=== PATIENT | female | born 1945 | race Caucasian/White ===

== ENCOUNTER → 2016-12-19 | Outpatient (CLI) | payer MEDICARE ==
--- NOTE | 2016-12-19 20:53 | US ---
EXAMINATION TYPE: US kidneys/renal and bladder DATE OF EXAM: 12/19/2016 4:10 PM COMPARISON: NONE CLINICAL HISTORY: N17.9 Acute Kidney Injury. KHLOE, pt has no other complaints at this time EXAM MEASUREMENTS: Right Kidney: 9.9 x 5.6 x 4.7 cm Left Kidney: 10.6 x 5.4 x 4.5 cm Difficult exam, large pt body habitus There is no evidence for hydronephrosis at this point in time. No nephrolithiasis is seen. No prakash s are identified. The urinary bladder is anechoic. IMPRESSION: 1. No definite acute process.
== END | disposition home or self-care (01) ==
LOC: RADUSWWP 15:49
PROVIDERS: ATTEND Internal Medicine Nephrology
DX: N17.9 Acute kidney failure, unspecified (principal)
CPT/HCPCS: 76770

== ENCOUNTER 2017-07-11 20:12 | Inpatient (IN) | payer MEDICARE ==
[2017-07-11] MEDS ORDERED: IPRATROPIUM-ALBUTEROL 3 ML NEB INHALATION STA (20:44)
[2017-07-11] MEDS ORDERED: methylPREDNISolone SOD SUCCI 125 MG/2 ML VIAL IV STA (20:44)
[2017-07-11] MEDS ORDERED: SODIUM CHLORIDE 0.9% 1,000 ML IV STA (20:44)
--- NOTE | 2017-07-11 21:49 | ED ---
General Adult HPI - General Source: patient Mode of arrival: wheelchair Limitations: no limitations <Deshawn Beach - Last Filed: 07/11/17 21:47> <Tramaine Perez - Last Filed: 07/12/17 01:18> - General Chief complaint: Altered Mental Status Stated complaint: altered mental Time Seen by Provider: 07/11/17 20:41 - History of Present Illness Initial comments: This 71-year-old white female presents with a complaint of some cough, difficulty in breathing, and wheezing. She does have a history of oxygen dependent COPD. She also noted that her memory was worse today and she felt confused at times. She denies any fevers or chills. She denies any chest pain. She is a somewhat poor historian and there is no family currently available. History is somewhat limited. No other identifiable complaints or modifying factors. There is no leg pain or swelling or history of DVT or PE. ( Deshawn Beach) - Related Data Home Medications Medication Instructions Recorded Confirmed Albuterol Nebulized [Ventolin 2.5 mg INHALATION RT-QID PRN 12/12/16 07/11/17 Nebulized] Aspirin [Adult Low Dose Aspirin EC] 81 mg PO DAILY 12/12/16 07/11/17 Atenolol [Tenormin] 100 mg PO HS 12/12/16 07/11/17 Citalopram Hydrobromide [CeleXA] 20 mg PO DAILY 12/12/16 07/11/17 Ergocalciferol (Vitamin D2) 50,000 unit PO Q30D 12/12/16 07/11/17 [Vitamin D2] Glimepiride [Amaryl] 1 mg PO AC-BRKFST 12/12/16 07/11/17 Pravastatin Sodium [Pravachol] 20 mg PO DAILY 12/12/16 07/11/17 Pregabalin [Lyrica] 50 mg PO TID 12/12/16 07/11/17 rOPINIRole HCL [Requip] 1 mg PO BID 12/12/16 07/11/17 Allopurinol [Zyloprim] 100 mg PO DAILY 07/11/17 07/11/17 Calcitriol [Rocaltrol] 0.25 mcg PO WE 07/11/17 07/11/17 Sacubitril/Valsartan [Entresto 24 1 tab PO DAILY 07/11/17 07/11/17 mg-26 mg Tablet] Victoza(Unknown Dose) 1 dose SQ DAILY 07/11/17 07/11/17 Allergies Allergy/AdvReac Type Severity Reaction Status Date / Time morphine Allergy Swelling Verified 07/11/17 21:13 Review of Systems ROS Other: All systems not noted in ROS Statement are negative. <Deshawn Beach - Last Filed: 07/11/17 21:47> ROS Other: All systems not noted in ROS Statement are negative. <Tramaine Perez - Last Filed: 07/12/17 01:18> ROS Statement: Those systems with pertinent positive or pertinent negative responses have been documented in the HPI. Past Medical History Past Medical History: Diabetes Mellitus, Hyperlipidemia, Hypertension Additional Past Medical History / Comment(s): CHF, arthritis, restless leg History of Any Multi-Drug Resistant Organisms: None Reported Past Surgical History: Heart Catheterization, Orthopedic Surgery Additional Past Surgical History / Comment(s): Lap band Past Psychological History: Anxiety, Depression Smoking Status: Former smoker Past Alcohol Use History: None Reported Past Drug Use History: None Reported <Deshawn Beach - Last Filed: 07/11/17 21:47> General Exam Limitations: no limitations <Deshawn Beach - Last Filed: 07/11/17 21:47> <Tramaine Perez - Last Filed: 07/12/17 01:18> - General Exam Comments Initial Comments: GENERAL: The patient is well nourished and well hydrated. VITAL SIGNS: Heart rate, blood pressure, respiratory rate reviewed as recorded in nurse's notes. EYES: Pupils are round and reactive. Extraocular movements are intact. No conjunctival / lid redness or swelling. ENT: No external evidence of injury, swelling, or ecchymosis. Airway is patent. Throat is clear. NECK: Nontender. No swelling or evidence of injury. No subcutaneous emphysema. Trachea is midline. No thyroid mass. HEART: Regular rate and rhythm. Good peripheral pulses. LUNGS/CHEST: Wheezing is noted bilaterally. Patient is tachypneic. No ecchymosis, subcutaneous emphysema, or tenderness. ABDOMEN: Abdomen soft without tenderness. No palpable masses or organomegaly. No peritoneal signs. No abdominal wall swelling or ecchymosis. EXTREMITIES: No extremity tenderness. Normal muscle tone and function. No thoracolumbar tenderness. NEUROLOGIC: Sensation is grossly intact. Cranial nerve exam reveals face is symmetrical, tongue is midline, speech is clear. SKIN: No abrasions or ecchymosis is noted. No induration or masses noted. PSYCHIATRIC: Alert and oriented. Appropriate behavior and judgment. (Deshawn Beach) Medical Decision Making <Deshawn Beach - Last Filed: 07/11/17 21:47> - Lab Data Result diagrams: 07/11/17 21:40 07/11/17 22:30 <Tramaine Perez - Last Filed: 07/12/17 01:18> - Medical Decision Making The patient is seen and examined. All diagnostics were reviewed. The patient had an EKG done which is show normal sinus rhythm at a rate of 65. There is no acute ST-T wave changes noted. The VT intervals 166, QRS duration is 92, and the QTc interval is 411. Further studies are pending and further care will be passed off to oncoming physician. (Deshawn Beach) - Lab Data Lab Results 07/11/17 07/11/17 07/11/17 Range/Units 21:40 21:40 21:40 WBC 11.5 H (3.8-10.6) k/uL RBC 3.20 L (3.80-5.40) m/uL Hgb 9.6 L (11.4-16.0) gm/dL Hct 29.9 L (34.0-46.0) % MCV 93.2 (80.0-100.0) fL MCH 30.1 (25.0-35.0) pg MCHC 32.3 (31.0-37.0) g/dL RDW 13.7 (11.5-15.5) % Plt Count 256 (150-450) k/uL Neutrophils % 87 % Lymphocytes % 7 % Monocytes % 4 % Eosinophils % 1 % Basophils % 0 % Neutrophils # 10.0 H (1.3-7.7) k/uL Lymphocytes # 0.8 L (1.0-4.8) k/uL Monocytes # 0.5 (0-1.0) k/uL Eosinophils # 0.1 (0-0.7) k/uL Basophils # 0.1 (0-0.2) k/uL Hypochromasia Slight PT (9.0-12.0) sec INR (<1.2) APTT (22.0-30.0) sec Sample Site ABG pH (7.35-7.45) ABG pCO2 (35-45) mmHg ABG pO2 (83-108) mmHg ABG HCO3 (21-25) mmol/L ABG Total CO2 (19-24) mmol/L ABG O2 Saturation (94-97) % ABG Base Excess mmol/L FiO2 % Sodium 133 L (137-145) mmol/L Potassium 6.6 H* (3.5-5.1) mmol/L Chloride 99 (98-107) mmol/L Carbon Dioxide 26 (22-30) mmol/L Anion Gap 8 mmol/L BUN 75 H (7-17) mg/dL Creatinine 3.24 H (0.52-1.04) mg/dL Est GFR (MDRD) Af Amer 17 (>60 ml/min/1.73 sqM) Est GFR (MDRD) Non-Af 14 (>60 ml/min/1.73 sqM) Glucose 96 (74-99) mg/dL Calcium 8.5 (8.4-10.2) mg/dL Total Bilirubin 0.3 (0.2-1.3) mg/dL AST 15 (14-36) U/L ALT 19 (9-52) U/L Alkaline Phosphatase 117 (38-126) U/L Ammonia (<30) umol/L Total Creatine Kinase 33 (30-135) U/L CK-MB (CK-2) 1.1 (0.0-2.4) ng/mL CK-MB (CK-2) Rel Index 3.3 Troponin I <0.012 (0.000-0.034) ng/mL NT-Pro-B Natriuret Pep pg/mL Total Protein 7.2 (6.3-8.2) g/dL Albumin 3.4 L (3.5-5.0) g/dL Urine Color Urine Appearance (Clear) Urine pH (5.0-8.0) Ur Specific [place] (1.001-1.035) Urine Protein (Negative) Urine Glucose (UA) (Negative) Urine Ketones (Negative) Urine Blood (Negative) Urine Nitrite (Negative) Urine Bilirubin (Negative) Urine Urobilinogen (<2.0) mg/dL Ur Leukocyte Esterase (Negative) Urine RBC (0-5) /hpf Urine WBC (0-5) /hpf Urine WBC Clumps (None) /hpf Ur Squamous Epith Cells (0-4) /hpf Ur Renal Epithelial Cell (0) /hpf Amorphous Sediment (None) /hpf Urine Bacteria (None) /hpf Hyaline Casts (0-2) /lpf Urine Mucus (None) /hpf 07/11/17 07/11/17 07/11/17 Range/Units 21:40 21:40 21:40 WBC (3.8-10.6) k/uL RBC (3.80-5.40) m/uL Hgb (11.4-16.0) gm/dL Hct (34.0-46.0) % MCV (80.0-100.0) fL MCH (25.0-35.0) pg MCHC (31.0-37.0) g/dL RDW (11.5-15.5) % Plt Count (150-450) k/uL Neutrophils % % Lymphocytes % % Monocytes % % Eosinophils % % Basophils % % Neutrophils # (1.3-7.7) k/uL Lymphocytes # (1.0-4.8) k/uL Monocytes # (0-1.0) k/uL Eosinophils # (0-0.7) k/uL Basophils # (0-0.2) k/uL Hypochromasia PT 10.8 (9.0-12.0) sec INR 1.1 (<1.2) APTT 24.4 (22.0-30.0) sec Sample Site ABG pH (7.35-7.45) ABG pCO2 (35-45) mmHg ABG pO2 (83-108) mmHg ABG HCO3 (21-25) mmol/L ABG Total CO2 (19-24) mmol/L ABG O2 Saturation (94-97) % ABG Base Excess mmol/L FiO2 % Sodium (137-145) mmol/L Potassium (3.5-5.1) mmol/L Chloride (98-107) mmol/L Carbon Dioxide (22-30) mmol/L Anion Gap mmol/L BUN (7-17) mg/dL Creatinine (0.52-1.04) mg/dL Est GFR (MDRD) Af Amer (>60 ml/min/1.73 sqM) Est GFR (MDRD) Non-Af (>60 ml/min/1.73 sqM) Glucose (74-99) mg/dL Calcium (8.4-10.2) mg/dL Total Bilirubin (0.2-1.3) mg/dL AST (14-36) U/L ALT (9-52) U/L Alkaline Phosphatase (38-126) U/L Ammonia 12 (<30) umol/L Total Creatine Kinase (30-135) U/L CK-MB (CK-2) (0.0-2.4) ng/mL CK-MB (CK-2) Rel Index Troponin I (0.000-0.034) ng/mL NT-Pro-B Natriuret Pep 62374 pg/mL Total Protein (6.3-8.2) g/dL Albumin (3.5-5.0) g/dL Urine Color Urine Appearance (Clear) Urine pH (5.0-8.0) Ur Specific [place] (1.001-1.035) Urine Protein (Negative) Urine Glucose (UA) (Negative) Urine Ketones (Negative) Urine Blood (Negative) Urine Nitrite (Negative) Urine Bilirubin (Negative) Urine Urobilinogen (<2.0) mg/dL Ur Leukocyte Esterase (Negative) Urine RBC (0-5) /hpf Urine WBC (0-5) /hpf Urine WBC Clumps (None) /hpf Ur Squamous Epith Cells (0-4) /hpf Ur Renal Epithelial Cell (0) /hpf Amorphous Sediment (None) /hpf Urine Bacteria (None) /hpf Hyaline Casts (0-2) /lpf Urine Mucus (None) /hpf 07/11/17 07/11/17 07/11/17 Range/Units 21:55 22:30 23:11 WBC (3.8-10.6) k/uL RBC (3.80-5.40) m/uL Hgb (11.4-16.0) gm/dL Hct (34.0-46.0) % MCV (80.0-100.0) fL MCH (25.0-35.0) pg MCHC (31.0-37.0) g/dL RDW (11.5-15.5) % Plt Count (150-450) k/uL Neutrophils % % Lymphocytes % % Monocytes % % Eosinophils % % Basophils % % Neutrophils # (1.3-7.7) k/uL Lymphocytes # (1.0-4.8) k/uL Monocytes # (0-1.0) k/uL Eosinophils # (0-0.7) k/uL Basophils # (0-0.2) k/uL Hypochromasia PT (9.0-12.0) sec INR (<1.2) APTT (22.0-30.0) sec Sample Site LRAD ABG pH 7.24 L (7.35-7.45) ABG pCO2 58 H (35-45) mmHg ABG pO2 87 (83-108) mmHg ABG HCO3 24 (21-25) mmol/L ABG Total CO2 26 H (19-24) mmol/L ABG O2 Saturation 95.0 (94-97) % ABG Base Excess -2.1 mmol/L FiO2 32 % Sodium (137-145) mmol/L Potassium 6.1 H (3.5-5.1) mmol/L Chloride (98-107) mmol/L Carbon Dioxide (22-30) mmol/L Anion Gap mmol/L BUN (7-17) mg/dL Creatinine (0.52-1.04) mg/dL Est GFR (MDRD) Af Amer (>60 ml/min/1.73 sqM) Est GFR (MDRD) Non-Af (>60 ml/min/1.73 sqM) Glucose (74-99) mg/dL Calcium (8.4-10.2) mg/dL Total Bilirubin (0.2-1.3) mg/dL AST (14-36) U/L ALT (9-52) U/L Alkaline Phosphatase (38-126) U/L Ammonia (<30) umol/L Total Creatine Kinase (30-135) U/L CK-MB (CK-2) (0.0-2.4) ng/mL CK-MB (CK-2) Rel Index Troponin I (0.000-0.034) ng/mL NT-Pro-B Natriuret Pep pg/mL Total Protein (6.3-8.2) g/dL Albumin (3.5-5.0) g/dL Urine Color Yellow Urine Appearance Cloudy H (Clear) Urine pH 5.5 (5.0-8.0) Ur Specific [place] 1.011 (1.001-1.035) Urine Protein 3+ H (Negative) Urine Glucose (UA) Negative (Negative) Urine Ketones Negative (Negative) Urine Blood Large H (Negative) Urine Nitrite Negative (Negative) Urine Bilirubin Negative (Negative) Urine Urobilinogen <2.0 (<2.0) mg/dL Ur Leukocyte Esterase Trace H (Negative) Urine RBC 126 H (0-5) /hpf Urine WBC 13 H (0-5) /hpf Urine WBC Clumps Rare H (None) /hpf Ur Squamous Epith Cells <1 (0-4) /hpf Ur Renal Epithelial Cell <1 (0) /hpf Amorphous Sediment Rare H (None) /hpf Urine Bacteria Rare H (None) /hpf Hyaline Casts 9 H (0-2) /lpf Urine Mucus Rare H (None) /hpf Critical Care Time <Deshawn Beach - Last Filed: 07/11/17 21:47> Total Critical Care Time: 30 <Tramaine Perez - Last Filed: 07/12/17 01:18> Critical Care Time: She is reassessed at that Time she still confused, reviewed all her labs, creatinine has gone up from 1.2-2.5 CBC is normal INR is normal pH is 7.4 bicarb is 24. No PCO to his heart troponin is unremarkable noticed her potassium is 6.6, it's reputed to 6.1, she was given some Kayexalate, dextrose 50 with insulin and some mom albuterol neb considering she 7. Failure. I considered congestive heart failure and renal failure we'll consult cardiology as well as nephrology and she be admitted to Dr. Manuels service (Tramaine Perez) Disposition <Deshawn Beach - Last Filed: 07/11/17 21:47> <Tramaine Perez - Last Filed: 07/12/17 01:18> Clinical Impression: Congestive heart failure, Altered mental status, UTI (urinary tract infection) , Acute renal failure Disposition: ADMITTED IP TO THIS HOSP Condition: Fair Referrals: Adolfo Pulido DO [Primary Care Provider] - 1-2 days
[2017-07-11 22:00] LABS: Basophils # (A) 0.1 k/uL (0-0.2); Basophils % (A) 0 %; CHCM 32.3; Eosinophils # (A) 0.1 k/uL (0-0.7); Eosinophils % (A) 1 %; HCT 29.9 % (34.0-46.0); HDW 3.26; HGB 9.6 gm/dL (11.4-16.0); Hypochromasia Slight; Luc # (Auto) 0.15; Luc % (Auto) 1; Lymphocytes # (A) 0.8 k/uL (1.0-4.8); Lymphocytes % (A) 7 %; MCH 30.1 pg (25.0-35.0); MCHC 32.3 g/dL (31.0-37.0); MCV 93.2 fL (80.0-100.0); Mean Platelet Volume 7.4; Monocytes # (A) 0.5 k/uL (0-1.0); Monocytes % (A) 4 %; Neutrophils % (A) 87 %; RDW 13.7 % (11.5-15.5); WBC 11.5 k/uL (3.8-10.6); WBC (Perox) 11.27
[2017-07-11 22:08] LABS: INR 1.1 (<1.2); Partial Thromboplastin Time 24.4 sec (22.0-30.0); Prothrombin Time 10.8 sec (9.0-12.0)
[2017-07-11 22:12] LABS: ABG Base Excess -2.1 mmol/L; ABG HCO3 24 mmol/L (21-25); ABG PCO2 58 mmHg (35-45); ABG PH 7.24 (7.35-7.45); ABG PO2 87 mmHg (83-108); ABG TCO2 26 mmol/L (19-24)
[2017-07-11 22:14] LABS: Calcium 8.5 mg/dL (8.4-10.2); Total Bilirubin 0.3 mg/dL (0.2-1.3); Total Protein 7.2 g/dL (6.3-8.2)
[2017-07-11 22:19] LABS: Potassium 6.6 mmol/L (3.5-5.1)
[2017-07-11 22:26] LABS: Creatine Kinase 33 U/L (30-135)
[2017-07-11 22:39] LABS: Creatine Kinase MB 1.1 ng/mL (0.0-2.4); Troponin I <0.012 ng/mL (0.000-0.034)
--- NOTE | 2017-07-11 22:55 | XR ---
EXAMINATION TYPE: XR chest 2V DATE OF EXAM: 07/11/2017 COMPARISON: 10/21/2014 HISTORY: Difficulty breathing TECHNIQUE: Frontal and lateral views of the chest are obtained. FINDINGS: There is blunting of costophrenic angles. There is pulmonary vascular congestion and inter stitial edema. Heart is enlarged. There are chest leads. Bony thorax shows some mild anterior wedging of mid thoracic vertebra. IMPRESSION: Old mild T7 compression fracture. There is new congestive heart failure with pleural eff usions compared to last exam.
[2017-07-11] MEDS ORDERED: FLUCONAZOLE 150 MG TAB PO STA (23:27)
[2017-07-11] MEDS ORDERED: hydrALAZINE HCL 20 MG/ML 1 ML VIAL IVP STA (23:27)
[2017-07-11 23:30] LABS: Amorphous Sediment,Urine Rare /hpf; Appearance,Urine Cloudy (Clear); Bacteria,Urine Rare /hpf; Bilirubin,Urine Negative (Negative); Glucose,Urine (UA) Negative (Negative); Ketones,Urine Negative (Negative); Leukocyte Esterase,Urine Trace (Negative); Mucus,Urine Rare /hpf; Nitrite,Urine Negative (Negative); PH, Urine 5.5 (5.0-8.0); Particle Count 4096; Protein,Urine 3+ (Negative); RBC,Urine 126 /hpf (0-5); Renal Epithelial Cells,Urine <1 /hpf (0); Specific Gravity,Urine 1.011 (1.001-1.035); Squamous Epithelial Cell,Urine <1 /hpf (0-4); UA Billing (MACRO vs. MICRO) MICRO; Urobilinogen,Urine <2.0 mg/dL (<2.0); WBC,Urine 13 /hpf (0-5)
[2017-07-12] MEDS ORDERED: SODIUM POLYSTYRENE SULFONATE 15 GM/60 ML BOTTLE PO STA ×2 (00:58→08:47)
[2017-07-12] MEDS ORDERED: DEXTROSE 50%-WATER 50 ML SYRINGE IVP STA (01:02)
[2017-07-12] MEDS ORDERED: INSULIN REGULAR 100 UNIT/ML VIAL IV ONE (01:03)
[2017-07-12] MEDS ORDERED: ALBUTEROL NEBULIZED 2.5 MG/3 ML INHALATION STA (01:04)
[2017-07-12] MEDS ORDERED: FUROSEMIDE 10 MG/ML 4 ML VIAL IV STA ×2 (01:08→12:58)
[2017-07-12] MEDS ORDERED: ONDANSETRON 4 MG/2 ML VIAL IVP PRN (01:19)
[2017-07-12] MEDS ORDERED: NALOXONE 0.4 MG/ML 1 ML VIAL IV PRN (01:19)
[2017-07-12] MEDS ORDERED: cefTRIAXone 2,000 MG in SODIUM CHLORIDE 0.9% 100 ML IVPB STA (01:26)
[2017-07-12] MEDS ORDERED: ALBUTEROL NEBULIZED 2.5 MG/3 ML INHALATION PRN (01:26)
--- NOTE | 2017-07-12 01:55 | CT ---
EXAMINATION TYPE: CT brain wo con DATE OF EXAM: 07/12/2017 COMPARISON: 02/20/2015 HISTORY: AMS CT DLP: 1098.80 mGycm Automated exposure control for dose reduction was used. FINDINGS: There is patchy hypodensity in the periventricular white matter. There is no mass effect nor midline shift. There is no sign of intracranial hemorrhage. The calvarium is intact. IMPRESSION: ATROPHY AND CHRONIC SMALL VESSEL ISCHEMIA. NO SIGNIFICANT CHANGE COMPARED TO OLD EXAM.
[2017-07-12 02:55] VITALS: BMI 40.1
[2017-07-12 07:06] LABS: Glucose,Whole Blood 286 mg/dL (75-99)
[2017-07-12 07:20] LABS: Basophils % (A) 0 %; CH 30.9; CHCM 32.7; Eosinophils % (A) 0 %; HCT 28.8 % (34.0-46.0); HDW 2.99; HGB 9.4 gm/dL (11.4-16.0); Luc # (Auto) 0.02; Luc % (Auto) 0; Lymphocytes # (A) 0.3 k/uL (1.0-4.8); Lymphocytes % (A) 2 %; MCH 30.9 pg (25.0-35.0); MCHC 32.6 g/dL (31.0-37.0); MCV 94.7 fL (80.0-100.0); Mean Platelet Volume 7.9; Monocytes # (A) 0.2 k/uL (0-1.0); Monocytes % (A) 2 %; Neutrophils # (A) 11.1 k/uL (1.3-7.7); Neutrophils % (A) 96 %; RBC 3.04 m/uL (3.80-5.40); RDW 14.7 % (11.5-15.5); WBC 11.7 k/uL (3.8-10.6); WBC (Perox) 12.38
[2017-07-12 07:28] LABS: Calcium 8.3 mg/dL (8.4-10.2)
[2017-07-12] MEDS ORDERED: GLIMEPIRIDE 1 MG TAB PO SCH (07:30)
[2017-07-12 07:43] LABS: Potassium 6.2 mmol/L (3.5-5.1)
[2017-07-12] MEDS ORDERED: ALBUTEROL NEBULIZED (CONC) 10 MG, SODIUM CHLORIDE 0.9% NEBULIZ 3 ML INHALATION STA ×2 (08:14)
[2017-07-12] MEDS: CITALOPRAM HYDROBROMIDE 20 MG TAB PO SCH (08:48)
[2017-07-12] MEDS: ASPIRIN 81 MG PO SCH (08:48)
[2017-07-12] MEDS: PRAVASTATIN SODIUM 20 MG TAB PO SCH (08:49)
[2017-07-12] MEDS ORDERED: INSULIN GLARGINE 100 UNIT/ML 10 ML VIAL SQ SCH (09:00)
[2017-07-12] MEDS ORDERED: CALCITRIOL 0.25 MCG CAP PO SCH (09:00)
[2017-07-12] MEDS ORDERED: ERGOCALCIFEROL 50,000 UNIT CAP PO SCH (09:00)
[2017-07-12] MEDS ORDERED: PREGABALIN 50 MG CAP PO SCH (09:00)
[2017-07-12 09:14] LABS: VBG PH 7.22 (7.31-7.41)
--- NOTE | 2017-07-12 09:46 | P.NPCON ---
History of Present Illness - Reason for Consult acute renal failure - History of Present Illness Reason for consultation: Acute kidney injury and hyperkalemia History of present illness: Patient is a 71-year-old female seen in renal consultation for acute kidney injury. It appears patient has chronic kidney disease stage III with baseline creatinine near 1.2. Etiology is likely to be nephrosclerosis. Her urinalysis in November 2016 was completely benign. Her renal ultrasound from November 2016 also revealed no evidence of hydronephrosis. Patient presented with dyspnea and cough. She was noted to be more confused according to the family and was brought to the hospital. She does have history of COPD and requires home oxygen. Her creatinine was elevated at 3.24 on admission and is down to 3.03 today. Her potassium is also elevated at 6.2 this morning. Was 6.6 on admission. She did receive Kayexalate along with albuterol and Lasix. She was taking and Trostel at home which is currently on hold. Her chest x-ray was suggestive of vascular congestion and interstitial edema. She has history of diastolic CHF. Denies any vomiting or diarrhea but states appetite has been low the last few days. She was also having difficulty voiding. She now has a Dockery catheter in place. No evidence of hypotension. Her blood pressures have been mostly in the range of systolic 170s to 190s. Denies use of NSAIDs at home. 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 Denies family history of renal disease. Vital signs are stable. General: The patient appeared well nourished and normally developed. HEENT: Head exam is unremarkable. Neck is without jugular venous distension. LUNGS: Lungs are clear to auscultation and percussion. Breath sounds decreased. HEART: Rate and Rhythm are regular. First and second heart sounds normal. No murmurs, rubs or gallops. ABDOMEN: Abdominal exam reveals normal bowel sounds. Non-tender and non- distended. No evidence of peritonitis. EXTREMITITES: No clubbing, cyanosis, or edema. Past Medical History Past Medical History: Diabetes Mellitus, Deep Vein Thrombosis (DVT), Hyperlipidemia, Hypertension Additional Past Medical History / Comment(s): CHF, arthritis, restless leg History of Any Multi-Drug Resistant Organisms: None Reported Past Surgical History: Heart Catheterization, Hysterectomy, Joint Replacement, Orthopedic Surgery Additional Past Surgical History / Comment(s): Lap band, Lt shoulder surgery, total left knee, Past Anesthesia/Blood Transfusion Reactions: No Reported Reaction Past Psychological History: Anxiety, Depression Smoking Status: Former smoker Past Alcohol Use History: None Reported Past Drug Use History: None Reported - Past Family History Father Family Medical History: Diabetes Mellitus Medications and Allergies Home Medications Medication Instructions Recorded Confirmed Type Albuterol Nebulized [Ventolin 2.5 mg INHALATION RT-QID PRN 12/12/16 07/11/17 History Nebulized] Aspirin [Adult Low Dose Aspirin EC] 81 mg PO DAILY 12/12/16 07/11/17 History Atenolol [Tenormin] 100 mg PO HS 12/12/16 07/11/17 History Citalopram Hydrobromide [CeleXA] 20 mg PO DAILY 12/12/16 07/11/17 History Ergocalciferol (Vitamin D2) 50,000 unit PO Q30D 12/12/16 07/11/17 History [Vitamin D2] Glimepiride [Amaryl] 1 mg PO AC-BRKFST 12/12/16 07/11/17 History Pravastatin Sodium [Pravachol] 20 mg PO DAILY 12/12/16 07/11/17 History Pregabalin [Lyrica] 50 mg PO TID 12/12/16 07/11/17 History rOPINIRole HCL [Requip] 1 mg PO BID 12/12/16 07/11/17 History Allopurinol [Zyloprim] 100 mg PO DAILY 07/11/17 07/11/17 History Calcitriol [Rocaltrol] 0.25 mcg PO WE 07/11/17 07/11/17 History Sacubitril/Valsartan [Entresto 24 1 tab PO DAILY 07/11/17 07/11/17 History mg-26 mg Tablet] Victoza(Unknown Dose) 1 dose SQ DAILY 07/11/17 07/11/17 History Allergies Allergy/AdvReac Type Severity Reaction Status Date / Time morphine Allergy Swelling Verified 07/11/17 21:13 Physical Exam Vitals: Vital Signs Temp Pulse Pulse Resp BP BP Pulse Ox 07/12/17 08:51 84 07/12/17 08:30 84 07/12/17 08:15 84 07/12/17 08:05 80 07/12/17 04:00 18 07/12/17 02:11 98.8 F 68 20 179/80 94 L 07/12/17 01:44 98.5 F 74 18 157/67 97 07/12/17 01:21 68 07/12/17 01:15 65 07/12/17 00:25 67 16 182/78 96 07/12/17 00:03 75 19 194/95 96 07/11/17 23:16 97.5 F L 69 20 203/87 95 07/11/17 22:27 66 07/11/17 22:07 67 07/11/17 21:41 67 22 198/81 98 07/11/17 20:19 98.7 F 68 20 196/76 86 L Intake and Output 07/11/17 07/12/17 07/12/17 22:59 06:59 14:59 Intake Total 300 Balance 300 Intake: Intake, IV Titration 300 Amount Sodium Chloride 0.9% 1, 300 000 ml @ 50 mls/hr IV . Q20H STA Rx#:[id number] Other: Voiding Method Indwelling Catheter Weight 95.254 kg 106 kg Results - Lab Results Most recent lab results ABG pH 7.24 (7.35-7.45) L 07/11/17 21:55 ABG pCO2 58 mmHg (35-45) H 07/11/17 21:55 ABG pO2 87 mmHg (83-108) 07/11/17 21:55 ABG HCO3 24 mmol/L (21-25) 07/11/17 21:55 ABG O2 Saturation 95.0 % (94-97) 07/11/17 21:55 Calcium 8.3 mg/dL (8.4-10.2) L 07/12/17 05:35 07/12/17 05:35 07/12/17 05:35 Assessment and Plan Plan: Assessment: #1. Acute kidney injury secondary to ATN secondary to cardiorenal syndrome. Creatinine elevated at 3.2 on admission and is down to 3.03 today. Urinalysis reveals protein and blood but can be nonspecific in the setting of acute kidney injury and she had a Dockery catheter inserted. Her urinalysis from November 2016 was completely benign. #2. Chronic kidney disease stage III secondary to nephrosclerosis with baseline creatinine near 1.2. #3. Hyperkalemia secondary to acute kidney injury and use of entresto. #4. Metabolic acidosis secondary to acute kidney injury. #5. Diabetes mellitus. #6. Anemia. Rule out iron deficiency. #7. Hypertension with chronic kidney disease. Uncontrolled. Plan: I will again medically treat the hyperkalemia with 10 units of IV regular insulin with a half an amp of D50 along with 20 mg of nebulized albuterol and 2 A of sodium bicarbonate IV push. Repeat potassium level at noon today. I will decreased rate of IV fluids to 50 mL an hour. Encouraged oral intake. Lasix 40 mg IV once today. Maintain Dockery catheter. Avoid nephrotoxic agents and hypotensive episodes. Entresto held. Check iron studies. Add hydralazine 25 mg 3 times daily. Will repeat UA once GFR returns to baseline. Follow-up urine culture. Thank you for the consultation. I will continue to follow the patient with you during her hospital stay.
[2017-07-12] MEDS: methylPREDNISolone SOD SUCCI 125 MG/2 ML VIAL IV SCH ×4 (09:47→23:20)
[2017-07-12] MEDS: SODIUM CHLORIDE 0.9% 1,000 ML IV SCH (09:48)
[2017-07-12] MEDS: AZITHROMYCIN 500 MG in SODIUM CHLORIDE 0.9% 250 ML IVPB SCH (09:55)
--- NOTE | 2017-07-12 11:00 | P.CNPUL ---
History of Present Illness Consult date: 07/12/17 Requesting physician: Carissa Manuel Reason for consult: dyspnea Chief complaint: Shortness of breath, cough, congestion History of present illness: This is a pleasant 71-year-old female patient who follows with Dr. Pulido as her primary care physician. She has a history of oxygen dependent chronic obstructive pulmonary disease, diabetes mellitus, hyperlipidemia, hypertension, congestive heart failure, arthritis, anxiety/depression. She is a former smoker. She is somewhat of a poor historian and is confused to place and time. No family members present. She is seen today in consultation on the selective care unit. Her chest x-ray revealed evidence of pulmonary vascular congestion with interstitial edema and cardiomegaly. Arterial blood gases revealed a pO2 of 87, pCO2 58 and a pH of 7.24 on 32% FiO2. An echocardiogram from 2 years ago revealed a preserved left ventricular systolic function with estimated ejection fraction 60-65%. There was global wall thickness of the right ventricle which was moderately enlarged. White count 11.7, hemoglobin 9.4 , sodium 133, potassium 6.2, bicarb 21, BUN 79 with a creatinine of 3.03. Blood glucose 258. Troponins are negative 2. ProBNP 13,200. Urine culture is pending. Ultrasound of the bladder is pending. She is currently afebrile. Hemodynamically stable. Maintaining good O2 saturations in the mid 90s on 3 L/ m per nasal cannula. Review of Systems ROS unobtainable: due to mental status Past Medical History Past Medical History: COPD, Diabetes Mellitus, Deep Vein Thrombosis (DVT), Hyperlipidemia, Hypertension Additional Past Medical History / Comment(s): CHF, arthritis, restless leg History of Any Multi-Drug Resistant Organisms: None Reported Past Surgical History: Heart Catheterization, Hysterectomy, Joint Replacement, Orthopedic Surgery Additional Past Surgical History / Comment(s): Lap band, Lt shoulder surgery, total left knee, Past Anesthesia/Blood Transfusion Reactions: No Reported Reaction Past Psychological History: Anxiety, Depression Smoking Status: Former smoker Past Alcohol Use History: None Reported Past Drug Use History: None Reported - Past Family History Father Family Medical History: Diabetes Mellitus Medications and Allergies Home Medications Medication Instructions Recorded Confirmed Type Albuterol Nebulized [Ventolin 2.5 mg INHALATION RT-QID PRN 12/12/16 07/11/17 History Nebulized] Aspirin [Adult Low Dose Aspirin EC] 81 mg PO DAILY 12/12/16 07/11/17 History Atenolol [Tenormin] 100 mg PO HS 12/12/16 07/11/17 History Citalopram Hydrobromide [CeleXA] 20 mg PO DAILY 12/12/16 07/11/17 History Ergocalciferol (Vitamin D2) 50,000 unit PO Q30D 12/12/16 07/11/17 History [Vitamin D2] Glimepiride [Amaryl] 1 mg PO AC-BRKFST 12/12/16 07/11/17 History Pravastatin Sodium [Pravachol] 20 mg PO DAILY 12/12/16 07/11/17 History Pregabalin [Lyrica] 50 mg PO TID 12/12/16 07/11/17 History rOPINIRole HCL [Requip] 1 mg PO BID 12/12/16 07/11/17 History Allopurinol [Zyloprim] 100 mg PO DAILY 07/11/17 07/11/17 History Calcitriol [Rocaltrol] 0.25 mcg PO WE 07/11/17 07/11/17 History Sacubitril/Valsartan [Entresto 24 1 tab PO DAILY 07/11/17 07/11/17 History mg-26 mg Tablet] Victoza(Unknown Dose) 1 dose SQ DAILY 07/11/17 07/11/17 History Allergies Allergy/AdvReac Type Severity Reaction Status Date / Time morphine Allergy Swelling Verified 07/11/17 21:13 Physical Exam Vitals: Vital Signs Temp Pulse Pulse Resp BP BP Pulse Ox 07/12/17 08:51 84 07/12/17 08:30 84 07/12/17 08:15 84 07/12/17 08:05 80 07/12/17 08:00 97.8 F 77 18 171/64 95 07/12/17 04:00 18 07/12/17 02:11 98.8 F 68 20 179/80 94 L 07/12/17 01:44 98.5 F 74 18 157/67 97 07/12/17 01:21 68 07/12/17 01:15 65 07/12/17 00:25 67 16 182/78 96 07/12/17 00:03 75 19 194/95 96 07/11/17 23:16 97.5 F L 69 20 203/87 95 07/11/17 22:27 66 07/11/17 22:07 67 07/11/17 21:41 67 22 198/81 98 07/11/17 20:19 98.7 F 68 20 196/76 86 L Intake and Output 07/11/17 07/12/17 07/12/17 22:59 06:59 14:59 Intake Total 300 Balance 300 Intake: Intake, IV Titration 300 Amount Sodium Chloride 0.9% 1, 300 000 ml @ 50 mls/hr IV . Q20H STA Rx#:[id number] Other: Voiding Method Indwelling Catheter Indwelling Catheter Weight 95.254 kg 106 kg GENERAL EXAM: Confused. Alert, active, comfortable in no apparent distress. HEAD: Normocephalic. EYES: Normal reaction of pupils, equal size. NOSE: Clear with pink turbinates. THROAT: No erythema or exudates. NECK: No masses, no JVD. CHEST: No chest wall deformity. LUNGS: Equal air entry with crackles in the posterior bases, end expiratory wheeze. Diminished. CVS: S1 and S2 normal with no audible murmur, regular rhythm. ABDOMEN: No hepatosplenomegaly, normal bowel sounds, no guarding or rigidity. SPINE: No scoliosis or deformity SKIN: No rashes CENTRAL NERVOUS SYSTEM: No focal deficits, tone is normal in all 4 extremities. EXTREMITIES: There is no peripheral edema. No clubbing, no cyanosis. Peripheral pulses are intact. Results - Laboratory Findings CBC and BMP: 07/12/17 05:35 07/12/17 05:35 ABG ABG pH 7.24 (7.35-7.45) L 07/11/17 21:55 ABG pCO2 58 mmHg (35-45) H 07/11/17 21:55 ABG pO2 87 mmHg (83-108) 07/11/17 21:55 ABG O2 Saturation 95.0 % (94-97) 07/11/17 21:55 PT/INR, D-dimer PT 10.8 sec (9.0-12.0) 07/11/17 21:40 INR 1.1 (<1.2) 07/11/17 21:40 Abnormal lab findings: Abnormal Labs 07/11/17 07/11/17 07/11/17 21:40 21:40 21:55 WBC 11.5 H RBC 3.20 L Hgb 9.6 L Hct 29.9 L Neutrophils # 10.0 H Lymphocytes # 0.8 L ABG pH 7.24 L ABG pCO2 58 H ABG Total CO2 26 H VBG pH VBG pCO2 VBG HCO3 Sodium 133 L Potassium 6.6 H* Carbon Dioxide BUN 75 H Creatinine 3.24 H Glucose POC Glucose (mg/dL) Calcium Albumin 3.4 L Urine Appearance Urine Protein Urine Blood Ur Leukocyte Esterase Urine RBC Urine WBC Urine WBC Clumps Amorphous Sediment Urine Bacteria Hyaline Casts Urine Mucus 07/11/17 07/11/17 07/12/17 22:30 23:11 05:35 WBC 11.7 H RBC 3.04 L Hgb 9.4 L Hct 28.8 L Neutrophils # 11.1 H Lymphocytes # 0.3 L ABG pH ABG pCO2 ABG Total CO2 VBG pH VBG pCO2 VBG HCO3 Sodium Potassium 6.1 H Carbon Dioxide BUN Creatinine Glucose POC Glucose (mg/dL) Calcium Albumin Urine Appearance Cloudy H Urine Protein 3+ H Urine Blood Large H Ur Leukocyte Esterase Trace H Urine RBC 126 H Urine WBC 13 H Urine WBC Clumps Rare H Amorphous Sediment Rare H Urine Bacteria Rare H Hyaline Casts 9 H Urine Mucus Rare H 07/12/17 07/12/17 07/12/17 05:35 07:04 08:52 WBC RBC Hgb Hct Neutrophils # Lymphocytes # ABG pH ABG pCO2 ABG Total CO2 VBG pH 7.22 L VBG pCO2 59 H VBG HCO3 23 L Sodium 133 L Potassium 6.2 H* Carbon Dioxide 21 L BUN 79 H Creatinine 3.03 H Glucose 258 H POC Glucose (mg/dL) 286 H Calcium 8.3 L Albumin Urine Appearance Urine Protein Urine Blood Ur Leukocyte Esterase Urine RBC Urine WBC Urine WBC Clumps Amorphous Sediment Urine Bacteria Hyaline Casts Urine Mucus - Diagnostic Findings Chest x-ray: image reviewed Assessment and Plan Assessment: Impression: #1 Acute exacerbation of oxygen dependent chronic obstructive pulmonary disease. #2 Acute exacerbation of chronic diastolic congestive heart failure. #3 Acute on chronic hypoxic respiratory failure secondary to above. #4 Acute on chronic hypercapnic respiratory failure secondary to above. #5 Acute renal failure secondary to acute tubular necrosis from suspected cardiorenal syndrome.. #6 Hyperkalemia the secondary to acute renal failure. #7 Anemia of unclear etiology. #8 Diabetes mellitus with steroid-induced hyperglycemia. #9 Urinary tract infection secondary to suspected gram-negative bacilli. Culture pending. #10 Altered mental status, unclear baseline. Suspect metabolic encephalopathy. #11 Hyperlipidemia. #12 Hypertension. Plan: The patient was seen and evaluated by Dr. Wing. Her chest x-ray and labs were reviewed. We will continue her treatment for COPD exacerbation including IV Solu-Medrol, DuoNeb inhalations, Pulmicort inhalations, antibiotics in the form of ceftriaxone and azithromycin. We will increase her activity as tolerated. Nephrology and cardiology are on the case as well. We'll continue to follow. I, the cosigning physician, have performed a history and physical examination on the patient. Lung sounds have bilateral end expiratory wheeze, crackles in the posterior bases. Diminished. Maintaining O2 saturations in the 90s on 3 L/ m per nasal cannula. I have discussed the assessment and plan of care with my nurse practitioner, Beverly Rowell. I attest the above documented note as dictated by her. Time with Patient: Greater than 30
--- NOTE | 2017-07-12 11:08 | US ---
EXAMINATION TYPE: US kidneys/renal and bladder DATE OF EXAM: 07/12/2017 COMPARISON: NONE CLINICAL HISTORY: KHLOE . Difficult/limited exam due to patient body habitus EXAM MEASUREMENTS: Right Kidney: 10.6 x 5.4 x 4.6 cm Left Kidney: 11.4 x 5.6 x 5.7 cm Right Kidney: No hydronephrosis or masses seen Left Kidney: No hydronephrosis or masses seen Bladder: Not distended, patient has mills There is no gross evidence for hydronephrosis at this point in time. No nephrolithiasis is seen. IMPRESSION: Limited exam secondary to patient body habitus with no gross evidence of hydronephrosis or nephrolith iasis.
[2017-07-12] MEDS: IPRATROPIUM-ALBUTEROL 3 ML NEB INHALATION SCH ×3 (11:48→19:32)
--- NOTE | 2017-07-12 11:52 | P.HPIM ---
History of Present Illness H&P Date: 07/12/17 Chief Complaint: Shortness of breath this is a 71-year-old female patient of Dr. Pulido with PMH of HTN, HLD, DM type 2, CKD3, COPD oxygen dependent, diastolic heart disease, arthritis, restless leg syndrome presents with worsening shortness of breath that started 1 week ago. Patient states that her breathing has worsened and is more when she lays flat. Patient feels extremely weak, lethargic and family has noted that patient has been confused for the past day. Patient endorses dysuria, decreased urination, burning micturition for the past few weeks. She has not discussed with this with her primary care physician and was waiting for it to get better. Patient denies any palpitation, chest pain, paroxysmal nocturnal dyspnea, chills or fever. She does endorses cough with sputum production. ED evaluation suggested vascular congestion and interstitial edema on patient's chest x-ray. ProBNP was 1300. Creatinine was elevated to 3.24 which improved to 3.0 3 in the morning. Patient for stat potassium was also elevated to 6.2. I explained along with albuterol, insulin and dextrose was given. Since patient had urinary retention a Dockery catheter was placed. The venous blood gas suggestive of a pH of 7.24 with CO2 58 and a bicarb of 23. Repeat venous blood gas this morning suggestive of. 7.2 with a CO2 59. nephrology and cardiology was was consulted. Patient also received a dose of Lasix for management of cardiorenal syndrome as patient has diastolic heart failure. Patient's condition is guarded and would require inpatient management. Review of Systems Constitutional: Reports lethargy, Reports malaise, Denies chills, Denies fever, Denies night sweats, Denies poor appetite, Denies weight gain, Denies weight loss Eyes: denies blurred vision, denies bulging eye, denies diplopia, denies dry eye , denies pain Ears: deny: decreased hearing Ears, nose, mouth and throat: Denies dysphagia, Denies headache, Denies hoarseness, Denies post-nasal drip, Denies swelling in throat Cardiovascular: Reports dyspnea on exertion, Reports high blood pressure, Reports orthopnea, Reports shortness of breath, Denies chest pain, Denies edema , Denies irregular heart beat, Denies leg edema, Denies palpitations, Denies paroxysmal nocturnal dyspnea, Denies syncope Respiratory: Reports congestion, Reports cough, Reports cough with sputum, Reports dyspnea, Reports home oxygen, Reports sleep apnea, Reports wheezing, Denies hemoptysis Gastrointestinal: Denies abdominal pain, Denies belching, Denies bloating, Denies BRBPR, Denies change in bowel habits, Denies heartburn, Denies hematemesis, Denies hematochezia, Denies nausea, Denies vomiting Musculoskeletal: Reports limitation of motion, Denies arm numbness/tingling, Denies leg numbness/tingling, Denies low back pain, Denies morning stiffness, Denies muscle cramps, Denies muscle weakness Musculoskeletal: absent: elbow pain, hand stiffness, hip swelling, knee swelling Integumentary: Denies lesions, Denies rash, Denies sores Neurological: Reports change in mentation, Reports confusion, Denies aphasia, Denies ataxia, Denies double vision, Denies gait dysfunction, Denies numbness, Denies paralysis, Denies seizures Endocrine: Reports high blood sugars Past Medical History Past Medical History: COPD, Diabetes Mellitus, Deep Vein Thrombosis (DVT), Hyperlipidemia, Hypertension Additional Past Medical History / Comment(s): CHF, arthritis, restless leg History of Any Multi-Drug Resistant Organisms: None Reported Past Surgical History: Heart Catheterization, Hysterectomy, Joint Replacement, Orthopedic Surgery Additional Past Surgical History / Comment(s): Lap band, Lt shoulder surgery, total left knee, Past Anesthesia/Blood Transfusion Reactions: No Reported Reaction Past Psychological History: Anxiety, Depression Smoking Status: Former smoker (patient stopped smoking 9 months ago when she was diagnosed with COPD, smoked 1 pack a day for 40 years) Past Alcohol Use History: None Reported Past Drug Use History: None Reported Additional History: Patient lives with her , has no home care requirement usually uses a cane to walk around - Past Family History Father Family Medical History: Diabetes Mellitus Additional Family Medical History / Comment(s): Mother of old age, patient had 5 siblings, 1 of colon cancer. One brother had lung transplant secondary to COPD. Patient has 3 sisters all living without any medical problems. She has 2 kids with no medical problems Medications and Allergies Home Medications Medication Instructions Recorded Confirmed Type Albuterol Nebulized [Ventolin 2.5 mg INHALATION RT-QID PRN 12/12/16 07/11/17 History Nebulized] Aspirin [Adult Low Dose Aspirin EC] 81 mg PO DAILY 12/12/16 07/11/17 History Atenolol [Tenormin] 100 mg PO HS 12/12/16 07/11/17 History Citalopram Hydrobromide [CeleXA] 20 mg PO DAILY 12/12/16 07/11/17 History Ergocalciferol (Vitamin D2) 50,000 unit PO Q30D 12/12/16 07/11/17 History [Vitamin D2] Glimepiride [Amaryl] 1 mg PO AC-BRKFST 12/12/16 07/11/17 History Pravastatin Sodium [Pravachol] 20 mg PO DAILY 12/12/16 07/11/17 History Pregabalin [Lyrica] 50 mg PO TID 12/12/16 07/11/17 History rOPINIRole HCL [Requip] 1 mg PO BID 12/12/16 07/11/17 History Allopurinol [Zyloprim] 100 mg PO DAILY 07/11/17 07/11/17 History Calcitriol [Rocaltrol] 0.25 mcg PO WE 07/11/17 07/11/17 History Sacubitril/Valsartan [Entresto 24 1 tab PO DAILY 07/11/17 07/11/17 History mg-26 mg Tablet] Victoza(Unknown Dose) 1 dose SQ DAILY 07/11/17 07/11/17 History Allergies Allergy/AdvReac Type Severity Reaction Status Date / Time morphine Allergy Swelling Verified 07/11/17 21:13 Physical Exam Vitals: Vital Signs Temp Pulse Pulse Resp BP BP Pulse Ox 07/12/17 08:51 84 07/12/17 08:30 84 07/12/17 08:15 84 07/12/17 08:05 80 07/12/17 04:00 18 07/12/17 02:11 98.8 F 68 20 179/80 94 L 07/12/17 01:44 98.5 F 74 18 157/67 97 07/12/17 01:21 68 07/12/17 01:15 65 07/12/17 00:25 67 16 182/78 96 07/12/17 00:03 75 19 194/95 96 07/11/17 23:16 97.5 F L 69 20 203/87 95 07/11/17 22:27 66 07/11/17 22:07 67 07/11/17 21:41 67 22 198/81 98 07/11/17 20:19 98.7 F 68 20 196/76 86 L Intake and Output 07/11/17 07/12/17 07/12/17 22:59 06:59 14:59 Intake Total 300 Balance 300 Intake: Intake, IV Titration 300 Amount Sodium Chloride 0.9% 1, 300 000 ml @ 50 mls/hr IV . Q20H STA Rx#:[id number] Other: Voiding Method Indwelling Catheter Weight 95.254 kg 106 kg - Constitutional General appearance: obese, severe distress - EENT Eyes: EOMI, PERRLA, no photophobia Ears: bilateral: normal - Neck Neck: no lymphadenopathy, normal ROM, no rigidity Carotids: bilateral: upstroke normal Thyroid: bilateral: normal size - Respiratory Respiratory: bilateral: diminished, dullness, rales, rhonchi, wheezing, prolonged expiration - Cardiovascular Rhythm: regular Heart sounds: normal: S1, S2 Abnormal Heart Sounds: systolic murmur systolic murmur (1) Type: holo Location: left sternal border Grade: III/ foot Peripheral Edema: absent: None - Gastrointestinal General gastrointestinal: normal bowel sounds, no organomegaly, soft, no tenderness - Neurologic Neurologic: CNII-XII intact - Musculoskeletal Musculoskeletal: generalized weakness, strength equal bilaterally - Psychiatric Psychiatric: A&O x's 3 Results CBC & Chem 7: 07/12/17 05:35 07/12/17 05:35 Labs: Abnormal Lab Results - Last 24 Hours (Table) 07/11/17 07/11/17 07/11/17 Range/Units 21:40 21:40 21:55 WBC 11.5 H (3.8-10.6) k/uL RBC 3.20 L (3.80-5.40) m/uL Hgb 9.6 L (11.4-16.0) gm/dL Hct 29.9 L (34.0-46.0) % Neutrophils # 10.0 H (1.3-7.7) k/uL Lymphocytes # 0.8 L (1.0-4.8) k/uL ABG pH 7.24 L (7.35-7.45) ABG pCO2 58 H (35-45) mmHg ABG Total CO2 26 H (19-24) mmol/L Sodium 133 L (137-145) mmol/L Potassium 6.6 H* (3.5-5.1) mmol/L Carbon Dioxide (22-30) mmol/L BUN 75 H (7-17) mg/dL Creatinine 3.24 H (0.52-1.04) mg/dL Glucose (74-99) mg/dL POC Glucose (mg/dL) (75-99) mg/dL Calcium (8.4-10.2) mg/dL Albumin 3.4 L (3.5-5.0) g/dL Urine Appearance (Clear) Urine Protein (Negative) Urine Blood (Negative) Ur Leukocyte Esterase (Negative) Urine RBC (0-5) /hpf Urine WBC (0-5) /hpf Urine WBC Clumps (None) /hpf Amorphous Sediment (None) /hpf Urine Bacteria (None) /hpf Hyaline Casts (0-2) /lpf Urine Mucus (None) /hpf 07/11/17 07/11/17 07/12/17 Range/Units 22:30 23:11 05:35 WBC 11.7 H (3.8-10.6) k/uL RBC 3.04 L (3.80-5.40) m/uL Hgb 9.4 L (11.4-16.0) gm/dL Hct 28.8 L (34.0-46.0) % Neutrophils # 11.1 H (1.3-7.7) k/uL Lymphocytes # 0.3 L (1.0-4.8) k/uL ABG pH (7.35-7.45) ABG pCO2 (35-45) mmHg ABG Total CO2 (19-24) mmol/L Sodium (137-145) mmol/L Potassium 6.1 H (3.5-5.1) mmol/L Carbon Dioxide (22-30) mmol/L BUN (7-17) mg/dL Creatinine (0.52-1.04) mg/dL Glucose (74-99) mg/dL POC Glucose (mg/dL) (75-99) mg/dL Calcium (8.4-10.2) mg/dL Albumin (3.5-5.0) g/dL Urine Appearance Cloudy H (Clear) Urine Protein 3+ H (Negative) Urine Blood Large H (Negative) Ur Leukocyte Esterase Trace H (Negative) Urine RBC 126 H (0-5) /hpf Urine WBC 13 H (0-5) /hpf Urine WBC Clumps Rare H (None) /hpf Amorphous Sediment Rare H (None) /hpf Urine Bacteria Rare H (None) /hpf Hyaline Casts 9 H (0-2) /lpf Urine Mucus Rare H (None) /hpf 07/12/17 07/12/17 Range/Units 05:35 07:04 WBC (3.8-10.6) k/uL RBC (3.80-5.40) m/uL Hgb (11.4-16.0) gm/dL Hct (34.0-46.0) % Neutrophils # (1.3-7.7) k/uL Lymphocytes # (1.0-4.8) k/uL ABG pH (7.35-7.45) ABG pCO2 (35-45) mmHg ABG Total CO2 (19-24) mmol/L Sodium 133 L (137-145) mmol/L Potassium 6.2 H* (3.5-5.1) mmol/L Carbon Dioxide 21 L (22-30) mmol/L BUN 79 H (7-17) mg/dL Creatinine 3.03 H (0.52-1.04) mg/dL Glucose 258 H (74-99) mg/dL POC Glucose (mg/dL) 286 H (75-99) mg/dL Calcium 8.3 L (8.4-10.2) mg/dL Albumin (3.5-5.0) g/dL Urine Appearance (Clear) Urine Protein (Negative) Urine Blood (Negative) Ur Leukocyte Esterase (Negative) Urine RBC (0-5) /hpf Urine WBC (0-5) /hpf Urine WBC Clumps (None) /hpf Amorphous Sediment (None) /hpf Urine Bacteria (None) /hpf Hyaline Casts (0-2) /lpf Urine Mucus (None) /hpf Thrombosis Risk Factor Assmnt - DVT/VTE Prophylaxis DVT/VTE Prophylaxis: Pharmacologic Prophylaxis ordered, Mechanical Prophylaxis ordered - Choose All That Apply Any of the Below Risk Factors Present?: Yes Each Factor Represents 1 point: Abnormal pulmonary function (COPD), Heart failure (<1month), Obesity (BMI >25) Other Risk Factors: Yes Each Risk Factor Represents 2 Points: Age 61-74 years Each Risk Factor Represents 3 Points: History of DVT/PE Thrombosis Risk Factor Assessment Total Risk Factor Score: 8 Thrombosis Risk Factor Assessment Level: High Risk Assessment and Plan Plan: #1 acute on chronic hypoxic hypercapnic respiratory failure likely secondary to COPD exacerbation and acute bronchitis with pulmonary edema secondary to CHF exacerbation, patient also underlying sleep apnea -Continue IV sediment was 60 every 6 hours, Pulmicort twice daily, duo nebs every 6 hours, incentive spirometry, respiratory cultures - Oxygen as needed - Patient does have a mixed respiratory acidosis and metabolic acidosis, if continues to require increased amount of oxygen patient should be switched back to BiPAP - Continue ceftriaxone and azithromycin #2 metabolic acidosis with respiratory acidosis - Metabolic acidosis likely secondary to renal insufficiency with acute on chronic respiratory acidosis from CO2 retention from COPD and sleep apnea - Status post 2 g of sodium bicarb IV push #3 acute kidney injury on chronic kidney disease click secondary to ATN from cardiorenal syndrome - Creatinine today 3.04, increased from baseline of 1.2 - Retroperitoneal ultrasound negative for any hydronephrosis - Urine analysis suggestive of hyaline cast - Continue fluids at 5 50 mL per hour and monitor input and output - Nephrology consult placed - Discussed post-Lasix 40 mg, continue to watch BMP for creatinine #4 acute on chronic diastolic heart failure - Last echo done in 2014 suggestive of diastolic heart failure with elevation of pressure of the right ventricle - Repeat echo pending - Status post Lasix - Troponin 1 is negative, EKG is negative for any ST or T-wave changes - Cardiology consulted for recommendation of further management as patient has cardiorenal syndrome based on presentation but is intravascularly dry #5 hyperkalemia - Status post insulin 6 units, dextrose, abdomen treatment 2 - Status post kayexalate 2 - Repeat electrolytes at 2 PM - Further treatment based on potassium levels - EKG negative for any peak T waves - Repeat EKG #6 hypertension- discontinued and atenolol, started patient on metoprolol 25 mg daily and hydralazine 25 mg 3 times a day. hold entresto #7 hyperlipidemia continue pravastatin 20 mg by mouth daily #8 diabetes - out of patient on Lantus 10 units daily along with lispro sliding scale, holf victoza and glimipriride -Hemoglobin A1c pending #96 restless leg syndrome continue Requip 1 mg twice daily #10 depression continue citalopram 20 mg by mouth daily #11 DVT prophylaxis continue heparin 5000 every 12 along with IPC #12 GI prophylaxis continue Pepcid 20 mg po twice a day #13 CODE STATUS full code Patient would require 2 nights in the hospital as an inpatient
[2017-07-12 12:14] LABS: Glucose,Whole Blood 425 mg/dL (75-99)
[2017-07-12] MEDS ORDERED: INSULIN LISPRO (humaLOG) 300 UNIT/3 ML VIAL SQ ONE (12:17)
[2017-07-12 12:21] LABS: Hemoglobin A1C 6.3 % (4.2-6.1)
--- NOTE | 2017-07-12 12:23 | ECHOF ---
Referral Reason:new pulmonary edema MEASUREMENTS -------- HEIGHT: 162.6 cm WEIGHT: 105.7 kg BP: 157/67 RVIDd: 3.6 cm (< 3.3) IVSd: 1.4 cm (0.6 - 1.1) LVIDd: 4.4 cm (3.9 - 5.3) LVPWd: 1.2 cm (0.6 - 1.1) IVSs: 1.8 cm LVIDs: 3.5 cm LVPWs: 1.7 cm LA Diam: 3.7 cm (2.7 - 3.8) LAESV Index (A-L): 39.56 ml/m Ao Diam: 3.4 cm (2.0 - 3.7) AV Cusp: 1.6 cm (1.5 - 2.6) MV EXCURSION: 16.312 mm (> 18.000) MV EF SLOPE: 77 mm/s (70 - 150) EPSS: 0.9 cm MV E Andres: 1.36 m/s MV DecT: 144 ms MV A Andres: 1.23 m/s MV E/A Ratio: 1.10 AV maxP.61 mmHg AV meanP.08 mmHg RAP: 5.00 mmHg RVSP: 17.53 mmHg FINDINGS -------- Sinus rhythm. This was a technically adequate study. The left ventricular size is normal. There is moderate concentric left ventricular hypertrophy. Overall left ventricular systolic function is normal with, an EF between 60 - 65 %. The right ventricle is mildly enlarged. The global wall thickness of the right ventricle is mildly enlarged. LA is moderately dilated 34-39 ml/m2 The right atrium is normal in size. There is mild aortic valve sclerosis. Trace amount of aortic regurgitation. There is mild aortic stenosis present. Peak/mean gradient across the Aortic Valve is 27.61mmHg / 12.08mmHg. Mild mitral annular calcification present. There is trace to mild mitral regurgitation. Trace tricuspid regurgitation present. Right ventricular systolic pressure is normal at < 35 mmHg. Trace/mild (physiologic) pulmonic regurgitation. The aortic root size is normal. The inferior vena cava is mildly dilated. There is no pericardial effusion. CONCLUSIONS -------- 1. Sinus rhythm. 2. There is mild aortic valve sclerosis. 3. Trace amount of aortic regurgitation. 4. There is mild aortic stenosis present. 5. Peak/mean gradient across the Aortic Valve is 27.61mmHg / 12.08mmHg. 6. Mild mitral annular calcification present. 7. There is trace to mild mitral regurgitation. 8. Trace tricuspid regurgitation present. 9. Right ventricular systolic pressure is normal at < 35 mmHg. 10. Trace/mild (physiologic) pulmonic regurgitation. 11. The aortic root size is normal. 12. This was a technically adequate study. 13. The inferior vena cava is mildly dilated. 14. There is no pericardial effusion. 15. The left ventricular size is normal. 16. There is moderate concentric left ventricular hypertrophy. 17. Overall left ventricular systolic function is normal with, an EF between 60 - 65 %. 18. The right ventricle is mildly enlarged. 19. The global wall thickness of the right ventricle is mildly enlarged. 20. LA is moderately dilated 34-39 ml/m2 21. The right atrium is normal in size. HEAD CONTROL CLERK: Guillermina Shankar RDCS
[2017-07-12] MEDS ORDERED: INSULIN LISPRO (humaLOG) 300 UNIT/3 ML VIAL SQ SCH (12:30)
[2017-07-12] MEDS: METOPROLOL TARTRATE 25 MG TAB PO SCH ×2 (12:34→21:06)
[2017-07-12] MEDS: FAMOTIDINE 20 MG TAB PO SCH (12:34)
[2017-07-12 12:35] LABS: Calcium 8.2 mg/dL (8.4-10.2); Potassium 5.5 mmol/L (3.5-5.1)
--- NOTE | 2017-07-12 12:48 | P.PN ---
Subjective Progress Note Date: 07/12/17 Principal diagnosis: This is a 71-year-old female who sees Dr. Franklin in the office. She used to be a patient of Dr. Rodrigez. She has a known history of COPD, quit smoking in September of this year, diabetes, hypertension, hyperlipidemia, peripheral vascular disease, she had an echocardiogram with Doppler study performed in the office in September of this year which revealed a normal ejection fraction with moderate to severe pulmonary hypertension and mild to moderate mitral regurgitation. Patient also has history of prior smoking. Patient presents to the hospital with symptoms of progressively worsening shortness of breath. She also states that she had a cough at home which was nonproductive. X-ray on admission revealed new congestive heart failure with pleural effusions. EKG shows normal sinus rhythm with no acute changes. CAT scan of the brain reveals atrophy and chronic small vessel ischemia. A repeat echocardiogram with Doppler study was performed here which revealed an ejection fraction of 60-65%. Blood pressure on arrival here 196/76, heart rate in the 60s, 86% on 3 L of oxygen. At pressure this morning 170/60 with a heart rate in the 70s. White blood cell count 11.7, hemoglobin 9.4, platelet count 223. PH 7.2, pCO2 58, CO2 26. Sodium 133, potassium 6.2, BUN 79 , creatinine 3.03. Blood glucose on arrival 425. Troponins were negative 2, BNP level 13,200. Patient was given a one-time dose of IV Lasix. She was also initiated on IV steroids and IV antibiotics. Objective - Vital Signs Vital signs: Vital Signs Temp 96.8 F L 07/12/17 11:55 Pulse 84 07/12/17 12:05 Resp 18 07/12/17 11:55 BP 156/73 07/12/17 11:55 Pulse Ox 96 07/12/17 11:55 Intake & Output 07/11/17 07/12/17 07/12/17 18:59 06:59 18:59 Intake Total 300 450 Output Total 625 Balance 300 -175 Weight 106 kg Intake: Intake, IV Titration 300 450 Amount Azithromycin 500 mg In 250 Sodium Chloride 0.9% 250 ml @ 125 mls/hr IVPB DAILY DEEJAY Rx#:[id number] Sodium Chloride 0.9% 1, 200 000 ml @ 50 mls/hr IV . Q20H DEEJAY Rx#:[id number] Sodium Chloride 0.9% 1, 300 000 ml @ 75 mls/hr IV . [id number] STA Rx#:[id number] Output: Urine 625 Other: Voiding Method Indwelling Catheter Indwelling Catheter - Labs CBC & Chem 7: 07/12/17 05:35 07/12/17 05:35 Labs: Abnormal Lab Results - Last 24 Hours (Table) 07/11/17 07/11/17 07/11/17 Range/Units 21:40 21:40 21:55 WBC 11.5 H (3.8-10.6) k/uL RBC 3.20 L (3.80-5.40) m/uL Hgb 9.6 L (11.4-16.0) gm/dL Hct 29.9 L (34.0-46.0) % Neutrophils # 10.0 H (1.3-7.7) k/uL Lymphocytes # 0.8 L (1.0-4.8) k/uL ABG pH 7.24 L (7.35-7.45) ABG pCO2 58 H (35-45) mmHg ABG Total CO2 26 H (19-24) mmol/L VBG pH (7.31-7.41) VBG pCO2 (37-51) mmHg VBG HCO3 (24-28) mmol/L Sodium 133 L (137-145) mmol/L Potassium 6.6 H* (3.5-5.1) mmol/L Carbon Dioxide (22-30) mmol/L BUN 75 H (7-17) mg/dL Creatinine 3.24 H (0.52-1.04) mg/dL Glucose (74-99) mg/dL POC Glucose (mg/dL) (75-99) mg/dL Calcium (8.4-10.2) mg/dL Albumin 3.4 L (3.5-5.0) g/dL Urine Appearance (Clear) Urine Protein (Negative) Urine Blood (Negative) Ur Leukocyte Esterase (Negative) Urine RBC (0-5) /hpf Urine WBC (0-5) /hpf Urine WBC Clumps (None) /hpf Amorphous Sediment (None) /hpf Urine Bacteria (None) /hpf Hyaline Casts (0-2) /lpf Urine Mucus (None) /hpf 07/11/17 07/11/1717 Range/Units 22:30 23:11 05:35 WBC 11.7 H (3.8-10.6) k/uL RBC 3.04 L (3.80-5.40) m/uL Hgb 9.4 L (11.4-16.0) gm/dL Hct 28.8 L (34.0-46.0) % Neutrophils # 11.1 H (1.3-7.7) k/uL Lymphocytes # 0.3 L (1.0-4.8) k/uL ABG pH (7.35-7.45) ABG pCO2 (35-45) mmHg ABG Total CO2 (19-24) mmol/L VBG pH (7.31-7.41) VBG pCO2 (37-51) mmHg VBG HCO3 (24-28) mmol/L Sodium (137-145) mmol/L Potassium 6.1 H (3.5-5.1) mmol/L Carbon Dioxide (22-30) mmol/L BUN (7-17) mg/dL Creatinine (0.52-1.04) mg/dL Glucose (74-99) mg/dL POC Glucose (mg/dL) (75-99) mg/dL Calcium (8.4-10.2) mg/dL Albumin (3.5-5.0) g/dL Urine Appearance Cloudy H (Clear) Urine Protein 3+ H (Negative) Urine Blood Large H (Negative) Ur Leukocyte Esterase Trace H (Negative) Urine RBC 126 H (0-5) /hpf Urine WBC 13 H (0-5) /hpf Urine WBC Clumps Rare H (None) /hpf Amorphous Sediment Rare H (None) /hpf Urine Bacteria Rare H (None) /hpf Hyaline Casts 9 H (0-2) /lpf Urine Mucus Rare H (None) /hpf 07/12/17 07/12/17 07/12/17 Range/Units 05:35 07:04 08:52 WBC (3.8-10.6) k/uL RBC (3.80-5.40) m/uL Hgb (11.4-16.0) gm/dL Hct (34.0-46.0) % Neutrophils # (1.3-7.7) k/uL Lymphocytes # (1.0-4.8) k/uL ABG pH (7.35-7.45) ABG pCO2 (35-45) mmHg ABG Total CO2 (19-24) mmol/L VBG pH 7.22 L (7.31-7.41) VBG pCO2 59 H (37-51) mmHg VBG HCO3 23 L (24-28) mmol/L Sodium 133 L (137-145) mmol/L Potassium 6.2 H* (3.5-5.1) mmol/L Carbon Dioxide 21 L (22-30) mmol/L BUN 79 H (7-17) mg/dL Creatinine 3.03 H (0.52-1.04) mg/dL Glucose 258 H (74-99) mg/dL POC Glucose (mg/dL) 286 H (75-99) mg/dL Calcium 8.3 L (8.4-10.2) mg/dL Albumin (3.5-5.0) g/dL Urine Appearance (Clear) Urine Protein (Negative) Urine Blood (Negative) Ur Leukocyte Esterase (Negative) Urine RBC (0-5) /hpf Urine WBC (0-5) /hpf Urine WBC Clumps (None) /hpf Amorphous Sediment (None) /hpf Urine Bacteria (None) /hpf Hyaline Casts (0-2) /lpf Urine Mucus (None) /hpf 07/12/17 Range/Units 11:43 WBC (3.8-10.6) k/uL RBC (3.80-5.40) m/uL Hgb (11.4-16.0) gm/dL Hct (34.0-46.0) % Neutrophils # (1.3-7.7) k/uL Lymphocytes # (1.0-4.8) k/uL ABG pH (7.35-7.45) ABG pCO2 (35-45) mmHg ABG Total CO2 (19-24) mmol/L VBG pH (7.31-7.41) VBG pCO2 (37-51) mmHg VBG HCO3 (24-28) mmol/L Sodium (137-145) mmol/L Potassium (3.5-5.1) mmol/L Carbon Dioxide (22-30) mmol/L BUN (7-17) mg/dL Creatinine (0.52-1.04) mg/dL Glucose (74-99) mg/dL POC Glucose (mg/dL) 425 H (75-99) mg/dL Calcium (8.4-10.2) mg/dL Albumin (3.5-5.0) g/dL Urine Appearance (Clear) Urine Protein (Negative) Urine Blood (Negative) Ur Leukocyte Esterase (Negative) Urine RBC (0-5) /hpf Urine WBC (0-5) /hpf Urine WBC Clumps (None) /hpf Amorphous Sediment (None) /hpf Urine Bacteria (None) /hpf Hyaline Casts (0-2) /lpf Urine Mucus (None) /hpf Microbiology - Last 24 Hours (Table) 07/12/17 06:45 Urine Culture - Preliminary Urine,Catheterized
--- NOTE | 2017-07-12 13:06 | P.CRDCN ---
History of Present Illness Consult date: 07/12/17 Requesting physician: Carissa Manuel Consult reason: congestive heart failure Chief complaint: Shortness of breath History of present illness: This is a 71-year-old female who sees Dr. Franklin in the office. She used to be a patient of Dr. Rodrigez. She has a known history of COPD, quit smoking in September of this year, diabetes, hypertension, hyperlipidemia, peripheral vascular disease, she had an echocardiogram with Doppler study performed in the office in September of this year which revealed a normal ejection fraction with moderate to severe pulmonary hypertension and mild to moderate mitral regurgitation. Patient also has history of prior smoking. Patient presents to the hospital with symptoms of progressively worsening shortness of breath. She also states that she had a cough at home which was nonproductive. X-ray on admission revealed new congestive heart failure with pleural effusions. EKG shows normal sinus rhythm with no acute changes. CAT scan of the brain reveals atrophy and chronic small vessel ischemia. A repeat echocardiogram with Doppler study was performed here which revealed an ejection fraction of 60-65%. Blood pressure on arrival here 196/76, heart rate in the 60s, 86% on 3 L of oxygen. At pressure this morning 170/60 with a heart rate in the 70s. White blood cell count 11.7, hemoglobin 9.4, platelet count 223. PH 7.2, pCO2 58, CO2 26. Sodium 133, potassium 6.2, BUN 79 , creatinine 3.03. Blood glucose on arrival 425. Troponins were negative 2, BNP level 13,200. Patient was given a one-time dose of IV Lasix. She was also initiated on IV steroids and IV antibiotics. Past Medical History Past Medical History: COPD, Diabetes Mellitus, Deep Vein Thrombosis (DVT), Hyperlipidemia, Hypertension Additional Past Medical History / Comment(s): CHF, arthritis, restless leg History of Any Multi-Drug Resistant Organisms: None Reported Past Surgical History: Heart Catheterization, Hysterectomy, Joint Replacement, Orthopedic Surgery Additional Past Surgical History / Comment(s): Lap band, Lt shoulder surgery, total left knee, Past Anesthesia/Blood Transfusion Reactions: No Reported Reaction Past Psychological History: Anxiety, Depression Smoking Status: Former smoker (patient stopped smoking 9 months ago when she was diagnosed with COPD, smoked 1 pack a day for 40 years) Past Alcohol Use History: None Reported Past Drug Use History: None Reported - Past Family History Father Family Medical History: Diabetes Mellitus Additional Family Medical History / Comment(s): Mother of old age, patient had 5 siblings, 1 of colon cancer. One brother had lung transplant secondary to COPD. Patient has 3 sisters all living without any medical problems. She has 2 kids with no medical problems Medications and Allergies Home Medications Medication Instructions Recorded Confirmed Type Albuterol Nebulized [Ventolin 2.5 mg INHALATION RT-QID PRN 12/12/16 07/11/17 History Nebulized] Aspirin [Adult Low Dose Aspirin EC] 81 mg PO DAILY 12/12/16 07/11/17 History Atenolol [Tenormin] 100 mg PO HS 12/12/16 07/11/17 History Citalopram Hydrobromide [CeleXA] 20 mg PO DAILY 12/12/16 07/11/17 History Ergocalciferol (Vitamin D2) 50,000 unit PO Q30D 12/12/16 07/11/17 History [Vitamin D2] Glimepiride [Amaryl] 1 mg PO [id number] 12/12/16 07/11/17 History Pravastatin Sodium [Pravachol] 20 mg PO DAILY 12/12/16 07/11/17 History Pregabalin [Lyrica] 50 mg PO TID 12/12/16 07/11/17 History rOPINIRole HCL [Requip] 1 mg PO BID 12/12/16 07/11/17 History Allopurinol [Zyloprim] 100 mg PO DAILY 07/11/17 07/11/17 History Calcitriol [Rocaltrol] 0.25 mcg PO WE 07/11/17 07/11/17 History Sacubitril/Valsartan [Entresto 24 1 tab PO DAILY 07/11/17 07/11/17 History mg-26 mg Tablet] Liraglutide [Victoza 3-Robert] 0.6 mg SQ DAILY 07/12/17 07/12/17 History Allergies Allergy/AdvReac Type Severity Reaction Status Date / Time morphine Allergy Swelling Verified 07/11/17 21:13 Physical Exam Vitals: Vital Signs Temp Pulse Pulse Resp BP BP Pulse Ox 07/12/17 12:05 84 07/12/17 11:55 96.8 F L 85 18 156/73 96 07/12/17 11:50 84 07/12/17 08:51 84 07/12/17 08:30 84 07/12/17 08:15 84 07/12/17 08:05 80 07/12/17 08:00 97.8 F 77 18 171/64 95 07/12/17 04:00 18 07/12/17 02:11 98.8 F 68 20 179/80 94 L 07/12/17 01:44 98.5 F 74 18 157/67 97 07/12/17 01:21 68 07/12/17 01:15 65 07/12/17 00:25 67 16 182/78 96 07/12/17 00:03 75 19 194/95 96 07/11/17 23:16 97.5 F L 69 20 203/87 95 07/11/17 22:27 66 07/11/17 22:07 67 07/11/17 21:41 67 22 198/81 98 07/11/17 20:19 98.7 F 68 20 196/76 86 L Intake and Output 07/11/17 07/12/17 07/12/17 22:59 06:59 14:59 Intake Total 300 450 Output Total 1225 Balance 300 -775 Intake: Intake, IV Titration 300 450 Amount Azithromycin 500 mg In 250 Sodium Chloride 0.9% 250 ml @ 125 mls/hr IVPB DAILY DEEJAY Rx#:[id number] Sodium Chloride 0.9% 1, 200 000 ml @ 50 mls/hr IV . Q20H DEEJAY Rx#:[id number] Sodium Chloride 0.9% 1, 300 000 ml @ 75 mls/hr IV . [id number] STA Rx#:[id number] Output: Urine 1225 Other: Voiding Method Indwelling Catheter Indwelling Catheter Weight 95.254 kg 106 kg PHYSICAL EXAMINATION: HEENT: Head is atraumatic, normocephalic. Pupils equal, round. Neck is supple. There is elevated jugular venous pressure. HEART EXAMINATION: Heart S1 S2 1 systolic murmur is heard. CHEST EXAMINATION: Lungs reveal rales bilaterally with fine wheezing throughout. ABDOMEN: Soft, nontender. Bowel sounds are heard. No organomegaly noted. EXTREMITIES: 2+ peripheral pulses with trace evidence of peripheral edema and no calf tenderness noted. NEUROLOGIC patient is awake, alert and oriented -3. . Results 07/12/17 05:35 10/18/17 12:11 Cardiac Enzymes 07/11/17 07/11/17 07/12/17 Range/Units 21:40 21:40 05:35 AST 15 (14-36) U/L CK-MB (CK-2) 1.1 (0.0-2.4) ng/mL Troponin I <0.012 <0.012 (0.000-0.034) ng/mL Coagulation 07/11/17 Range/Units 21:40 PT 10.8 (9.0-12.0) sec APTT 24.4 (22.0-30.0) sec CBC 07/11/17 07/12/17 Range/Units 21:40 05:35 WBC 11.5 H 11.7 H (3.8-10.6) k/uL RBC 3.20 L 3.04 L (3.80-5.40) m/uL Hgb 9.6 L 9.4 L (11.4-16.0) gm/dL Hct 29.9 L 28.8 L (34.0-46.0) % Plt Count 256 223 (150-450) k/uL Comprehensive Metabolic Panel 07/11/17 07/11/17 07/12/17 Range/Units 21:40 22:30 05:35 Sodium 133 L 133 L (137-145) mmol/L Potassium 6.6 H* 6.1 H 6.2 H* (3.5-5.1) mmol/L Chloride 99 101 (98-107) mmol/L Carbon Dioxide 26 21 L (22-30) mmol/L BUN 75 H 79 H (7-17) mg/dL Creatinine 3.24 H 3.03 H (0.52-1.04) mg/dL Glucose 96 258 H (74-99) mg/dL Calcium 8.5 8.3 L (8.4-10.2) mg/dL AST 15 (14-36) U/L ALT 19 (9-52) U/L Alkaline Phosphatase 117 (38-126) U/L Total Protein 7.2 (6.3-8.2) g/dL Albumin 3.4 L (3.5-5.0) g/dL 07/12/17 Range/Units 12:11 Sodium 133 L (137-145) mmol/L Potassium 5.5 H (3.5-5.1) mmol/L Chloride 99 (98-107) mmol/L Carbon Dioxide 19 L (22-30) mmol/L BUN 83 H* (7-17) mg/dL Creatinine 3.14 H (0.52-1.04) mg/dL Glucose 477 H* (74-99) mg/dL Calcium 8.2 L (8.4-10.2) mg/dL AST (14-36) U/L ALT (9-52) U/L Alkaline Phosphatase (38-126) U/L Total Protein (6.3-8.2) g/dL Albumin (3.5-5.0) g/dL Current Medications Generic Name Dose Route Start Last Admin Trade Name Freq PRN Reason Stop Dose Admin Acetaminophen 650 mg 07/12/17 01:19 Tylenol Tab PO Q6HR PRN Mild Pain or Fever > 100.5 Albuterol Sulfate 2.5 mg 07/12/17 01:26 07/12/17 08:04 Ventolin Nebulized INHALATION 2.5 mg RT-QID PRN Administration Shortness Of Breath Albuterol/Ipratropium 3 ml 07/12/17 12:00 07/12/17 11:48 Duoneb 0.5 Mg-3 Mg/3 Ml Soln INHALATION 3 ml RT-QID DEEJAY Administration Aspirin 81 mg 07/12/17 09:00 07/12/17 08:48 Aspirin PO 81 mg DAILY DEEJAY Administration Budesonide 1 mg 07/12/17 20:00 Pulmicort INHALATION RT-BID DEEJAY Calcitriol 0.25 mcg 07/12/17 09:00 07/12/17 09:47 Rocaltrol PO 0.25 mcg We@0900 DEJEAY Administration Citalopram Hydrobromide 20 mg 07/12/17 09:00 07/12/17 08:48 Celexa PO 20 mg DAILY DEEJAY Administration Ergocalciferol 50,000 unit 07/12/17 09:00 07/12/17 08:48 Vitamin D2 PO 50,000 unit Q30D DEEJAY Administration Famotidine 20 mg 07/12/17 12:00 07/12/17 12:34 Pepcid PO 20 mg DAILY DEEJAY Administration Heparin Sodium (Porcine) 5,000 unit 07/12/17 21:00 Heparin SQ Q12HR [facility] Hydralazine HCl 25 mg 07/12/17 16:00 Apresoline PO TID [facility] Ceftriaxone Sodium 2,000 mg/ 100 mls @ 100 mls/hr 07/13/17 06:00 Sodium Chloride IVPB Q24H DEEJAY Sodium Chloride 1,000 mls @ 50 mls/hr 07/12/17 08:45 07/12/17 09:48 Saline 0.9% IV 50 mls/hr .Q20H DEEJAY Administration Azithromycin 500 mg/ Sodium 250 mls @ 125 mls/hr 07/12/17 09:00 07/12/17 09: 55 Chloride IVPB 125 mls/hr DAILY DEEJAY Administration Insulin Glargine 10 unit 07/12/17 09:00 07/12/17 09:48 Lantus SQ 10 unit DAILY DEEJAY Administration Insulin Human Lispro 0 unit 07/12/17 12:30 07/12/17 12:16 Humalog SQ Not Given ACHS [facility] Protocol Methylprednisolone Sodium Succinate 60 mg 07/12/17 09:00 07/12/17 12:33 Solu-Medrol IV 60 mg Q6HR DEEJAY Administration Metoprolol Tartrate 25 mg 07/12/17 12:00 07/12/17 12:34 Lopressor PO 25 mg BID DEEJAY Administration Naloxone HCl 0.2 mg 07/12/17 01:19 Narcan IV Q2M PRN Opioid Reversal Ondansetron HCl 4 mg 07/12/17 01:19 Zofran IVP Q8HR PRN Nausea And Vomiting Pravastatin Sodium 20 mg 07/12/17 09:00 07/12/17 08:49 Pravachol PO 20 mg DAILY DEEJAY Administration Ropinirole HCl 1 mg 07/12/17 09:00 07/12/17 08:48 Requip PO 1 mg BID DEEJAY Administration Intake and Output 07/11/17 07/12/17 07/12/17 22:59 06:59 14:59 Intake Total 300 450 Output Total 1225 Balance 300 -775 Intake: Intake, IV Titration 300 450 Amount Azithromycin 500 mg In 250 Sodium Chloride 0.9% 250 ml @ 125 mls/hr IVPB DAILY [facility] Rx#:[id number] Sodium Chloride 0.9% 1, 200 000 ml @ 50 mls/hr IV . Q20H [facility] Rx#:[id number] Sodium Chloride 0.9% 1, 300 000 ml @ 75 mls/hr IV . [id number] STA Rx#:[id number] Output: Urine 1225 Other: Voiding Method Indwelling Catheter Indwelling Catheter Weight 95.254 kg 106 kg 07/12/17 05:35 07/12/17 12:11 EKG Interpretations (text) EKG shows normal sinus rhythm with no acute changes. Assessment and Plan Plan: Assessment and plan #1 diastolic congestive heart failure acute on chronic #2 exacerbation of COPD on home O2. #3 hypertension #4 diabetes #5 hyperlipidemia #6 peripheral vascular disease #7 acute on chronic renal failure #8 accelerated hypertension #9 hyperkalemia likely secondary to renal failure Plan We will recommend to initiate the patient on IV Lasix. Monitor intake and up along with daily weights. Continue hydralazine and nitrates. Hold Entresto. Add Norvasc to her medication regime for more optimal blood pressure control. Further recommendations to follow.. DNP note has been reviewed, I agree with a documented findings and plan of care. Patient was seen and examined.
[2017-07-12] MEDS: amLODIPine 5 MG TAB PO SCH (15:04)
[2017-07-12] MEDS: hydrALAZINE HCL 25 MG TAB PO SCH ×2 (15:04→21:05)
[2017-07-12 16:22] LABS: Iron Saturation 9.45 (12.00-45.00)
[2017-07-12] MEDS: INSULIN REGULAR 100 UNIT in SODIUM CHLORIDE 0.9% 100 ML IV SCH (16:41)
[2017-07-12 16:42] LABS: Glucose,Whole Blood 481 mg/dL (75-99)
[2017-07-12] MEDS: INSULIN LISPRO (humaLOG) 300 UNIT/3 ML VIAL SQ SCH (17:28)
[2017-07-12 17:42] LABS: Glucose,Whole Blood 413 mg/dL (75-99)
[2017-07-12 18:04] LABS: Glucose,Whole Blood 371 mg/dL (75-99)
[2017-07-12 18:26] LABS: Glucose,Whole Blood 286 mg/dL (75-99)
[2017-07-12 18:53] LABS: Glucose,Whole Blood 254 mg/dL (75-99)
[2017-07-12 19:21] LABS: Glucose,Whole Blood 213 mg/dL (75-99)
[2017-07-12] MEDS: BUDESONIDE 1 MG/2 ML NEBU INHALATION SCH (19:32)
[2017-07-12] MEDS ORDERED: BUDESONIDE 0.5 MG/2 ML NEBU INHALATION SCH (20:00)
[2017-07-12 20:04] LABS: Glucose,Whole Blood 154 mg/dL (75-99)
[2017-07-12] MEDS ORDERED: ATENOLOL 50 MG TAB PO SCH (21:00)
[2017-07-12] MEDS: HEPARIN SODIUM,PORCINE 5,000 UNIT/ML 1 ML VIAL SQ SCH (21:05)
[2017-07-12 22:04] LABS: Glucose,Whole Blood 70 mg/dL (75-99)
[2017-07-12 23:09] LABS: Glucose,Whole Blood 59 mg/dL (75-99)
[2017-07-12 23:23] LABS: Glucose,Whole Blood 63 mg/dL (75-99)
[2017-07-12 23:43] LABS: Glucose,Whole Blood 82 mg/dL (75-99)
[2017-07-13 01:40] LABS: Glucose,Whole Blood 144 mg/dL (75-99)
[2017-07-13 03:38] LABS: Glucose,Whole Blood 141 mg/dL (75-99)
[2017-07-13] MEDS: cefTRIAXone 2,000 MG in SODIUM CHLORIDE 0.9% 100 ML IVPB SCH (05:07)
[2017-07-13] MEDS: SODIUM CHLORIDE 0.9% 1,000 ML IV SCH (05:08)
[2017-07-13] MEDS: methylPREDNISolone SOD SUCCI 125 MG/2 ML VIAL IV SCH ×3 (05:08→23:53)
[2017-07-13 06:02] LABS: Glucose,Whole Blood 144 mg/dL (75-99)
[2017-07-13 06:27] LABS: Calcium 8.2 mg/dL (8.4-10.2); Magnesium 2.4 mg/dL (1.6-2.3); Potassium 5.2 mmol/L (3.5-5.1)
[2017-07-13] MEDS: IPRATROPIUM-ALBUTEROL 3 ML NEB INHALATION SCH ×4 (07:25→19:58)
[2017-07-13] MEDS: BUDESONIDE 1 MG/2 ML NEBU INHALATION SCH ×2 (07:25→19:57)
[2017-07-13] MEDS: amLODIPine 5 MG TAB PO SCH (08:17)
[2017-07-13] MEDS: FAMOTIDINE 20 MG TAB PO SCH (08:17)
[2017-07-13] MEDS: PRAVASTATIN SODIUM 20 MG TAB PO SCH (08:17)
[2017-07-13] MEDS: METOPROLOL TARTRATE 25 MG TAB PO SCH ×2 (08:17→21:08)
[2017-07-13] MEDS: hydrALAZINE HCL 25 MG TAB PO SCH ×3 (08:17→21:08)
[2017-07-13] MEDS: CITALOPRAM HYDROBROMIDE 20 MG TAB PO SCH (08:17)
[2017-07-13] MEDS: ASPIRIN 81 MG PO SCH (08:18)
[2017-07-13] MEDS: HEPARIN SODIUM,PORCINE 5,000 UNIT/ML 1 ML VIAL SQ SCH ×2 (08:18→21:08)
[2017-07-13] MEDS: INSULIN LISPRO (humaLOG) 300 UNIT/3 ML VIAL SQ SCH ×4 (08:22→21:10)
[2017-07-13 08:24] LABS: Glucose,Whole Blood 149 mg/dL (75-99)
[2017-07-13] MEDS: AZITHROMYCIN 500 MG in SODIUM CHLORIDE 0.9% 250 ML IVPB SCH (09:09)
[2017-07-13] MEDS ORDERED: DOCUSATE 100 MG CAP PO PRN (09:22)
[2017-07-13] MEDS ORDERED: SENNOSIDES 8.6 MG TAB PO PRN (09:22)
--- NOTE | 2017-07-13 10:02 | P.PN ---
Subjective Patient is seen in follow-up for acute kidney injury on chronic kidney disease. Patient has chronic and he disease stage III with baseline creatinine near 1.2. Etiology is nephrosclerosis. Patient presented with dyspnea and cough. She does a history of COPD as well as diastolic CHF. She was hyperkalemic which improved with medical treatment and discontinuation of entresto. Chest x- ray was suggestive of CHF exacerbation. She did receive IV Lasix yesterday and her urine output was good. However overnight her urine output started tapering off. Oral intake is fair. No vomiting or diarrhea. Denies chest pain or shortness of breath. Vital signs are stable. General: The patient appeared well nourished and normally developed. HEENT: Head exam is unremarkable. Neck is without jugular venous distension. LUNGS: Lungs are clear to auscultation and percussion. Breath sounds decreased. HEART: Rate and Rhythm are regular. First and second heart sounds normal. No murmurs, rubs or gallops. ABDOMEN: Abdominal exam reveals normal bowel sounds. Non-tender and non- distended. No evidence of peritonitis. EXTREMITITES: No clubbing, cyanosis, or edema. Objective - Vital Signs Vital signs: Vital Signs Temp 97.1 F L 07/13/17 04:00 Pulse 75 07/13/17 07:45 Resp 18 07/13/17 04:00 BP 149/65 07/13/17 04:00 Pulse Ox 95 07/13/17 04:00 Intake & Output 07/12/17 07/13/17 07/13/17 18:59 06:59 18:59 Intake Total 505.231 922.756 244.433 Output Total 1425 350 Balance -919.769 572.756 244.433 Weight 106.2 kg Intake: Intake, IV Titration 505.231 922.756 4.433 Amount Azithromycin 500 mg In 250 Sodium Chloride 0.9% 250 ml @ 125 mls/hr IVPB DAILY [facility] Rx#:[id number] Insulin Regular 100 unit 55.231 22.756 4.433 In Sodium Chloride 0.9% 100 ml @ Titrate IV .Q0M [facility] Rx#:[id number] Sodium Chloride 0.9% 1, 200 800 000 ml @ 50 mls/hr IV . Q20H [facility] Rx#:[id number] cefTRIAXone 2,000 mg In 100 Sodium Chloride 0.9% 100 ml @ 100 mls/hr IVPB Q24H [facility] Rx#:[id number] Oral 240 Output: Urine 1425 350 Other: Voiding Method Indwelling Catheter Indwelling Catheter # Voids 1 - Labs CBC & Chem 7: 07/12/17 05:35 07/13/17 05:35 Labs: Abnormal Lab Results - Last 24 Hours (Table) 07/12/17 07/12/17 07/12/17 Range/Units 05:35 08:52 11:43 Sodium (137-145) mmol/L Potassium (3.5-5.1) mmol/L Carbon Dioxide (22-30) mmol/L BUN (7-17) mg/dL Creatinine (0.52-1.04) mg/dL Glucose (74-99) mg/dL POC Glucose (mg/dL) 425 H (75-99) mg/dL Hemoglobin A1c 6.3 H (4.2-6.1) % Calcium (8.4-10.2) mg/dL Magnesium (1.6-2.3) mg/dL Iron 24 L (50-170) ug/dL Iron Saturation 9.45 L (12.00-45.00) Ferritin 305.0 H (10.0-291.0) ng/mL Ur Random Sodium (30-90) mmol/L 07/12/17 07/12/17 07/12/17 Range/Units 12:11 16:21 16:54 Sodium 133 L (137-145) mmol/L Potassium 5.5 H (3.5-5.1) mmol/L Carbon Dioxide 19 L (22-30) mmol/L BUN 83 H* (7-17) mg/dL Creatinine 3.14 H (0.52-1.04) mg/dL Glucose 477 H* (74-99) mg/dL POC Glucose (mg/dL) 481 H (75-99) mg/dL Hemoglobin A1c (4.2-6.1) % Calcium 8.2 L (8.4-10.2) mg/dL Magnesium (1.6-2.3) mg/dL Iron (50-170) ug/dL Iron Saturation (12.00-45.00) Ferritin (10.0-291.0) ng/mL Ur Random Sodium 11 L (30-90) mmol/L 07/12/17 07/12/17 07/12/17 Range/Units 17:24 17:51 18:24 Sodium (137-145) mmol/L Potassium (3.5-5.1) mmol/L Carbon Dioxide (22-30) mmol/L BUN (7-17) mg/dL Creatinine (0.52-1.04) mg/dL Glucose (74-99) mg/dL POC Glucose (mg/dL) 413 H 371 H 286 H (75-99) mg/dL Hemoglobin A1c (4.2-6.1) % Calcium (8.4-10.2) mg/dL Magnesium (1.6-2.3) mg/dL Iron (50-170) ug/dL Iron Saturation (12.00-45.00) Ferritin (10.0-291.0) ng/mL Ur Random Sodium (30-90) mmol/L 07/12/17 07/12/17 07/12/17 Range/Units 18:51 19:19 20:01 Sodium (137-145) mmol/L Potassium (3.5-5.1) mmol/L Carbon Dioxide (22-30) mmol/L BUN (7-17) mg/dL Creatinine (0.52-1.04) mg/dL Glucose (74-99) mg/dL POC Glucose (mg/dL) 254 H 213 H 154 H (75-99) mg/dL Hemoglobin A1c (4.2-6.1) % Calcium (8.4-10.2) mg/dL Magnesium (1.6-2.3) mg/dL Iron (50-170) ug/dL Iron Saturation (12.00-45.00) Ferritin (10.0-291.0) ng/mL Ur Random Sodium (30-90) mmol/L 07/12/17 07/12/17 07/12/17 Range/Units 22:02 23:02 23:20 Sodium (137-145) mmol/L Potassium (3.5-5.1) mmol/L Carbon Dioxide (22-30) mmol/L BUN (7-17) mg/dL Creatinine (0.52-1.04) mg/dL Glucose (74-99) mg/dL POC Glucose (mg/dL) 70 L 59 L 63 L (75-99) mg/dL Hemoglobin A1c (4.2-6.1) % Calcium (8.4-10.2) mg/dL Magnesium (1.6-2.3) mg/dL Iron (50-170) ug/dL Iron Saturation (12.00-45.00) Ferritin (10.0-291.0) ng/mL Ur Random Sodium (30-90) mmol/L 07/13/17 07/13/17 07/13/17 Range/Units 01:37 03:35 05:35 Sodium 134 L (137-145) mmol/L Potassium 5.2 H (3.5-5.1) mmol/L Carbon Dioxide (22-30) mmol/L BUN 96 H* (7-17) mg/dL Creatinine 3.08 H (0.52-1.04) mg/dL Glucose 135 H (74-99) mg/dL POC Glucose (mg/dL) 144 H 141 H (75-99) mg/dL Hemoglobin A1c (4.2-6.1) % Calcium 8.2 L (8.4-10.2) mg/dL Magnesium 2.4 H (1.6-2.3) mg/dL Iron (50-170) ug/dL Iron Saturation (12.00-45.00) Ferritin (10.0-291.0) ng/mL Ur Random Sodium (30-90) mmol/L 07/13/17 07/13/17 Range/Units 06:00 08:13 Sodium (137-145) mmol/L Potassium (3.5-5.1) mmol/L Carbon Dioxide (22-30) mmol/L BUN (7-17) mg/dL Creatinine (0.52-1.04) mg/dL Glucose (74-99) mg/dL POC Glucose (mg/dL) 144 H 149 H (75-99) mg/dL Hemoglobin A1c (4.2-6.1) % Calcium (8.4-10.2) mg/dL Magnesium (1.6-2.3) mg/dL Iron (50-170) ug/dL Iron Saturation (12.00-45.00) Ferritin (10.0-291.0) ng/mL Ur Random Sodium (30-90) mmol/L Microbiology - Last 24 Hours (Table) 07/11/17 21:40 Blood Culture - Preliminary Blood No Growth after 24 hours 07/12/17 06:45 Urine Culture - Preliminary Urine,Catheterized Assessment and Plan Plan: Assessment: #1. Acute kidney injury secondary to ATN secondary to cardiorenal syndrome. Creatinine elevated at 3.2 on admission and stable at 3.08 today. Urinalysis reveals protein and blood but can be nonspecific in the setting of acute kidney injury and she had a Dockery catheter inserted. Her urinalysis from November 2016 was completely benign. No evidence of hydronephrosis on renal ultrasound. BUN is disproportionately elevated which is partially due to high-dose IV steroids. No evidence of GI bleed. #2. Chronic kidney disease stage III secondary to nephrosclerosis with baseline creatinine near 1.2. #3. Hyperkalemia secondary to acute kidney injury and use of entresto. Improved. #4. Metabolic acidosis secondary to acute kidney injury. Improved. #5. Diabetes mellitus. #6. Anemia. Iron deficiency noted. #7. Hypertension with chronic kidney disease. Controlled. #8. Dyspnea which is multifactorial in nature. There is a component of COPD as well as CHF as noted on chest x-ray. Plan: Start Lasix 40 mg IV twice daily. Maintain Dockery catheter. Avoid nephrotoxic agents and hypotensive episodes. Entresto held. Ferrlecit 125 mg IV daily for 3 days. First dose today. Will repeat UA once GFR returns to baseline. Encouraged oral intake. Check chest x-ray today.
[2017-07-13 10:13] LABS: Glucose,Whole Blood 227 mg/dL (75-99)
--- NOTE | 2017-07-13 11:17 | P.PN ---
Subjective Progress Note Date: 07/13/17 Principal diagnosis: Acute exacerbations of both chronic obstructive pulmonary disease and diastolic congestive heart failure. This is a pleasant 71-year-old female patient who follows with Dr. Pulido as her primary care physician. She has a history of oxygen dependent chronic obstructive pulmonary disease, diabetes mellitus, hyperlipidemia, hypertension, congestive heart failure, arthritis, anxiety/depression. She is a former smoker. She is somewhat of a poor historian and is confused to place and time. No family members present. She is seen today in consultation on the selective care unit. Her chest x-ray revealed evidence of pulmonary vascular congestion with interstitial edema and cardiomegaly. Arterial blood gases revealed a pO2 of 87, pCO2 58 and a pH of 7.24 on 32% FiO2. An echocardiogram from 2 years ago revealed a preserved left ventricular systolic function with estimated ejection fraction 60-65%. There was global wall thickness of the right ventricle which was moderately enlarged. White count 11.7, hemoglobin 9.4 , sodium 133, potassium 6.2, bicarb 21, BUN 79 with a creatinine of 3.03. Blood glucose 258. Troponins are negative 2. ProBNP 13,200. Urine culture is pending. Ultrasound of the bladder is pending. She is currently afebrile. Hemodynamically stable. Maintaining good O2 saturations in the mid 90s on 3 L/ m per nasal cannula. The patient is seen again today 07/13/2017 in follow-up on the selective care unit. She is awake and alert in no acute distress. She states her breathing is improved today as compared to yesterday. She is maintaining good O2 saturations in the upper 90s on 3 L/m per nasal cannula. She remains on bronchodilators, IV Solu-Medrol and antibiotics. She's afebrile. She is diuresed with Lasix 40 mg IV every 12 hours currently in a positive balance. Creatinine 3.08. Blood and urine cultures are pending. Objective - Vital Signs Vital signs: Vital Signs Temp 96.8 F L 07/13/17 08:00 Pulse 76 07/13/17 08:00 Resp 18 07/13/17 08:00 BP 154/77 07/13/17 08:00 Pulse Ox 99 07/13/17 08:00 Intake & Output 07/12/17 07/13/17 07/13/17 18:59 06:59 18:59 Intake Total 505.231 922.756 448.333 Output Total 1425 350 150 Balance -919.769 572.756 298.333 Weight 106.2 kg Intake: Intake, IV Titration 505.231 922.756 208.333 Amount Azithromycin 500 mg In 250 Sodium Chloride 0.9% 250 ml @ 125 mls/hr IVPB DAILY [facility] Rx#:[id number] Insulin Regular 100 unit 55.231 22.756 8.333 In Sodium Chloride 0.9% 100 ml @ Titrate IV .Q0M [facility] Rx#:[id number] Sodium Chloride 0.9% 1, 200 800 200 000 ml @ 50 mls/hr IV . Q20H [facility] Rx#:[id number] cefTRIAXone 2,000 mg In 100 Sodium Chloride 0.9% 100 ml @ 100 mls/hr IVPB Q24H [facility] Rx#:[id number] Oral 240 Output: Urine 1425 350 150 Other: Voiding Method Indwelling Catheter Indwelling Catheter Indwelling Catheter # Voids 1 - Exam GENERAL EXAM: Alert, comfortable in no apparent distress. HEAD: Normocephalic. EYES: Normal reaction of pupils, equal size. NOSE: Clear with pink turbinates. THROAT: No erythema or exudates. NECK: No masses, no JVD. CHEST: No chest wall deformity. LUNGS: Equal air entry with crackles in the posterior bases, end expiratory wheeze. Diminished. CVS: S1 and S2 normal with no audible murmur, regular rhythm. ABDOMEN: No hepatosplenomegaly, normal bowel sounds, no guarding or rigidity. SPINE: No scoliosis or deformity SKIN: No rashes CENTRAL NERVOUS SYSTEM: No focal deficits, tone is normal in all 4 extremities. EXTREMITIES: There is no peripheral edema. No clubbing, no cyanosis. Peripheral pulses are intact. - Labs CBC & Chem 7: 07/12/17 05:35 07/13/17 05:35 Labs: Abnormal Lab Results - Last 24 Hours (Table) 07/12/17 07/12/17 07/12/17 Range/Units 05:35 08:52 11:43 Sodium (137-145) mmol/L Potassium (3.5-5.1) mmol/L Carbon Dioxide (22-30) mmol/L BUN (7-17) mg/dL Creatinine (0.52-1.04) mg/dL Glucose (74-99) mg/dL POC Glucose (mg/dL) 425 H (75-99) mg/dL Hemoglobin A1c 6.3 H (4.2-6.1) % Calcium (8.4-10.2) mg/dL Magnesium (1.6-2.3) mg/dL Iron 24 L (50-170) ug/dL Iron Saturation 9.45 L (12.00-45.00) Ferritin 305.0 H (10.0-291.0) ng/mL Ur Random Sodium (30-90) mmol/L 07/12/17 07/12/17 07/12/17 Range/Units 12:11 16:21 16:54 Sodium 133 L (137-145) mmol/L Potassium 5.5 H (3.5-5.1) mmol/L Carbon Dioxide 19 L (22-30) mmol/L BUN 83 H* (7-17) mg/dL Creatinine 3.14 H (0.52-1.04) mg/dL Glucose 477 H* (74-99) mg/dL POC Glucose (mg/dL) 481 H (75-99) mg/dL Hemoglobin A1c (4.2-6.1) % Calcium 8.2 L (8.4-10.2) mg/dL Magnesium (1.6-2.3) mg/dL Iron (50-170) ug/dL Iron Saturation (12.00-45.00) Ferritin (10.0-291.0) ng/mL Ur Random Sodium 11 L (30-90) mmol/L 07/12/17 07/12/17 07/12/17 Range/Units 17:24 17:51 18:24 Sodium (137-145) mmol/L Potassium (3.5-5.1) mmol/L Carbon Dioxide (22-30) mmol/L BUN (7-17) mg/dL Creatinine (0.52-1.04) mg/dL Glucose (74-99) mg/dL POC Glucose (mg/dL) 413 H 371 H 286 H (75-99) mg/dL Hemoglobin A1c (4.2-6.1) % Calcium (8.4-10.2) mg/dL Magnesium (1.6-2.3) mg/dL Iron (50-170) ug/dL Iron Saturation (12.00-45.00) Ferritin (10.0-291.0) ng/mL Ur Random Sodium (30-90) mmol/L 07/12/17 07/12/17 07/12/17 Range/Units 18:51 19:19 20:01 Sodium (137-145) mmol/L Potassium (3.5-5.1) mmol/L Carbon Dioxide (22-30) mmol/L BUN (7-17) mg/dL Creatinine (0.52-1.04) mg/dL Glucose (74-99) mg/dL POC Glucose (mg/dL) 254 H 213 H 154 H (75-99) mg/dL Hemoglobin A1c (4.2-6.1) % Calcium (8.4-10.2) mg/dL Magnesium (1.6-2.3) mg/dL Iron (50-170) ug/dL Iron Saturation (12.00-45.00) Ferritin (10.0-291.0) ng/mL Ur Random Sodium (30-90) mmol/L 07/12/17 07/12/17 07/12/17 Range/Units 22:02 23:02 23:20 Sodium (137-145) mmol/L Potassium (3.5-5.1) mmol/L Carbon Dioxide (22-30) mmol/L BUN (7-17) mg/dL Creatinine (0.52-1.04) mg/dL Glucose (74-99) mg/dL POC Glucose (mg/dL) 70 L 59 L 63 L (75-99) mg/dL Hemoglobin A1c (4.2-6.1) % Calcium (8.4-10.2) mg/dL Magnesium (1.6-2.3) mg/dL Iron (50-170) ug/dL Iron Saturation (12.00-45.00) Ferritin (10.0-291.0) ng/mL Ur Random Sodium (30-90) mmol/L 07/13/17 07/13/17 07/13/17 Range/Units 01:37 03:35 05:35 Sodium 134 L (137-145) mmol/L Potassium 5.2 H (3.5-5.1) mmol/L Carbon Dioxide (22-30) mmol/L BUN 96 H* (7-17) mg/dL Creatinine 3.08 H (0.52-1.04) mg/dL Glucose 135 H (74-99) mg/dL POC Glucose (mg/dL) 144 H 141 H (75-99) mg/dL Hemoglobin A1c (4.2-6.1) % Calcium 8.2 L (8.4-10.2) mg/dL Magnesium 2.4 H (1.6-2.3) mg/dL Iron (50-170) ug/dL Iron Saturation (12.00-45.00) Ferritin (10.0-291.0) ng/mL Ur Random Sodium (30-90) mmol/L 07/13/17 07/13/17 07/13/17 Range/Units 06:00 08:13 10:01 Sodium (137-145) mmol/L Potassium (3.5-5.1) mmol/L Carbon Dioxide (22-30) mmol/L BUN (7-17) mg/dL Creatinine (0.52-1.04) mg/dL Glucose (74-99) mg/dL POC Glucose (mg/dL) 144 H 149 H 227 H (75-99) mg/dL Hemoglobin A1c (4.2-6.1) % Calcium (8.4-10.2) mg/dL Magnesium (1.6-2.3) mg/dL Iron (50-170) ug/dL Iron Saturation (12.00-45.00) Ferritin (10.0-291.0) ng/mL Ur Random Sodium (30-90) mmol/L Microbiology - Last 24 Hours (Table) 07/11/17 21:40 Blood Culture - Preliminary Blood No Growth after 24 hours 07/12/17 06:45 Urine Culture - Preliminary Urine,Catheterized Assessment and Plan Assessment: Impression: #1 Acute exacerbation of oxygen dependent chronic obstructive pulmonary disease. #2 Acute exacerbation of chronic diastolic congestive heart failure. #3 Acute on chronic hypoxic respiratory failure secondary to above. #4 Acute on chronic hypercapnic respiratory failure secondary to above. #5 Acute renal failure secondary to acute tubular necrosis from suspected cardiorenal syndrome.. #6 Hyperkalemia the secondary to acute renal failure. #7 Anemia of unclear etiology. #8 Diabetes mellitus with steroid-induced hyperglycemia. #9 Urinary tract infection secondary to suspected gram-negative bacilli. Culture pending. #10 Altered mental status, unclear baseline. Suspect metabolic encephalopathy. #11 Hyperlipidemia. #12 Hypertension. Plan: The patient was seen and evaluated by Dr. Wing. We will continue her treatment. We will increase her activity as tolerated. We will repeat her chest x-ray in the a.m. Nephrology and cardiology are on the case as well. We' ll continue to follow. I, the cosigning physician, have performed a history and physical examination on the patient. Lung sounds have bilateral end expiratory wheeze, crackles in the posterior bases. Diminished. Maintaining O2 saturations in the 90s on 3 L/ m per nasal cannula. I have discussed the assessment and plan of care with my nurse practitioner, Beverly Rowell. I attest the above documented note as dictated by her.
[2017-07-13] MEDS: FUROSEMIDE 10 MG/ML 4 ML VIAL IV SCH (11:21)
[2017-07-13 12:10] LABS: Glucose,Whole Blood 198 mg/dL (75-99)
[2017-07-13] MEDS: SODIUM FERRIC GLUCONAT-SUCROSE 125 MG in SODIUM CHLORIDE 0.9% 100 ML IVPB SCH (12:24)
[2017-07-13] MEDS: INSULIN REGULAR 100 UNIT in SODIUM CHLORIDE 0.9% 100 ML IV SCH (12:35)
--- NOTE | 2017-07-13 13:48 | P.PN ---
Subjective Progress Note Date: 07/13/17 this is a 71-year-old female patient of Dr. Pulido with PMH of HTN , HLD, DM type 2, CKD3, COPD oxygen dependent, diastolic heart disease, arthritis, restless leg syndrome presents with worsening shortness of breath that started 1 week ago. Patient states that her breathing has worsened and is more when she lays flat. Patient feels extremely weak, lethargic and family has noted that patient has been confused for the past day. Patient endorses dysuria, decreased urination, burning micturition for the past few weeks. She has not discussed with this with her primary care physician and was waiting for it to get better. Patient denies any palpitation, chest pain, paroxysmal nocturnal dyspnea, chills or fever. She does endorses cough with sputum production. Chest Xray suggested vascular congestion and interstitial edema . ProBNP [place] 52256. Creatinine was elevated to 3.24 which improved to 3.0 3 in the morning. Patient for stat potassium was also elevated to 6.2. I explained along with albuterol, insulin and dextrose was given. Since patient had urinary retention a Dockery catheter was placed. The venous blood gas suggestive of a pH of 7.24 with CO2 58 and a bicarb of 23. Repeat venous blood gas this morning suggestive of. 7.2 with a CO2 59. nephrology and cardiology was was consulted. Patient also received a dose of Lasix for management of cardiorenal syndrome as patient has diastolic heart failure. Patient is in acute hypoxic hypercapnic respiratory failure secondary to COPD and CHF exacerbation. Undergoing Lasix 40 mg IV twice a day along with IV steroids, DuoNeb's and antibiotics. Hypokalemia is resolved. Monitor BNP. Diabetes is managed with insulin drip on steroid. 07/13 shortness of breath improved, urine output has decreased overnight. Chest x-ray repeat ordered. Cardiology recommended continuing Lasix at 40 mg IV twice a day for continuous diuresis. Objective - Vital Signs Vital signs: Vital Signs Temp 96.6 F L 07/13/17 12:00 Pulse 73 07/13/17 12:00 Resp 18 07/13/17 12:00 BP 140/71 07/13/17 12:00 Pulse Ox 100 07/13/17 12:00 Intake & Output 07/12/17 07/13/17 07/13/17 18:59 06:59 18:59 Intake Total 505.231 922.756 462.308 Output Total 1425 350 300 Balance -919.769 572.756 162.308 Weight 106.2 kg Intake: Intake, IV Titration 505.231 922.756 222.308 Amount Azithromycin 500 mg In 250 Sodium Chloride 0.9% 250 ml @ 125 mls/hr IVPB DAILY [facility]EE[facility]AY Rx#:[id number] Insulin Regular 100 unit 55.231 22.756 22.308 In Sodium Chloride 0.9% 100 ml @ Titrate IV .Q0M DEE[facility]AY Rx#:[id number] Sodium Chloride 0.9% 1, 200 800 200 000 ml @ 50 mls/hr IV . Q20H [facility]EE[facility]AY Rx#:[id number] cefTRIAXone 2,000 mg In 100 Sodium Chloride 0.9% 100 ml @ 100 mls/hr IVPB Q24H [facility]EE[facility]AY Rx#:[id number] Oral 240 Output: Urine 1425 350 300 Other: Voiding Method Indwelling Catheter Indwelling Catheter Indwelling Catheter # Voids 1 # Bowel Movements 0 - Exam - Constitutional General appearance: obese, severe distress - EENT Eyes: EOMI, PERRLA, no photophobia Ears: bilateral: normal - Neck Neck: no lymphadenopathy, normal ROM, no rigidity Carotids: bilateral: upstroke normal Thyroid: bilateral: normal size - Respiratory Respiratory: bilateral: diminished, dullness, rales, rhonchi, wheezing, prolonged expiration - Cardiovascular Rhythm: regular Heart sounds: normal: S1, S2 Abnormal Heart Sounds: systolic murmur systolic murmur (1) Type: holo Location: left sternal border Grade: III/ foot Peripheral Edema: absent: None - Gastrointestinal General gastrointestinal: normal bowel sounds, no organomegaly, soft, no tenderness - Neurologic Neurologic: CNII-XII intact - Musculoskeletal Musculoskeletal: generalized weakness, strength equal bilaterally - Psychiatric Psychiatric: A&O x's 3 - Labs CBC & Chem 7: 07/12/17 05:35 07/13/17 05:35 Labs: Abnormal Lab Results - Last 24 Hours (Table) 07/12/17 07/12/17 07/12/17 Range/Units 05:35 08:52 16:21 Sodium (137-145) mmol/L Potassium (3.5-5.1) mmol/L BUN (7-17) mg/dL Creatinine (0.52-1.04) mg/dL Glucose (74-99) mg/dL POC Glucose (mg/dL) 481 H (75-99) mg/dL Hemoglobin A1c 6.3 H (4.2-6.1) % Calcium (8.4-10.2) mg/dL Magnesium (1.6-2.3) mg/dL Iron 24 L (50-170) ug/dL Iron Saturation 9.45 L (12.00-45.00) Ferritin 305.0 H (10.0-291.0) ng/mL Ur Random Sodium (30-90) mmol/L 07/12/17 07/12/17 07/12/17 Range/Units 16:54 17:24 17:51 Sodium (137-145) mmol/L Potassium (3.5-5.1) mmol/L BUN (7-17) mg/dL Creatinine (0.52-1.04) mg/dL Glucose (74-99) mg/dL POC Glucose (mg/dL) 413 H 371 H (75-99) mg/dL Hemoglobin A1c (4.2-6.1) % Calcium (8.4-10.2) mg/dL Magnesium (1.6-2.3) mg/dL Iron (50-170) ug/dL Iron Saturation (12.00-45.00) Ferritin (10.0-291.0) ng/mL Ur Random Sodium 11 L (30-90) mmol/L 07/12/17 07/12/17 07/12/17 Range/Units 18:24 18:51 19:19 Sodium (137-145) mmol/L Potassium (3.5-5.1) mmol/L BUN (7-17) mg/dL Creatinine (0.52-1.04) mg/dL Glucose (74-99) mg/dL POC Glucose (mg/dL) 286 H 254 H 213 H (75-99) mg/dL Hemoglobin A1c (4.2-6.1) % Calcium (8.4-10.2) mg/dL Magnesium (1.6-2.3) mg/dL Iron (50-170) ug/dL Iron Saturation (12.00-45.00) Ferritin (10.0-291.0) ng/mL Ur Random Sodium (30-90) mmol/L 07/12/17 07/12/17 07/12/17 Range/Units 20:01 22:02 23:02 Sodium (137-145) mmol/L Potassium (3.5-5.1) mmol/L BUN (7-17) mg/dL Creatinine (0.52-1.04) mg/dL Glucose (74-99) mg/dL POC Glucose (mg/dL) 154 H 70 L 59 L (75-99) mg/dL Hemoglobin A1c (4.2-6.1) % Calcium (8.4-10.2) mg/dL Magnesium (1.6-2.3) mg/dL Iron (50-170) ug/dL Iron Saturation (12.00-45.00) Ferritin (10.0-291.0) ng/mL Ur Random Sodium (30-90) mmol/L 07/12/17 07/13/17 07/13/17 Range/Units 23:20 01:37 03:35 Sodium (137-145) mmol/L Potassium (3.5-5.1) mmol/L BUN (7-17) mg/dL Creatinine (0.52-1.04) mg/dL Glucose (74-99) mg/dL POC Glucose (mg/dL) 63 L 144 H 141 H (75-99) mg/dL Hemoglobin A1c (4.2-6.1) % Calcium (8.4-10.2) mg/dL Magnesium (1.6-2.3) mg/dL Iron (50-170) ug/dL Iron Saturation (12.00-45.00) Ferritin (10.0-291.0) ng/mL Ur Random Sodium (30-90) mmol/L 07/13/17 07/13/17 07/13/17 Range/Units 05:35 06:00 08:13 Sodium 134 L (137-145) mmol/L Potassium 5.2 H (3.5-5.1) mmol/L BUN 96 H* (7-17) mg/dL Creatinine 3.08 H (0.52-1.04) mg/dL Glucose 135 H (74-99) mg/dL POC Glucose (mg/dL) 144 H 149 H (75-99) mg/dL Hemoglobin A1c (4.2-6.1) % Calcium 8.2 L (8.4-10.2) mg/dL Magnesium 2.4 H (1.6-2.3) mg/dL Iron (50-170) ug/dL Iron Saturation (12.00-45.00) Ferritin (10.0-291.0) ng/mL Ur Random Sodium (30-90) mmol/L 07/13/17 07/13/17 Range/Units 10:01 11:58 Sodium (137-145) mmol/L Potassium (3.5-5.1) mmol/L BUN (7-17) mg/dL Creatinine (0.52-1.04) mg/dL Glucose (74-99) mg/dL POC Glucose (mg/dL) 227 H 198 H (75-99) mg/dL Hemoglobin A1c (4.2-6.1) % Calcium (8.4-10.2) mg/dL Magnesium (1.6-2.3) mg/dL Iron (50-170) ug/dL Iron Saturation (12.00-45.00) Ferritin (10.0-291.0) ng/mL Ur Random Sodium (30-90) mmol/L Microbiology - Last 24 Hours (Table) 07/12/17 06:45 Urine Culture - Final Urine,Catheterized 07/11/17 21:40 Blood Culture - Preliminary Blood No Growth after 24 hours Assessment and Plan Plan: #1 acute on chronic hypoxic hypercapnic respiratory failure likely secondary to COPD exacerbation and acute bronchitis with pulmonary edema secondary to CHF exacerbation, patient also underlying sleep apnea -Continue IV Solu-Medrol 60 every 8 hours, Pulmicort twice daily, duo nebs every 6 hours, incentive spirometry, respiratory cultures - Oxygen as needed - Patient does have a mixed respiratory acidosis and metabolic acidosis, if continues to require increased amount of oxygen patient should be switched back to BiPAP - Continue ceftriaxone and azithromycin - Continue diuresis with Lasix 40 mg IV twice a day #2 metabolic acidosis with respiratory acidosis - Metabolic acidosis likely secondary to renal insufficiency with acute on chronic respiratory acidosis from CO2 retention from COPD and sleep apnea - Status post 2 g of sodium bicarb IV push #3 acute kidney injury on chronic kidney disease stage III secondary to ATN from cardiorenal syndrome - Creatinine today 3.08, increased from baseline of 1.2 - Retroperitoneal ultrasound negative for any hydronephrosis - Urine analysis suggestive of hyaline cast - monitor input and output - Nephrology consult placed - Continue Lasix 40 mg IV twice a day #4 acute on chronic diastolic heart failure - Last echo done in 2014 suggestive of diastolic heart failure with elevation of pressure of the right ventricle - Repeat echo pending - Status post Lasix, continue Lasix 40 mg IV twice a day - Troponin 1 is negative, EKG is negative for any ST or T-wave changes - Cardiology consulted for recommendation of further management as patient has cardiorenal syndrome based on presentation but is intravascularly dry #5 hyperkalemia- resolved - Status post insulin 6 units, dextrose, abdomen treatment 2 - Status post kayexalate 2 - Further treatment based on potassium levels - EKG negative for any peak T waves #6 hypertension- discontinued atenolol, started patient on metoprolol 25 mg daily and hydralazine 25 mg 3 times a day. hold entresto #7 hyperlipidemia continue pravastatin 20 mg by mouth daily #8 diabetes - continue insulin drip on steroid, holf victoza and glimipriride -Hemoglobin A1c pending #96 restless leg syndrome continue Requip 1 mg twice daily #10 depression continue citalopram 20 mg by mouth daily #11 DVT prophylaxis continue heparin 5000 every 12 along with IPC #12 GI prophylaxis continue Pepcid 20 mg po twice a day #13 CODE STATUS full code Patient would require 2 nights in the hospital as an inpatient
--- NOTE | 2017-07-13 14:24 | P.PN ---
Subjective Progress Note Date: 07/13/17 Principal diagnosis: Shortness of breath This is a 71-year-old female who sees Dr. Franklin in the office. She used to be a patient of Dr. Rodrigez. She has a known history of COPD, quit smoking in September of this year, diabetes, hypertension, hyperlipidemia, peripheral vascular disease, she had an echocardiogram with Doppler study performed in the office in September of this year which revealed a normal ejection fraction with moderate to severe pulmonary hypertension and mild to moderate mitral regurgitation. Patient also has history of prior smoking. Patient presents to the hospital with symptoms of progressively worsening shortness of breath. She also states that she had a cough at home which was nonproductive. X-ray on admission revealed new congestive heart failure with pleural effusions. EKG shows normal sinus rhythm with no acute changes. CAT scan of the brain reveals atrophy and chronic small vessel ischemia. A repeat echocardiogram with Doppler study was performed here which revealed an ejection fraction of 60-65%. Blood pressure on arrival here 196/76, heart rate in the 60s, 86% on 3 L of oxygen. At pressure this morning 170/60 with a heart rate in the 70s. White blood cell count 11.7, hemoglobin 9.4, platelet count 223. PH 7.2, pCO2 58, CO2 26. Sodium 133, potassium 6.2, BUN 79 , creatinine 3.03. Blood glucose on arrival 425. Troponins were negative 2, BNP level 13,200. Patient was given a one-time dose of IV Lasix. She was also initiated on IV steroids and IV antibiotics. 07/13/2017 Patient seen and examined this morning. She was given a one-time dose of IV Lasix yesterday and diuresed well from that. Continues to be in heart failure. Sodium 134, potassium 5.2, BUN 96, creatinine 3.08. Magnesium level 2.4. Repeat chest x-ray was ordered for today. We would recommend to continue the patient on twice a day dose of IV Lasix. Echocardiogram with Doppler study was performed which revealed an ejection fraction of 60-65%. Objective - Vital Signs Vital signs: Vital Signs Temp 96.6 F L 07/13/17 12:00 Pulse 73 07/13/17 12:00 Resp 18 07/13/17 12:00 BP 140/71 07/13/17 12:00 Pulse Ox 100 07/13/17 12:00 Intake & Output 07/12/17 07/13/17 07/13/17 18:59 06:59 18:59 Intake Total 505.231 922.756 462.308 Output Total 1425 350 300 Balance -919.769 572.756 162.308 Weight 106.2 kg Intake: Intake, IV Titration 505.231 922.756 222.308 Amount Azithromycin 500 mg In 250 Sodium Chloride 0.9% 250 ml @ 125 mls/hr IVPB DAILY [facility] Rx#:[id number] Insulin Regular 100 unit 55.231 22.756 22.308 In Sodium Chloride 0.9% 100 ml @ Titrate IV .Q0M [facility] Rx#:[id number] Sodium Chloride 0.9% 1, 200 800 200 000 ml @ 50 mls/hr IV . Q20H [facility] Rx#:[id number] cefTRIAXone 2,000 mg In 100 Sodium Chloride 0.9% 100 ml @ 100 mls/hr IVPB Q24H [facility] Rx#:[id number] Oral 240 Output: Urine 1425 350 300 Other: Voiding Method Indwelling Catheter Indwelling Catheter Indwelling Catheter # Voids 1 # Bowel Movements 0 - Exam PHYSICAL EXAMINATION: HEENT: Head is atraumatic, normocephalic. Pupils equal, round. Neck is supple. There is elevated jugular venous pressure. HEART EXAMINATION: Heart S1 S2 1 systolic murmur is heard. CHEST EXAMINATION: Lungs reveal rales bilaterally with fine wheezing throughout. ABDOMEN: Soft, nontender. Bowel sounds are heard. No organomegaly noted. EXTREMITIES: 2+ peripheral pulses with trace evidence of peripheral edema and no calf tenderness noted. NEUROLOGIC patient is awake, alert and oriented -3. - Labs CBC & Chem 7: 07/12/17 05:35 07/13/17 05:35 Labs: Abnormal Lab Results - Last 24 Hours (Table) 07/12/17 07/12/17 07/12/17 Range/Units 05:35 08:52 16:21 Sodium (137-145) mmol/L Potassium (3.5-5.1) mmol/L BUN (7-17) mg/dL Creatinine (0.52-1.04) mg/dL Glucose (74-99) mg/dL POC Glucose (mg/dL) 481 H (75-99) mg/dL Hemoglobin A1c 6.3 H (4.2-6.1) % Calcium (8.4-10.2) mg/dL Magnesium (1.6-2.3) mg/dL Iron 24 L (50-170) ug/dL Iron Saturation 9.45 L (12.00-45.00) Ferritin 305.0 H (10.0-291.0) ng/mL Ur Random Sodium (30-90) mmol/L 07/12/17 07/12/17 07/12/17 Range/Units 16:54 17:24 17:51 Sodium (137-145) mmol/L Potassium (3.5-5.1) mmol/L BUN (7-17) mg/dL Creatinine (0.52-1.04) mg/dL Glucose (74-99) mg/dL POC Glucose (mg/dL) 413 H 371 H (75-99) mg/dL Hemoglobin A1c (4.2-6.1) % Calcium (8.4-10.2) mg/dL Magnesium (1.6-2.3) mg/dL Iron (50-170) ug/dL Iron Saturation (12.00-45.00) Ferritin (10.0-291.0) ng/mL Ur Random Sodium 11 L (30-90) mmol/L 07/12/17 07/12/17 07/12/17 Range/Units 18:24 18:51 19:19 Sodium (137-145) mmol/L Potassium (3.5-5.1) mmol/L BUN (7-17) mg/dL Creatinine (0.52-1.04) mg/dL Glucose (74-99) mg/dL POC Glucose (mg/dL) 286 H 254 H 213 H (75-99) mg/dL Hemoglobin A1c (4.2-6.1) % Calcium (8.4-10.2) mg/dL Magnesium (1.6-2.3) mg/dL Iron (50-170) ug/dL Iron Saturation (12.00-45.00) Ferritin (10.0-291.0) ng/mL Ur Random Sodium (30-90) mmol/L 07/12/17 07/12/17 07/12/17 Range/Units 20:01 22:02 23:02 Sodium (137-145) mmol/L Potassium (3.5-5.1) mmol/L BUN (7-17) mg/dL Creatinine (0.52-1.04) mg/dL Glucose (74-99) mg/dL POC Glucose (mg/dL) 154 H 70 L 59 L (75-99) mg/dL Hemoglobin A1c (4.2-6.1) % Calcium (8.4-10.2) mg/dL Magnesium (1.6-2.3) mg/dL Iron (50-170) ug/dL Iron Saturation (12.00-45.00) Ferritin (10.0-291.0) ng/mL Ur Random Sodium (30-90) mmol/L 07/12/17 07/13/17 07/13/17 Range/Units 23:20 01:37 03:35 Sodium (137-145) mmol/L Potassium (3.5-5.1) mmol/L BUN (7-17) mg/dL Creatinine (0.52-1.04) mg/dL Glucose (74-99) mg/dL POC Glucose (mg/dL) 63 L 144 H 141 H (75-99) mg/dL Hemoglobin A1c (4.2-6.1) % Calcium (8.4-10.2) mg/dL Magnesium (1.6-2.3) mg/dL Iron (50-170) ug/dL Iron Saturation (12.00-45.00) Ferritin (10.0-291.0) ng/mL Ur Random Sodium (30-90) mmol/L 07/13/17 07/13/17 07/13/17 Range/Units 05:35 06:00 08:13 Sodium 134 L (137-145) mmol/L Potassium 5.2 H (3.5-5.1) mmol/L BUN 96 H* (7-17) mg/dL Creatinine 3.08 H (0.52-1.04) mg/dL Glucose 135 H (74-99) mg/dL POC Glucose (mg/dL) 144 H 149 H (75-99) mg/dL Hemoglobin A1c (4.2-6.1) % Calcium 8.2 L (8.4-10.2) mg/dL Magnesium 2.4 H (1.6-2.3) mg/dL Iron (50-170) ug/dL Iron Saturation (12.00-45.00) Ferritin (10.0-291.0) ng/mL Ur Random Sodium (30-90) mmol/L 07/13/17 07/13/17 Range/Units 10:01 11:58 Sodium (137-145) mmol/L Potassium (3.5-5.1) mmol/L BUN (7-17) mg/dL Creatinine (0.52-1.04) mg/dL Glucose (74-99) mg/dL POC Glucose (mg/dL) 227 H 198 H (75-99) mg/dL Hemoglobin A1c (4.2-6.1) % Calcium (8.4-10.2) mg/dL Magnesium (1.6-2.3) mg/dL Iron (50-170) ug/dL Iron Saturation (12.00-45.00) Ferritin (10.0-291.0) ng/mL Ur Random Sodium (30-90) mmol/L Microbiology - Last 24 Hours (Table) 07/12/17 06:45 Urine Culture - Final Urine,Catheterized 07/11/17 21:40 Blood Culture - Preliminary Blood No Growth after 24 hours Assessment and Plan Plan: Assessment and plan #1 diastolic congestive heart failure acute on chronic #2 exacerbation of COPD on home O2. #3 hypertension #4 diabetes #5 hyperlipidemia #6 peripheral vascular disease #7 acute on chronic renal failure #8 accelerated hypertension #9 hyperkalemia likely secondary to renal failure Plan We will recommend to initiate the patient on IV Lasix. Monitor intake and up along with daily weights. Continue hydralazine and nitrates. Echocardiogram with Doppler study revealed normal left ventricular systolic function. Repeat chest x-ray. DNP note has been reviewed, I agree with a documented findings and plan of care. Patient was seen and examined.
[2017-07-13 14:29] LABS: Glucose,Whole Blood 120 mg/dL (75-99)
--- NOTE | 2017-07-13 15:21 | XR ---
EXAMINATION TYPE: XR chest 2V DATE OF EXAM: 07/13/2017 COMPARISON: 07/11/2017 INDICATION: CHF TECHNIQUE: Frontal and lateral views of the chest are obtained. FINDINGS: The heart size is enlarged. The pulmonary vasculature is somewhat prominent. Posterior pleural effusions are present. There is s ome hyperinflation which can be related to COPD IMPRESSION: 1. Findings can be compatible with the tip in the proper clinical setting. 2. Correlate for COPD
[2017-07-13 15:38] LABS: Glucose,Whole Blood 95 mg/dL (75-99)
[2017-07-13 16:36] LABS: Glucose,Whole Blood 92 mg/dL (75-99)
[2017-07-13] MEDS ORDERED: FUROSEMIDE 10 MG/ML 10 ML VIAL IV ONE (21:00)
[2017-07-13] MEDS ORDERED: INSULIN GLARGINE 100 UNIT/ML 10 ML VIAL SQ SCH (21:00)
[2017-07-13] MEDS: guaiFENesin 600 MG TABLET.ER PO SCH (21:08)
[2017-07-13 21:11] LABS: Glucose,Whole Blood 216 mg/dL (75-99)
[2017-07-14] MEDS: SODIUM CHLORIDE 0.9% 1,000 ML IV SCH (04:56)
[2017-07-14] MEDS: cefTRIAXone 2,000 MG in SODIUM CHLORIDE 0.9% 100 ML IVPB SCH (05:28)
[2017-07-14 06:05] LABS: Glucose,Whole Blood 257 mg/dL (75-99)
[2017-07-14] MEDS: INSULIN LISPRO (humaLOG) 300 UNIT/3 ML VIAL SQ SCH ×6 (06:21→20:21)
[2017-07-14 06:57] LABS: Calcium 8.2 mg/dL (8.4-10.2); Potassium 4.3 mmol/L (3.5-5.1); Total Bilirubin 0.1 mg/dL (0.2-1.3); Total Protein 5.9 g/dL (6.3-8.2)
[2017-07-14 07:12] LABS: Basophils % (A) 0 %; CH 30.1; CHCM 32.1; Eosinophils % (A) 1 %; HGB 8.2 gm/dL (11.4-16.0); Hypochromasia Slight; Luc # (Auto) 0.01; Luc % (Auto) 0; Lymphocytes # (A) 0.2 k/uL (1.0-4.8); Lymphocytes % (A) 3 %; MCH 29.6 pg (25.0-35.0); MCHC 31.4 g/dL (31.0-37.0); MCV 94.3 fL (80.0-100.0); Mean Platelet Volume 7.5; Monocytes # (A) 0.2 k/uL (0-1.0); Monocytes % (A) 3 %; Neutrophils # (A) 7.1 k/uL (1.3-7.7); Neutrophils % (A) 94 %; RBC 2.76 m/uL (3.80-5.40); WBC 7.5 k/uL (3.8-10.6); WBC (Perox) 7.37
[2017-07-14] MEDS: BUDESONIDE 1 MG/2 ML NEBU INHALATION SCH ×2 (07:29→19:30)
[2017-07-14] MEDS: IPRATROPIUM-ALBUTEROL 3 ML NEB INHALATION SCH ×4 (07:29→19:30)
--- NOTE | 2017-07-14 08:55 | XR ---
EXAMINATION TYPE: XR chest 2V DATE OF EXAM: 07/14/2017 COMPARISON: 07/13/2017 TECHNIQUE: PA and lateral views submitted. HISTORY: Shortness of breath FINDINGS: Diffuse interstitial pattern with bilateral infiltrate and small effusion. Heart is enlarged. Arthrop athy shoulders. Atherosclerotic change aorta. Degenerative change of the spine. IMPRESSION: 1. Bilateral infiltrate and pleural effusion correlate for CHF. Findings stable.
[2017-07-14] MEDS: methylPREDNISolone SOD SUCCI 125 MG/2 ML VIAL IV SCH ×3 (08:57→23:25)
[2017-07-14] MEDS: CITALOPRAM HYDROBROMIDE 20 MG TAB PO SCH (08:58)
[2017-07-14] MEDS: ASPIRIN 81 MG PO SCH (08:58)
[2017-07-14] MEDS: PRAVASTATIN SODIUM 20 MG TAB PO SCH (08:58)
[2017-07-14] MEDS: FUROSEMIDE 10 MG/ML 4 ML VIAL IV SCH (08:58)
[2017-07-14] MEDS: HEPARIN SODIUM,PORCINE 5,000 UNIT/ML 1 ML VIAL SQ SCH ×2 (08:58→20:10)
[2017-07-14] MEDS: METOPROLOL TARTRATE 25 MG TAB PO SCH ×2 (08:58→20:10)
[2017-07-14] MEDS: FAMOTIDINE 20 MG TAB PO SCH (08:58)
[2017-07-14] MEDS: amLODIPine 5 MG TAB PO SCH (08:58)
[2017-07-14] MEDS: guaiFENesin 600 MG TABLET.ER PO SCH ×2 (08:58→20:10)
[2017-07-14] MEDS: hydrALAZINE HCL 25 MG TAB PO SCH ×3 (08:58→22:13)
[2017-07-14] MEDS: AZITHROMYCIN 500 MG TAB PO SCH (08:59)
[2017-07-14 11:47] LABS: Glucose,Whole Blood 356 mg/dL (75-99)
--- NOTE | 2017-07-14 12:10 | P.PN ---
Subjective Progress Note Date: 07/14/17 this is a 71-year-old female patient of Dr. Pulido with PMH of HTN , HLD, DM type 2, CKD3, COPD oxygen dependent, diastolic heart disease, arthritis, restless leg syndrome presents with worsening shortness of breath that started 1 week ago. Patient states that her breathing has worsened and is more when she lays flat. Patient feels extremely weak, lethargic and family has noted that patient has been confused for the past day. Patient endorses dysuria, decreased urination, burning micturition for the past few weeks. She has not discussed with this with her primary care physician and was waiting for it to get better. Patient denies any palpitation, chest pain, paroxysmal nocturnal dyspnea, chills or fever. She does endorses cough with sputum production. Chest Xray suggested vascular congestion and interstitial edema . ProBNP was 16731. Creatinine was elevated to 3.24 which improved to 3.0 3 in the morning. Patient for stat potassium was also elevated to 6.2. I explained along with albuterol, insulin and dextrose was given. Since patient had urinary retention a Dockery catheter was placed. The venous blood gas suggestive of a pH of 7.24 with CO2 58 and a bicarb of 23. Repeat venous blood gas this morning suggestive of. 7.2 with a CO2 59. nephrology and cardiology was was consulted. Patient also received a dose of Lasix for management of cardiorenal syndrome as patient has diastolic heart failure. Patient is in acute hypoxic hypercapnic respiratory failure secondary to COPD and CHF exacerbation. Undergoing Lasix 40 mg IV twice a day along with IV steroids, DuoNeb's and antibiotics. Hypokalemia is resolved. Monitor BNP. Diabetes is managed with insulin drip on steroid. 07/13 shortness of breath improved, urine output has decreased overnight. Chest x-ray repeat ordered. Cardiology recommended continuing Lasix at 40 mg IV twice a day for continuous diuresis. 07/14: Patient's weight has been steady with no change. IV fluids will be discontinued. Lasix 40 mg every 12 hours IV. Fluid restriction of 2000 ML's added. She is currently on Solu-Medrol 60 mg every 8 hours. Her pulse ox is 94 % on 3 L nasal cannula. Patient does states she is breathing better today. She is able to cannulate to the bathroom and back to her bed. BUN has increased in creatinine is improved at 2.7. Her blood glucose has been running high for which Lantus has been increased to 15 units and scheduled Humalog added with meals. Echocardiogram reveals EF of 60-65%, LA moderately dilated at 34-39, mild aortic stenosis, mild mitral regurgitation, trace tricuspid regurgitation. Objective - Vital Signs Vital signs: Vital Signs Temp 96.9 F L 07/14/17 03:37 Pulse 72 07/14/17 07:48 Resp 18 07/14/17 03:37 BP 156/77 07/14/17 03:37 Pulse Ox 94 L 07/14/17 03:37 Intake & Output 07/13/17 07/14/17 07/14/17 18:59 06:59 18:59 Intake Total 1179.702 400 280 Output Total 450 1070 Balance 729.702 -670 280 Weight 106 kg Intake: IV 30 Invasive Line 3 30 Intake, IV Titration 429.702 400 100 Amount Insulin Regular 100 unit 29.702 In Sodium Chloride 0.9% 100 ml @ Titrate IV .Q0M DEEJAY Rx#:[id number] Sodium Chloride 0.9% 1, 400 400 000 ml @ 50 mls/hr IV . Q20H DEEJAY Rx#:[id number] cefTRIAXone 2,000 mg In 100 Sodium Chloride 0.9% 100 ml @ 100 mls/hr IVPB Q24H DEEJAY Rx#:[id number] Oral 720 180 Output: Urine 450 1070 Other: Voiding Method Indwelling Catheter Indwelling Catheter # Bowel Movements 0 - Exam - Constitutional General appearance: obese, severe distress - EENT Eyes: EOMI, PERRLA, no photophobia Ears: bilateral: normal - Neck Neck: no lymphadenopathy, normal ROM, no rigidity Carotids: bilateral: upstroke normal Thyroid: bilateral: normal size - Respiratory Respiratory: bilateral: diminished, dullness, rales, rhonchi, wheezing, prolonged expiration - Cardiovascular Rhythm: regular Heart sounds: normal: S1, S2 Abnormal Heart Sounds: systolic murmur systolic murmur (1) Type: holo Location: left sternal border Grade: III/ foot Peripheral Edema: absent: None - Gastrointestinal General gastrointestinal: normal bowel sounds, no organomegaly, soft, no tenderness - Neurologic Neurologic: CNII-XII intact - Musculoskeletal Musculoskeletal: generalized weakness, strength equal bilaterally - Psychiatric Psychiatric: A&O x's 3 - Labs CBC & Chem 7: 07/14/17 05:59 07/14/17 05:59 Labs: Abnormal Lab Results - Last 24 Hours (Table) 07/12/17 07/13/17 07/13/17 Range/Units 08:52 08:13 10:01 RBC (3.80-5.40) m/uL Hgb (11.4-16.0) gm/dL Hct (34.0-46.0) % Lymphocytes # (1.0-4.8) k/uL Sodium (137-145) mmol/L BUN (7-17) mg/dL Creatinine (0.52-1.04) mg/dL Glucose (74-99) mg/dL POC Glucose (mg/dL) 149 H 227 H (75-99) mg/dL Calcium (8.4-10.2) mg/dL Iron 24 L (50-170) ug/dL Iron Saturation 9.45 L (12.00-45.00) Ferritin 305.0 H (10.0-291.0) ng/mL Total Bilirubin (0.2-1.3) mg/dL AST (14-36) U/L Total Protein (6.3-8.2) g/dL Albumin (3.5-5.0) g/dL 07/13/17 07/13/17 07/13/17 Range/Units 11:58 14:08 21:09 RBC (3.80-5.40) m/uL Hgb (11.4-16.0) gm/dL Hct (34.0-46.0) % Lymphocytes # (1.0-4.8) k/uL Sodium (137-145) mmol/L BUN (7-17) mg/dL Creatinine (0.52-1.04) mg/dL Glucose (74-99) mg/dL POC Glucose (mg/dL) 198 H 120 H 216 H (75-99) mg/dL Calcium (8.4-10.2) mg/dL Iron (50-170) ug/dL Iron Saturation (12.00-45.00) Ferritin (10.0-291.0) ng/mL Total Bilirubin (0.2-1.3) mg/dL AST (14-36) U/L Total Protein (6.3-8.2) g/dL Albumin (3.5-5.0) g/dL 07/14/17 07/14/17 07/14/17 Range/Units 05:59 05:59 06:03 RBC 2.76 L (3.80-5.40) m/uL Hgb 8.2 L (11.4-16.0) gm/dL Hct 26.0 L (34.0-46.0) % Lymphocytes # 0.2 L (1.0-4.8) k/uL Sodium 133 L (137-145) mmol/L BUN 103 H* (7-17) mg/dL Creatinine 2.70 H (0.52-1.04) mg/dL Glucose 257 H (74-99) mg/dL POC Glucose (mg/dL) 257 H (75-99) mg/dL Calcium 8.2 L (8.4-10.2) mg/dL Iron (50-170) ug/dL Iron Saturation (12.00-45.00) Ferritin (10.0-291.0) ng/mL Total Bilirubin 0.1 L (0.2-1.3) mg/dL AST 11 L (14-36) U/L Total Protein 5.9 L (6.3-8.2) g/dL Albumin 2.9 L (3.5-5.0) g/dL Microbiology - Last 24 Hours (Table) 07/11/17 21:40 Blood Culture - Preliminary Blood No Growth after 48 hours 07/12/17 06:45 Urine Culture - Final Urine,Catheterized Assessment and Plan Plan: #1 acute on chronic hypoxic hypercapnic respiratory failure likely secondary to COPD exacerbation and acute bronchitis with pulmonary edema secondary to CHF exacerbation, patient also underlying sleep apnea -Continue IV Solu-Medrol 60 every 8 hours, Pulmicort twice daily, duo nebs every 6 hours, incentive spirometry, respiratory cultures - Oxygen as needed - Patient does have a mixed respiratory acidosis and metabolic acidosis, if continues to require increased amount of oxygen patient should be switched back to BiPAP - Continue ceftriaxone and azithromycin - Continue diuresis with Lasix 40 mg IV twice a day #2 metabolic acidosis with respiratory acidosis - Metabolic acidosis likely secondary to renal insufficiency with acute on chronic respiratory acidosis from CO2 retention from COPD and sleep apnea - Status post 2 g of sodium bicarb IV push #3 acute kidney injury on chronic kidney disease stage III secondary to ATN from cardiorenal syndrome - Creatinine baseline of 1.2 - Retroperitoneal ultrasound negative for any hydronephrosis - Urine analysis suggestive of hyaline cast - monitor input and output - Nephrology consult appreciated - Continue Lasix 40 mg IV twice a day #4 acute on chronic diastolic heart failure - Last echo done in 2014 suggestive of diastolic heart failure with elevation of pressure of the right ventricle - Status post Lasix, continue Lasix 40 mg IV twice a day - Troponin 1 is negative, EKG is negative for any ST or T-wave changes - Cardiology consulted for recommendation of further management as patient has cardiorenal syndrome based on presentation but is intravascularly dry #5 hyperkalemia- resolved - Status post insulin 6 units, dextrose, abdomen treatment 2 - Status post kayexalate 2 - Further treatment based on potassium levels - EKG negative for any peak T waves #6 hypertension- discontinued atenolol, started patient on metoprolol 25 mg daily and hydralazine 25 mg 3 times a day. hold entresto #7 hyperlipidemia continue pravastatin 20 mg by mouth daily #8 diabetes - continue insulin drip on steroid, holf victoza and glimipriride -Hemoglobin A1c pending #9 restless leg syndrome continue Requip 1 mg twice daily #10 depression continue citalopram 20 mg by mouth daily #11 DVT prophylaxis continue heparin 5000 every 12 along with IPC #12 GI prophylaxis continue Pepcid 20 mg po twice a day #13 CODE STATUS full code Discharge plan: Home with [facility] on Monday or Monday Impression and plan of care have been directed as dictated by the signing physician. Martha Herrera nurse practitioner acting as scribe for signing physician.
[2017-07-14] MEDS: SODIUM FERRIC GLUCONAT-SUCROSE 125 MG in SODIUM CHLORIDE 0.9% 100 ML IVPB SCH (12:47)
--- NOTE | 2017-07-14 12:48 | P.PN ---
Subjective Patient is seen in follow-up for acute kidney injury on chronic kidney disease. Patient has chronic and he disease stage III with baseline creatinine near 1.2. Etiology is nephrosclerosis. Patient presented with dyspnea and cough. She does a history of COPD as well as diastolic CHF. She was hyperkalemic which improved with medical treatment and discontinuation of entresto. Chest x- ray was suggestive of CHF exacerbation. Her urine output was low yesterday but after receiving 80 mg of IV Lasix her urine output did improve overnight. She has made about 500 mL of urine this morning so far. Oral intake is fair. No vomiting or diarrhea. Denies chest pain but still has dyspnea. Vital signs are stable. General: The patient appeared well nourished and normally developed. HEENT: Head exam is unremarkable. Neck is without jugular venous distension. LUNGS: Lungs are clear to auscultation and percussion. Breath sounds decreased. HEART: Rate and Rhythm are regular. First and second heart sounds normal. No murmurs, rubs or gallops. ABDOMEN: Abdominal exam reveals normal bowel sounds. Non-tender and non- distended. No evidence of peritonitis. EXTREMITITES: No clubbing, cyanosis, or edema. Objective - Vital Signs Vital signs: Vital Signs Temp 96.8 F L 07/14/17 12:00 Pulse 76 07/14/17 12:00 Resp 18 07/14/17 12:00 BP 153/69 07/14/17 12:00 Pulse Ox 96 07/14/17 12:00 Intake & Output 07/13/17 07/14/17 07/14/17 18:59 06:59 18:59 Intake Total 1179.702 400 480 Output Total 450 1070 375 Balance 729.702 -670 105 Weight 106 kg Intake: IV 30 Invasive Line 3 30 Intake, IV Titration 429.702 400 300 Amount Insulin Regular 100 unit 29.702 In Sodium Chloride 0.9% 100 ml @ Titrate IV .Q0M DEEJAY Rx#:[id number] Sodium Chloride 0.9% 1, 400 400 200 000 ml @ 50 mls/hr IV . Q20H DEEJAY Rx#:[id number] cefTRIAXone 2,000 mg In 100 Sodium Chloride 0.9% 100 ml @ 100 mls/hr IVPB Q24H DEEJAY Rx#:[id number] Oral 720 180 Output: Urine 450 1070 375 Other: Voiding Method Indwelling Catheter Indwelling Catheter Indwelling Catheter # Bowel Movements 0 - Labs CBC & Chem 7: 07/14/17 05:59 07/14/17 05:59 Labs: Abnormal Lab Results - Last 24 Hours (Table) 07/13/17 07/13/17 07/14/17 Range/Units 14:08 21:09 05:59 RBC (3.80-5.40) m/uL Hgb (11.4-16.0) gm/dL Hct (34.0-46.0) % Lymphocytes # (1.0-4.8) k/uL Sodium 133 L (137-145) mmol/L BUN 103 H* (7-17) mg/dL Creatinine 2.70 H (0.52-1.04) mg/dL Glucose 257 H (74-99) mg/dL POC Glucose (mg/dL) 120 H 216 H (75-99) mg/dL Calcium 8.2 L (8.4-10.2) mg/dL Total Bilirubin 0.1 L (0.2-1.3) mg/dL AST 11 L (14-36) U/L Total Protein 5.9 L (6.3-8.2) g/dL Albumin 2.9 L (3.5-5.0) g/dL 07/14/17 07/14/17 07/14/17 Range/Units 05:59 06:03 11:41 RBC 2.76 L (3.80-5.40) m/uL Hgb 8.2 L (11.4-16.0) gm/dL Hct 26.0 L (34.0-46.0) % Lymphocytes # 0.2 L (1.0-4.8) k/uL Sodium (137-145) mmol/L BUN (7-17) mg/dL Creatinine (0.52-1.04) mg/dL Glucose (74-99) mg/dL POC Glucose (mg/dL) 257 H 356 H (75-99) mg/dL Calcium (8.4-10.2) mg/dL Total Bilirubin (0.2-1.3) mg/dL AST (14-36) U/L Total Protein (6.3-8.2) g/dL Albumin (3.5-5.0) g/dL Microbiology - Last 24 Hours (Table) 07/11/17 21:40 Blood Culture - Preliminary Blood No Growth after 48 hours 07/12/17 06:45 Urine Culture - Final Urine,Catheterized Assessment and Plan Plan: Assessment: #1. Acute kidney injury secondary to ATN secondary to cardiorenal syndrome. Creatinine elevated at 3.2 on admission and improved to 2.7 today. Urinalysis reveals protein and blood but can be nonspecific in the setting of acute kidney injury and she had a Dockery catheter inserted. Her urinalysis from November 2016 was completely benign. No evidence of hydronephrosis on renal ultrasound. BUN is disproportionately elevated which is partially due to high-dose IV steroids. No signs of active bleeding. #2. Chronic kidney disease stage III secondary to nephrosclerosis with baseline creatinine near 1.2. #3. Hyperkalemia secondary to acute kidney injury and use of entresto. Improved. #4. Metabolic acidosis secondary to acute kidney injury. Improved. #5. Diabetes mellitus. #6. Anemia. Iron deficiency noted. #7. Hypertension with chronic kidney disease. Controlled. #8. Dyspnea which is multifactorial in nature. There is a component of COPD as well as CHF as noted on chest x-ray. Plan: Increase Lasix to 60 mg IV twice daily. Maintain Dockery catheter. Avoid nephrotoxic agents and hypotensive episodes. Entresto held. Ferrlecit 125 mg IV daily for 3 days. Second dose today. Will repeat UA once GFR returns to baseline. Encouraged oral intake. Check stool for occult blood.
--- NOTE | 2017-07-14 13:05 | PN ---
PROGRESS NOTE This patient is admitted with acute confusion and congestive heart failure and acute renal failure. The patient is feeling better. She still has been having cough and some difficulty in breathing. Chest x-ray shows still persistent changes of heart failure but it is improved. Her urine output remains borderline. Blood pressure is 153/69 mmHg. First and second heart sounds are normal. The lungs reveal bilateral basilar rales. The patient's creatinine has come down to 2.7 and we will recommend to try to increase the Lasix to 80 mg q.12h hourly and see if there is improvement in the patient's chest x-ray. MMODL / IJN: [id number] /
--- NOTE | 2017-07-14 13:43 | P.PN ---
Subjective Progress Note Date: 07/14/17 Principal diagnosis: Shortness of breath secondary to COPD and diastolic congestive heart failure This is a pleasant 71-year-old female patient who follows with Dr. Pulido as her primary care physician. She has a history of oxygen dependent chronic obstructive pulmonary disease, diabetes mellitus, hyperlipidemia, hypertension, congestive heart failure, arthritis, anxiety/depression. She is a former smoker. She is somewhat of a poor historian and is confused to place and time. No family members present. She is seen today in consultation on the selective care unit. Her chest x-ray revealed evidence of pulmonary vascular congestion with interstitial edema and cardiomegaly. Arterial blood gases revealed a pO2 of 87, pCO2 58 and a pH of 7.24 on 32% FiO2. An echocardiogram from 2 years ago revealed a preserved left ventricular systolic function with estimated ejection fraction 60-65%. There was global wall thickness of the right ventricle which was moderately enlarged. White count 11.7, hemoglobin 9.4 , sodium 133, potassium 6.2, bicarb 21, BUN 79 with a creatinine of 3.03. Blood glucose 258. Troponins are negative 2. ProBNP 13,200. Urine culture is pending. Ultrasound of the bladder is pending. She is currently afebrile. Hemodynamically stable. Maintaining good O2 saturations in the mid 90s on 3 L/ m per nasal cannula. The patient is seen again today 07/13/2017 in follow-up on the selective care unit. She is awake and alert in no acute distress. She states her breathing is improved today as compared to yesterday. She is maintaining good O2 saturations in the upper 90s on 3 L/m per nasal cannula. She remains on bronchodilators, IV Solu-Medrol and antibiotics. She's afebrile. She is diuresed with Lasix 40 mg IV every 12 hours currently in a positive balance. Creatinine 3.08. Blood and urine cultures are pending. Reevaluated today on 07/14/2017, patient is doing well, relatively asymptomatic , remains on diuretics, oxygen, bronchodilators, antibiotics, and she seems to be doing great. Her renal function seems to be an issue, and that being addressed by nephrology on the case. Creatinine is improved compared to yesterday,presently 2.70, BUN is 103. Patient is clinically feeling better, breathing a lot easier, chest x-ray continues to show mild effusions consistent with mild CHF. Objective - Vital Signs Vital signs: Vital Signs Temp 96.8 F L 07/14/17 12:00 Pulse 76 07/14/17 12:00 Resp 18 07/14/17 12:00 BP 153/69 07/14/17 12:00 Pulse Ox 96 07/14/17 12:00 Intake & Output 07/13/17 07/14/17 07/14/17 18:59 06:59 18:59 Intake Total 1179.702 400 480 Output Total 450 1070 600 Balance 729.702 -670 -120 Weight 106 kg Intake: IV 30 Invasive Line 3 30 Intake, IV Titration 429.702 400 300 Amount Insulin Regular 100 unit 29.702 In Sodium Chloride 0.9% 100 ml @ Titrate IV .Q0M DEEJAY Rx#:[id number] Sodium Chloride 0.9% 1, 400 400 200 000 ml @ 50 mls/hr IV . Q20H DEEJAY Rx#:[id number] cefTRIAXone 2,000 mg In 100 Sodium Chloride 0.9% 100 ml @ 100 mls/hr IVPB Q24H DEEJAY Rx#:[id number] Oral 720 180 Output: Urine 450 1070 600 Other: Voiding Method Indwelling Catheter Indwelling Catheter Indwelling Catheter # Bowel Movements 0 - Exam GENERAL EXAM: Alert, comfortable in no apparent distress. HEAD: Normocephalic. EYES: Normal reaction of pupils, equal size. NOSE: Clear with pink turbinates. THROAT: No erythema or exudates. NECK: No masses, no JVD. CHEST: No chest wall deformity. LUNGS: Equal air entry with crackles in the posterior bases, end expiratory wheeze. Diminished. CVS: S1 and S2 normal with no audible murmur, regular rhythm. ABDOMEN: No hepatosplenomegaly, normal bowel sounds, no guarding or rigidity. SPINE: No scoliosis or deformity SKIN: No rashes CENTRAL NERVOUS SYSTEM: No focal deficits, tone is normal in all 4 extremities. EXTREMITIES: There is no peripheral edema. No clubbing, no cyanosis. Peripheral pulses are intact. - Labs CBC & Chem 7: 07/14/17 05:59 07/14/17 05:59 Labs: Abnormal Lab Results - Last 24 Hours (Table) 07/13/17 07/13/17 07/14/17 Range/Units 14:08 21:09 05:59 RBC (3.80-5.40) m/uL Hgb (11.4-16.0) gm/dL Hct (34.0-46.0) % Lymphocytes # (1.0-4.8) k/uL Sodium 133 L (137-145) mmol/L BUN 103 H* (7-17) mg/dL Creatinine 2.70 H (0.52-1.04) mg/dL Glucose 257 H (74-99) mg/dL POC Glucose (mg/dL) 120 H 216 H (75-99) mg/dL Calcium 8.2 L (8.4-10.2) mg/dL Total Bilirubin 0.1 L (0.2-1.3) mg/dL AST 11 L (14-36) U/L Total Protein 5.9 L (6.3-8.2) g/dL Albumin 2.9 L (3.5-5.0) g/dL 07/14/17 07/14/17 07/14/17 Range/Units 05:59 06:03 11:41 RBC 2.76 L (3.80-5.40) m/uL Hgb 8.2 L (11.4-16.0) gm/dL Hct 26.0 L (34.0-46.0) % Lymphocytes # 0.2 L (1.0-4.8) k/uL Sodium (137-145) mmol/L BUN (7-17) mg/dL Creatinine (0.52-1.04) mg/dL Glucose (74-99) mg/dL POC Glucose (mg/dL) 257 H 356 H (75-99) mg/dL Calcium (8.4-10.2) mg/dL Total Bilirubin (0.2-1.3) mg/dL AST (14-36) U/L Total Protein (6.3-8.2) g/dL Albumin (3.5-5.0) g/dL Microbiology - Last 24 Hours (Table) 07/11/17 21:40 Blood Culture - Preliminary Blood No Growth after 48 hours 07/12/17 06:45 Urine Culture - Final Urine,Catheterized Assessment and Plan Plan: #1 Acute exacerbation of oxygen dependent chronic obstructive pulmonary disease. #2 Acute exacerbation of chronic diastolic congestive heart failure. #3 Acute on chronic hypoxic respiratory failure secondary to above. #4 Acute on chronic hypercapnic respiratory failure secondary to above. #5 Acute renal failure secondary to acute tubular necrosis from suspected cardiorenal syndrome.. #6 Hyperkalemia the secondary to acute renal failure. #7 Anemia of unclear etiology. #8 Diabetes mellitus with steroid-induced hyperglycemia. #9 Urinary tract infection secondary to suspected gram-negative bacilli. Culture pending. #10 Altered mental status, unclear baseline. Suspect metabolic encephalopathy. #11 Hyperlipidemia. #12 Hypertension. Recommendation: Continue present treatment plan including bronchodilators, diuretics, steroids, consider discharge planning once the patient is cleared by cardiology and nephrology. Patient can be seen by us on outpatient basis post discharge. Time with Patient: Less than 30
[2017-07-14 17:02] LABS: Glucose,Whole Blood 341 mg/dL (75-99)
[2017-07-14] MEDS: FUROSEMIDE 10 MG/ML 10 ML VIAL IV SCH (20:09)
[2017-07-14 20:14] LABS: Glucose,Whole Blood 310 mg/dL (75-99)
[2017-07-14] MEDS: INSULIN GLARGINE 100 UNIT/ML 10 ML VIAL SQ SCH (20:22)
[2017-07-15] MEDS: cefTRIAXone 2,000 MG in SODIUM CHLORIDE 0.9% 100 ML IVPB SCH (05:42)
[2017-07-15 06:35] LABS: Basophils % (A) 0 %; CH 31.1; CHCM 33.6; Eosinophils % (A) 0 %; HCT 27.4 % (34.0-46.0); HDW 3.02; HGB 8.7 gm/dL (11.4-16.0); Luc # (Auto) 0.02; Luc % (Auto) 0; Lymphocytes # (A) 0.2 k/uL (1.0-4.8); Lymphocytes % (A) 4 %; MCH 29.5 pg (25.0-35.0); MCHC 31.8 g/dL (31.0-37.0); MCV 92.9 fL (80.0-100.0); Mean Platelet Volume 7.8; Monocytes # (A) 0.2 k/uL (0-1.0); Monocytes % (A) 3 %; Neutrophils # (A) 4.9 k/uL (1.3-7.7); Neutrophils % (A) 93 %; RBC 2.95 m/uL (3.80-5.40); RDW 14.8 % (11.5-15.5); WBC 5.3 k/uL (3.8-10.6); WBC (Perox) 5.46
[2017-07-15 06:39] LABS: Glucose,Whole Blood 184 mg/dL (75-99)
[2017-07-15 06:45] LABS: ALT 25 U/L (9-52); AST 11 U/L (14-36); Alkaline Phosphatase 83 U/L (38-126); Anion Gap 12 mmol/L; Calcium 8.4 mg/dL (8.4-10.2); Carbon Dioxide 23 mmol/L (22-30); Chloride 100 mmol/L (98-107); Glucose 178 mg/dL (74-99); Non-African American GFR(MDRD) 19 (>60 ml/min/1.73 sqM); Sodium 135 mmol/L (137-145); Total Bilirubin <0.1 mg/dL (0.2-1.3); Total Protein 6.3 g/dL (6.3-8.2)
[2017-07-15] MEDS: INSULIN LISPRO (humaLOG) 300 UNIT/3 ML VIAL SQ SCH ×7 (06:51→21:02)
[2017-07-15 07:00] LABS: Blood Urea Nitrogen 106 mg/dL (7-17)
[2017-07-15] MEDS: BUDESONIDE 1 MG/2 ML NEBU INHALATION SCH ×2 (08:24→19:16)
[2017-07-15] MEDS: IPRATROPIUM-ALBUTEROL 3 ML NEB INHALATION SCH ×4 (08:24→19:16)
[2017-07-15] MEDS: guaiFENesin 600 MG TABLET.ER PO SCH ×2 (08:29→20:29)
[2017-07-15] MEDS: amLODIPine 5 MG TAB PO SCH (08:29)
[2017-07-15] MEDS: FAMOTIDINE 20 MG TAB PO SCH (08:29)
[2017-07-15] MEDS: AZITHROMYCIN 500 MG TAB PO SCH (08:29)
[2017-07-15] MEDS: METOPROLOL TARTRATE 25 MG TAB PO SCH ×2 (08:29→20:29)
[2017-07-15] MEDS: PRAVASTATIN SODIUM 20 MG TAB PO SCH (08:29)
[2017-07-15] MEDS: ASPIRIN 81 MG PO SCH (08:29)
[2017-07-15] MEDS: CITALOPRAM HYDROBROMIDE 20 MG TAB PO SCH (08:29)
[2017-07-15] MEDS: FUROSEMIDE 10 MG/ML 10 ML VIAL IV SCH (08:30)
[2017-07-15] MEDS: methylPREDNISolone SOD SUCCI 125 MG/2 ML VIAL IV SCH ×3 (08:30→23:48)
[2017-07-15] MEDS: HEPARIN SODIUM,PORCINE 5,000 UNIT/ML 1 ML VIAL SQ SCH ×2 (08:30→20:29)
[2017-07-15] MEDS: ACETAMINOPHEN TAB 325 MG TAB PO PRN ×2 (08:33→14:53)
--- NOTE | 2017-07-15 09:37 | P.PN ---
Subjective Progress Note Date: 07/15/17 Principal diagnosis: Patient is seen in follow-up for acute kidney injury secondary to cardiorenal syndrome as well as chronic kidney disease. Patient was admitted with congestive heart failure and cardiorenal syndrome. She has chronic and he disease stage III with baseline creatinine near 1.2. Etiology is nephrosclerosis. Patient presented with dyspnea and cough. She does a history of COPD as well as diastolic CHF. She had quit smoking about 8 months ago. Additionally she had hyperkalemic which improved with medical treatment and discontinuation of entresto. This morning she is feeling better wants to go home. She remains on oxygen via nasal cannula but she has 24 7 oxygen at home. She denies any fever chills. Shortness of breath is better and is at baseline. No dizziness. Appetite is fair no nausea vomiting diarrhea. Objective - Vital Signs Vital signs: Vital Signs Temp 98 F 07/15/17 04:00 Pulse 85 07/15/17 08:39 Resp 20 07/15/17 04:00 BP 144/81 07/15/17 04:00 Pulse Ox 95 07/15/17 08:26 Intake & Output 07/14/17 07/15/17 07/15/17 18:59 06:59 18:59 Intake Total 600 400 200 Output Total 850 1900 Balance -250 -1500 200 Weight 106 kg 107.9 kg Intake: Intake, IV Titration 420 Amount Sodium Chloride 0.9% 1, 220 000 ml @ 50 mls/hr IV . Q20H DEEJAY Rx#:[id number] Sodium Ferric Gluconat- 100 Sucrose 125 mg In Sodium Chloride 0.9% 100 ml @ 100 mls/hr IVPB DAILY@ 1200 DEEJAY Rx#:[id number] cefTRIAXone 2,000 mg In 100 Sodium Chloride 0.9% 100 ml @ 100 mls/hr IVPB Q24H DEEJAY Rx#:[id number] Oral 180 400 200 Output: Urine 850 1900 Other: Voiding Method Indwelling Catheter Indwelling Catheter # Voids 1 # Bowel Movements 0 0 On examination she is on nasal cannula oxygen which she has even at home. A chin exam no JVP noted neck is supple no facial asymmetry pupils are equal Lungs are significant for somewhat diminished breath sounds but no crepitations or wheezing. Heart sounds are unremarkable for any murmur rub gallop Abdomen soft slightly protuberant Extremity exam was trace edema Neurologically awake alert oriented - Labs CBC & Chem 7: 07/15/17 05:27 07/15/17 05:27 Labs: Abnormal Lab Results - Last 24 Hours (Table) 07/14/17 07/14/17 07/14/17 Range/Units 11:41 16:50 20:12 RBC (3.80-5.40) m/uL Hgb (11.4-16.0) gm/dL Hct (34.0-46.0) % Lymphocytes # (1.0-4.8) k/uL Sodium (137-145) mmol/L BUN (7-17) mg/dL Creatinine (0.52-1.04) mg/dL Glucose (74-99) mg/dL POC Glucose (mg/dL) 356 H 341 H 310 H (75-99) mg/dL Total Bilirubin (0.2-1.3) mg/dL AST (14-36) U/L Albumin (3.5-5.0) g/dL 07/15/17 07/15/17 07/15/17 Range/Units 05:27 05:27 06:20 RBC 2.95 L (3.80-5.40) m/uL Hgb 8.7 L (11.4-16.0) gm/dL Hct 27.4 L (34.0-46.0) % Lymphocytes # 0.2 L (1.0-4.8) k/uL Sodium 135 L (137-145) mmol/L BUN 106 H* (7-17) mg/dL Creatinine 2.51 H (0.52-1.04) mg/dL Glucose 178 H (74-99) mg/dL POC Glucose (mg/dL) 184 H (75-99) mg/dL Total Bilirubin <0.1 L (0.2-1.3) mg/dL AST 11 L (14-36) U/L Albumin 3.1 L (3.5-5.0) g/dL Microbiology - Last 24 Hours (Table) 07/11/17 21:40 Blood Culture - Preliminary Blood No Growth after 72 hours Assessment and Plan Plan: 1 acute kidney injury secondary to cardiorenal syndrome. Responding with urine output of 2750 and creatinine improved from 3.24 dated 07/11/2017 to 2.51 as of this morning, currently on Lasix. 2. Chronic kidney disease nephrosclerosis creatinine 1.2 baseline. 3. COPD stable 4. Consult failure resolved. 5. Anemia hemoglobin went down from 9.6-8.2 as of yesterday and is up-to 8.7 this morning. Currently on Ferrlecit 125 daily for 3 doses. Recommendation. 1. Maintain Lasix, is on both by mouth and IV Lasix. I'll stop the IV Lasix and increase the by mouth Lasix from 20 mg a day to 40 twice a day. 2. check orthostatic changes 3. If she responds to by mouth Lasix she can be discharged home but with close follow-up within 24-48 hours
--- NOTE | 2017-07-15 10:17 | P.PN ---
Subjective Progress Note Date: 07/15/17 Principal diagnosis: Shortness of breath secondary to COPD and diastolic congestive heart failure This is a pleasant 71-year-old female patient who follows with Dr. Pulido as her primary care physician. She has a history of oxygen dependent chronic obstructive pulmonary disease, diabetes mellitus, hyperlipidemia, hypertension, congestive heart failure, arthritis, anxiety/depression. She is a former smoker. She is somewhat of a poor historian and is confused to place and time. No family members present. She is seen today in consultation on the selective care unit. Her chest x-ray revealed evidence of pulmonary vascular congestion with interstitial edema and cardiomegaly. Arterial blood gases revealed a pO2 of 87, pCO2 58 and a pH of 7.24 on 32% FiO2. An echocardiogram from 2 years ago revealed a preserved left ventricular systolic function with estimated ejection fraction 60-65%. There was global wall thickness of the right ventricle which was moderately enlarged. White count 11.7, hemoglobin 9.4 , sodium 133, potassium 6.2, bicarb 21, BUN 79 with a creatinine of 3.03. Blood glucose 258. Troponins are negative 2. ProBNP 13,200. Urine culture is pending. Ultrasound of the bladder is pending. She is currently afebrile. Hemodynamically stable. Maintaining good O2 saturations in the mid 90s on 3 L/ m per nasal cannula. The patient is seen again today 07/13/2017 in follow-up on the selective care unit. She is awake and alert in no acute distress. She states her breathing is improved today as compared to yesterday. She is maintaining good O2 saturations in the upper 90s on 3 L/m per nasal cannula. She remains on bronchodilators, IV Solu-Medrol and antibiotics. She's afebrile. She is diuresed with Lasix 40 mg IV every 12 hours currently in a positive balance. Creatinine 3.08. Blood and urine cultures are pending. Reevaluated today on 07/14/2017, patient is doing well, relatively asymptomatic , remains on diuretics, oxygen, bronchodilators, antibiotics, and she seems to be doing great. Her renal function seems to be an issue, and that being addressed by nephrology on the case. Creatinine is improved compared to yesterday,presently 2.70, BUN is 103. Patient is clinically feeling better, breathing a lot easier, chest x-ray continues to show mild effusions consistent with mild CHF. Reevaluated today on 07/15/2017, patient is feeling much better, obviously responding well to oxygen, diuretics, bronchodilators, and antibiotics. Less cough and less shortness of breath. Patient remains on diuretics, and her labs today showed BUN of 106 creatinine 2.51, hemoglobin is 8.7. Creatinine is actually improved compared to what it was on admission at 3.24. Objective - Vital Signs Vital signs: Vital Signs Temp 98 F 07/15/17 04:00 Pulse 85 07/15/17 08:39 Resp 20 07/15/17 04:00 BP 144/81 07/15/17 04:00 Pulse Ox 95 07/15/17 08:26 Intake & Output 07/14/17 07/15/17 07/15/17 18:59 06:59 18:59 Intake Total 600 400 200 Output Total 850 1900 Balance -250 -1500 200 Weight 106 kg 107.9 kg Intake: Intake, IV Titration 420 Amount Sodium Chloride 0.9% 1, 220 000 ml @ 50 mls/hr IV . Q20H DEEJAY Rx#:[id number] Sodium Ferric Gluconat- 100 Sucrose 125 mg In Sodium Chloride 0.9% 100 ml @ 100 mls/hr IVPB DAILY@ 1200 DEEJAY Rx#:[id number] cefTRIAXone 2,000 mg In 100 Sodium Chloride 0.9% 100 ml @ 100 mls/hr IVPB Q24H DEEJAY Rx#:[id number] Oral 180 400 200 Output: Urine 850 1900 Other: Voiding Method Indwelling Catheter Indwelling Catheter # Voids 1 # Bowel Movements 0 0 - Exam GENERAL EXAM: Alert, comfortable in no apparent distress. HEAD: Normocephalic. EYES: Normal reaction of pupils, equal size. NOSE: Clear with pink turbinates. THROAT: No erythema or exudates. NECK: No masses, no JVD. CHEST: No chest wall deformity. LUNGS: Equal air entry with crackles in the posterior bases, end expiratory wheeze. Diminished. CVS: S1 and S2 normal with no audible murmur, regular rhythm. ABDOMEN: No hepatosplenomegaly, normal bowel sounds, no guarding or rigidity. SPINE: No scoliosis or deformity SKIN: No rashes CENTRAL NERVOUS SYSTEM: No focal deficits, tone is normal in all 4 extremities. EXTREMITIES: There is no peripheral edema. No clubbing, no cyanosis. Peripheral pulses are intact. - Labs CBC & Chem 7: 07/15/17 05:27 07/15/17 05:27 Labs: Abnormal Lab Results - Last 24 Hours (Table) 07/14/17 07/14/17 07/14/17 Range/Units 11:41 16:50 20:12 RBC (3.80-5.40) m/uL Hgb (11.4-16.0) gm/dL Hct (34.0-46.0) % Lymphocytes # (1.0-4.8) k/uL Sodium (137-145) mmol/L BUN (7-17) mg/dL Creatinine (0.52-1.04) mg/dL Glucose (74-99) mg/dL POC Glucose (mg/dL) 356 H 341 H 310 H (75-99) mg/dL Total Bilirubin (0.2-1.3) mg/dL AST (14-36) U/L Albumin (3.5-5.0) g/dL 07/15/17 07/15/17 07/15/17 Range/Units 05:27 05:27 06:20 RBC 2.95 L (3.80-5.40) m/uL Hgb 8.7 L (11.4-16.0) gm/dL Hct 27.4 L (34.0-46.0) % Lymphocytes # 0.2 L (1.0-4.8) k/uL Sodium 135 L (137-145) mmol/L BUN 106 H* (7-17) mg/dL Creatinine 2.51 H (0.52-1.04) mg/dL Glucose 178 H (74-99) mg/dL POC Glucose (mg/dL) 184 H (75-99) mg/dL Total Bilirubin <0.1 L (0.2-1.3) mg/dL AST 11 L (14-36) U/L Albumin 3.1 L (3.5-5.0) g/dL Microbiology - Last 24 Hours (Table) 07/11/17 21:40 Blood Culture - Preliminary Blood No Growth after 72 hours Assessment and Plan Plan: #1 Acute exacerbation of oxygen dependent chronic obstructive pulmonary disease. #2 Acute exacerbation of chronic diastolic congestive heart failure. #3 Acute on chronic hypoxic respiratory failure secondary to above. #4 Acute on chronic hypercapnic respiratory failure secondary to above. #5 Acute renal failure secondary to acute tubular necrosis from suspected cardiorenal syndrome.. #6 Hyperkalemia the secondary to acute renal failure. #7 Anemia of unclear etiology. #8 Diabetes mellitus with steroid-induced hyperglycemia. #9 Urinary tract infection secondary to suspected gram-negative bacilli. Culture pending. #10 Altered mental status, unclear baseline. Suspect metabolic encephalopathy. #11 Hyperlipidemia. #12 Hypertension. Recommendation: Continue present treatment plan including bronchodilators, diuretics, steroids, consider discharge planning once the patient is cleared by cardiology and nephrology. Patient can be seen by us on outpatient basis post discharge. Time with Patient: Less than 30
[2017-07-15 11:50] LABS: Glucose,Whole Blood 198 mg/dL (75-99)
[2017-07-15] MEDS: SODIUM FERRIC GLUCONAT-SUCROSE 125 MG in SODIUM CHLORIDE 0.9% 100 ML IVPB SCH (12:18)
[2017-07-15] MEDS: hydrALAZINE HCL 25 MG TAB PO SCH ×3 (12:18→21:45)
--- NOTE | 2017-07-15 14:41 | P.PN ---
Subjective Progress Note Date: 07/15/17 Principal diagnosis: CHF This is a pleasant 71-year-old female who sees Dr. Franklin in the office. Has a history of COPD, quit smoking September of this year, diabetes, hypertension, hyperlipidemia, PVD. Presented the hospital with symptoms of progressively worsening shortness of breath as well as a nonproductive cough. Chest x-ray on admission showed congestive heart failure with pleural effusions. No gram showed normal LV systolic function with an ejection fraction of 60-65%. Blood pressure was elevated on admission at 196/76. Patient has been on Lasix and has been diuresing well. Her BUN and creatinine have improved today. She has had good urine output over the last 24 hours. Upon examination, patient is resting completely embedded. She feels her breathing is better. She denies any orthopnea or PND. Objective - Vital Signs Vital signs: Vital Signs Temp 96.8 F L 07/15/17 08:00 Pulse 78 07/15/17 12:00 Resp 16 07/15/17 12:00 BP 140/73 07/15/17 12:00 Pulse Ox 99 07/15/17 12:00 Intake & Output 07/14/17 07/15/17 07/15/17 18:59 06:59 18:59 Intake Total 600 400 200 Output Total 850 1900 2500 Balance -250 -1500 -2300 Weight 106 kg 107.9 kg Intake: Intake, IV Titration 420 Amount Sodium Chloride 0.9% 1, 220 000 ml @ 50 mls/hr IV . Q20H DEEJAY Rx#:[id number] Sodium Ferric Gluconat- 100 Sucrose 125 mg In Sodium Chloride 0.9% 100 ml @ 100 mls/hr IVPB DAILY@ 1200 DEEJAY Rx#:[id number] cefTRIAXone 2,000 mg In 100 Sodium Chloride 0.9% 100 ml @ 100 mls/hr IVPB Q24H DEEJAY Rx#:[id number] Oral 180 400 200 Output: Urine 850 1900 2500 Other: Voiding Method Indwelling Catheter Indwelling Catheter Indwelling Catheter # Voids 1 1 # Bowel Movements 0 0 0 - Exam PHYSICAL EXAMINATION: HEENT: Head is atraumatic, normocephalic. Pupils equal, round. Neck is supple. There is no elevated jugular venous pressure. HEART EXAMINATION: Heart sounds regular, S1 and S2 with a systolic murmur. CHEST EXAMINATION: Lungs reveal faint extra wheezing throughout. No chest wall tenderness is noted on palpation or with deep breathing. ABDOMEN: Soft, obese, nontender. Bowel sounds are heard. No organomegaly noted. EXTREMITIES: 2+ peripheral pulses with evidence of trace peripheral edema and no calf tenderness noted. NEUROLOGIC patient is awake, alert and oriented x3. . - Labs CBC & Chem 7: 07/15/17 05:27 07/15/17 05:27 Labs: Abnormal Lab Results - Last 24 Hours (Table) 07/14/17 07/14/17 07/15/17 Range/Units 16:50 20:12 05:27 RBC (3.80-5.40) m/uL Hgb (11.4-16.0) gm/dL Hct (34.0-46.0) % Lymphocytes # (1.0-4.8) k/uL Sodium 135 L (137-145) mmol/L BUN 106 H* (7-17) mg/dL Creatinine 2.51 H (0.52-1.04) mg/dL Glucose 178 H (74-99) mg/dL POC Glucose (mg/dL) 341 H 310 H (75-99) mg/dL Total Bilirubin <0.1 L (0.2-1.3) mg/dL AST 11 L (14-36) U/L Albumin 3.1 L (3.5-5.0) g/dL 07/15/17 07/15/17 07/15/17 Range/Units 05:27 06:20 11:42 RBC 2.95 L (3.80-5.40) m/uL Hgb 8.7 L (11.4-16.0) gm/dL Hct 27.4 L (34.0-46.0) % Lymphocytes # 0.2 L (1.0-4.8) k/uL Sodium (137-145) mmol/L BUN (7-17) mg/dL Creatinine (0.52-1.04) mg/dL Glucose (74-99) mg/dL POC Glucose (mg/dL) 184 H 198 H (75-99) mg/dL Total Bilirubin (0.2-1.3) mg/dL AST (14-36) U/L Albumin (3.5-5.0) g/dL Microbiology - Last 24 Hours (Table) 07/11/17 21:40 Blood Culture - Preliminary Blood No Growth after 72 hours Assessment and Plan Assessment: #1 diastolic congestive heart failure, acute on chronic #2 COPD exacerbation #3 hypertension #4 acute on chronic renal failure Plan: From cardiology's perspective, medications were reviewed and will continue the same. We anticipate the patient will be discharged home the next 24-48 hours. [facility] REPAIR note has been reviewed, I agree with a documented findings and plan of care. Patient was seen and examined.
[2017-07-15] MEDS: FUROSEMIDE 40 MG TAB PO SCH (16:40)
[2017-07-15 17:05] LABS: Glucose,Whole Blood 186 mg/dL (75-99)
[2017-07-15 20:44] LABS: Glucose,Whole Blood 280 mg/dL (75-99)
[2017-07-15] MEDS ORDERED: ZOLPIDEM 5 MG TAB PO SCH (21:00)
[2017-07-15] MEDS: INSULIN GLARGINE 100 UNIT/ML 10 ML VIAL SQ SCH (21:02)
--- NOTE | 2017-07-15 21:42 | PN ---
PROGRESS NOTE INTERVAL HISTORY: Patient continued to be hemodynamically stable. No major events reported overnight. Patient currently is denying chest pain, nausea, vomiting or dizziness. PHYSICAL EXAMINATION: VITAL SIGNS: Reviewed and stable. Oxygen saturation is 93% on room air. LUNGS: Diminished bilaterally. NECK: Supple. HEART: Normal S1, S2. ABDOMEN: Soft. No tenderness. Bowel sounds in all 4 quadrants. SKIN: No new rash. IMAGING AND LABS: CBC revealed hemoglobin 8.7, still up from prior reading. Sodium 135, creatinine is 2.51, glucose fluctuating between 186 and 178. Albumin is 3.1. ASSESSMENT AND PLAN: 1. Acute chronic obstructive pulmonary disease exacerbation. The patient continued to improve being off steroids. Will continue aggressive pulmonary hygiene. Will follow up with pulmonary recommendation regarding discharge planning. 2. Acute kidney injury, likely related to cardiorenal syndrome. The patient is responding to current treatment. Creatinine has improved from 3.2 to 2.5. BUN still elevated. The patient is responding to Lasix. Will continue current regimen, monitor kidney function closely and avoid nephrotoxic medication. 3. Anemia, seems to be of chronic disease. Will continue monitoring. 4. 5. Hypertension. Seems to be stable at this point. Will continue monitoring closely. 6. Debility and weakness. We will have Physical Therapy, Occupational Therapy evaluate the patient. 7. 8. Diastolic congestive heart failure, acute on chronic. The patient is responding to Lasix. Management as above. Will continue cardioprotective medication. 9. Anxiety and depression. Will continue with Celexa. 10.Gastroesophageal reflux disease. Will continue famotidine. 11.Diabetes. Will continue insulin sliding scale and continue Lantus 15 units q.h.s. 12.Hyperlipidemia. Will continue statin. 13.Discharge planning based on clinical progress. MMODL / IJN: [id number] /
[2017-07-16] MEDS: cefTRIAXone 2,000 MG in SODIUM CHLORIDE 0.9% 100 ML IVPB SCH (05:21)
[2017-07-16 06:22] LABS: Basophils % (A) 0 %; CH 30.4; CHCM 33.1; Eosinophils # (A) 0.1 k/uL (0-0.7); Eosinophils % (A) 1 %; HCT 26.8 % (34.0-46.0); HDW 3.15; HGB 8.5 gm/dL (11.4-16.0); Luc # (Auto) 0.02; Luc % (Auto) 0; Lymphocytes # (A) 0.2 k/uL (1.0-4.8); Lymphocytes % (A) 5 %; MCH 29.4 pg (25.0-35.0); MCHC 31.9 g/dL (31.0-37.0); MCV 92.1 fL (80.0-100.0); Mean Platelet Volume 7.1; Monocytes # (A) 0.1 k/uL (0-1.0); Monocytes % (A) 3 %; Neutrophils # (A) 3.8 k/uL (1.3-7.7); Neutrophils % (A) 90 %; RBC 2.91 m/uL (3.80-5.40); RDW 14.2 % (11.5-15.5); WBC 4.3 k/uL (3.8-10.6); WBC (Perox) 4.29
[2017-07-16 06:37] LABS: Glucose,Whole Blood 173 mg/dL (75-99)
[2017-07-16 06:49] LABS: Calcium 8.5 mg/dL (8.4-10.2); Total Bilirubin 0.2 mg/dL (0.2-1.3); Total Protein 5.9 g/dL (6.3-8.2)
[2017-07-16] MEDS: INSULIN LISPRO (humaLOG) 300 UNIT/3 ML VIAL SQ SCH ×2 (07:03→07:04)
[2017-07-16] MEDS: BUDESONIDE 1 MG/2 ML NEBU INHALATION SCH (08:02)
[2017-07-16] MEDS: IPRATROPIUM-ALBUTEROL 3 ML NEB INHALATION SCH ×2 (08:02→12:16)
[2017-07-16 09:05] VITALS: BP 150/67; PULSE 85; RESP 16; TEMP 97.3
[2017-07-16] MEDS: HEPARIN SODIUM,PORCINE 5,000 UNIT/ML 1 ML VIAL SQ SCH (09:09)
[2017-07-16] MEDS: CITALOPRAM HYDROBROMIDE 20 MG TAB PO SCH (09:10)
[2017-07-16] MEDS: FUROSEMIDE 40 MG TAB PO SCH (09:10)
[2017-07-16] MEDS: METOPROLOL TARTRATE 25 MG TAB PO SCH (09:10)
[2017-07-16] MEDS: amLODIPine 5 MG TAB PO SCH (09:10)
[2017-07-16] MEDS: FAMOTIDINE 20 MG TAB PO SCH (09:10)
[2017-07-16] MEDS: PRAVASTATIN SODIUM 20 MG TAB PO SCH (09:10)
[2017-07-16] MEDS: methylPREDNISolone SOD SUCCI 125 MG/2 ML VIAL IV SCH (09:10)
[2017-07-16] MEDS: hydrALAZINE HCL 25 MG TAB PO SCH (09:10)
[2017-07-16] MEDS: AZITHROMYCIN 500 MG TAB PO SCH (09:10)
[2017-07-16] MEDS: ACETAMINOPHEN TAB 325 MG TAB PO PRN (09:23)
--- NOTE | 2017-07-16 10:00 | P.DS ---
Providers Date of admission: 07/12/17 01:19 Attending physician: Carissa Manuel MD Consults: 07/12/17 01:19 Consult Physician Stat Consulting Provider: Rocky Shay Consult Reason/Comments: heart failure Do you want consulting provider notified?: Yes Consult Physician Stat Consulting Provider: Sharri Apodaca Consult Reason/Comments: Renal failure Do you want consulting provider notified?: Yes 07/12/17 08:47 Consult Physician Routine Consulting Provider: Ese Wing Consult Reason/Comments: copd Do you want consulting provider notified?: Yes Primary care physician: [place] Hospital Course: This is 71 years old female who presented to the hospital with altered mental status and shortness of breath. The etiology felt to be related to fluid overloaded status related to acute kidney injury and subsequent diastolic heart failure exacerbation. The patient was evaluated by cardiology and nephrology who recommended aggressive dose of diuretics patient responded well kidney function improved and clinical status improved where patient was able to go back to her baseline activity level denied any chest pain, shortness breath, nausea, vomiting or abdominal pain at the time of the discharge. The patient was started on Lasix 40 mg daily at the time of the discharge based on nephrology recommendation and agreement from cardiology service patient was started on steroids and switched to Medrol Dosepak at the time of the discharge due to her COPD patient counseled regarding medication adherence and close follow-up with her primary care physician and to follow up with nephrology within few days from discharge to repeat her blood work and monitor his kidney function and fluid status closely. Patient agreed to the current treatment plan and was discharged to follow-up with her primary care physician between Monday and Monday Patient Condition at Discharge: Fair Plan - Discharge Summary Discharge Rx Participant: Yes New Discharge Prescriptions: No Action rOPINIRole HCL [Requip] 1 mg PO BID Pregabalin [Lyrica] 50 mg PO TID Pravastatin Sodium [Pravachol] 20 mg PO DAILY Glimepiride [Amaryl] 1 mg PO AC-BRKFST Citalopram Hydrobromide [CeleXA] 20 mg PO DAILY Atenolol [Tenormin] 100 mg PO HS Albuterol Nebulized [Ventolin Nebulized] 2.5 mg INHALATION RT-QID PRN PRN Reason: Shortness Of Breath Aspirin [Adult Low Dose Aspirin EC] 81 mg PO DAILY Ergocalciferol (Vitamin D2) [Vitamin D2] 50,000 unit PO Q30D Sacubitril/Valsartan [Entresto 24 mg-26 mg Tablet] 1 tab PO DAILY Calcitriol [Rocaltrol] 0.25 mcg PO WE Allopurinol [Zyloprim] 100 mg PO DAILY Liraglutide [Victoza 3-Robert] 0.6 mg SQ DAILY Discharge Medication List Albuterol Nebulized [Ventolin Nebulized] 2.5 mg INHALATION RT-QID PRN 12/12/16 [ History] Aspirin [Adult Low Dose Aspirin EC] 81 mg PO DAILY 12/12/16 [History] Atenolol [Tenormin] 100 mg PO HS 12/12/16 [History] Citalopram Hydrobromide [CeleXA] 20 mg PO DAILY 12/12/16 [History] Ergocalciferol (Vitamin D2) [Vitamin D2] 50,000 unit PO Q30D 12/12/16 [History] Glimepiride [Amaryl] 1 mg PO AC-BRKFST 12/12/16 [History] Pravastatin Sodium [Pravachol] 20 mg PO DAILY 12/12/16 [History] Pregabalin [Lyrica] 50 mg PO TID 12/12/16 [History] rOPINIRole HCL [Requip] 1 mg PO BID 12/12/16 [History] Allopurinol [Zyloprim] 100 mg PO DAILY 07/11/17 [History] Calcitriol [Rocaltrol] 0.25 mcg PO WE 07/11/17 [History] Sacubitril/Valsartan [Entresto 24 mg-26 mg Tablet] 1 tab PO DAILY 07/11/17 [ History] Liraglutide [Victoza 3-Robert] 0.6 mg SQ DAILY 07/12/17 [History] Follow up Appointment(s)/Referral(s): Adolfo Pulido DO [Primary Care Provider] - 1-2 days [facility] Visiting Nurse, [NON-STAFF] -
[2017-07-16 11:45] LABS: Glucose,Whole Blood 183 mg/dL (75-99)
== END 2017-07-16 12:34 | disposition home health service (06) | DRG 291 ==
LOC: EC 20:12 → 6SEL 07-12 01:19
PROVIDERS: ADMIT Internal Medicine; ATTEND Internal Medicine
DX: I13.0 Hypertensive heart and chronic kidney disease with heart failure and stage 1 through stage 4 chronic kidney disease, or unspecified chronic kidney disease (principal); I50.33 Acute on chronic diastolic (congestive) heart failure; J96.21 Acute and chronic respiratory failure with hypoxia; N17.0 Acute kidney failure with tubular necrosis; J96.22 Acute and chronic respiratory failure with hypercapnia; G93.41 Metabolic encephalopathy; E87.4 Mixed disorder of acid-base balance; J44.1 Chronic obstructive pulmonary disease with (acute) exacerbation; E11.22 Type 2 diabetes mellitus with diabetic chronic kidney disease; E11.51 Type 2 diabetes mellitus with diabetic peripheral angiopathy without gangrene; I27.20 Pulmonary hypertension, unspecified; E87.5 Hyperkalemia; E11.65 Type 2 diabetes mellitus with hyperglycemia; I08.3 Combined rheumatic disorders of mitral, aortic and tricuspid valves; D63.8 Anemia in other chronic diseases classified elsewhere; N18.3 Chronic kidney disease, stage 3 (moderate); R33.9 Retention of urine, unspecified; E78.5 Hyperlipidemia, unspecified; F32.9 Major depressive disorder, single episode, unspecified; F41.9 Anxiety disorder, unspecified; G25.81 Restless legs syndrome; G47.30 Sleep apnea, unspecified; K21.9 Gastro-esophageal reflux disease without esophagitis; T38.0X5A Adverse effect of glucocorticoids and synthetic analogues, initial encounter; M19.90 Unspecified osteoarthritis, unspecified site; Z79.82 Long term (current) use of aspirin; Z79.84 Long term (current) use of oral hypoglycemic drugs; Z79.899 Other long term (current) drug therapy; Z99.81 Dependence on supplemental oxygen; Z87.891 Personal history of nicotine dependence; Z86.718 Personal history of other venous thrombosis and embolism; Z88.5 Allergy status to narcotic agent; Z98.84 Bariatric surgery status
CPT/HCPCS: 36415; 36600; 51701; 70450; 71020; 76770; 80048; 80053; 81001; 82140; 82550; 82553; 82570; 82728; 82803; 82805; 83036; 83540; 83550; 83605; 83735; 83880; 84132; 84300; 84484; 85025; 85610; 85730; 87040; 87086; 93005; 93306; 94640; 94760; 96361; 96365; 96375; 99291

== ENCOUNTER 2018-05-26 12:37 | Emergency (ER) | payer MEDICARE ==
--- NOTE | 2018-05-26 13:00 | ED ---
General Adult HPI - General Chief complaint: Fall Stated complaint: fall Time Seen by Provider: 05/26/18 12:49 Source: patient, RN notes reviewed, old records reviewed Mode of arrival: wheelchair Limitations: no limitations - History of Present Illness Initial comments: 72-year-old female presenting for evaluation of foot pain and wrist pain status post fall. Patient fell yesterday onto outstretched hand on the left side. She states she tripped on uneven concrete. No head neck or back pain. Denies head trauma or loss consciousness. Patient's complaining primarily of left wrist pain. Worse with movement. Patient is not on any anticoagulation. No other injuries. No abdominal pain. No chest pain. - Related Data Home Medications Medication Instructions Recorded Confirmed Albuterol Nebulized [Ventolin 2.5 mg INHALATION RT-QID PRN 12/12/16 04/26/18 Nebulized] Aspirin [Adult Low Dose Aspirin EC] 81 mg PO DAILY 12/12/16 04/26/18 Atenolol [Tenormin] 100 mg PO HS 12/12/16 04/26/18 Citalopram Hydrobromide [CeleXA] 20 mg PO DAILY 12/12/16 04/26/18 Ergocalciferol (Vitamin D2) 50,000 unit PO Q30D 12/12/16 04/26/18 [Vitamin D2] Glimepiride [Amaryl] 1 mg PO AC-BRKFST 12/12/16 04/26/18 Pravastatin Sodium [Pravachol] 20 mg PO DAILY 12/12/16 04/26/18 Pregabalin [Lyrica] 50 mg PO TID 12/12/16 04/26/18 rOPINIRole HCL [Requip] 1 mg PO BID 12/12/16 04/26/18 Allopurinol [Zyloprim] 100 mg PO DAILY 07/11/17 04/26/18 Calcitriol [Rocaltrol] 0.25 mcg PO WE 07/11/17 04/26/18 Sacubitril/Valsartan [Entresto 24 1 tab PO DAILY 07/11/17 04/26/18 mg-26 mg Tablet] Liraglutide [Victoza 3-Robert] 0.6 mg SQ DAILY 07/12/17 04/26/18 Previous Rx's Medication Instructions Recorded Furosemide [Lasix] 40 mg PO BID #60 tablet 07/17/17 Acetaminophen-Codeine 300-30mg 1 tab PO Q6H PRN 3 Days #12 tablet 05/26/18 [Tylenol w/codeine #3] Allergies Allergy/AdvReac Type Severity Reaction Status Date / Time morphine Allergy Swelling Verified 05/26/18 12:46 Review of Systems ROS Statement: Those systems with pertinent positive or pertinent negative responses have been documented in the HPI. ROS Other: All systems not noted in ROS Statement are negative. Past Medical History Past Medical History: COPD, Diabetes Mellitus, Deep Vein Thrombosis (DVT), Hyperlipidemia, Hypertension Additional Past Medical History / Comment(s): CHF, arthritis, restless leg History of Any Multi-Drug Resistant Organisms: None Reported Past Surgical History: Heart Catheterization, Hysterectomy, Joint Replacement, Orthopedic Surgery Additional Past Surgical History / Comment(s): Lap band, Lt shoulder surgery, total left knee, Past Anesthesia/Blood Transfusion Reactions: No Reported Reaction Past Psychological History: Anxiety, Depression Smoking Status: Former smoker Past Alcohol Use History: None Reported Past Drug Use History: None Reported - Past Family History Father Family Medical History: Diabetes Mellitus Additional Family Medical History / Comment(s): Mother of old age, patient had 5 siblings, 1 of colon cancer. One brother had lung transplant secondary to COPD. Patient has 3 sisters all living without any medical problems. She has 2 kids with no medical problems General Exam Limitations: no limitations General appearance: alert, in no apparent distress Head exam: Present: atraumatic, normocephalic Eye exam: Present: normal appearance, PERRL, EOMI Neck exam: Present: normal inspection, full ROM. Absent: tenderness, meningismus Respiratory exam: Present: normal lung sounds bilaterally. Absent: respiratory distress, wheezes Cardiovascular Exam: Present: regular rate, normal rhythm GI/Abdominal exam: Present: soft Extremities exam: Present: other (Left wrist: Deformity and tenderness to palpation over the left wrist. Normal cap refill. Normal sensation. Left foot : Tenderness over the lateral aspect of the fifth and fourth digit distal foot.) Course Vital Signs 05/26/18 05/26/18 12:42 13:04 Temperature 98.2 F Pulse Rate 59 L 53 L Respiratory 22 18 Rate Blood Pressure 123/57 136/63 O2 Sat by Pulse 97 98 Oximetry Procedures - Orthopedic Splinting/Casting Injury #1 Side: left Upper Extremity Injury Location: wrist Upper Extremity Immobilizer: wrist splint Additional Comments: Patient has less than 2 second cap refill, distal pulses intact, she is neurovascularly intact both pre-and post-splinting Medical Decision Making - Medical Decision Making 72-year-old female presents with chief complaint wrist pain and foot pain status post fall yesterday. X-ray obtained of the wrist, nondisplaced distal radius fracture. Patient is placed in a splint. X-ray of the foot was also obtained, negative for any acute bony abnormality. Patient will follow-up with orthopedics. She is prescribed Tylenol 3 for pain. Disposition Clinical Impression: Fall, Distal radius fracture Disposition: HOME SELF-CARE Condition: Fair Instructions: Wrist Fracture in Adults (ED) Prescriptions: Acetaminophen-Codeine 300-30mg [Tylenol w/codeine #3] 1 tab PO Q6H PRN 3 Days # 12 tablet PRN Reason: Pain Is patient prescribed a controlled substance at d/c from ED?: Yes When asked, does pt state using other controlled substances?: No If prescribed controlled substance>3 days was MAPS reviewed?: Prescribed <3 Days If opioid is for acute pain is fill amount 7 days or less?: Yes If Rx opioid, was Start Talking consent form obtained?: Yes Referrals: Adolfo Pulido DO [Primary Care Provider] - 1-2 days Royce Love MD [STAFF PHYSICIAN] - 1-2 days Time of Disposition: 14:12
--- NOTE | 2018-05-26 13:34 | XR ---
EXAMINATION TYPE: XR wrist limited views LT, XR foot complete 3 views LT DATE OF EXAM: 05/26/2018 COMPARISON: NONE HISTORY: 72-year-old female with pain after fall today FINDINGS: Left wrist: There is trace positive ulnar variance. Small cystic change ulnar proximal aspect of the lunate. Circ umferential soft tissue swelling is noted at the wrist. Very subtle intra-articular lucency at the ra diolunate joint only seen on the frontal view. Moderate degenerative change at the first CMC and daniel caphe joints and moderate to severe at the first MCP and first IP joints. No displaced fracture. No s ubluxation or dislocation. Left foot: Osteopenia. [id number] degenerative change of the first MTP joint. Type I accessory navicular. Small plantar calcaneal spur. No acute fracture, subluxation, or dislocation seen. IMPRESSION: 1. Left wrist: Subtle lucency along the articular surface of the distal radius at the radiolunate matthew nt level. Given the degree of soft tissue swelling, findings highly suggestive of a subtle nondisplac ed distal radial epiphyseal fracture. 2. Left wrist: Some bony findings could reflect ulnar impaction syndrome. Moderate osteoarthrosis inv olving the thumb. 3. Left foot: Osteopenia with first MTP joint OA and a plantar calcaneal spur. No acute osseous body seen.
[2018-05-26] MEDS ORDERED: Acetaminophen-Codeine 300-30mg TAB PO STA (14:09)
[2018-05-26 14:23] VITALS: BP 138/70; PULSE 78; RESP 16; TEMP 97.8
== END 2018-05-26 14:22 | disposition home or self-care (01) ==
LOC: EC 12:37
DX: S52.502A Unspecified fracture of the lower end of left radius, initial encounter for closed fracture (principal); M79.672 Pain in left foot; J44.9 Chronic obstructive pulmonary disease, unspecified; E11.9 Type 2 diabetes mellitus without complications; E78.5 Hyperlipidemia, unspecified; I11.0 Hypertensive heart disease with heart failure; I50.9 Heart failure, unspecified; M19.90 Unspecified osteoarthritis, unspecified site; G25.81 Restless legs syndrome; F41.9 Anxiety disorder, unspecified; F32.9 Major depressive disorder, single episode, unspecified; Z86.718 Personal history of other venous thrombosis and embolism; Z95.818 Presence of other cardiac implants and grafts; Z96.652 Presence of left artificial knee joint; Z87.891 Personal history of nicotine dependence; Z79.82 Long term (current) use of aspirin; Z79.84 Long term (current) use of oral hypoglycemic drugs; Z79.899 Other long term (current) drug therapy; Z88.5 Allergy status to narcotic agent; W01.0XXA Fall on same level from slipping, tripping and stumbling without subsequent striking against object, initial encounter; Y92.89 Other specified places as the place of occurrence of the external cause
CPT/HCPCS: 29125; 99284

== ENCOUNTER 2019-06-29 19:06 | Emergency (ER) | payer MEDICARE ==
[2019-06-29 19:10] VITALS: RESP 18; TEMP 98.4
[2019-06-29] MEDS ORDERED: ACET/COD 300 MG/30 MG STARTER PACK 6 TAB BTL PO STA (19:30)
--- NOTE | 2019-06-29 19:34 | ED ---
Lower Extremity Injury HPI - General Source: patient Mode of arrival: wheelchair Limitations: no limitations <Anuradha Swan - Last Filed: 06/29/19 20:25> <Annie Brock - Last Filed: 07/02/19 23:01> - General Chief Complaint: Extremity Injury, Lower Stated Complaint: R foot pain Time Seen by Provider: 06/29/19 19:22 - History of Present Illness Initial Comments: 73-year-old female patient presents to the emergency department today for evaluation of right foot and ankle pain. Patient states yesterday she got up from her chair to answer her 's call when she tripped over something and fell injuring the right foot. Patient states she is feeling soreness of the right upper arm but does have full range of motion does not think anything is broken. She denies hitting her head or losing consciousness with the fall. States that she has increased pain to the right foot and ankle when she attempts to walk. She denies numbness or tingling to the foot. Denies any previous injury. States she has been taking Tylenol without much relief. She takes aspirin daily. Patient denies any headache, neck pain, back pain, chest pain, shortness of breath, dizziness, weakness, abdominal pain, nausea, vomiting, or difficulties with bowel movements or urination. (Anuradha Swan) - Related Data Home Medications Medication Instructions Recorded Confirmed Albuterol Nebulized [Ventolin 2.5 mg INHALATION RT-QID PRN 12/12/16 07/12/18 Nebulized] Aspirin [Adult Low Dose Aspirin EC] 81 mg PO DAILY 12/12/16 07/12/18 Atenolol [Tenormin] 100 mg PO HS 12/12/16 07/12/18 Citalopram Hydrobromide [CeleXA] 20 mg PO DAILY 12/12/16 07/12/18 Ergocalciferol (Vitamin D2) 50,000 unit PO Q30D 12/12/16 07/12/18 [Vitamin D2] Glimepiride [Amaryl] 1 mg PO AC-BRKFST 12/12/16 07/12/18 Pravastatin Sodium [Pravachol] 20 mg PO DAILY 12/12/16 07/12/18 Pregabalin [Lyrica] 50 mg PO TID 12/12/16 07/12/18 rOPINIRole HCL [Requip] 1 mg PO BID 12/12/16 07/12/18 Allopurinol [Zyloprim] 100 mg PO DAILY 07/11/17 07/12/18 Calcitriol [Rocaltrol] 0.25 mcg PO WE 07/11/17 07/12/18 Sacubitril/Valsartan [Entresto 24 1 tab PO DAILY 07/11/17 07/12/18 mg-26 mg Tablet] Liraglutide [Victoza 3-Robert] 0.6 mg SQ DAILY 07/12/17 07/12/18 Previous Rx's Medication Instructions Recorded Furosemide [Lasix] 40 mg PO BID #60 tablet 07/17/17 Acetaminophen-Codeine 300-30mg 1 tab PO Q6H PRN 3 Days #12 tablet 05/26/18 [Tylenol w/codeine #3] Allergies Allergy/AdvReac Type Severity Reaction Status Date / Time morphine Allergy Swelling Verified 06/29/19 19:10 Review of Systems ROS Other: All systems not noted in ROS Statement are negative. <Anuradha Swan - Last Filed: 06/29/19 20:25> ROS Other: All systems not noted in ROS Statement are negative. <Annie Brock - Last Filed: 07/02/19 23:01> ROS Statement: Those systems with pertinent positive or pertinent negative responses have been documented in the HPI. Past Medical History Past Medical History: COPD, Diabetes Mellitus, Deep Vein Thrombosis (DVT), Hyp erlipidemia, Hypertension Additional Past Medical History / Comment(s): CHF, arthritis, restless leg History of Any Multi-Drug Resistant Organisms: None Reported Past Surgical History: Heart Catheterization, Hysterectomy, Joint Replacement, Orthopedic Surgery Additional Past Surgical History / Comment(s): Lap band, Lt shoulder surgery, total left knee, Past Anesthesia/Blood Transfusion Reactions: No Reported Reaction Past Psychological History: Anxiety, Depression Smoking Status: Former smoker Past Alcohol Use History: None Reported Past Drug Use History: None Reported - Past Family History Father Family Medical History: Diabetes Mellitus Additional Family Medical History / Comment(s): Mother of old age, patient had 5 siblings, 1 of colon cancer. One brother had lung transplant secondary to COPD. Patient has 3 sisters all living without any medical problems. She has 2 kids with no medical problems <Anuradha Swan M - Last Filed: 06/29/19 20:25> General Exam Limitations: no limitations General appearance: alert, in no apparent distress, other (This is a well- developed, well-nourished elderly female patient in no acute distress. Vital signs upon presentation are temperature 98.4F, pulse 74, respirations 18, blood pressure 145/75, pulse ox 92% on 2 L.) Eye exam: Present: normal appearance, PERRL, EOMI. Absent: scleral icterus, conjunctival injection, periorbital swelling ENT exam: Present: normal exam, normal oropharynx, mucous membranes moist Neck exam: Present: normal inspection, full ROM, other (Nontender, no step-off, no deformity to firm midline palpation of the posterior cervical spine. Full range of motion without pain or limitation.). Absent: tenderness, meningismus, lymphadenopathy Respiratory exam: Present: normal lung sounds bilaterally. Absent: respiratory distress, wheezes, rales, rhonchi, stridor Cardiovascular Exam: Present: regular rate, normal rhythm, normal heart sounds. Absent: systolic murmur, diastolic murmur, rubs, gallop, clicks GI/Abdominal exam: Present: soft, normal bowel sounds. Absent: distended, tenderness, guarding, rebound, rigid Extremities exam: Present: full ROM, normal capillary refill, other (Mild soft tissue swelling surrounding the right ankle and foot. Tenderness over the anterior ankle and bilateral malleolus. Skin is otherwise pink, warm, and dry. Cap refills less than 3 seconds. Pedal and posttibial pulses 2+ and equal b ilaterally). Absent: normal inspection, tenderness, pedal edema, joint swelling, calf tenderness Back exam: Present: normal inspection, other (Nontender, no step-off, no defo rmity to firm midline palpation of the thoracic and lumbar vertebrae. Full range of motion without pain or limitation.). Absent: vertebral tenderness Neurological exam: Present: alert, oriented X3, CN II-XII intact Psychiatric exam: Present: normal affect, normal mood Skin exam: Present: warm, dry, intact, normal color. Absent: rash <Anuradha Swan M - Last Filed: 06/29/19 20:25> Course Vital Signs 06/29/19 06/29/19 19:08 20:40 Temperature 98.4 F Pulse Rate 74 72 Respiratory 18 18 Rate Blood Pressure 145/75 142/79 O2 Sat by Pulse 92 L 93 L Oximetry Medical Decision Making - Radiology Data Radiology results: report reviewed, image reviewed <Anuradha Swan - Last Filed: 06/29/19 20:25> <nAnie Brock - Last Filed: 07/02/19 23:01> - Medical Decision Making 73-year-old female patient presented to the emergency department today for evaluation of right ankle and foot pain after a trip and fall yesterday. Physical examination did reveal soft tissue swelling surrounding the right ankle. She had good neurovascular status. X-ray of the right ankle, tib-fib, and foot are negative for any acute fractures. Patient symptoms and findings are consistent with ankle sprain. We'll place her in an air splint. She is educated regarding rest, ice, elevation. She is instructed to follow-up with her primary care physician for recheck in 1-2 days. She is instructed to have repeat x-rays performed in 7-10 days if pain symptoms persist. Return parameters are discussed in detail. She verbalizes understanding and agrees with this plan. (Anuradha Swan) I was available for consultation in the emergency department. The history and physical exam were done by the midlevel provider. I was consulted for this patients care. I reviewed the case with the midlevel provider and based on their presentation of the patient, I agree with the assessment, medical decision making and plan of care as documented. Chart was dictated using [employer] dictation software. Attempts were made to correct any dictation errors however some typographical errors may persist. (Annie Brock) - Radiology Data 2 views of the right tib-fib are obtained and shows no fracture. 3 views of the right ankle are obtained. Report reviewed in its entirety. Impression by Dr. Lange shows soft tissue swelling. No fracture seen. Calcaneal spurring. 3 views of the right foot are obtained. Report was reviewed in its entirety. Impression by Dr. Lange shows calcaneal spurring. No fracture. (Anuradha Swan) Disposition Is patient prescribed a controlled substance at d/c from ED?: No Time of Disposition: 20:18 <Anuradha Swan - Last Filed: 06/29/19 20:25> <Annie Brock - Last Filed: 07/02/19 23:01> Clinical Impression: Right ankle sprain Disposition: HOME SELF-CARE Condition: Good Instructions (If sedation given, give patient instructions): Ankle Sprain (ED) Additional Instructions: Rest, ice, elevate the right ankle. Use splint for comfort and support. Use walker or cane for help with ambulation. Take tylenol for pain relief. Follow up with your primary care physician for recheck in 1-2 days. Have repeat x-ray performed in 7-10 days if pain symptoms persist. Return to the emergency department immediately for any new, worsening, or concerning symptoms. Referrals: Adolfo Pulido DO [Primary Care Provider] - 1-2 days
--- NOTE | 2019-06-29 19:57 | XR ---
EXAMINATION TYPE: XR ankle complete RT DATE OF EXAM: 06/29/2019 COMPARISON: NONE HISTORY: Pain TECHNIQUE: 3 views FINDINGS: There are plantar and Achilles calcaneal spurs. There is mild soft tissue swelling around t he ankle joint. I see no fracture nor dislocation. IMPRESSION: Soft tissue swelling. No fracture seen. Calcaneal spurring.
--- NOTE | 2019-06-29 19:57 | XR ---
EXAMINATION TYPE: XR tibia fibula RT DATE OF EXAM: 06/29/2019 COMPARISON: NONE HISTORY: Pain TECHNIQUE: 2 views FINDINGS: Tibia and fibula appear intact. I see no fracture nor dislocation. There is mild subcutaneo us edema. IMPRESSION: No fracture seen.
--- NOTE | 2019-06-29 19:58 | XR ---
EXAMINATION TYPE: XR foot complete RT DATE OF EXAM: 06/29/2019 COMPARISON: NONE HISTORY: Pain TECHNIQUE: 3 views FINDINGS: There are plantar and Achilles calcaneal spurs. Metatarsals are intact. I see no fracture n or dislocation. IMPRESSION: Calcaneal spurring. No fracture.
[2019-06-29 20:41] VITALS: BP 142/79; PULSE 72
== END 2019-06-29 20:41 | disposition home or self-care (01) ==
LOC: EC 19:06
DX: S93.401A Sprain of unspecified ligament of right ankle, initial encounter (principal); J44.9 Chronic obstructive pulmonary disease, unspecified; E11.9 Type 2 diabetes mellitus without complications; E78.5 Hyperlipidemia, unspecified; I11.0 Hypertensive heart disease with heart failure; I50.9 Heart failure, unspecified; F41.9 Anxiety disorder, unspecified; F32.9 Major depressive disorder, single episode, unspecified; G25.81 Restless legs syndrome; M19.90 Unspecified osteoarthritis, unspecified site; Z79.84 Long term (current) use of oral hypoglycemic drugs; Z79.51 Long term (current) use of inhaled steroids; Z79.82 Long term (current) use of aspirin; Z88.5 Allergy status to narcotic agent; Z87.891 Personal history of nicotine dependence; Z86.718 Personal history of other venous thrombosis and embolism; W01.198A Fall on same level from slipping, tripping and stumbling with subsequent striking against other object, initial encounter; Y93.89 Activity, other specified; Y92.009 Unspecified place in unspecified non-institutional (private) residence as the place of occurrence of the external cause
CPT/HCPCS: 99283

== ENCOUNTER → 2019-08-13 | Outpatient (CLI) | payer MEDICARE ==
[2019-08-13 16:03] LABS: African American GFR (CKD) 29.6 (60.0-200.0); Albumin/Globulin Ratio 2.11 (1.60-3.17); Anion Gap 9.4 mmol/L (4.00-12.00); BUN/Creat Ratio 31.05 Ratio (12.00-20.00); Calcium 9.4 mg/dL (8.7-10.3); Carbon Dioxide 38.6 mmol/L (21.6-31.8); Chol/HDL Ratio 3.85; Globulin 1.9 g/dL (1.6-3.3); Potassium 4.8 mmol/L (3.5-5.5); Total Bilirubin 0.5 mg/dL (0.3-1.2); Total Protein 5.9 g/dL (6.2-8.2)
[2019-08-13 17:50] LABS: Hemoglobin A1C 9.6 % (4.0-6.0)
== END | disposition home or self-care (01) ==
LOC: LABWHC1 09:54
PROVIDERS: ATTEND Internal Medicine Endocrinology, Diabetes & Metabolism
DX: E11.65 Type 2 diabetes mellitus with hyperglycemia (principal); J44.9 Chronic obstructive pulmonary disease, unspecified; I11.0 Hypertensive heart disease with heart failure; I50.9 Heart failure, unspecified
CPT/HCPCS: 36415; 80053; 80061; 83036; 83880; 84443

== ENCOUNTER 2019-11-14 13:35 | Observation (INO) | payer MEDICARE ==
[2019-11-14 13:42] LABS: Glucose,Whole Blood 187 mg/dL (75-99)
--- NOTE | 2019-11-14 14:16 | ED ---
General Adult HPI - General Chief complaint: Recheck/Abnormal Lab/Rx Stated complaint: sugar, shakes Time Seen by Provider: 11/14/19 13:56 Source: patient, RN notes reviewed Mode of arrival: ambulatory Limitations: no limitations - History of Present Illness Initial comments: This is a 73-year-old female with no prior history of neurological disorders h eart or lung disease who presents with complaints of one month of intermittent stuttering with speech and generalized tremors to her upper extremities. She states she got worse this morning however. She also states she's been emotional and does cry easily and is been going on longer than is other episode has been. She states this far she knows her life is going really well she's had some occipital headache no fevers chills nausea vomiting sweats cough or phlegm production no recent weight loss or weight gain. She does live at home with her she states she even while playing [employer] last night and won $200. - Related Data Home Medications Medication Instructions Recorded Confirmed Albuterol Nebulized [Ventolin 2.5 mg INHALATION RT-QID PRN 12/12/16 07/12/18 Nebulized] Aspirin [Adult Low Dose Aspirin EC] 81 mg PO DAILY 12/12/16 07/12/18 Atenolol [Tenormin] 100 mg PO HS 12/12/16 07/12/18 Citalopram Hydrobromide [CeleXA] 20 mg PO DAILY 12/12/16 07/12/18 Ergocalciferol (Vitamin D2) 50,000 unit PO Q30D 12/12/16 07/12/18 [Vitamin D2] Glimepiride [Amaryl] 1 mg PO AC-BRKFST 12/12/16 07/12/18 Pravastatin Sodium [Pravachol] 20 mg PO DAILY 12/12/16 07/12/18 Pregabalin [Lyrica] 50 mg PO TID 12/12/16 07/12/18 rOPINIRole HCL [Requip] 1 mg PO BID 12/12/16 07/12/18 Allopurinol [Zyloprim] 100 mg PO DAILY 07/11/17 07/12/18 Calcitriol [Rocaltrol] 0.25 mcg PO WE 07/11/17 07/12/18 Sacubitril/Valsartan [Entresto 24 1 tab PO DAILY 07/11/17 07/12/18 mg-26 mg Tablet] Liraglutide [Victoza 3-Robert] 0.6 mg SQ DAILY 07/12/17 07/12/18 Previous Rx's Medication Instructions Recorded Furosemide [Lasix] 40 mg PO BID #60 tablet 07/17/17 Acetaminophen-Codeine 300-30mg 1 tab PO Q6H PRN 3 Days #12 tablet 05/26/18 [Tylenol w/codeine #3] Allergies Allergy/AdvReac Type Severity Reaction Status Date / Time morphine Allergy Swelling Verified 11/14/19 13:41 Review of Systems ROS Statement: Those systems with pertinent positive or pertinent negative responses have been documented in the HPI. ROS Other: All systems not noted in ROS Statement are negative. Past Medical History Past Medical History: Heart Failure, COPD, Diabetes Mellitus, Deep Vein Thrombosis (DVT), Hyperlipidemia, Hypertension Additional Past Medical History / Comment(s): CHF, arthritis, restless leg History of Any Multi-Drug Resistant Organisms: None Reported Past Surgical History: Heart Catheterization, Hysterectomy, Joint Replacement, Orthopedic Surgery Additional Past Surgical History / Comment(s): Lap band, Lt shoulder surgery, total left knee, Past Anesthesia/Blood Transfusion Reactions: No Reported Reaction Past Psychological History: Anxiety, Depression Smoking Status: Former smoker Past Alcohol Use History: None Reported Past Drug Use History: None Reported - Past Family History Father Family Medical History: Diabetes Mellitus Additional Family Medical History / Comment(s): Mother of old age, patient had 5 siblings, 1 of colon cancer. One brother had lung transplant secondary to COPD. Patient has 3 sisters all living without any medical problems. She has 2 kids with no medical problems General Exam - General Exam Comments Initial Comments: Is a well-developed well-nourished awake alert oriented 3 female she is tearful somewhat Limitations: no limitations General appearance: alert, anxious Head exam: Present: atraumatic, normocephalic, normal inspection Eye exam: Present: normal appearance, PERRL, EOMI. Absent: scleral icterus, conjunctival injection, periorbital swelling ENT exam: Present: mucous membranes dry Neck exam: Present: normal inspection, full ROM, other (No stridor JVD or bruits). Absent: tenderness, meningismus, lymphadenopathy Respiratory exam: Present: normal lung sounds bilaterally. Absent: respiratory distress, wheezes, rales, rhonchi, stridor Cardiovascular Exam: Present: regular rate, normal rhythm, normal heart sounds. Absent: systolic murmur, diastolic murmur, rubs, gallop, clicks GI/Abdominal exam: Present: soft, normal bowel sounds. Absent: distended, tenderness, guarding, rebound, rigid Extremities exam: Present: normal inspection, full ROM, normal capillary refill. 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 Intermittent episodes of fine tremor noted bilaterally.) Psychiatric exam: Present: normal affect, normal mood Skin exam: Present: warm, dry, intact, normal color. Absent: rash Course Vital Signs 11/14/19 13:38 Temperature 97.8 F Pulse Rate 71 Respiratory 18 Rate Blood Pressure 147/69 O2 Sat by Pulse 99 Oximetry EKG Findings - EKG Results: EKG: interpreted by ERMD (Sinus rhythm a 72. Interval 182 QRS duration 90 QT since QTC 44/442 minimal voltage criteria for LVH some artifact noted.) Medical Decision Making - Medical Decision Making I did discuss findings with patient family members were present. Patient still has intermittent stuttering and some fine tremor to both extremities. The exact etiology is unclear at this time. The patient will be admitted with neurological evaluation. I did discuss the case with Dr. Patricia - Lab Data Result diagrams: 11/14/19 14:03 11/14/19 14:03 Lab Results 11/14/19 11/14/19 11/14/19 Range/Units 13:40 14:03 14:03 WBC (3.8-10.6) k/uL RBC (3.80-5.40) m/uL Hgb (11.4-16.0) gm/dL Hct (34.0-46.0) % MCV (80.0-100.0) fL MCH (25.0-35.0) pg MCHC (31.0-37.0) g/dL RDW (11.5-15.5) % Plt Count (150-450) k/uL Neutrophils % % Lymphocytes % % Monocytes % % Eosinophils % % Basophils % % Neutrophils # (1.3-7.7) k/uL Lymphocytes # (1.0-4.8) k/uL Monocytes # (0-1.0) k/uL Eosinophils # (0-0.7) k/uL Basophils # (0-0.2) k/uL Hypochromasia Sodium 138 (137-145) mmol/L Potassium 4.4 (3.5-5.1) mmol/L Chloride 86 L (98-107) mmol/L Carbon Dioxide 44 H* (22-30) mmol/L Anion Gap 8 mmol/L BUN 72 H (7-17) mg/dL Creatinine 2.05 H (0.52-1.04) mg/dL Est GFR (CKD-EPI)AfAm 27 (>60 ml/min/1.73 sqM) Est GFR (CKD-EPI)NonAf 23 (>60 ml/min/1.73 sqM) Glucose 193 H (74-99) mg/dL POC Glucose (mg/dL) 187 H (75-99) mg/dL POC Glu Delicatessen Slicer ID December Calcium 9.5 (8.4-10.2) mg/dL Magnesium 2.4 H (1.6-2.3) mg/dL Total Bilirubin 0.5 (0.2-1.3) mg/dL AST 19 (14-36) U/L ALT 10 (4-34) U/L Alkaline Phosphatase 98 (38-126) U/L Creatine Kinase 32 (30-135) U/L Troponin I <0.012 (0.000-0.034) ng/mL NT-Pro-B Natriuret Pep pg/mL Total Protein 6.4 (6.3-8.2) g/dL Albumin 3.9 (3.5-5.0) g/dL Lipase 78 (23-300) U/L TSH 1.550 (0.465-4.680) mIU/L Urine Color Urine Appearance (Clear) Urine pH (5.0-8.0) Ur Specific [place] (1.001-1.035) Urine Protein (Negative) Urine Glucose (UA) (Negative) Urine Ketones (Negative) Urine Blood (Negative) Urine Nitrite (Negative) Urine Bilirubin (Negative) Ur Bilirubin Confirm (Negative) Urine Urobilinogen (<2.0) mg/dL Ur Leukocyte Esterase (Negative) Urine RBC (0-5) /hpf Urine WBC (0-5) /hpf Ur Squamous Epith Cells (0-4) /hpf Hyaline Casts (0-2) /lpf Urine Mucus (None) /hpf 11/14/19 11/14/19 11/14/19 Range/Units 14:03 14:03 14:42 WBC 6.2 (3.8-10.6) k/uL RBC 3.40 L (3.80-5.40) m/uL Hgb 10.5 L (11.4-16.0) gm/dL Hct 33.1 L (34.0-46.0) % MCV 97.5 (80.0-100.0) fL MCH 30.9 (25.0-35.0) pg MCHC 31.7 (31.0-37.0) g/dL RDW 14.6 (11.5-15.5) % Plt Count 195 (150-450) k/uL Neutrophils % 77 % Lymphocytes % 13 % Monocytes % 5 % Eosinophils % 3 % Basophils % 1 % Neutrophils # 4.8 (1.3-7.7) k/uL Lymphocytes # 0.8 L (1.0-4.8) k/uL Monocytes # 0.3 (0-1.0) k/uL Eosinophils # 0.2 (0-0.7) k/uL Basophils # 0.0 (0-0.2) k/uL Hypochromasia Slight Sodium (137-145) mmol/L Potassium (3.5-5.1) mmol/L Chloride (98-107) mmol/L Carbon Dioxide (22-30) mmol/L Anion Gap mmol/L BUN (7-17) mg/dL Creatinine (0.52-1.04) mg/dL Est GFR (CKD-EPI)AfAm (>60 ml/min/1.73 sqM) Est GFR (CKD-EPI)NonAf (>60 ml/min/1.73 sqM) Glucose (74-99) mg/dL POC Glucose (mg/dL) (75-99) mg/dL POC Glu Delicatessen Slicer ID Calcium (8.4-10.2) mg/dL Magnesium (1.6-2.3) mg/dL Total Bilirubin (0.2-1.3) mg/dL AST (14-36) U/L ALT (4-34) U/L Alkaline Phosphatase (38-126) U/L Creatine Kinase (30-135) U/L Troponin I (0.000-0.034) ng/mL NT-Pro-B Natriuret Pep 514 pg/mL Total Protein (6.3-8.2) g/dL Albumin (3.5-5.0) g/dL Lipase (23-300) U/L TSH (0.465-4.680) mIU/L Urine Color Yellow Urine Appearance Clear (Clear) Urine pH 6.0 (5.0-8.0) Ur Specific [place] 1.020 (1.001-1.035) Urine Protein 1+ H (Negative) Urine Glucose (UA) Negative (Negative) Urine Ketones Negative (Negative) Urine Blood Negative (Negative) Urine Nitrite Negative (Negative) Urine Bilirubin 2+ H (Negative) Ur Bilirubin Confirm (Negative) Urine Urobilinogen 2.0 (<2.0) mg/dL Ur Leukocyte Esterase Small (Negative) Urine RBC 2 (0-5) /hpf Urine WBC 1 (0-5) /hpf Ur Squamous Epith Cells 1 (0-4) /hpf Hyaline Casts 7 H (0-2) /lpf Urine Mucus Rare H (None) /hpf - Radiology Data Radiology results: report reviewed (I did review the imaging and report no acute findings.), image reviewed Disposition Clinical Impression: Acquired stuttering, Acute on chronic kidney failure, Dehydration, Tremor of both hands Disposition: ADMITTED IP TO THIS [facility] Condition: Fair Referrals: Adolfo Pulido DO [Primary Care Provider] - 1-2 days
[2019-11-14 14:23] LABS: Basophils % (A) 1 %; Eosinophils # (A) 0.2 k/uL (0-0.7); Eosinophils % (A) 3 %; HCT 33.1 % (34.0-46.0); HGB 10.5 gm/dL (11.4-16.0); Hypochromasia Slight; Lymphocytes # (A) 0.8 k/uL (1.0-4.8); Lymphocytes % (A) 13 %; MCH 30.9 pg (25.0-35.0); MCHC 31.7 g/dL (31.0-37.0); MCV 97.5 fL (80.0-100.0); Mean Platelet Volume 7.8; Monocytes # (A) 0.3 k/uL (0-1.0); Monocytes % (A) 5 %; Neutrophils # (A) 4.8 k/uL (1.3-7.7); Neutrophils % (A) 77 %; Platelet Count 195 k/uL (150-450); RDW 14.6 % (11.5-15.5); WBC 6.2 k/uL (3.8-10.6)
[2019-11-14 14:31] LABS: Albumin 3.9 g/dL (3.5-5.0); Calcium 9.5 mg/dL (8.4-10.2); Magnesium 2.4 mg/dL (1.6-2.3); Potassium 4.4 mmol/L (3.5-5.1); Total Bilirubin 0.5 mg/dL (0.2-1.3); Total Protein 6.4 g/dL (6.3-8.2)
--- NOTE | 2019-11-14 14:35 | CT ---
EXAMINATION TYPE: CT brain wo con DATE OF EXAM: 11/14/2019 COMPARISON: 07/12/2017 INDICATION: Headache, weakness, dizziness and tremor DLP: 1142.4 mGycm, Automated exposure control for dose reduction was used. CONTRAST: None CT of the brain is performed utilizing 3 mm thick sections through the posterior fossa and 3 mm thick sections through the remaining calvarium. Study is performed within 24 hours of arrival to the hosp ital. No abnormal hyperdensity is present to suggest an acute intracranial hemorrhage. No mass lesion is evident. No acute infarcts are evident. Periventricular white matter hypodensity is present, likely on the bas is of chronic white matter ischemic change. Findings appear stable over the interval. Ventricles and sulci are appropriate for the patient age. Paranasal sinuses and mastoid air cells within the [id number] are clear. IMPRESSIONS: 1. Mild stable periventricular white matter ischemic changes.
--- NOTE | 2019-11-14 14:35 | XR ---
EXAMINATION TYPE: XR chest 2V DATE OF EXAM: 11/14/2019 COMPARISON: 07/14/2017 HISTORY: 73-year-old female shortness of breath and history of tremors, dyspnea. TECHNIQUE: AP and lateral views FINDINGS: Heart borderline enlarged. Diffuse interstitial and vascular prominence. Opacity at the cardiac apex likely epicardial fat pad, unchanged from 10/21/2014. No other consolidation or pleural effusion. IMPRESSION: Borderline cardiomegaly with interstitial changes. Correlate for mild pulmonary vascular congestion.
[2019-11-14 15:13] LABS: Hyaline Casts,Urine 7 /lpf (0-2); Mucus,Urine Rare /hpf; RBC,Urine 2 /hpf (0-5); Squamous Epithelial Cell,Urine 1 /hpf (0-4); WBC,Urine 1 /hpf (0-5)
[2019-11-14 15:34] LABS: Appearance,Urine Clear (Clear); Color,Urine Yellow; Glucose,Urine (UA) Negative (Negative); Ketones,Urine Negative (Negative); Protein,Urine 1+ (Negative)
[2019-11-14 15:35] LABS: Bilirubin,Urine 2+ (Negative); Blood,Urine Negative (Negative); Nitrite,Urine Negative (Negative)
[2019-11-14 15:36] LABS: Leukocyte Esterase,Urine Small (Negative)
[2019-11-14] MEDS ORDERED: NALOXONE 0.4 MG/ML 1 ML VIAL IV PRN (16:12)
[2019-11-14] MEDS ORDERED: Acetaminophen-Codeine 300-30mg TAB PO PRN (16:18)
[2019-11-14] MEDS ORDERED: ALBUTEROL NEBULIZED 2.5 MG/3 ML INHALATION PRN (16:18)
[2019-11-14] MEDS: SODIUM CHLORIDE 0.9% 1,000 ML IV SCH (17:02)
[2019-11-14] MEDS: PREGABALIN 50 MG CAP PO SCH (21:13)
[2019-11-14] MEDS: ATENOLOL 50 MG TAB PO SCH (21:13)
[2019-11-15 07:03] LABS: Glucose,Whole Blood 81 mg/dL (75-99)
[2019-11-15] MEDS: FUROSEMIDE 40 MG TAB PO SCH ×3 (08:21→16:36)
[2019-11-15] MEDS: PREGABALIN 50 MG CAP PO SCH ×3 (08:27→21:12)
[2019-11-15] MEDS: CITALOPRAM HYDROBROMIDE 20 MG TAB PO SCH (08:27)
[2019-11-15] MEDS: ASPIRIN 81 MG PO SCH (08:27)
[2019-11-15] MEDS: ALLOPURINOL 100 MG TAB PO SCH (08:27)
[2019-11-15] MEDS: PRAVASTATIN SODIUM 20 MG TAB PO SCH (08:27)
[2019-11-15] MEDS: SACUBITRIL/VALSARTAN 24 MG-26 MG TABLET PO SCH (08:28)
[2019-11-15] MEDS: GLIMEPIRIDE 1 MG TAB PO SCH (08:28)
[2019-11-15] MEDS ORDERED: LORazepam 2 MG/ML INJ IV STA (10:29)
--- NOTE | 2019-11-15 10:57 | P.CNNES ---
History of Present Illness Consult date: 11/15/19 Requesting physician: Deshawn Mata Reason for Consult: New onset stuttering and tremors History of Present Illness: Patient is a 73-year-old female, who came to the hospital because of stuttering for the last 1 month, progressively getting worse. Yesterday it was really bad. She spoke to her primary care physician, who recommended her to go to ER. Patient also is complaining of tremors, going on for the last 1 month. Patient denies any new medications to the regimen. She does have moderate renal dysfunction, which is chronic. Patient also has history of diabetic neuropathy for the last 1 year, with numbness and tingling in the feet. In the last 1 week she has been feeling as if these bubble underneath her feet while walking. Patient denies any facial droop, slurred speech besides stuttering, focal num bness tingling or weakness. Patient has history of diabetes for 15-20 years, on insulin, hypertension. She smoked 1 pack per day for 30 years, quit 40 years ago. Denies any alcohol use. She does take baby aspirin twice a day. CT head showed mild stable periventricular white matter ischemic changes. EKG showed normal sinus rhythm, chest x-ray showed borderline cardiomegaly with interstitial changes. Correlate for mild pulmonary vascular congestion. Blood tests shows hemoglobin A1c 9.6 on 08/13/2019. Electrolytes are normal, BUN 72, creatinine 2.05. Patient does have chronic renal insufficiency. Liver panel is normal. Patient's total cholesterol is 185, LDL 103, HDL 48 and triglycerides 170 on 08/13/2019. TSH normal. CBC with hemoglobin 10.5 and elevated MCV 97.5. Review of Systems As above in detail. Patient denies any headache, double vision, loss of vision hearing loss versus O2 dysphagia. Denies any focal numbness or tingling does have peripheral neuropathy. Denies chest pain shortness of breath wheezing or cough. Past Medical History Past Medical History: Heart Failure, COPD, Diabetes Mellitus, Deep Vein Thrombosis (DVT), Hyperlipidemia, Hypertension Additional Past Medical History / Comment(s): CHF, arthritis, restless leg History of Any Multi-Drug Resistant Organisms: None Reported Past Surgical History: Heart Catheterization, Hysterectomy, Joint Replacement, Orthopedic Surgery Additional Past Surgical History / Comment(s): Lap band, Lt shoulder surgery, total left knee, Past Anesthesia/Blood Transfusion Reactions: No Reported Reaction Past Psychological History: Anxiety, Depression Smoking Status: Former smoker Past Alcohol Use History: None Reported Past Drug Use History: None Reported - Past Family History Father Family Medical History: Diabetes Mellitus Additional Family Medical History / Comment(s): Mother of old age, patient had 5 siblings, 1 of colon cancer. One brother had lung transplant secondary to COPD. Patient has 3 sisters all living without any medical problems. She has 2 kids with no medical problems Medications and Allergies Home Medications Medication Instructions Recorded Confirmed Type Aspirin [Adult Low Dose Aspirin EC] 81 mg PO DAILY 12/12/16 11/14/19 History Atenolol [Tenormin] 100 mg PO HS 12/12/16 11/14/19 History Ergocalciferol (Vitamin D2) 50,000 unit PO WE 12/12/16 11/14/19 History [Vitamin D2] Glimepiride [Amaryl] 1 mg PO AC-BRKFST 12/12/16 11/14/19 History Pregabalin [Lyrica] 50 mg PO BID 12/12/16 11/14/19 History rOPINIRole HCL [Requip] 1 mg PO BID 12/12/16 11/14/19 History Allopurinol [Zyloprim] 100 mg PO BID 07/11/17 11/14/19 History Calcitriol [Rocaltrol] 0.25 mcg PO DAILY 07/11/17 11/14/19 History Sacubitril/Valsartan [Entresto 24 1 tab PO DAILY 07/11/17 11/14/19 History mg-26 mg Tablet] Furosemide [Lasix] 40 mg PO BID #60 tablet 07/17/17 11/14/19 Rx Dulaglutide [Trulicity] 1.5 mg SQ VASQUEZ 11/14/19 11/14/19 History Ferrous Sulfate [Feosol] 325 mg PO DAILY 11/14/19 11/14/19 History Insulin Aspart [NovoLOG Flexpen] 20 units SQ AC-TID 11/14/19 11/14/19 History Insulin Degludec [Tresiba 16 units SQ DAILY 11/14/19 11/14/19 History Flextouch U-100] Potassium Chloride ER [K-Dur 20] 20 meq PO BID 11/14/19 11/14/19 History Pravastatin Sodium [Pravachol] 40 mg PO DAILY 11/14/19 11/14/19 History Allergies Allergy/AdvReac Type Severity Reaction Status Date / Time morphine Allergy Swelling Verified 11/14/19 18:51 Physical Examination - Vital Signs Vital Signs: Vital Signs Temp Pulse Pulse Pulse Resp BP BP 11/15/19 07:31 97.8 F 60 122/72 11/15/19 04:00 104 H 18 11/15/19 02:50 97.9 F 69 108/64 11/15/19 00:00 104 H 18 11/14/19 21:12 11/14/19 20:00 104 H 18 11/14/19 19:10 97.8 F 104 H 138/82 11/14/19 17:47 97.8 F 71 18 122/52 11/14/19 17:46 97.8 F 104 H 18 138/82 11/14/19 16:39 63 18 133/53 11/14/19 13:38 97.8 F 71 18 147/69 Pulse Ox 11/15/19 07:31 99 11/15/19 04:00 11/15/19 02:50 97 11/15/19 00:00 11/14/19 21:12 98 11/14/19 20:00 11/14/19 19:10 100 11/14/19 17:47 97 11/14/19 17:46 100 11/14/19 16:39 99 11/14/19 13:38 99 Intake and Output 11/14/19 11/15/19 11/15/19 22:59 06:59 14:59 Intake Total 240 Balance 240 Intake: Oral 240 Other: Voiding Method Toilet Toilet # Voids 1 Weight 106.594 kg On examination patient is an elderly female, in no acute distress. Patient is alert awake oriented to time place and person. Patient knows it is October and the year is 2019, and that she is in [facility] in [facility]. Her speech has moderate stuttering. No aphasia. Patient can name and repeat very well. On cranial examination pupils are round and reactive to light, visual jesus are full on confrontation, extraocular muscles intact with no nystagmus. Face is symmetric, tongue protrudes the midline. Palatal elevation and sensation normal. On muscle strength testing there is no pronator drift and the strength is normal in arms and legs distally and proximally. Reflexes are 1+ and plantars are downgoing. Sensory touch is equal. Patient does have a mild and dysmetria for [id number] testing bilaterally. Patient also has mild postural tremors. No myoclonic jerks. Tone and bulk of muscles normal. Gait deferred. There is no obvious bruit S1 and S2 audible. Mild peripheral edema. Results - Laboratory Findings CBC and BMP: 11/14/19 14:03 11/14/19 14:03 Abnormal Lab Findings: Abnormal Labs 11/14/19 11/14/19 11/14/19 13:40 14:03 14:03 RBC 3.40 L Hgb 10.5 L Hct 33.1 L Lymphocytes # 0.8 L Chloride 86 L Carbon Dioxide 44 H* BUN 72 H Creatinine 2.05 H Glucose 193 H POC Glucose (mg/dL) 187 H Magnesium 2.4 H Urine Protein Urine Bilirubin Hyaline Casts Urine Mucus 11/14/19 14:42 RBC Hgb Hct Lymphocytes # Chloride Carbon Dioxide BUN Creatinine Glucose POC Glucose (mg/dL) Magnesium Urine Protein 1+ H Urine Bilirubin 2+ H Hyaline Casts 7 H Urine Mucus Rare H Assessment and Plan Assessment: * 73-year-old female admitted with 1 month history of progressive stuttering, worse since yesterday. Rule out CVA. * Tremors, likely metabolic in nature. * Diabetes, poorly controlled * Chronic renal insufficiency, moderate * Hypertension * Hyperlipidemia * X tobacco user. Plan: * Agree with checking MRI of the brain to evaluate for acute to subacute stroke. * We will check carotid Doppler, 2-D echo to rule out any embolic source. * Recheck hemoglobin A1c, as the last one was poorly controlled. * Fasting a.m. lipid panel. * Patient at present is on aspirin 81 mg twice a day. We may consider switching to Plavix if these signs of significant small vessel disease/lacunar strokes on MRI. * Speech therapy.
--- NOTE | 2019-11-15 11:48 | US ---
EXAMINATION TYPE: US carotid duplex BILAT DATE OF EXAM: 11/15/2019 COMPARISON: US 02/20/15, 12/08/09 CLINICAL HISTORY: TIA vs CVA.. EXAM MEASUREMENTS: RIGHT: Peak Systolic Velocity (PSV) cm/sec ----- Right CCA: 61.2 ----- Right ICA: 213.1 ----- Right ECA: 167.8 ICA/CCA ratio: 3.5 RIGHT: End Diastole cm/sec ----- Right CCA: 18.1 ----- Right ICA: 41.7 ----- Right ECA: 0.0 LEFT: Peak Systolic Velocity (PSV) cm/sec ----- Left CCA: 101.6 ----- Left ICA: 290.2 ----- Left ECA: 145.2 ICA/CCA ratio: 2.9 LEFT: End Diastole cm/sec ----- Left CCA: 27.3 ----- Left ICA: 76.7 ----- Left ECA: 0.0 VERTEBRALS (direction of flow): Right Vertebral: Antegrade Left Vertebral: Antegrade Rhythm: Normal bilateral calcified plaque at bifurcations. Mild atherosclerotic changes mid Left CCA. Increased flow velocities bilaterally. IMPRESSION: 1. Atheromatous plaquing bilateral carotid bifurcations. This appears greater on the left than the r ight. 2. Greater than 70% stenosis left proximal internal carotid artery. 3. Moderate stenosis right internal carotid artery between 50 and 69%. Correlate with the clinical s ymptoms. Criteria for Assigning % of Stenosis / Diameter reduction (Estimation based on the indirect measurements of the internal carotid artery velocities (ICA PSV). 1. Normal (no stenosis)=ICA PSV < 125 cm/s: ratio < 2.0: ICA EDV<40 cm/s. 2. Less than 50% stenosis=ICA PSV < 125 cm/s: ratio < 2.0: ICA EDV<40 cm/s. 3. 50 to 69% stenosis=ICA PSV of 125 to 230 cm/s: ration 2.0 ? 4.0: ICA EDV 40-100 cm/s. 4. Greater than 70% stenosis to near occlusion= ICA PSV > 230 cm/s: ratio > 4.0: ICA EDV > 100 cm/s. 5. Near occlusion= ICA PSV velocities may be low or undetectable: variable ratio and ICA EDV. 6. Total occlusion=unable to detect flow.
[2019-11-15 11:49] LABS: Glucose,Whole Blood 133 mg/dL (75-99)
--- NOTE | 2019-11-15 13:01 | ECHOF ---
Referral Reason:TIA vs CVA. MEASUREMENTS -------- HEIGHT: 160.0 cm WEIGHT: 106.6 kg BP: RVIDd: 3.9 cm (< 3.3) IVSd: 1.5 cm (0.6 - 1.1) LVIDd: 3.7 cm (3.9 - 5.3) LVPWd: 1.6 cm (0.6 - 1.1) IVSs: 1.9 cm LVIDs: 3.5 cm LVPWs: 2.2 cm LA Diam: 4.3 cm (2.7 - 3.8) LAESV Index (A-L): 35.70 ml/m Ao Diam: 3.1 cm (2.0 - 3.7) AV Cusp: 1.1 cm (1.5 - 2.6) MV EXCURSION: 17.354 mm (> 18.000) MV EF SLOPE: 78 mm/s (70 - 150) EPSS: 0.7 cm MV E Andres: 0.89 m/s MV DecT: 218 ms MV A Andres: 0.90 m/s MV E/A Ratio: 0.99 AV maxP.92 mmHg AV maxP.92 mmHg AV meanP.66 mmHg RAP: 5.00 mmHg RVSP: 29.84 mmHg FINDINGS -------- Sinus rhythm. This was a techncally difficult study with suboptimal views, , Lumason utilized for enhancement of im ages. The left ventricular size is normal. There is moderate concentric left ventricular hypertrophy. O verall left ventricular systolic function is normal with, an EF between 55 - 60 %. The diastolic fi lling pattern is normal for the age of the patient 17.31. The right ventricle is normal in size. The left atrium is moderately dilated. LA is moderately dilated 34-39 ml/m2 The right atrial size is normal. 5.0mg OF Lumason UTLIZED: 2 OR MORE WALL SEGMENTS NOT VISUALIZED. The aortic valve was not well visualized. There is mild aortic stenosis present. Peak/mean gradie nt across the Aortic Valve is 26.92mmHg / 12.66mmHg. Mild mitral annular calcification present. Mild mitral regurgitation is present. No regurgitation noted Right ventricular systolic pressure is normal at < 35 mmHg. There is no ev idence of pulmonary hypertension. There is no pulmonic regurgitation present. The aortic root size is normal. There is no pericardial effusion. CONCLUSIONS -------- 1. Sinus rhythm. 2. This was a techncally difficult study with suboptimal views, , Lumason utilized for enhancement of images. 3. The left ventricular size is normal. 4. There is moderate concentric left ventricular hypertrophy. 5. Overall left ventricular systolic function is normal with, an EF between 55 - 60 %. 6. The diastolic filling pattern is normal for the age of the patient 17.31 7. The right ventricle is normal in size. 8. The left atrium is moderately dilated. 9. LA is moderately dilated 34-39 ml/m2 10. The right atrial size is normal. 11. 5.0mg OF Lumason UTLIZED: 2 OR MORE WALL SEGMENTS NOT VISUALIZED. 12. The aortic valve was not well visualized. 13. There is mild aortic stenosis present. 14. Peak/mean gradient across the Aortic Valve is 26.92mmHg / 12.66mmHg. 15. Mild mitral annular calcification present. 16. Mild mitral regurgitation is present. 17. No regurgitation noted 18. Right ventricular systolic pressure is normal at < 35 mmHg. 19. There is no evidence of pulmonary hypertension. 20. There is no pulmonic regurgitation present. 21. The aortic root size is normal. 22. There is no pericardial effusion. TECHNICIAN [employer] MAINTENANCE: Benita Washington RDCS
--- NOTE | 2019-11-15 13:20 | P.HPIM ---
History of Present Illness H&P Date: 11/15/19 This is a 73-year-old female patient of Dr. Pulido and Dr. Franklin with past medical history of COPD, history of smoking quit in 2017, diabetes mellitus type 2, hypertension, hyperlipidemia, peripheral vascular disease, DVT, history of morbid obesity status post lap band, generalized anxiety disorder and recurrent depression. Patient complains of intermittent stuttering for one month and generalized tremors to her upper extremities. Stuttering became significantly worse last couple days. Patient was seen by her PCP was sent in the hospital for further evaluation. Patient has never been diagnosed with any neurological disorders in the past. Patient also states that she has been more emotional and cries easily. No extremity weakness. states her balance is off with walking for years with no change. No recent falls. No fever or chills. No nausea or vomiting. No cough or sputum production. No weight loss. Patient has had some weight gain and has a good appetite. Patient came in the [facility] emergency center for evaluation. She was afebrile, blood pressure 147/69, heart rate 71, pulse ox 99% on room air. EKG sinus rhythm. Hemoglobin 10.5, chloride 86, CO2 44, BUN 72 and creatinine 2.05 which seems to be patient's baseline, blood sugar 193. Troponin negative. TSH 1.550. Liver function tests within normal limits. ProBNP 514. Urinalysis clear and negative for infection. Chest x-ray reveals borderline cardiomegaly with interstitial changes. Correlate for mild pulmonary vascular congestion. CAT scan of the brain showed mild stable periventricular white matter ischemic change. Patient was admitted to the [facility] floor and consult requested with neurology. MRI of the brain ordered. Review of Systems Constitutional: Reports fatigue, Denies anorexia, Denies chills, Denies fever, Denies poor appetite, Denies weakness Eyes: denies blurred vision, denies pain Ears, nose, mouth and throat: Denies dysphagia, Denies nasal congestion, Denies nasal discharge, Denies vertigo Cardiovascular: Denies chest pain, Denies decreased exercise tolerance, Denies dyspnea on exertion, Denies edema, Denies leg edema, Denies lightheadedness, Denies shortness of breath, Denies syncope Respiratory: Denies cough, Denies cough with sputum, Denies dyspnea, Denies excessive sputum, Denies hemoptysis, Denies home oxygen Gastrointestinal: Denies abdominal pain, Denies diarrhea, Denies loss of appetite, Denies nausea, Denies vomiting Genitourinary: Denies dysuria, Denies hematuria, Denies urgency, Denies urinary frequency Musculoskeletal: Denies frequent falls, Denies gait dysfunction, Denies muscle weakness, Denies myalgias Integumentary: Denies pruritus, Denies rash Neurological: Reports tremors, Denies change in mentation, Denies change in speech, Denies confusion, Denies gait dysfunction, Denies numbness, Denies paralysis, Denies seizures, Denies syncope, Denies weakness Psychiatric: Denies anxiety, Denies depression Endocrine: Denies fatigue, Denies weight change Past Medical History Past Medical History: Heart Failure, COPD, Diabetes Mellitus, Deep Vein Thrombosis (DVT), Hyperlipidemia, Hypertension Additional Past Medical History / Comment(s): CHF, arthritis, restless leg History of Any Multi-Drug Resistant Organisms: None Reported Past Surgical History: Heart Catheterization, Hysterectomy, Joint Replacement, Orthopedic Surgery Additional Past Surgical History / Comment(s): Lap band, Lt shoulder surgery, total left knee, Past Anesthesia/Blood Transfusion Reactions: No Reported Reaction Past Psychological History: Anxiety, Depression Smoking Status: Former smoker Past Alcohol Use History: None Reported Past Drug Use History: None Reported - Past Family History Father Family Medical History: Diabetes Mellitus Additional Family Medical History / Comment(s): Mother of old age, patient had 5 siblings, 1 of colon cancer. One brother had lung transplant secondary to COPD. Patient has 3 sisters all living without any medical problems. She has 2 kids with no medical problems Medications and Allergies Home Medications Medication Instructions Recorded Confirmed Type Aspirin [Adult Low Dose Aspirin EC] 81 mg PO DAILY 12/12/16 11/14/19 History Atenolol [Tenormin] 100 mg PO HS 12/12/16 11/14/19 History Ergocalciferol (Vitamin D2) 50,000 unit PO WE 12/12/16 11/14/19 History [Vitamin D2] Glimepiride [Amaryl] 1 mg PO AC-BRKFST 12/12/16 11/14/19 History Pregabalin [Lyrica] 50 mg PO BID 12/12/16 11/14/19 History rOPINIRole HCL [Requip] 1 mg PO BID 12/12/16 11/14/19 History Allopurinol [Zyloprim] 100 mg PO BID 07/11/17 11/14/19 History Calcitriol [Rocaltrol] 0.25 mcg PO DAILY 07/11/17 11/14/19 History Sacubitril/Valsartan [Entresto 24 1 tab PO DAILY 07/11/17 11/14/19 History mg-26 mg Tablet] Furosemide [Lasix] 40 mg PO BID #60 tablet 07/17/17 11/14/19 Rx Dulaglutide [Trulicity] 1.5 mg SQ VASQUEZ 11/14/19 11/14/19 History Ferrous Sulfate [Feosol] 325 mg PO DAILY 11/14/19 11/14/19 History Insulin Aspart [NovoLOG Flexpen] 20 units SQ AC-TID 11/14/19 11/14/19 History Insulin Degludec [Tresiba 16 units SQ DAILY 11/14/19 11/14/19 History Flextouch U-100] Potassium Chloride ER [K-Dur 20] 20 meq PO BID 11/14/19 11/14/19 History Pravastatin Sodium [Pravachol] 40 mg PO DAILY 11/14/19 11/14/19 History Allergies Allergy/AdvReac Type Severity Reaction Status Date / Time morphine Allergy Swelling Verified 11/14/19 18:51 Physical Exam Vitals: Vital Signs Temp Pulse Pulse Pulse Resp BP BP 11/15/19 07:31 97.8 F 60 122/72 11/15/19 04:00 104 H 18 11/15/19 02:50 97.9 F 69 108/64 11/15/19 00:00 104 H 18 11/14/19 21:12 11/14/19 20:00 104 H 18 11/14/19 19:10 97.8 F 104 H 138/82 11/14/19 17:47 97.8 F 71 18 122/52 11/14/19 17:46 97.8 F 104 H 18 138/82 11/14/19 16:39 63 18 133/53 11/14/19 13:38 97.8 F 71 18 147/69 Pulse Ox 11/15/19 07:31 99 11/15/19 04:00 11/15/19 02:50 97 11/15/19 00:00 11/14/19 21:12 98 11/14/19 20:00 11/14/19 19:10 100 11/14/19 17:47 97 11/14/19 17:46 100 11/14/19 16:39 99 11/14/19 13:38 99 Intake and Output 11/14/19 11/15/19 11/15/19 22:59 06:59 14:59 Intake Total 240 Balance 240 Intake: Oral 240 Other: Voiding Method Toilet Toilet # Voids 1 Weight 106.594 kg Gen: This is a 73-year-old female. Patient is resting in bed and appears to be comfortable. HEENT: Head is atraumatic, normocephalic. Pupils equal, round. Sclerae is anicteric. NECK: Supple. No JVD. No lymphadenopathy. No thyromegaly. LUNGS: Clear to auscultation. No wheezes or rhonchi. No intercostal retractions. HEART: Regular rate and rhythm. No murmur. ABDOMEN: Soft. Bowel sounds are present. No masses. No tenderness. EXTREMITIES: No pedal edema. No calf tenderness. NEUROLOGICAL: Patient is awake, alert and oriented x3. Cranial nerves 2 through 12 are grossly intact. Mild tremors, mild stuttering. Results CBC & Chem 7: 11/14/19 14:03 11/14/19 14:03 Labs: Abnormal Lab Results - Last 24 Hours (Table) 11/14/19 11/14/19 11/14/19 Range/Units 13:40 14:03 14:03 RBC 3.40 L (3.80-5.40) m/uL Hgb 10.5 L (11.4-16.0) gm/dL Hct 33.1 L (34.0-46.0) % Lymphocytes # 0.8 L (1.0-4.8) k/uL Chloride 86 L (98-107) mmol/L Carbon Dioxide 44 H* (22-30) mmol/L BUN 72 H (7-17) mg/dL Creatinine 2.05 H (0.52-1.04) mg/dL Glucose 193 H (74-99) mg/dL POC Glucose (mg/dL) 187 H (75-99) mg/dL Magnesium 2.4 H (1.6-2.3) mg/dL Urine Protein (Negative) Urine Bilirubin (Negative) Hyaline Casts (0-2) /lpf Urine Mucus (None) /hpf 11/14/19 Range/Units 14:42 RBC (3.80-5.40) m/uL Hgb (11.4-16.0) gm/dL Hct (34.0-46.0) % Lymphocytes # (1.0-4.8) k/uL Chloride (98-107) mmol/L Carbon Dioxide (22-30) mmol/L BUN (7-17) mg/dL Creatinine (0.52-1.04) mg/dL Glucose (74-99) mg/dL POC Glucose (mg/dL) (75-99) mg/dL Magnesium (1.6-2.3) mg/dL Urine Protein 1+ H (Negative) Urine Bilirubin 2+ H (Negative) Hyaline Casts 7 H (0-2) /lpf Urine Mucus Rare H (None) /hpf Thrombosis Risk Factor Assmnt - DVT/VTE Prophylaxis DVT/VTE Prophylaxis: Pharmacologic Prophylaxis ordered - Choose All That Apply Each Factor Represents 1 point: Obesity (BMI >25) Each Risk Factor Represents 2 Points: Age 61-74 years Thrombosis Risk Factor Assessment Total Risk Factor Score: 3 Thrombosis Risk Factor Assessment Level: Moderate Risk Assessment and Plan Plan: 1. Progressive stuttering, rule out CVA. Neurology consult appreciated. Carotid ultrasound and MRI of the brain, echocardiogram. PT, OT, speech therapy. 2. Tremors new over the past month. 3. COPD not in exacerbation. Continue albuterol 4 times daily as needed. 4. Diabetes mellitus type 2 with peripheral neuropathy. Continue glimepiride 1 mg at breakfast, NovoLog scale before meals and at bedtime. Trulicity and Victoza as outpatient. Continue Lyrica 50 mg 3 times daily Check hemoglobin A1c. 5. Hypertension with chronic kidney disease. Continue atenolol 100 mg at bedtime, Lasix 40 mg twice daily, Entresto. 6. Hyperlipidemia. Continue Pravachol 20 mg daily. 7. History of peripheral vascular disease, DVT. 8. Morbid obesity with previous lap band. 9. Generalized anxiety disorder and recurrent depression. Continue Celexa 20 mg daily. 10. DVT prophylaxis. Heparin subcu. 11. Moderate to severe pulmonary hypertension and mild to moderate mitral regurgitation. 12. Chronic kidney disease stage III secondary to nephrosclerosis. Patient will be admitted to the hospital for a minimum of 2 night stay. Discharge plan: Most likely return home. PT and OT. Impression and plan of care have been directed as dictated by the signing physician. Martha Herrera nurse practitioner acting as scribe for signing physician.
[2019-11-15 17:12] LABS: Glucose,Whole Blood 234 mg/dL (75-99)
[2019-11-15] MEDS: INSULIN ASPART (NovoLOG) 100 UNIT/ML VIAL SQ SCH ×2 (17:17→21:10)
[2019-11-15 18:04] LABS: Hemoglobin A1C 6.9 % (4.0-6.0)
--- NOTE | 2019-11-15 18:37 | MR ---
EXAMINATION TYPE: MR brain wo con DATE OF EXAM: 11/15/2019 COMPARISON: None HISTORY: Headache, weakness, dizziness and tremor Multiplanar multiecho imaging of the brain was performed without contrast. There is diffuse cerebral cortical atrophy. There is no mass effect nor midline shift. There is no sign of intracranial hemorrh age. I see no evidence of acute cortical infarct. There is patchy increased signal in the periventric ular white matter with coalescent areas around the lateral ventricles in the frontal and occipital ho rns. There is slight thinning of the corpus callosum. There are numerous nodular foci of increased si gnal at the diamond-white matter junction of both cerebral hemispheres. Total number is more than 25 and these measure up to 9 mm. The brainstem is intact. Sella turcica appears normal. IMPRESSION: Moderate white matter changes which could relate to both demyelinating disease and chronic small vess el ischemia. No evidence of cortical infarct. Cerebral atrophy.
[2019-11-15] MEDS: SODIUM CHLORIDE 0.9% 1,000 ML IV SCH ×2 (19:09→21:29)
[2019-11-15 20:55] LABS: Glucose,Whole Blood 215 mg/dL (75-99)
[2019-11-15] MEDS: ATENOLOL 50 MG TAB PO SCH (21:11)
[2019-11-16] MEDS: SODIUM CHLORIDE 0.9% 1,000 ML IV SCH (06:18)
[2019-11-16 07:10] LABS: Glucose,Whole Blood 127 mg/dL (75-99)
[2019-11-16] MEDS: INSULIN ASPART (NovoLOG) 100 UNIT/ML VIAL SQ SCH ×2 (07:34→12:40)
[2019-11-16 07:43] VITALS: BP 124/53; PULSE 65; RESP 16; TEMP 98.1
[2019-11-16] MEDS: FUROSEMIDE 40 MG TAB PO SCH (09:03)
[2019-11-16] MEDS: CITALOPRAM HYDROBROMIDE 20 MG TAB PO SCH (09:03)
[2019-11-16] MEDS: ASPIRIN 81 MG PO SCH (09:03)
[2019-11-16] MEDS: GLIMEPIRIDE 1 MG TAB PO SCH (09:03)
[2019-11-16] MEDS: ALLOPURINOL 100 MG TAB PO SCH (09:03)
[2019-11-16] MEDS: PRAVASTATIN SODIUM 20 MG TAB PO SCH (09:07)
[2019-11-16] MEDS: SACUBITRIL/VALSARTAN 24 MG-26 MG TABLET PO SCH (09:07)
[2019-11-16] MEDS: PREGABALIN 50 MG CAP PO SCH (09:07)
[2019-11-16 11:50] LABS: Glucose,Whole Blood 152 mg/dL (75-99)
--- NOTE | 2019-11-16 12:38 | P.DS ---
Providers Date of admission: 11/14/19 16:12 Expected date of discharge: 11/16/19 Attending physician: Bryce Patricia Consults: 11/14/19 16:16 Consult Physician Routine Consulting Provider: Dipti Rossi Consult Reason/Comments: Onset stuttering, new-onset tremors Do you want consulting provider notified?: Yes Primary care physician: Adolfo Pulido [facility] Course: This is a 73-year-old female patient of Dr. Pulido and Dr. Franklin with past medical history of COPD, history of smoking quit in 2017, diabetes mellitus type 2, hypertension, hyperlipidemia, peripheral vascular disease, DVT, history of morbid obesity status post lap band, generalized anxiety disorder and recurrent depression. Patient complains of intermittent stuttering for one month and generalized tremors to her upper extremities. Stuttering became significantly worse last couple days. Patient was seen by her PCP was sent in the hospital for further evaluation. Patient has never been diagnosed with any neurological disorders in the past. Patient also states that she has been more emotional and cries easily. No extremity weakness. states her balance is off with walking for years with no change. No recent falls. No fever or chills. No nausea or vomiting. No cough or sputum production. No weight loss. Patient has had some weight gain and has a good appetite. Patient came in the [facility] emergency center for evaluation. She was afebrile, blood pressure 147/69, heart rate 71, pulse ox 99% on room air. EKG sinus rhythm. Hemoglobin 10.5, chloride 86, CO2 44, BUN 72 and creatinine 2.05 which seems to be patient's baseline, blood sugar 193. Troponin negative. TSH 1.550. Liver function tests within normal limits. ProBNP 514. Urinalysis clear and negative for infection. Chest x-ray reveals borderline cardiomegaly with interstitial changes. Correlate for mild pulmonary vascular congestion. CAT scan of the brain showed mild stable periventricular white matter ischemic change. [facility] and consult requested with neurology. MRI of the brain ordered. 11/16: Echocardiogram reveals EF of 55-60%, mild aortic stenosis, mild mitral regurgitation. Carotid ultrasound reveals greater than 70% stenosis on the left proximal internal carotid artery. Moderate stenosis in the right internal carotid artery between 50 and 69%. MRI of the brain revealed moderate white matter changes could relate to both demyelinating disease and chronic small vessel ischemia. No evidence of cortical infarct. Cerebral atrophy. Results of all testing have been reviewed with the patient. Patient has been advised to continue medical therapy and statin will be changed to Lipitor 80 mg daily and Plavix added. Patient also advised weight loss would be of benefit. Patient states she is drinking okay she did not have her breakfast. She has less stuttering today she states she met with speech therapy and they recommended slowing her speech which helps with the stuttering. There was no sign of dysphagia or aspiration. PT and OT have recommended home with homecare. Patient has declined home care. The patient will be discharged home today with plan for follow-up with neurology as an outpatient. Discharge diagnoses: 1. Progressive stuttering secondary to chronic small vessel ischemia, ruled out CVA. 2. Tremors new over the past month. 3. COPD not in exacerbation. 4. Diabetes mellitus type 2 with peripheral neuropathy. A1c 6.9. 5. Hypertension with chronic kidney disease. 6. Hyperlipidemia. 7. History of peripheral vascular disease, DVT. 8. Morbid obesity with previous lap band. 9. Generalized anxiety disorder and recurrent depression. 10. Moderate to severe pulmonary hypertension and mild to moderate mitral regurgitation. 11. Chronic kidney disease stage III secondary to nephrosclerosis. 12. Chronic hypoxic respiratory failure on home O2 at 2 L Discharge plan: home Impression and plan of care have been directed as dictated by the signing physician. Martha Herrera nurse practitioner acting as scribe for signing physician. Patient Condition at Discharge: Good Plan - Discharge Summary Discharge Rx Participant: Yes New Discharge Prescriptions: New Atorvastatin [Lipitor] 80 mg PO HS #30 tab Liraglutide [Victoza 3-Robert] 0.6 mg SQ DAILY Clopidogrel Bisulfate [Plavix] 75 mg PO DAILY #30 tab Continue rOPINIRole HCL [Requip] 1 mg PO BID Pregabalin [Lyrica] 50 mg PO BID Glimepiride [Amaryl] 1 mg PO AC-BRKFST Atenolol [Tenormin] 100 mg PO HS Ergocalciferol (Vitamin D2) [Vitamin D2] 50,000 unit PO WE Sacubitril/Valsartan [Entresto 24 mg-26 mg Tablet] 1 tab PO DAILY Calcitriol [Rocaltrol] 0.25 mcg PO DAILY Allopurinol [Zyloprim] 100 mg PO BID Furosemide [Lasix] 40 mg PO BID #60 tablet Dulaglutide [Trulicity] 1.5 mg SQ VASQUEZ Potassium Chloride ER [K-Dur 20] 20 meq PO BID Insulin Degludec [Tresiba Flextouch U-100] 16 units SQ DAILY Ferrous Sulfate [Iron (65 MG Elemental)] 325 mg PO DAILY Insulin Aspart [NovoLOG Flexpen] 20 units SQ AC-TID Discontinued Aspirin [Adult Low Dose Aspirin EC] 81 mg PO DAILY Pravastatin Sodium [Pravachol] 40 mg PO DAILY Discharge Medication List Atenolol [Tenormin] 100 mg PO HS 12/12/16 [History] Ergocalciferol (Vitamin D2) [Vitamin D2] 50,000 unit PO WE 12/12/16 [History] Glimepiride [Amaryl] 1 mg PO AC-BRKFST 12/12/16 [History] Pregabalin [Lyrica] 50 mg PO BID 12/12/16 [History] rOPINIRole HCL [Requip] 1 mg PO BID 12/12/16 [History] Allopurinol [Zyloprim] 100 mg PO BID 07/11/17 [History] Calcitriol [Rocaltrol] 0.25 mcg PO DAILY 07/11/17 [History] Sacubitril/Valsartan [Entresto 24 mg-26 mg Tablet] 1 tab PO DAILY 07/11/17 [History] Furosemide [Lasix] 40 mg PO BID #60 tablet 07/17/17 [Rx] Dulaglutide [Trulicity] 1.5 mg SQ VASQUEZ 11/14/19 [History] Ferrous Sulfate [Iron (65 MG Elemental)] 325 mg PO DAILY 11/14/19 [History] Insulin Aspart [NovoLOG Flexpen] 20 units SQ AC-TID 11/14/19 [History] Insulin Degludec [Tresiba Flextouch U-100] 16 units SQ DAILY 11/14/19 [History] Potassium Chloride ER [K-Dur 20] 20 meq PO BID 11/14/19 [History] Atorvastatin [Lipitor] 80 mg PO HS #30 tab 11/16/19 [Rx] Clopidogrel Bisulfate [Plavix] 75 mg PO DAILY #30 tab 11/16/19 [Rx] Liraglutide [Victoza 3-Robert] 0.6 mg SQ DAILY 11/16/19 [Rx] Follow up Appointment(s)/Referral(s): Adolfo Pulido DO [Primary Care Provider] - 1 Week (Patient to make apt) Dima Johns DO [STAFF PHYSICIAN] - 2 Weeks (pt to make apt) Patient Instructions/Handouts: Chronic Kidney Disease (DC), Tremors (DC) Discharge Disposition: HOME SELF-CARE
[2019-11-20] MEDS ORDERED: CALCITRIOL 0.25 MCG CAP PO SCH (09:00)
[2019-11-24] MEDS ORDERED: ERGOCALCIFEROL 50,000 UNIT CAP PO SCH (09:00)
== END 2019-11-16 13:47 | disposition home or self-care (01) ==
LOC: EC 13:35 → 4SSUR 16:12
PROVIDERS: ADMIT Internal Medicine; ATTEND Internal Medicine
DX: F98.5 Adult onset fluency disorder (principal); R25.1 Tremor, unspecified; J44.9 Chronic obstructive pulmonary disease, unspecified; I50.9 Heart failure, unspecified; I13.0 Hypertensive heart and chronic kidney disease with heart failure and stage 1 through stage 4 chronic kidney disease, or unspecified chronic kidney disease; N18.3 Chronic kidney disease, stage 3 (moderate); E11.42 Type 2 diabetes mellitus with diabetic polyneuropathy; E11.22 Type 2 diabetes mellitus with diabetic chronic kidney disease; E11.51 Type 2 diabetes mellitus with diabetic peripheral angiopathy without gangrene; Z98.84 Bariatric surgery status; E66.01 Morbid (severe) obesity due to excess calories; F41.1 Generalized anxiety disorder; F33.9 Major depressive disorder, recurrent, unspecified; Z99.81 Dependence on supplemental oxygen; J96.11 Chronic respiratory failure with hypoxia; Z87.891 Personal history of nicotine dependence; G25.81 Restless legs syndrome; M19.90 Unspecified osteoarthritis, unspecified site; Z79.82 Long term (current) use of aspirin; Z79.4 Long term (current) use of insulin; Z79.899 Other long term (current) drug therapy; Z88.5 Allergy status to narcotic agent; E11.65 Type 2 diabetes mellitus with hyperglycemia; Z83.3 Family history of diabetes mellitus; Z80.0 Family history of malignant neoplasm of digestive organs
CPT/HCPCS: 96374; 96361; 99285; 36415; 94760; 93005; 97161; 92523; 83880; 80061; 80053; 84443; 82607; 82550; 82746; 83690; 83735; 84484; 85025; 81001; 83090; 83036; 71046; 93880; 70450; 70551; G0378 ×3; C8929; J2060; Q9950; 93306

== ENCOUNTER 2019-12-23 11:20 | Inpatient (IN) | payer MEDICARE ==
[2019-12-23] MEDS ORDERED: SODIUM CHLORIDE 0.9% 1,000 ML IV STA ×2 (11:38)
[2019-12-23] MEDS ORDERED: HYDROmorphone 1 MG/ML 1 ML SYRINGE IVP STA (11:40)
--- NOTE | 2019-12-23 11:41 | ED ---
Lower Extremity Injury HPI - General Source: patient, RN notes reviewed, old records reviewed Mode of arrival: EMS Limitations: no limitations <Bridgette Chan - Last Filed: 12/23/19 14:06> <Annie Brock - Last Filed: 12/29/19 15:31> - General Chief Complaint: Extremity Injury, Lower Stated Complaint: Fall, Ankle Injury Time Seen by Provider: 12/23/19 11:24 - History of Present Illness Initial Comments: This patient's a 74-year-old female with multiple comorbidities. She presents today for evaluation for concern for right ankle and right knee pain. Patient reports that yesterday around 4 PM she was trying to get out of her lift chair. Patient reportedly rolled her ankle and fell on her knee. She was on the ground for 3 hours until her son was able to pick her up. They put her back into the lift chair and patient's called EMS this morning. Patient states daughter saw that her ankles very swollen and somewhat deformed today and insisted that she come to the hospital. Patient's daughter reports that there has been history of frequent falls. They are having a difficult time managing her falls and unable to lift her at home as her is not able to completely care for her. Patient has a history of CHF, COPD, and renal failure and diabetes. Patient is not currently on dialysis. (Bridgette Chan) - Related Data Home Medications Medication Instructions Recorded Confirmed Atenolol [Tenormin] 100 mg PO HS 12/12/16 12/29/19 Ergocalciferol (Vitamin D2) 50,000 unit PO WE 12/12/16 12/29/19 [Vitamin D2] Glimepiride [Amaryl] 1 mg PO AC-[id number] 12/12/16 12/29/19 Pregabalin [Lyrica] 50 mg PO BID 12/12/16 12/29/19 rOPINIRole HCL [Requip] 1 mg PO BID 12/12/16 12/29/19 Allopurinol [Zyloprim] 100 mg PO BID 07/11/17 12/29/19 Calcitriol [Rocaltrol] 0.25 mcg PO DAILY 07/11/17 12/29/19 Dulaglutide [Trulicity] 1.5 mg SQ VASQUEZ 02/20/20 04/05/20 Ferrous Sulfate [Iron (65 MG 325 mg PO DAILY 11/14/19 12/29/19 Elemental)] Insulin Aspart [NovoLOG Flexpen] 20 units SQ AC-TID 11/14/19 12/29/19 Insulin Degludec [Tresiba 16 units SQ DAILY 11/14/19 12/29/19 Flextouch U-100] Potassium Chloride ER [K-Dur 20] 20 meq PO BID 11/14/19 12/29/19 Previous Rx's Medication Instructions Recorded Furosemide [Lasix] 40 mg PO BID #60 tablet 07/17/17 Atorvastatin [Lipitor] 80 mg PO HS #30 tab 11/16/19 Clopidogrel Bisulfate [Plavix] 75 mg PO DAILY #30 tab 11/16/19 Liraglutide [Victoza 3-Robert] 0.6 mg SQ DAILY 11/16/19 Allergies Allergy/AdvReac Type Severity Reaction Status Date / Time morphine Allergy Swelling Verified 12/23/19 12:01 Review of Systems ROS Other: All systems not noted in ROS Statement are negative. <Bridgette Chan - Last Filed: 12/23/19 14:06> ROS Other: All systems not noted in ROS Statement are negative. <Annie Brock - Last Filed: 12/29/19 15:31> ROS Statement: Those systems with pertinent positive or pertinent negative responses have been documented in the HPI. Past Medical History Past Medical History: Heart Failure, COPD, Diabetes Mellitus, Deep Vein Thrombosis (DVT), Hyperlipidemia, Hypertension Additional Past Medical History / Comment(s): CHF, arthritis, restless leg History of Any Multi-Drug Resistant Organisms: None Reported Past Surgical History: Heart Catheterization, Hysterectomy, Joint Replacement, Orthopedic Surgery Additional Past Surgical History / Comment(s): Lap band, Lt shoulder surgery, total left knee, Past Anesthesia/Blood Transfusion Reactions: No Reported Reaction Past Psychological History: Anxiety, Depression Smoking Status: Former smoker Past Alcohol Use History: None Reported Past Drug Use History: None Reported - Past Family History Father Family Medical History: Diabetes Mellitus Additional Family Medical History / Comment(s): Mother of old age, patient had 5 siblings, 1 of colon cancer. One brother had lung transplant secondary to COPD. Patient has 3 sisters all living without any medical problems. She has 2 kids with no medical problems <Bridgette Chan - Last Filed: 12/23/19 14:06> General Exam Limitations: no limitations General appearance: alert, in no apparent distress Head exam: Present: atraumatic, normocephalic, normal inspection Eye exam: Present: normal appearance, PERRL, EOMI. Absent: scleral icterus, conjunctival injection, periorbital swelling ENT exam: Present: normal exam, mucous membranes moist Neck exam: Present: normal inspection. Absent: tenderness, meningismus, lymphadenopathy Respiratory exam: Present: decreased breath sounds. Absent: normal lung sounds bilaterally Cardiovascular Exam: Present: regular rate, normal rhythm, normal heart sounds. Absent: systolic murmur, diastolic murmur, rubs, gallop, clicks GI/Abdominal exam: Present: soft, normal bowel sounds. Absent: distended, tenderness, guarding, rebound, rigid Extremities exam: Present: normal inspection, full ROM, normal capillary refill. Absent: tenderness, pedal edema, joint swelling, calf tenderness Right Knee exam: Present: tenderness, swelling. Absent: normal inspection, full ROM Lower Leg exam: Present: full ROM, swelling, ecchymosis. Absent: normal inspection Ankle exam: Present: tenderness, swelling, ecchymosis. Absent: normal inspection, full ROM Foot/Toe exam: Present: tenderness, swelling. Absent: normal inspection, full ROM Neurovascular tendon exam: Present: no vascular compromise (Dorsalis pedis pulses 2+.) Gait: not tested/not observed Back exam: Present: normal inspection Neurological exam: Present: alert Psychiatric exam: Present: normal affect, normal mood <Bridgette Chan - Last Filed: 12/23/19 14:06> - General Exam Comments Initial Comments: Generally weak 74-year-old female. Patient appears in moderate discomfort. Complaining of right ankle pain. (Bridgette Chan) Course Vital Signs 12/23/19 12/23/19 12/23/19 11:23 11:30 11:31 Temperature 98 F Pulse Rate 72 Respiratory 18 Rate Blood Pressure 124/47 124/47 O2 Sat by Pulse 93 L 93 L 94 L Oximetry 12/23/19 12/23/19 12/23/19 12:00 12:30 13:00 Temperature Pulse Rate Respiratory Rate Blood Pressure 120/54 107/54 106/58 O2 Sat by Pulse 91 L 92 L 89 L Oximetry 12/23/19 12/23/19 12/23/19 13:30 14:00 14:30 Temperature Pulse Rate Respiratory 54 H Rate Blood Pressure 99/44 98/46 100/58 O2 Sat by Pulse 92 L 95 94 L Oximetry Procedures - Orthopedic Splinting/Casting Injury #1 Side: right Lower Extremity Injury Location: ankle Lower Extremity Immobilizer: posterior splint, stirrup splint, Sean wrap, synthetic pre-padded splint <Cheryl Chanily - Last Filed: 12/23/19 14:06> Medical Decision Making - Lab Data Result diagrams: 12/23/19 11:55 12/23/19 11:55 - Radiology Data Radiology results: report reviewed <Bridgette Chan - Last Filed: 12/23/19 14:06> - Lab Data Result diagrams: 12/26/19 06:00 12/29/19 05:52 <Annie Brock - Last Filed: 12/29/19 15:31> - Medical Decision Making This Patient is a 74-year-old female who presents the emergency department today for evaluation for concern for fall from her lift chair. She reports she lifted too far forward and twisted her right ankle and fell on her right knee. She was on the ground for a few hours before her son was able to pick her up. She does have a history of CHF, renal failure COPD and diabetes. Patient was given IV fluids, and IV pain medication of Dilaudid due to significant right ankle pain. X-rays were completed and do show evidence of a trimalleolar fracture. Patient's dorsalis pedis pulses palpable. She does have some ecchymosis noted to the ankle and lower leg. Right knee x-ray shows evidence of joint effusion. After pain medication she is resting comfortably in bed. Patient had a splint placed. Discussed with Dr. Brock, whom discussed Dr. John will accept the admission but requests consult to medicine. Patient was evaluated by Dr. Sullivan in ED. (Bridgette Chan) I was available for consultation in the emergency department. The history and physical exam were done by the midlevel provider. I was consulted for this patients care. I reviewed the case with the midlevel provider and based on their presentation of the patient, I agree with the assessment, medical decision making and plan of care as documented. I discussed the case with Dr. John who accepted admission, requested CT of the ankle and medicine consult. I discussed the case with Dr. Sullivan whoo evaluated the patient in the ED. Chart was dictated using [employer] dictation software. Attempts were made to correct any dictation errors however some typographical errors may persist. Patient was seen during the Covid-19 pandemic. (Annie Brock) - Lab Data Lab Results 12/23/19 12/23/19 12/23/19 Range/Units 04:00 11:55 11:55 WBC 7.7 (3.8-10.6) k/uL RBC 2.57 L (3.80-5.40) m/uL Hgb 8.0 L D (11.4-16.0) gm/dL Hct 25.6 L (34.0-46.0) % MCV 99.7 (80.0-100.0) fL MCH 31.0 (25.0-35.0) pg MCHC 31.1 (31.0-37.0) g/dL RDW 14.8 (11.5-15.5) % Plt Count 156 (150-450) k/uL Neutrophils % 86 % Lymphocytes % 7 % Monocytes % 4 % Eosinophils % 2 % Basophils % 0 % Neutrophils # 6.6 (1.3-7.7) k/uL Lymphocytes # 0.6 L (1.0-4.8) k/uL Monocytes # 0.3 (0-1.0) k/uL Eosinophils # 0.1 (0-0.7) k/uL Basophils # 0.0 (0-0.2) k/uL Hypochromasia Moderate Poikilocytosis Slight Macrocytosis Slight PT (9.0-12.0) sec INR (<1.2) APTT (22.0-30.0) sec Sodium 138 (137-145) mmol/L Potassium 5.2 H (3.5-5.1) mmol/L Chloride 87 L (98-107) mmol/L Carbon Dioxide 45 H* (22-30) mmol/L Anion Gap 6 mmol/L BUN 72 H (7-17) mg/dL Creatinine 1.94 H (0.52-1.04) mg/dL Est GFR (CKD-EPI)AfAm 29 (>60 ml/min/1.73 sqM) Est GFR (CKD-EPI)NonAf 25 (>60 ml/min/1.73 sqM) Glucose 260 H (74-99) mg/dL POC Glucose (mg/dL) (75-99) mg/dL POC Glu Timekeeper Supervisor ID Calcium 8.9 (8.4-10.2) mg/dL Total Bilirubin 0.7 (0.2-1.3) mg/dL AST 16 (14-36) U/L ALT 10 (4-34) U/L Alkaline Phosphatase 94 (38-126) U/L NT-Pro-B Natriuret Pep pg/mL Total Protein 5.5 L (6.3-8.2) g/dL Albumin 3.1 L (3.5-5.0) g/dL Urine Color Yellow Urine Appearance Cloudy H (Clear) Urine pH 5.0 (5.0-8.0) Ur Specific Dana 1.014 (1.001-1.035) Urine Protein Negative (Negative) Urine Glucose (UA) Negative (Negative) Urine Ketones Negative (Negative) Urine Blood Negative (Negative) Urine Nitrite Negative (Negative) Urine Bilirubin Negative (Negative) Urine Urobilinogen <2.0 (<2.0) mg/dL Ur Leukocyte Esterase Negative (Negative) Urine RBC <1 (0-5) /hpf Urine WBC 2 (0-5) /hpf Ur Squamous Epith Cells 3 (0-4) /hpf Urine Bacteria Occasional H (None) /hpf Hyaline Casts 4 H (0-2) /lpf Urine Mucus Rare H (None) /hpf Stool Occult Blood (Negative) 12/23/19 12/23/19 12/23/19 Range/Units 11:55 11:55 15:05 WBC (3.8-10.6) k/uL RBC (3.80-5.40) m/uL Hgb (11.4-16.0) gm/dL Hct (34.0-46.0) % MCV (80.0-100.0) fL MCH (25.0-35.0) pg MCHC (31.0-37.0) g/dL RDW (11.5-15.5) % Plt Count (150-450) k/uL Neutrophils % % Lymphocytes % % Monocytes % % Eosinophils % % Basophils % % Neutrophils # (1.3-7.7) k/uL Lymphocytes # (1.0-4.8) k/uL Monocytes # (0-1.0) k/uL Eosinophils # (0-0.7) k/uL Basophils # (0-0.2) k/uL Hypochromasia Poikilocytosis Macrocytosis PT 10.7 (9.0-12.0) sec INR 1.0 (<1.2) APTT 23.7 (22.0-30.0) sec Sodium (137-145) mmol/L Potassium (3.5-5.1) mmol/L Chloride (98-107) mmol/L Carbon Dioxide (22-30) mmol/L Anion Gap mmol/L BUN (7-17) mg/dL Creatinine (0.52-1.04) mg/dL Est GFR (CKD-EPI)AfAm (>60 ml/min/1.73 sqM) Est GFR (CKD-EPI)NonAf (>60 ml/min/1.73 sqM) Glucose (74-99) mg/dL POC Glucose (mg/dL) (75-99) mg/dL POC Glu Timekeeper Supervisor ID Calcium (8.4-10.2) mg/dL Total Bilirubin (0.2-1.3) mg/dL AST (14-36) U/L ALT (4-34) U/L Alkaline Phosphatase (38-126) U/L NT-Pro-B Natriuret Pep 1330 pg/mL Total Protein (6.3-8.2) g/dL Albumin (3.5-5.0) g/dL Urine Color Urine Appearance (Clear) Urine pH (5.0-8.0) Ur Specific Dana (1.001-1.035) Urine Protein (Negative) Urine Glucose (UA) (Negative) Urine Ketones (Negative) Urine Blood (Negative) Urine Nitrite (Negative) Urine Bilirubin (Negative) Urine Urobilinogen (<2.0) mg/dL Ur Leukocyte Esterase (Negative) Urine RBC (0-5) /hpf Urine WBC (0-5) /hpf Ur Squamous Epith Cells (0-4) /hpf Urine Bacteria (None) /hpf Hyaline Casts (0-2) /lpf Urine Mucus (None) /hpf Stool Occult Blood Negative (Negative) 12/23/19 12/23/19 12/23/19 Range/Units 16:47 20:15 23:17 WBC (3.8-10.6) k/uL RBC (3.80-5.40) m/uL Hgb (11.4-16.0) gm/dL Hct (34.0-46.0) % MCV (80.0-100.0) fL MCH (25.0-35.0) pg MCHC (31.0-37.0) g/dL RDW (11.5-15.5) % Plt Count (150-450) k/uL Neutrophils % % Lymphocytes % % Monocytes % % Eosinophils % % Basophils % % Neutrophils # (1.3-7.7) k/uL Lymphocytes # (1.0-4.8) k/uL Monocytes # (0-1.0) k/uL Eosinophils # (0-0.7) k/uL Basophils # (0-0.2) k/uL Hypochromasia Poikilocytosis Macrocytosis PT (9.0-12.0) sec INR (<1.2) APTT (22.0-30.0) sec Sodium (137-145) mmol/L Potassium (3.5-5.1) mmol/L Chloride (98-107) mmol/L Carbon Dioxide (22-30) mmol/L Anion Gap mmol/L BUN (7-17) mg/dL Creatinine (0.52-1.04) mg/dL Est GFR (CKD-EPI)AfAm (>60 ml/min/1.73 sqM) Est GFR (CKD-EPI)NonAf (>60 ml/min/1.73 sqM) Glucose (74-99) mg/dL POC Glucose (mg/dL) 201 H 194 H 148 H (75-99) mg/dL POC Glu Timekeeper Supervisor ID Adair, Tamiko Fuentes, Sherrell Fuentes, Sherrell Calcium (8.4-10.2) mg/dL Total Bilirubin (0.2-1.3) mg/dL AST (14-36) U/L ALT (4-34) U/L Alkaline Phosphatase (38-126) U/L NT-Pro-B Natriuret Pep pg/mL Total Protein (6.3-8.2) g/dL Albumin (3.5-5.0) g/dL Urine Color Urine Appearance (Clear) Urine pH (5.0-8.0) Ur Specific Dana (1.001-1.035) Urine Protein (Negative) Urine Glucose (UA) (Negative) Urine Ketones (Negative) Urine Blood (Negative) Urine Nitrite (Negative) Urine Bilirubin (Negative) Urine Urobilinogen (<2.0) mg/dL Ur Leukocyte Esterase (Negative) Urine RBC (0-5) /hpf Urine WBC (0-5) /hpf Ur Squamous Epith Cells (0-4) /hpf Urine Bacteria (None) /hpf Hyaline Casts (0-2) /lpf Urine Mucus (None) /hpf Stool Occult Blood (Negative) 12/24/19 12/24/19 12/24/19 Range/Units 05:23 05:23 06:51 WBC 6.8 (3.8-10.6) k/uL RBC 2.50 L (3.80-5.40) m/uL Hgb 7.6 L (11.4-16.0) gm/dL Hct 25.2 L (34.0-46.0) % MCV 100.8 H (80.0-100.0) fL MCH 30.5 (25.0-35.0) pg MCHC 30.3 L (31.0-37.0) g/dL RDW 14.9 (11.5-15.5) % Plt Count 161 (150-450) k/uL Neutrophils % 80 % Lymphocytes % 11 % Monocytes % 5 % Eosinophils % 2 % Basophils % 0 % Neutrophils # 5.4 (1.3-7.7) k/uL Lymphocytes # 0.7 L (1.0-4.8) k/uL Monocytes # 0.4 (0-1.0) k/uL Eosinophils # 0.1 (0-0.7) k/uL Basophils # 0.0 (0-0.2) k/uL Hypochromasia Marked Poikilocytosis Macrocytosis Slight PT (9.0-12.0) sec INR (<1.2) APTT (22.0-30.0) sec Sodium 138 (137-145) mmol/L Potassium 5.0 (3.5-5.1) mmol/L Chloride 88 L (98-107) mmol/L Carbon Dioxide 47 H* (22-30) mmol/L Anion Gap 3 mmol/L BUN 74 H (7-17) mg/dL Creatinine 1.83 H (0.52-1.04) mg/dL Est GFR (CKD-EPI)AfAm 31 (>60 ml/min/1.73 sqM) Est GFR (CKD-EPI)NonAf 27 (>60 ml/min/1.73 sqM) Glucose 80 (74-99) mg/dL POC Glucose (mg/dL) 75 (75-99) mg/dL POC Glu Timekeeper Supervisor ID Jennifer Lazo Calcium 8.7 (8.4-10.2) mg/dL Total Bilirubin 0.6 (0.2-1.3) mg/dL AST 15 (14-36) U/L ALT 10 (4-34) U/L Alkaline Phosphatase 78 (38-126) U/L NT-Pro-B Natriuret Pep pg/mL Total Protein 5.5 L (6.3-8.2) g/dL Albumin 3.1 L (3.5-5.0) g/dL Urine Color Urine Appearance (Clear) Urine pH (5.0-8.0) Ur Specific Dana (1.001-1.035) Urine Protein (Negative) Urine Glucose (UA) (Negative) Urine Ketones (Negative) Urine Blood (Negative) Urine Nitrite (Negative) Urine Bilirubin (Negative) Urine Urobilinogen (<2.0) mg/dL Ur Leukocyte Esterase (Negative) Urine RBC (0-5) /hpf Urine WBC (0-5) /hpf Ur Squamous Epith Cells (0-4) /hpf Urine Bacteria (None) /hpf Hyaline Casts (0-2) /lpf Urine Mucus (None) /hpf Stool Occult Blood (Negative) 12/24/19 12/24/19 12/24/19 Range/Units 11:27 17:03 20:13 WBC (3.8-10.6) k/uL RBC (3.80-5.40) m/uL Hgb (11.4-16.0) gm/dL Hct (34.0-46.0) % MCV (80.0-100.0) fL MCH (25.0-35.0) pg MCHC (31.0-37.0) g/dL RDW (11.5-15.5) % Plt Count (150-450) k/uL Neutrophils % % Lymphocytes % % Monocytes % % Eosinophils % % Basophils % % Neutrophils # (1.3-7.7) k/uL Lymphocytes # (1.0-4.8) k/uL Monocytes # (0-1.0) k/uL Eosinophils # (0-0.7) k/uL Basophils # (0-0.2) k/uL Hypochromasia Poikilocytosis Macrocytosis PT (9.0-12.0) sec INR (<1.2) APTT (22.0-30.0) sec Sodium (137-145) mmol/L Potassium (3.5-5.1) mmol/L Chloride (98-107) mmol/L Carbon Dioxide (22-30) mmol/L Anion Gap mmol/L BUN (7-17) mg/dL Creatinine (0.52-1.04) mg/dL Est GFR (CKD-EPI)AfAm (>60 ml/min/1.73 sqM) Est GFR (CKD-EPI)NonAf (>60 ml/min/1.73 sqM) Glucose (74-99) mg/dL POC Glucose (mg/dL) 149 H 140 H 178 H (75-99) mg/dL POC Glu Timekeeper Supervisor ELLIOT Lazo, Jennifer Lazo, Jennifer Guillaume, Mariza Calcium (8.4-10.2) mg/dL Total Bilirubin (0.2-1.3) mg/dL AST (14-36) U/L ALT (4-34) U/L Alkaline Phosphatase (38-126) U/L NT-Pro-B Natriuret Pep pg/mL Total Protein (6.3-8.2) g/dL Albumin (3.5-5.0) g/dL Urine Color Urine Appearance (Clear) Urine pH (5.0-8.0) Ur Specific Dana (1.001-1.035) Urine Protein (Negative) Urine Glucose (UA) (Negative) Urine Ketones (Negative) Urine Blood (Negative) Urine Nitrite (Negative) Urine Bilirubin (Negative) Urine Urobilinogen (<2.0) mg/dL Ur Leukocyte Esterase (Negative) Urine RBC (0-5) /hpf Urine WBC (0-5) /hpf Ur Squamous Epith Cells (0-4) /hpf Urine Bacteria (None) /hpf Hyaline Casts (0-2) /lpf Urine Mucus (None) /hpf Stool Occult Blood (Negative) 12/25/19 12/25/19 12/25/19 Range/Units 02:06 05:16 06:44 WBC (3.8-10.6) k/uL RBC (3.80-5.40) m/uL Hgb (11.4-16.0) gm/dL Hct (34.0-46.0) % MCV (80.0-100.0) fL MCH (25.0-35.0) pg MCHC (31.0-37.0) g/dL RDW (11.5-15.5) % Plt Count (150-450) k/uL Neutrophils % % Lymphocytes % % Monocytes % % Eosinophils % % Basophils % % Neutrophils # (1.3-7.7) k/uL Lymphocytes # (1.0-4.8) k/uL Monocytes # (0-1.0) k/uL Eosinophils # (0-0.7) k/uL Basophils # (0-0.2) k/uL Hypochromasia Poikilocytosis Macrocytosis PT (9.0-12.0) sec INR (<1.2) APTT (22.0-30.0) sec Sodium (137-145) mmol/L Potassium (3.5-5.1) mmol/L Chloride (98-107) mmol/L Carbon Dioxide (22-30) mmol/L Anion Gap mmol/L BUN (7-17) mg/dL Creatinine (0.52-1.04) mg/dL Est GFR (CKD-EPI)AfAm (>60 ml/min/1.73 sqM) Est GFR (CKD-EPI)NonAf (>60 ml/min/1.73 sqM) Glucose (74-99) mg/dL POC Glucose (mg/dL) 83 108 H 81 (75-99) mg/dL POC Glu Timekeeper Supervisor ID Myra Montgomery [place], Ingrid [facility], Sarthak Calcium (8.4-10.2) mg/dL Total Bilirubin (0.2-1.3) mg/dL AST (14-36) U/L ALT (4-34) U/L Alkaline Phosphatase (38-126) U/L NT-Pro-B Natriuret Pep pg/mL Total Protein (6.3-8.2) g/dL Albumin (3.5-5.0) g/dL Urine Color Urine Appearance (Clear) Urine pH (5.0-8.0) Ur Specific Dana (1.001-1.035) Urine Protein (Negative) Urine Glucose (UA) (Negative) Urine Ketones (Negative) Urine Blood (Negative) Urine Nitrite (Negative) Urine Bilirubin (Negative) Urine Urobilinogen (<2.0) mg/dL Ur Leukocyte Esterase (Negative) Urine RBC (0-5) /hpf Urine WBC (0-5) /hpf Ur Squamous Epith Cells (0-4) /hpf Urine Bacteria (None) /hpf Hyaline Casts (0-2) /lpf Urine Mucus (None) /hpf Stool Occult Blood (Negative) 12/25/19 12/25/19 Range/Units 08:49 08:49 WBC 8.4 (3.8-10.6) k/uL RBC 2.43 L (3.80-5.40) m/uL Hgb 7.4 L (11.4-16.0) gm/dL Hct 24.5 L (34.0-46.0) % MCV 100.7 H (80.0-100.0) fL MCH 30.3 (25.0-35.0) pg MCHC 30.0 L (31.0-37.0) g/dL RDW 15.0 (11.5-15.5) % Plt Count 146 L (150-450) k/uL Neutrophils % % Lymphocytes % % Monocytes % % Eosinophils % % Basophils % % Neutrophils # (1.3-7.7) k/uL Lymphocytes # (1.0-4.8) k/uL Monocytes # (0-1.0) k/uL Eosinophils # (0-0.7) k/uL Basophils # (0-0.2) k/uL Hypochromasia Moderate Poikilocytosis Macrocytosis Slight PT (9.0-12.0) sec INR (<1.2) APTT (22.0-30.0) sec Sodium 137 (137-145) mmol/L Potassium 5.7 H (3.5-5.1) mmol/L Chloride 90 L (98-107) mmol/L Carbon Dioxide 42 H* (22-30) mmol/L Anion Gap 5 mmol/L BUN 79 H (7-17) mg/dL Creatinine 1.89 H (0.52-1.04) mg/dL Est GFR (CKD-EPI)AfAm 29 (>60 ml/min/1.73 sqM) Est GFR (CKD-EPI)NonAf 26 (>60 ml/min/1.73 sqM) Glucose 194 H (74-99) mg/dL POC Glucose (mg/dL) (75-99) mg/dL POC Glu Timekeeper Supervisor ID Calcium 9.1 (8.4-10.2) mg/dL Total Bilirubin 1.0 (0.2-1.3) mg/dL AST 18 (14-36) U/L ALT 10 (4-34) U/L Alkaline Phosphatase 72 (38-126) U/L NT-Pro-B Natriuret Pep pg/mL Total Protein 5.5 L (6.3-8.2) g/dL Albumin 3.1 L (3.5-5.0) g/dL Urine Color Urine Appearance (Clear) Urine pH (5.0-8.0) Ur Specific Dana (1.001-1.035) Urine Protein (Negative) Urine Glucose (UA) (Negative) Urine Ketones (Negative) Urine Blood (Negative) Urine Nitrite (Negative) Urine Bilirubin (Negative) Urine Urobilinogen (<2.0) mg/dL Ur Leukocyte Esterase (Negative) Urine RBC (0-5) /hpf Urine WBC (0-5) /hpf Ur Squamous Epith Cells (0-4) /hpf Urine Bacteria (None) /hpf Hyaline Casts (0-2) /lpf Urine Mucus (None) /hpf Stool Occult Blood (Negative) 12/23/19 12:08 EKG performed at 1154 shows normal sinus rhythm remaining kidney. Ventricular rate of 69 bpm. Intervals 152 ms. QRS duration is 90 ms. QT QTc is 390/426 ms. (Bridgette Chan) - Radiology Data Knee:Mild tricompartmental osteoarthritis. Trace knee effusion is nonspecific likely reactive. No acute osseous abnormality seen. Right ankle shows trimalleolar equivalent fractures with deltoid ligament tear. Circumferential soft tissue swelling. Right foot shows soft tissue swelling and marked osteopenia. No displaced fracture seen. Chest x-ray shows moderate cardiomegaly with interstitial opacity. Correlating for CHF with vascular congestion. No obvious consolidation. (Bridgette Chan) Disposition Is patient prescribed a controlled substance at d/c from ED?: No Time of Disposition: 14:11 <Bridgette Chan - Last Filed: 12/23/19 14:06> <Annie Brock - Last Filed: 12/29/19 15:31> Clinical Impression: Acute on chronic kidney failure, Fall, Effusion, right knee, Trimalleolar fracture of right ankle, Congestive heart failure Disposition: ADMITTED IP TO THIS HOSP Condition: Good
[2019-12-23 12:20] LABS: Albumin 3.1 g/dL (3.5-5.0); Calcium 8.9 mg/dL (8.4-10.2); Potassium 5.2 mmol/L (3.5-5.1); Total Bilirubin 0.7 mg/dL (0.2-1.3); Total Protein 5.5 g/dL (6.3-8.2)
[2019-12-23 12:38] LABS: Basophils % (A) 0 %; Eosinophils # (A) 0.1 k/uL (0-0.7); Eosinophils % (A) 2 %; HCT 25.6 % (34.0-46.0); Hypochromasia Moderate; Lymphocytes # (A) 0.6 k/uL (1.0-4.8); Lymphocytes % (A) 7 %; MCHC 31.1 g/dL (31.0-37.0); MCV 99.7 fL (80.0-100.0); Macrocytosis Slight; Mean Platelet Volume 8.1; Monocytes # (A) 0.3 k/uL (0-1.0); Monocytes % (A) 4 %; Neutrophils # (A) 6.6 k/uL (1.3-7.7); Neutrophils % (A) 86 %; Platelet Count 156 k/uL (150-450); Poikilocytosis Slight; RBC 2.57 m/uL (3.80-5.40); RDW 14.8 % (11.5-15.5); WBC 7.7 k/uL (3.8-10.6)
--- NOTE | 2019-12-23 13:04 | XR ---
EXAMINATION TYPE: XR chest 1V portable DATE OF EXAM: 12/23/2019 Comparison: 11/14/2019 Clinical History: 74-year-old female with fall, tremors, reported dyspnea Findings: Heart is moderately enlarged. Diffuse interstitial and vascular density. Retrocardiac region and left base underpenetrated due to large patient body habitus. The costophrenic angles remain visualized. Impression: Moderate cardiomegaly with interstitial opacity. Correlate for CHF with pulmonary vascular congestion . No obvious thien consolidation.
--- NOTE | 2019-12-23 13:08 | XR ---
EXAMINATION TYPE: XR knee complete 3 views RT, XR ankle limited 2 views RT, XR foot limited 2 views R T DATE OF EXAM: 12/23/2019 COMPARISON: NONE HISTORY: 74-year-old female with fall and leg pain FINDINGS: Right knee: Generalized soft tissue swelling. These mild medial and lateral compartment narrowing of joint space. Trace knee joint effusion is nonspecific. Extensor mechanism appears intact. No acute fracture, subl uxation, or dislocation seen. Right ankle: There is an oblique fracture of the distal fibula with 3 mm of posterior displacement. Nondisplaced f racture of the posterior malleolus and widening of the medial clear space to 6 mm. Circumferential so ft tissue swelling at the ankle. Right foot: Mild degenerative change first MTP joint. Small plantar calcaneal spur. Subtalar joint appears aligne d. Dorsal soft tissue swelling. Marked osteopenia. No displaced fracture seen. IMPRESSION: 1. Right knee: At least mild bicompartmental osteoarthrosis. A trace knee joint effusion is nonspecif ic, possibly reactive. No acute osseous anomaly seen. 2. Right ankle: Trimalleolar equivalent ankle fractures with deltoid ligament tear. Circumferential s oft tissue swelling. 3. Right foot: Soft tissue swelling and marked osteopenia. No displaced fracture seen.
[2019-12-23 13:42] LABS: Partial Thromboplastin Time 23.7 sec (22.0-30.0); Prothrombin Time 10.7 sec (9.0-12.0)
[2019-12-23] MEDS ORDERED: IBUPROFEN 400 MG TAB PO PRN (14:12)
[2019-12-23] MEDS ORDERED: ACETAMINOPHEN TAB 325 MG TAB PO PRN (14:12)
[2019-12-23] MEDS ORDERED: NALOXONE 0.4 MG/ML 1 ML VIAL IV PRN (14:12)
[2019-12-23] MEDS ORDERED: HYDROmorphone 1 MG/ML 1 ML SYRINGE IVP PRN (14:12)
[2019-12-23] MEDS ORDERED: HYDROmorphone 0.5 MG/0.5 ML SYRINGE IVP PRN (14:48)
--- NOTE | 2019-12-23 14:59 | P.CONS ---
History of Present Illness - Reason for Consult Consult date: 12/23/19 Medical management. - Chief Complaint Right ankle bimalleolar fracture - History of Present Illness This is a 74-year-old female patient of Dr. Pulido and Dr. Franklin with past medical history of COPD, history of smoking quit in 2017, diabetes mellitus type 2, hypertension, hyperlipidemia, peripheral vascular disease, DVT, history of morbid obesity status post lap band, generalized anxiety disorder and recurrent depression, chronic kidney disease stage III, patient presented to the emergency department at [facility] after she had fallen yesterday trying to get out of her left chair at around 4:00 in the afternoon and she rolled her ankle and landed on her knees she became quite tender and she stayed on the floor for about 3-4 hours and her son was able to get her back into the lift chair, in the morning patient was complaining of increased swelling in the right ankle with some deformity her daughter insisted on bringing the patient to the emergency department by calling EMS patient has been having frequent falls at home and they have been having trouble managing her at home with her elder as well, patient was seen in the ER and she had an x-ray of the right ankle that showed trimalleolar fracture, she was admitted under orthopedic surgery were asked to see the patient for evaluation and preoperative medical clearance. Review of Systems Constitutional: Reports fatigue, Reports weakness Eyes: denies blurred vision, denies bulging eye, denies decreased vision Ears: deny: decreased hearing Ears, nose, mouth and throat: Denies dysphagia, Denies neck lump, Denies sore throat Cardiovascular: Reports decreased exercise tolerance, Reports dyspnea on exertion, Reports shortness of breath, Denies chest pain, Denies rapid heart beat, Denies syncope Respiratory: Reports sleep apnea, Reports snoring, Denies congestion, Denies cough with sputum, Denies home oxygen, Denies wheezing Gastrointestinal: Reports melena (Her daughter reported black stool over the l ast few days.), Denies abdominal pain, Denies bloating, Denies BRBPR, Denies heartburn, Denies nausea, Denies vomiting Genitourinary: Reports nocturia, Denies dysuria Menstruation: Reports postmenopausal Musculoskeletal: Reports fractures, Reports frequent falls, Reports gait dysfunction, Reports muscle weakness Musculoskeletal: right: ankle pain, ankle stiffness, ankle swelling, as per HPI, foot pain, foot stiffness, foot swelling, knee pain, knee stiffness, knee swelling, absent: elbow pain, elbow stiffness, elbow swelling, hand pain, hand stiffness, hand swelling, hip pain, hip stiffness, hip swelling, shoulder pain, shoulder stiffness, shoulder swelling, wrist pain, wrist stiffness, wrist swelling Integumentary: Denies pruritus, Denies rash Neurological: Reports gait dysfunction, Denies numbness, Denies weakness Psychiatric: Reports anxiety, Reports depression, Denies sadness/tearfulness, Denies sleep disturbances, Denies suicidal ideation Endocrine: Denies fatigue, Denies weight change Past Medical History Past Medical History: Heart Failure, COPD, Diabetes Mellitus, Deep Vein Thrombosis (DVT), Hyperlipidemia, Hypertension, Osteoarthritis (OA), Renal Disease Additional Past Medical History / Comment(s): CHF, arthritis, restless leg History of Any Multi-Drug Resistant Organisms: None Reported Past Surgical History: Heart Catheterization, Hysterectomy, Joint Replacement, Orthopedic Surgery Additional Past Surgical History / Comment(s): Lap band, Lt shoulder surgery, total left knee, Past Anesthesia/Blood Transfusion Reactions: No Reported Reaction Past Psychological History: Anxiety, Depression Smoking Status: Former smoker Past Alcohol Use History: None Reported Past Drug Use History: None Reported - Past Family History Father Family Medical History: Diabetes Mellitus Additional Family Medical History / Comment(s): Mother of old age 94 , Father at the age of 56 from diabetes complications, patient had 5 sib lings, 1 of colon cancer. One brother had lung transplant secondary to Pulmonary fibrosis. Patient has 3 sisters all living without any medical problems. She has one son with diabetes and Hyperlipidemia and one daughter with hypertenion. Medications and Allergies Home Medications Medication Instructions Recorded Confirmed Type Atenolol [Tenormin] 100 mg PO HS 12/12/16 12/23/19 History Ergocalciferol (Vitamin D2) 50,000 unit PO WE 12/12/16 12/23/19 History [Vitamin D2] Glimepiride [Amaryl] 1 mg PO AC-BRKFST 12/12/16 12/23/19 History Pregabalin [Lyrica] 50 mg PO BID 12/12/16 12/23/19 History rOPINIRole HCL [Requip] 1 mg PO BID 12/12/16 12/23/19 History Allopurinol [Zyloprim] 100 mg PO BID 07/11/17 12/23/19 History Calcitriol [Rocaltrol] 0.25 mcg PO DAILY 07/11/17 12/23/19 History Sacubitril/Valsartan [Entresto 24 1 tab PO DAILY 07/11/17 12/23/19 History mg-26 mg Tablet] Furosemide [Lasix] 40 mg PO BID #60 tablet 07/17/17 12/23/19 Rx Dulaglutide [Trulicity] 1.5 mg SQ VASQUEZ 11/14/19 12/23/19 History Ferrous Sulfate [Iron (65 MG 325 mg PO DAILY 11/14/19 12/23/19 History Elemental)] Insulin Aspart [NovoLOG Flexpen] 20 units SQ AC-TID 11/14/19 12/23/19 History Insulin Degludec [Tresiba 16 units SQ DAILY 11/14/19 12/23/19 History Flextouch U-100] Potassium Chloride ER [K-Dur 20] 20 meq PO BID 11/14/19 12/23/19 History Atorvastatin [Lipitor] 80 mg PO HS #30 tab 11/16/19 12/23/19 Rx Clopidogrel Bisulfate [Plavix] 75 mg PO DAILY #30 tab 11/16/19 12/23/19 Rx Liraglutide [Victoza 3-Robert] 0.6 mg SQ DAILY 11/16/19 12/23/19 Rx Allergies Allergy/AdvReac Type Severity Reaction Status Date / Time morphine Allergy Swelling Verified 12/23/19 12:01 Physical Exam Vitals: Vital Signs Temp Pulse Resp BP Pulse Ox 12/23/19 11:31 98 F 72 18 124/47 94 L Intake and Output 12/22/19 12/23/19 12/23/19 22:59 06:59 14:59 Other: Weight 108.862 kg HEENT: Head is atraumatic, normocephalic, pupils were equal round reactive to light and accommodation, extraocular muscle movement were intact. Neck: Supple, no JVP. Chest: Decreased breath sounds at the bases, with few rhonchi no expiratory wheezes no chest wall tenderness no intercostal retractions. Heart: First heart sound is depressed, second heart sounds normal, there is systolic ejection murmur 2/6 located in the left sternal border. Abdomen: Soft obese nontender nondistended positive bowel sounds, there is a lap band port in place. Extremities: Right lower extremity is in a splint, left lower extremity with trace edema no calf tenderness dorsalis pedis is +1 in the left side. Neurologic examination: Patient is drowsy she did receive a dose of Dilaudid opens her eyes in response to verbal stimuli, moves all her extremities, cranial nerves III through XII appear grossly intact. Results CBC & Chem 7: 12/23/19 11:55 12/23/19 11:55 Labs: Abnormal Lab Results - Last 24 Hours (Table) 12/23/19 12/23/19 Range/Units 11:55 11:55 RBC 2.57 L (3.80-5.40) m/uL Hgb 8.0 L D (11.4-16.0) gm/dL Hct 25.6 L (34.0-46.0) % Lymphocytes # 0.6 L (1.0-4.8) k/uL Potassium 5.2 H (3.5-5.1) mmol/L Chloride 87 L (98-107) mmol/L Carbon Dioxide 45 H* (22-30) mmol/L BUN 72 H (7-17) mg/dL Creatinine 1.94 H (0.52-1.04) mg/dL Glucose 260 H (74-99) mg/dL Total Protein 5.5 L (6.3-8.2) g/dL Albumin 3.1 L (3.5-5.0) g/dL Assessment and Plan Assessment: Assessment and plan: 1. Status post fall with right ankle trimalleolar fracture. Patient is currently in a splint, continue with current pain management, continue to monitor the patient very closely keep her leg elevated and apply ice packs, orthopedic surgery for surgical intervention when her swelling is down, consult cardiology for preoperative clearance. 2. Chronic diastolic heart failure. Patient did have an echocardiogram about a month ago and that showed ejection fraction 55-60% with the moderate concentric left ventricular hypertrophy with dilated left atrium mild aortic stenosis and mild mitral regurgitation without evidence of any wall motion abnormalities, we will continue the patient on atenolol 100 mg orally once every day, continue Ent esther 24/26 mg orally once every day, Lasix 40 mg orally twice every day. 3. Hypertension and hypertensive cardiovascular disease. Continue atenolol 100 mg orally once every day 4. Hyperlipidemia. Continue Lipitor 80 mg orally once every day. 5. Carotid artery disease with moderate stenosis with greater than 70% of the left internal carotid artery and 60% right internal carotid artery. We will hold the patient Plavix and continue Lipitor 80 mg orally once every day for now in preparation for surgery. 6. Diabetes mellitus type 2. Currently on glimeperide 1 mg orally once every day along with Tresiba 16 units at bedtime along with the Humalog per scale, hold off GLP1-RA. 7. Chronic kidney disease stage III. Monitor the patient CMP. Continue calcitriol 0.25 g orally once every day. 8. Mild hyperkalemia due to chronic kidney disease. Monitor the patient CMP the next 24 hours. 9. Obesity with sleep apnea. The patient need to be in CPAP. 10. Gout. Continue allopurinol 100 mg orally twice every day. 11. Restless leg syndrome. Continue patient on Requip 1 mg orally twice every day. 12. Vitamin D deficiency. Continue vitamin D substance. 13. Diabetic polyneuropathy. Continue Lyrica 100 mg orally twice every day. 14. DVT prophylaxis. Heparin 5000 units subcutaneously every 8 hours. 15. GI prophylaxis. Pepcid 20 mg orally once every day. 16. Thank you for the consult we will follow with you.
--- NOTE | 2019-12-23 16:22 | CT ---
EXAMINATION TYPE: CT ankle RT wo con DATE OF EXAM: 12/23/2019 COMPARISON: Radiograph same day HISTORY: 74-year-old female Right ankle pain. TECHNIQUE: Contiguous axial scanning of the right ankle without IV contrast. Coronal and sagittal rec onstructions performed. 3-D reconstructions generated on a dedicated independent workstation. CT DLP: 334.4 mGycm Automated exposure control for dose reduction was used. FINDINGS: Nondisplaced fracture of the posterior malleolus measuring 1.7 cm craniocaudal by 1.3 cm AP by 1.6 cm wide. There is irregularity of the involved posterior tibial articular surface secondary to mild com minution with up to 1.5 mm articular surface step-off. Flecks of bone measuring up to 4 mm are present below the medial malleolus. We note medial clear spac e widening on the radiograph performed today suggesting deltoid ligament tear/disruption. Oblique fracture distal fibula with 5 mm of lateral displacement and 2 mm of posterior displacement. Additional flecks of bone in the region of the anterior tibiofibular ligament compatible with avulsio n fractures. Marked generalized soft tissue swelling. Subtalar joint is aligned. Smooth delineation to the Achilles tendon. IMPRESSION: 1. TRIMALLEOLAR EQUIVALENT DESCRIBED ABOVE. ADDITIONAL SMALL AVULSION FRACTURE FRAGMENTS IN THE RE GION OF THE AITFL. 2. MARKED SOFT TISSUE SWELLING.
--- NOTE | 2019-12-23 16:47 | P.HPOR ---
History of Present Illness H&P Date: 12/23/19 This patient is a 74-year-old female with a past medical history of COPD, diabetes, hypertension, hyperlipidemia, DVT, morbid obesity status post lap band, chronic kidney disease stage III that presented to [facility] emergency department today with complaints of right ankle pain. X-rays in the emergency department revealed a right trimalleolar equivalent ankle fracture. The patient's family had concerns about taking the patient home and being able to care for her due to her ankle fracture. Therefore she was admitted under the care of Dr. John with a consult placed to internal medicine for medical management. She will most likely need transfer to rehab at discharge due to her non-weight bearing status. At the time of exam, the patient is lethargic due to recent administration of 1 mg of Dilaudid in the emergency department. She is able to be aroused and able to answer questions appropriately when asked. She states she is currently experiencing no pain. She has no additional complaints. Vital signs stable. Past Medical History Past Medical History: Heart Failure, COPD, Diabetes Mellitus, Deep Vein Thrombosis (DVT), Hyperlipidemia, Hypertension, Osteoarthritis (OA), Renal Disease Additional Past Medical History / Comment(s): CHF, arthritis, restless leg History of Any Multi-Drug Resistant Organisms: None Reported Past Surgical History: Heart Catheterization, Hysterectomy, Joint Replacement, Orthopedic Surgery Additional Past Surgical History / Comment(s): Lap band, Lt shoulder surgery, total left knee, Past Anesthesia/Blood Transfusion Reactions: No Reported Reaction Past Psychological History: Anxiety, Depression Smoking Status: Former smoker Past Alcohol Use History: None Reported Past Drug Use History: None Reported - Past Family History Father Family Medical History: Diabetes Mellitus Additional Family Medical History / Comment(s): Mother of old age 94 , Father at the age of 56 from diabetes complications, patient had 5 siblings, 1 of colon cancer. One brother had lung transplant secondary to Pulmonary fibrosis. Patient has 3 sisters all living without any medical problems. She has one son with diabetes and Hyperlipidemia and one daughter with hypertenion. Mother Family Medical History: No Reported History Additional Family Medical History / Comment(s): Mother at the age of 92 yrs from "old age" Medications and Allergies Home Medications Medication Instructions Recorded Confirmed Type Atenolol [Tenormin] 100 mg PO HS 12/12/16 12/23/19 History Ergocalciferol (Vitamin D2) 50,000 unit PO WE 12/12/16 12/23/19 History [Vitamin D2] Glimepiride [Amaryl] 1 mg PO AC-BRKFST 12/12/16 12/23/19 History Pregabalin [Lyrica] 50 mg PO BID 12/12/16 12/23/19 History rOPINIRole HCL [Requip] 1 mg PO BID 12/12/16 12/23/19 History Allopurinol [Zyloprim] 100 mg PO BID 07/11/17 12/23/19 History Calcitriol [Rocaltrol] 0.25 mcg PO DAILY 07/11/17 12/23/19 History Sacubitril/Valsartan [Entresto 24 1 tab PO DAILY 07/11/17 12/23/19 History mg-26 mg Tablet] Furosemide [Lasix] 40 mg PO BID #60 tablet 07/17/17 12/23/19 Rx Dulaglutide [Trulicity] 1.5 mg SQ VASQUEZ 11/14/19 12/23/19 History Ferrous Sulfate [Iron (65 MG 325 mg PO DAILY 11/14/19 12/23/19 History Elemental)] Insulin Aspart [NovoLOG Flexpen] 20 units SQ AC-TID 11/14/19 12/23/19 History Insulin Degludec [Tresiba 16 units SQ DAILY 11/14/19 12/23/19 History Flextouch U-100] Potassium Chloride ER [K-Dur 20] 20 meq PO BID 11/14/19 12/23/19 History Atorvastatin [Lipitor] 80 mg PO HS #30 tab 11/16/19 12/23/19 Rx Clopidogrel Bisulfate [Plavix] 75 mg PO DAILY #30 tab 11/16/19 12/23/19 Rx Liraglutide [Victoza 3-Robert] 0.6 mg SQ DAILY 11/16/19 12/23/19 Rx Allergies Allergy/AdvReac Type Severity Reaction Status Date / Time morphine Allergy Swelling Verified 12/23/19 12:01 Physical Examination On examination, the patient is lying in bed in no apparent distress. She is alert and oriented 3. She is lethargic falling asleep on exam, although she is able to be aroused and able to answer questions appropriately when asked. Nasal cannula in place. Her head appears normocephalic and atraumatic. Her breathing appears nonlabored. On inspection of the bilateral upper extremities, there are no obvious deformities or signs of trauma. On inspection of the left lower extremity, there are no obvious deformities or signs of trauma. On inspection of the right lower extremity, there is a short-leg splint in place of the right ankle. palpation of the hip or knee. The visible portion of the toes are warm and well-perfused with brisk capillary refill. Patient is able to move toes without issue or pain. No pain with passive range of motion of the toes. Motor and sensory function are intact of the right lower extremity. Results Right ankle x-ray 12/23/2019: Right trimalleolar equivalent ankle fracture Right knee x-ray 12/23/2019: No acute fractures or dislocations Right foot x-ray 12/23/19: No acute fractures - Labs Labs: Abnormal Lab Results - Last 24 Hours (Table) 12/23/19 12/23/19 Range/Units 11:55 11:55 RBC 2.57 L (3.80-5.40) m/uL Hgb 8.0 L D (11.4-16.0) gm/dL Hct 25.6 L (34.0-46.0) % Lymphocytes # 0.6 L (1.0-4.8) k/uL Potassium 5.2 H (3.5-5.1) mmol/L Chloride 87 L (98-107) mmol/L Carbon Dioxide 45 H* (22-30) mmol/L BUN 72 H (7-17) mg/dL Creatinine 1.94 H (0.52-1.04) mg/dL Glucose 260 H (74-99) mg/dL Total Protein 5.5 L (6.3-8.2) g/dL Albumin 3.1 L (3.5-5.0) g/dL H & H 12/23/19 Range/Units 11:55 Hgb 8.0 L D (11.4-16.0) gm/dL Hct 25.6 L (34.0-46.0) % Coagulation 12/23/19 Range/Units 11:55 INR 1.0 (<1.2) Result Diagrams: 12/23/19 11:55 12/23/19 11:55 Assessment and Plan Assessment: Right trimalleolar equivalent ankle fracture Plan: - The clinical and imaging findings were discussed with the patient. We are not planning on operative fixation of her ankle fracture during this hospital stay. - The patient may transition from her splint into a tall CAM boot. She is to remain strictly non-weight bearing on her right leg. She is to use crutches, a walker, or a knee scooter for ambulation. - Physical therapy for gait and balance training. - Pain management as needed. - Internal medicine for medical management. DVT prophylaxis per internal medicine. - Anticipate discharge to rehab facility. Social work consulted for discharge aakash yusuf. - Patient will follow-up in the office in 1 week for repeat x-rays of the right ankle. Patient discussed with Dr. John.
[2019-12-23 16:49] LABS: Glucose,Whole Blood 201 mg/dL (75-99)
[2019-12-23] MEDS: HEPARIN SODIUM,PORCINE 5,000 UNIT/ML 1 ML VIAL SQ SCH (16:51)
[2019-12-23] MEDS: SODIUM CHLORIDE 0.9% 1,000 ML IV SCH (16:53)
[2019-12-23] MEDS ORDERED: INSULIN ASPART (NovoLOG) 100 UNIT/ML VIAL SQ SCH (17:30)
[2019-12-23 20:16] LABS: Glucose,Whole Blood 194 mg/dL (75-99)
[2019-12-23] MEDS: ATENOLOL 50 MG TAB PO SCH (20:41)
[2019-12-23] MEDS: FUROSEMIDE 40 MG TAB PO SCH (20:41)
[2019-12-23] MEDS: ALLOPURINOL 100 MG TAB PO SCH (20:42)
[2019-12-23] MEDS: ATORVASTATIN 80 MG TAB PO SCH (20:42)
[2019-12-23] MEDS: POTASSIUM CHLORIDE ER 20 MEQ TAB.ER PO SCH (20:43)
[2019-12-23] MEDS: PREGABALIN 50 MG CAP PO SCH (20:43)
[2019-12-23] MEDS ORDERED: SODIUM CHLORIDE 0.9% 250 ML IV SCH (20:45)
[2019-12-23] MEDS: INSULIN ASPART (NovoLOG) 100 UNIT/ML VIAL SQ SCH (20:46)
[2019-12-23 23:19] LABS: Glucose,Whole Blood 148 mg/dL (75-99)
--- NOTE | 2019-12-24 00:15 | CT ---
EXAMINATION TYPE: CT brain cspine wo con DATE OF EXAM: 12/24/2019 COMPARISON: CT brain 11/14/2019 HISTORY: AMS, Fall, earlier today CT DLP: 1701.6 mGycm Automated exposure control for dose reduction was used. There is some cerebral cortical atrophy. There is no mass effect normal Shift. There is no sign of intracranial hemorrhage. There is mild hypodensity in the periventricular white matter. The calvarium is intact. Skull base is intact. Cervical vertebra have normal alignment. Exam is limited by patient's size. There is no evidence of c ervical spine fracture. Posterior elements are intact. There are mild hypertrophic degenerative disc changes in the lower cervical spine. IMPRESSION: Mild atrophy. No acute intracranial abnormality. No change. Mild degenerative changes in the lower cervical spine. No fracture.
[2019-12-24] MEDS: HEPARIN SODIUM,PORCINE 5,000 UNIT/ML 1 ML VIAL SQ SCH ×4 (00:32→23:53)
[2019-12-24 04:31] LABS: Appearance,Urine Cloudy (Clear); Bacteria,Urine Occasional /hpf; Bilirubin,Urine Negative (Negative); Blood,Urine Negative (Negative); Color,Urine Yellow; Glucose,Urine (UA) Negative (Negative); Hyaline Casts,Urine 4 /lpf (0-2); Ketones,Urine Negative (Negative); Leukocyte Esterase,Urine Negative (Negative); Mucus,Urine Rare /hpf; Nitrite,Urine Negative (Negative); Protein,Urine Negative (Negative); RBC,Urine <1 /hpf (0-5); Specific Gravity,Urine 1.014 (1.001-1.035); Squamous Epithelial Cell,Urine 3 /hpf (0-4); Urobilinogen,Urine <2.0 mg/dL (<2.0); WBC,Urine 2 /hpf (0-5)
[2019-12-24] MEDS: traMADol 50 MG TAB PO PRN ×2 (05:33→18:08)
[2019-12-24 06:04] LABS: Basophils % (A) 0 %; Eosinophils # (A) 0.1 k/uL (0-0.7); Eosinophils % (A) 2 %; HCT 25.2 % (34.0-46.0); HGB 7.6 gm/dL (11.4-16.0); Hypochromasia Marked; Lymphocytes # (A) 0.7 k/uL (1.0-4.8); Lymphocytes % (A) 11 %; MCH 30.5 pg (25.0-35.0); MCHC 30.3 g/dL (31.0-37.0); MCV 100.8 fL (80.0-100.0); Macrocytosis Slight; Mean Platelet Volume 7.7; Monocytes # (A) 0.4 k/uL (0-1.0); Monocytes % (A) 5 %; Neutrophils # (A) 5.4 k/uL (1.3-7.7); Neutrophils % (A) 80 %; Platelet Count 161 k/uL (150-450); RDW 14.9 % (11.5-15.5); WBC 6.8 k/uL (3.8-10.6)
[2019-12-24 06:16] LABS: Albumin 3.1 g/dL (3.5-5.0); Calcium 8.7 mg/dL (8.4-10.2); Total Bilirubin 0.6 mg/dL (0.2-1.3); Total Protein 5.5 g/dL (6.3-8.2)
[2019-12-24 06:52] LABS: Glucose,Whole Blood 75 mg/dL (75-99)
[2019-12-24] MEDS: INSULIN ASPART (NovoLOG) 100 UNIT/ML VIAL SQ SCH ×4 (07:24→20:52)
[2019-12-24] MEDS ORDERED: SACUBITRIL/VALSARTAN 24 MG-26 MG TABLET PO SCH (09:00)
[2019-12-24] MEDS: FUROSEMIDE 40 MG TAB PO SCH ×2 (09:07→18:08)
[2019-12-24] MEDS: INSULIN DETEMIR (LEVEMIR) 100 UNIT/ML SYR SQ SCH (09:08)
[2019-12-24] MEDS: PREGABALIN 50 MG CAP PO SCH ×2 (09:08→20:52)
[2019-12-24] MEDS: ALLOPURINOL 100 MG TAB PO SCH ×2 (09:08→20:52)
[2019-12-24] MEDS: PANTOPRAZOLE 40 MG/10 ML VIAL IV SCH (09:08)
[2019-12-24] MEDS: POTASSIUM CHLORIDE ER 20 MEQ TAB.ER PO SCH ×2 (09:08→20:52)
[2019-12-24] MEDS: CALCITRIOL 0.25 MCG CAP PO SCH (09:10)
[2019-12-24] MEDS: GLIMEPIRIDE 1 MG TAB PO SCH (09:11)
[2019-12-24] MEDS: FERROUS SULFATE 325 MG TAB PO SCH (09:14)
[2019-12-24] MEDS: LIRAGLUTIDE 0.6 MG SQ SCH (09:21)
--- NOTE | 2019-12-24 09:36 | P.CRDCN ---
History of Present Illness History of present illness: HISTORY OF PRESENTING ILLNESS This is a pleasant 74-year-old female past medical history significant for diabetes mellitus, hypertension, dyslipidemia, peripheral vascular disease with evidence of bilateral carotid artery disease, obstructive sleep apnea and valvular heart disease. She follows in the office with Dr. Franklin. We have been asked to see in consultation for pre-op evaluation. She fell out of her lift chair at home when attempting to let out her dog. Due to pain in the right leg and foot she came to the hospital for evaluation. Diagnostic imaging suggests she suffered a right trimalleolar ankle fracture. She has been seen in evaluation by orthopedics and they have applied a splint and boot. No plans for surgery at this time. She is to remain no weight bearing with physical therapy. Follow up in their office for 1-week. She is seen and examined sitting up in bed in no acute distress. She seems to be confused about the details surrounding this hospitalization, she states she had surgery last night however this did not happen. She denies chest pain, dizziness, palpitations or shortness of breath. She denies syncope or loss of consciousness surrounding this fall. DIAGNOSTICS EKG reveals sinus mechanism with early repolarization noted. Chest xray moderate cardiomegaly with interstitial opacity, possible pulmonary vascular congestion. Laboratory reviewed, and WBC 6.8, hemoglobin 7.6, platelets 161, sodium 138, potassium 5.0, CO2 47, creatinine 1.83, NT proBNP 1330. Current cardiac medications include atorvastatin 80 mg daily, Plavix 75 mg daily, Lasix 40 mg twice a day, atenolol 100 mg at bedtime and entresto 24/26 mg daily. Most recent echocardiogram obtained in 10/2019 reveals preserved LV systolic function with ejection fraction 55%, mildly daily left atrium, mild to moderate aortic stenosis with a valve area of 1.44 and a mean gradient of 12 mmHg. REVIEW OF SYSTEMS At the time of my exam: CONSTITUTIONAL: Denies fever or chills. CARDIOVASCULAR: Denies chest pain, shortness of breath, orthopnea, PND or palpitations. RESPIRATORY: Denies cough. GASTROINTESTINAL: Denies abdominal pain, diarrhea, constipation, nausea or vomiting. MUSCULOSKELETAL: Denies myalgias. NEUROLOGIC: Denies numbness, tingling or weakness. ENDOCRINE: Denies fatigue, weight change, polydipsia or polyurina. GENITOURINARY: Denies burning, hematuria or urgency with micturation. HEMATOLOGIC: Denies history of anemia or bleeding. PHYSICAL EXAMINATION Blood pressure 152/66 heart rate 76 afebrile and maintaining oxygen saturation on nasal cannula. CONSTITUTIONAL: No apparent distress. Morbidly obese. HEENT: Head is normocephalic. Pupils are equal, round. Sclerae anicteric. Mucous membranes of the mouth are moist. No JVD. No carotid bruit. CHEST EXAMINATION: Lungs are clear to auscultation. No chest wall tenderness is noted on palpation or with deep breathing. Diminished. HEART EXAMINATION: Regular rate and rhythm. S1, S2 heard. Systolic ejection mur mur at the base, no gallops or rub. Distant heart sounds. ABDOMEN: Soft, nontender. Positive bowel sounds. EXTREMITIES: Right lower extremity with boot and zoe wrap in place, left lower extremity with trace 1+ pitting edema. NEUROLOGIC EXAMINATION: Patient is awake, alert and oriented x3. ASSESSMENT Fall causing right ankle fracture Anemia Hyperkalemia, resolved. Chronic kidney disease Hypertension Dyslipidemia Diabetes mellitus Peripheral vascular disease with evidence of bilateral carotid artery disease PLAN Entresto is prescribed per her PCP, however given her renal function and normal LV function we will recommend discontinuation at this time. Initiate small dose of norvasc for blood pressure control. Clinically stable from a cardiac perspective. Follow in the office with Dr. Franklin upon discharge. Thank you kindly for this consultation. Nurse Practitioner note has been reviewed, I agree with a documented findings and plan of care. Patient was seen and examined. Past Medical History Past Medical History: Heart Failure, COPD, Diabetes Mellitus, Deep Vein Thrombosis (DVT), Hyperlipidemia, Hypertension, Osteoarthritis (OA), Renal D isease Additional Past Medical History / Comment(s): CHF, arthritis, restless leg History of Any Multi-Drug Resistant Organisms: None Reported Past Surgical History: Heart Catheterization, Hysterectomy, Joint Replacement, Orthopedic Surgery Additional Past Surgical History / Comment(s): Lap band, Lt shoulder surgery, total left knee, Past Anesthesia/Blood Transfusion Reactions: No Reported Reaction Past Psychological History: Anxiety, Depression Smoking Status: Former smoker Past Alcohol Use History: None Reported Past Drug Use History: None Reported - Past Family History Father Family Medical History: Diabetes Mellitus Additional Family Medical History / Comment(s): Mother of old age 94 , Father at the age of 56 from diabetes complications, patient had 5 siblings, 1 of colon cancer. One brother had lung transplant secondary to Pulmonary fibrosis. Patient has 3 sisters all living without any medical problems. She has one son with diabetes and Hyperlipidemia and one daughter with hypertenion. Mother Family Medical History: No Reported History Additional Family Medical History / Comment(s): Mother at the age of 92 yrs from "old age" Medications and Allergies Home Medications Medication Instructions Recorded Confirmed Type Atenolol [Tenormin] 100 mg PO HS 12/12/16 12/23/19 History Ergocalciferol (Vitamin D2) 50,000 unit PO WE 12/12/16 12/23/19 History [Vitamin D2] Glimepiride [Amaryl] 1 mg PO AC-BRKFST 12/12/16 12/23/19 History Pregabalin [Lyrica] 50 mg PO BID 12/12/16 12/23/19 History rOPINIRole HCL [Requip] 1 mg PO BID 12/12/16 12/23/19 History Allopurinol [Zyloprim] 100 mg PO BID 07/11/17 12/23/19 History Calcitriol [Rocaltrol] 0.25 mcg PO DAILY 07/11/17 12/23/19 History Sacubitril/Valsartan [Entresto 24 1 tab PO DAILY 07/11/17 12/23/19 History mg-26 mg Tablet] Furosemide [Lasix] 40 mg PO BID #60 tablet 07/17/17 12/23/19 Rx Dulaglutide [Trulicity] 1.5 mg SQ VASQUEZ 11/14/19 12/23/19 History Ferrous Sulfate [Iron (65 MG 325 mg PO DAILY 11/14/19 12/23/19 History Elemental)] Insulin Aspart [NovoLOG Flexpen] 20 units SQ AC-TID 11/14/19 12/23/19 History Insulin Degludec [Tresiba 16 units SQ DAILY 11/14/19 12/23/19 History Flextouch U-100] Potassium Chloride ER [K-Dur 20] 20 meq PO BID 11/14/19 12/23/19 History Atorvastatin [Lipitor] 80 mg PO HS #30 tab 11/16/19 12/23/19 Rx Clopidogrel Bisulfate [Plavix] 75 mg PO DAILY #30 tab 11/16/19 12/23/19 Rx Liraglutide [Victoza 3-Robert] 0.6 mg SQ DAILY 11/16/19 12/23/19 Rx Allergies Allergy/AdvReac Type Severity Reaction Status Date / Time morphine Allergy Swelling Verified 12/23/19 12:01 Physical Exam Vitals: Vital Signs Temp Pulse Pulse Resp BP BP Pulse Ox 12/24/19 04:36 97.6 F 76 19 152/66 92 L 12/24/19 04:30 19 98 12/23/19 23:53 65 95 12/23/19 23:10 99 12/23/19 23:05 80 L 12/23/19 23:01 147/67 85 L 12/23/19 22:59 67 135/63 95 12/23/19 21:59 54 L 131/58 97 12/23/19 20:16 97.4 F L 67 16 88/58 94 L 12/23/19 15:27 96.9 F L 51 L 17 114/57 95 12/23/19 14:30 54 H 100/58 94 L 12/23/19 14:00 98/46 95 12/23/19 13:30 99/44 92 L 12/23/19 13:00 106/58 89 L 12/23/19 12:30 107/54 92 L 12/23/19 12:00 120/54 91 L 12/23/19 11:31 98 F 72 18 124/47 94 L 12/23/19 11:30 124/47 93 L 12/23/19 11:23 93 L Intake and Output 12/23/19 12/24/19 12/24/19 22:59 06:59 14:59 Intake Total 330 760 Balance 330 760 Intake: Intake, IV Titration 330 160 Amount Sodium Chloride 0.9% 1, 80 160 000 ml @ 20 mls/hr IV . Q24H [facility] Rx#:[id number] Sodium Chloride 0.9% 250 250 ml @ 999 mls/hr IV .Q16M [facility] Rx#:[id number] Oral 600 Other: Voiding Method Incontinent # Voids 1 2 Weight 108.862 kg Results 12/24/19 05:23 12/24/19 05:23 Cardiac Enzymes 12/23/19 12/24/19 Range/Units 11:55 05:23 AST 16 15 (14-36) U/L Coagulation 12/23/19 Range/Units 11:55 PT 10.7 (9.0-12.0) sec APTT 23.7 (22.0-30.0) sec CBC 12/23/19 12/24/19 Range/Units 11:55 05:23 WBC 7.7 6.8 (3.8-10.6) k/uL RBC 2.57 L 2.50 L (3.80-5.40) m/uL Hgb 8.0 L D 7.6 L (11.4-16.0) gm/dL Hct 25.6 L 25.2 L (34.0-46.0) % Plt Count 156 161 (150-450) k/uL Comprehensive Metabolic Panel 12/23/19 12/24/19 Range/Units 11:55 05:23 Sodium 138 138 (137-145) mmol/L Potassium 5.2 H 5.0 (3.5-5.1) mmol/L Chloride 87 L 88 L (98-107) mmol/L Carbon Dioxide 45 H* 47 H* (22-30) mmol/L BUN 72 H 74 H (7-17) mg/dL Creatinine 1.94 H 1.83 H (0.52-1.04) mg/dL Glucose 260 H 80 (74-99) mg/dL Calcium 8.9 8.7 (8.4-10.2) mg/dL AST 16 15 (14-36) U/L ALT 10 10 (4-34) U/L Alkaline Phosphatase 94 78 (38-126) U/L Total Protein 5.5 L 5.5 L (6.3-8.2) g/dL Albumin 3.1 L 3.1 L (3.5-5.0) g/dL Current Medications Generic Name Dose Route Start Last Admin Trade Name Freq PRN Reason Stop Dose Admin Acetaminophen 650 mg 12/23/19 14:12 Tylenol Tab PO Q6HR PRN Mild Pain or Fever > 100.5 Allopurinol 100 mg 12/23/19 21:00 12/23/19 20:42 Zyloprim PO Not Given BID [facility] Atenolol 100 mg 12/23/19 21:00 12/23/19 20:41 Tenormin PO Not Given HS [facility] Atorvastatin Calcium 80 mg 12/23/19 21:00 12/23/19 20:42 Lipitor PO Not Given HS [facility] Calcitriol 0.25 mcg 12/24/19 09:00 Rocaltrol PO DAILY [facility] Ergocalciferol 50,000 unit 12/25/19 09:00 Vitamin D2 PO We@0900 [facility] Ferrous Sulfate 325 mg 12/24/19 09:00 Feosol PO DAILY [facility] Furosemide 40 mg 12/23/19 17:30 12/23/19 20:41 Lasix PO Not Given BID-W/MEALS [facility] Glimepiride 1 mg 12/24/19 07:30 Amaryl PO AC-BRKFST [facility] Heparin Sodium (Porcine) 5,000 unit 12/23/19 16:00 12/24/19 00:32 Heparin SQ 5,000 unit Q8HR [facility] Administration Hydromorphone HCl 0.5 mg 12/23/19 14:48 Dilaudid IVP Q3HR PRN Severe Pain Sodium Chloride 1,000 mls @ 20 mls/hr 12/23/19 14:15 12/23/19 16:53 Saline 0.9% IV 20 mls/hr .Q24H [facility] Administration Insulin Aspart 0 unit 12/23/19 21:00 12/24/19 07:24 Novolog SQ Not Given ACHS [facility] Protocol Insulin Detemir 16 unit 12/24/19 09:00 Levemir SQ DAILY [facility] Naloxone HCl 0.2 mg 12/23/19 14:12 Narcan IV Q2M PRN Opioid Reversal Non-Formulary Medication 1.5 mg 12/29/19 14:48 Dulaglutide [Trulicity] SQ VASQUEZ [facility] Non-Formulary Medication 0.6 mg 12/24/19 09:00 Liraglutide [Victoza 3-Robert] SQ DAILY [facility] Ondansetron HCl 4 mg 12/23/19 14:12 Zofran IVP Q8HR PRN Nausea And Vomiting Pantoprazole Sodium 40 mg 12/24/19 09:00 Protonix IV DAILY [facility] Potassium Chloride 20 meq 12/23/19 21:00 12/23/19 20:43 K-Dur 20 PO Not Given BID [facility] Pregabalin 50 mg 12/23/19 21:00 12/23/19 20:43 Lyrica PO Not Given BID [facility] Ropinirole HCl 1 mg 12/23/19 21:00 12/23/19 20:42 Requip PO Not Given BID [facility] Sacubitril/Valsartan 1 each 12/24/19 09:00 Entresto 24 Mg-26 Mg Tablet PO DAILY [facility] Tramadol HCl 50 mg 12/23/19 14:12 12/24/19 05:33 Ultram PO 50 mg Q6H PRN Administration Moderate Pain Intake and Output 12/23/19 12/24/19 12/24/19 22:59 06:59 14:59 Intake Total 330 760 Balance 330 760 Intake: Intake, IV Titration 330 160 Amount Sodium Chloride 0.9% 1, 80 160 000 ml @ 20 mls/hr IV . Q24H [facility] Rx#:[id number] Sodium Chloride 0.9% 250 250 ml @ 999 mls/hr IV .Q16M [facility] Rx#:[id number] Oral 600 Other: Voiding Method Incontinent # Voids 1 2 Weight 108.862 kg 12/24/19 05:23 12/24/19 05:23
--- NOTE | 2019-12-24 10:07 | P.PN ---
Subjective Progress Note Date: 12/24/19 Principal diagnosis: Right Ankle fracture Patient is a 74-year-old female seen at bedside this morning who we are following for a right trimalleolar ankle fracture. She has pain at the right ankle as expected but denies any new complaints. She denies numbness, tingling, calf pain, fever, chills, chest pain or new shortness of breath. Objective - Vital Signs Vital signs: Vital Signs Temp 97.6 F 12/24/19 04:36 Pulse 76 12/24/19 04:36 Resp 19 12/24/19 04:36 BP 152/66 12/24/19 04:36 Pulse Ox 92 L 12/24/19 04:36 Intake & Output 12/23/19 12/24/19 12/24/19 18:59 06:59 18:59 Intake Total 1090 Balance 1090 Weight 108.862 kg Intake: Intake, IV Titration 490 Amount Sodium Chloride 0.9% 1, 240 000 ml @ 20 mls/hr IV . Q24H [facility] Rx#:[id number] Sodium Chloride 0.9% 250 250 ml @ 999 mls/hr IV .Q16M [facility] Rx#:[id number] Oral 600 Other: Voiding Method Incontinent # Voids 2 - Exam Inspection of right lower extremity shows splint in place. She has free angel nless passive range of motion of the right knee. There is no erythema or effusion at the right knee. Distally she is able to wiggle all toes. She has less than 2 second capillary refill. Her calf is soft and nontender. - Constitutional General appearance: Present: no acute distress - Labs CBC & Chem 7: 12/24/19 05:23 12/24/19 05:23 Labs: Abnormal Lab Results - Last 24 Hours (Table) 12/23/19 12/23/19 12/23/19 Range/Units 04:00 11:55 11:55 RBC 2.57 L (3.80-5.40) m/uL Hgb 8.0 L D (11.4-16.0) gm/dL Hct 25.6 L (34.0-46.0) % MCV (80.0-100.0) fL MCHC (31.0-37.0) g/dL Lymphocytes # 0.6 L (1.0-4.8) k/uL Potassium 5.2 H (3.5-5.1) mmol/L Chloride 87 L (98-107) mmol/L Carbon Dioxide 45 H* (22-30) mmol/L BUN 72 H (7-17) mg/dL Creatinine 1.94 H (0.52-1.04) mg/dL Glucose 260 H (74-99) mg/dL POC Glucose (mg/dL) (75-99) mg/dL Total Protein 5.5 L (6.3-8.2) g/dL Albumin 3.1 L (3.5-5.0) g/dL Urine Appearance Cloudy H (Clear) Urine Bacteria Occasional H (None) /hpf Hyaline Casts 4 H (0-2) /lpf Urine Mucus Rare H (None) /hpf 12/23/19 12/23/19 12/23/19 Range/Units 16:47 20:15 23:17 RBC (3.80-5.40) m/uL Hgb (11.4-16.0) gm/dL Hct (34.0-46.0) % MCV (80.0-100.0) fL MCHC (31.0-37.0) g/dL Lymphocytes # (1.0-4.8) k/uL Potassium (3.5-5.1) mmol/L Chloride (98-107) mmol/L Carbon Dioxide (22-30) mmol/L BUN (7-17) mg/dL Creatinine (0.52-1.04) mg/dL Glucose (74-99) mg/dL POC Glucose (mg/dL) 201 H 194 H 148 H (75-99) mg/dL Total Protein (6.3-8.2) g/dL Albumin (3.5-5.0) g/dL Urine Appearance (Clear) Urine Bacteria (None) /hpf Hyaline Casts (0-2) /lpf Urine Mucus (None) /hpf 12/24/19 12/24/19 Range/Units 05:23 05:23 RBC 2.50 L (3.80-5.40) m/uL Hgb 7.6 L (11.4-16.0) gm/dL Hct 25.2 L (34.0-46.0) % MCV 100.8 H (80.0-100.0) fL MCHC 30.3 L (31.0-37.0) g/dL Lymphocytes # 0.7 L (1.0-4.8) k/uL Potassium (3.5-5.1) mmol/L Chloride 88 L (98-107) mmol/L Carbon Dioxide 47 H* (22-30) mmol/L BUN 74 H (7-17) mg/dL Creatinine 1.83 H (0.52-1.04) mg/dL Glucose (74-99) mg/dL POC Glucose (mg/dL) (75-99) mg/dL Total Protein 5.5 L (6.3-8.2) g/dL Albumin 3.1 L (3.5-5.0) g/dL Urine Appearance (Clear) Urine Bacteria (None) /hpf Hyaline Casts (0-2) /lpf Urine Mucus (None) /hpf Assessment and Plan (1) Trimalleolar fracture of right ankle Narrative/Plan: She'll continue with routine orthopedic protocol including pain management, physical therapy, DVT prophylaxis and medical management. A walking boot has been ordered which she may utilize rather than a splint. She is awaiting rehab placement. Expect that she will transfer in the next 1-2 days. She may follow up in office with Dr. John in 1 week. Current Visit: Yes Status: Acute Code(s): S82.851A - DISPLACED TRIMALLEOLAR FRACTURE OF RIGHT LOWER LEG, INIT SNOMED Code(s): 965163001 Time with Patient: Less than 30
[2019-12-24] MEDS ORDERED: IPRATROPIUM-ALBUTEROL 3 ML NEB INHALATION PRN (11:09)
[2019-12-24] MEDS: IPRATROPIUM-ALBUTEROL 3 ML NEB INHALATION SCH ×2 (11:25→19:56)
[2019-12-24 11:41] LABS: Glucose,Whole Blood 149 mg/dL (75-99)
[2019-12-24 13:50] VITALS: BMI 41.1
--- NOTE | 2019-12-24 14:17 | P.CNPUL ---
History of Present Illness Consult date: 12/24/19 Requesting physician: Nikita Sullivan Reason for consult: dyspnea Chief complaint: Right ankle and knee pain History of present illness: This is a pleasant 74-year-old female patient who follows with Dr. Pulido as her primary care physician. She has a history of oxygen dependent chronic obstructive pulmonary disease, morbid obesity, obstructive sleep apnea on CPAP at home, diabetes mellitus, hyperlipidemia, hypertension, congestive heart failure, arthritis, anxiety/depression. She is a former smoker. She is somewhat of a poor historian. She presented to the hospital yesterday after zarina taining a fall from her chair lift rolling her ankle and injuring her right knee. X-ray reveals right knee revealed mild tricompartmental osteoarthrosis. Trace knee joint effusion. No acute osseous anomaly seen. Right ankle revealed tri-malleoli are equal and ankle fracture with deltoid ligament tear. Soft tissue swelling. CT of the brain and spine revealed no acute abnormalities. Chest x-ray revealed moderate cardiomegaly with interstitial opacity. Mild pulmonary vascular congestion. No thien consolidation. She is seen today in consultation on the regular medical floor. She is currently awake and alert. Somewhat of a poor historian. She is maintaining O2 saturations in the low 90s on 5 L/m per nasal cannula. Afebrile. Hemodynamically stable. White count 6.8. Hemoglobin 7.6. Sodium 138. Potassium 5.0. Bicarb 47. Creatinine 1.83. Review of Systems ROS unobtainable: due to mental status Past Medical History Past Medical History: Heart Failure, COPD, Diabetes Mellitus, Deep Vein Thrombo sis (DVT), Hyperlipidemia, Hypertension, Osteoarthritis (OA), Renal Disease Additional Past Medical History / Comment(s): CHF, arthritis, restless leg History of Any Multi-Drug Resistant Organisms: None Reported Past Surgical History: Heart Catheterization, Hysterectomy, Joint Replacement, Orthopedic Surgery Additional Past Surgical History / Comment(s): Lap band, Lt shoulder surgery, total left knee, Past Anesthesia/Blood Transfusion Reactions: No Reported Reaction Past Psychological History: Anxiety, Depression Smoking Status: Former smoker Past Alcohol Use History: None Reported Past Drug Use History: None Reported - Past Family History Father Family Medical History: Diabetes Mellitus Additional Family Medical History / Comment(s): Mother of old age 94 , Father at the age of 56 from diabetes complications, patient had 5 siblings, 1 of colon cancer. One brother had lung transplant secondary to Pulmonary fibrosis. Patient has 3 sisters all living without any medical problems. She has one son with diabetes and Hyperlipidemia and one daughter with hypertenion. Mother Family Medical History: No Reported History Additional Family Medical History / Comment(s): Mother at the age of 92 yrs from "old age" Medications and Allergies Home Medications Medication Instructions Recorded Confirmed Type Atenolol [Tenormin] 100 mg PO HS 12/12/16 12/23/19 History Ergocalciferol (Vitamin D2) 50,000 unit PO WE 12/12/16 12/23/19 History [Vitamin D2] Glimepiride [Amaryl] 1 mg PO AC-BRKFST 12/12/16 12/23/19 History Pregabalin [Lyrica] 50 mg PO BID 12/12/16 12/23/19 History rOPINIRole HCL [Requip] 1 mg PO BID 12/12/16 12/23/19 History Allopurinol [Zyloprim] 100 mg PO BID 07/11/17 12/23/19 History Calcitriol [Rocaltrol] 0.25 mcg PO DAILY 07/11/17 12/23/19 History Furosemide [Lasix] 40 mg PO BID #60 tablet 07/17/17 12/23/19 Rx Dulaglutide [Trulicity] 1.5 mg SQ VASQUEZ 11/14/19 12/23/19 History Ferrous Sulfate [Iron (65 MG 325 mg PO DAILY 11/14/19 12/23/19 History Elemental)] Insulin Aspart [NovoLOG Flexpen] 20 units SQ AC-TID 11/14/19 12/23/19 History Insulin Degludec [Tresiba 16 units SQ DAILY 11/14/19 12/23/19 History Flextouch U-100] Potassium Chloride ER [K-Dur 20] 20 meq PO BID 11/14/19 12/23/19 History Atorvastatin [Lipitor] 80 mg PO HS #30 tab 11/16/19 12/23/19 Rx Clopidogrel Bisulfate [Plavix] 75 mg PO DAILY #30 tab 11/16/19 12/23/19 Rx Liraglutide [Victoza 3-Robert] 0.6 mg SQ DAILY 11/16/19 12/23/19 Rx Allergies Allergy/AdvReac Type Severity Reaction Status Date / Time morphine Allergy Swelling Verified 12/23/19 12:01 Physical Exam Vitals: Vital Signs Temp Pulse Pulse Resp BP BP Pulse Ox 12/24/19 11:39 78 12/24/19 11:29 75 12/24/19 11:23 98.1 F 73 19 131/58 91 L 12/24/19 04:36 97.6 F 76 19 152/66 92 L 12/24/19 04:30 19 98 12/23/19 23:53 65 95 12/23/19 23:10 99 12/23/19 23:05 80 L 12/23/19 23:01 147/67 85 L 12/23/19 22:59 67 135/63 95 12/23/19 21:59 54 L 131/58 97 12/23/19 20:16 97.4 F L 67 16 88/58 94 L 12/23/19 15:27 96.9 F L 51 L 17 114/57 95 12/23/19 14:30 54 H 100/58 94 L Intake and Output 12/23/19 12/24/19 12/24/19 22:59 06:59 14:59 Intake Total 330 760 Balance 330 760 Intake: Intake, IV Titration 330 160 Amount Sodium Chloride 0.9% 1, 80 160 000 ml @ 20 mls/hr IV . Q24H [facility] Rx#:[id number] Sodium Chloride 0.9% 250 250 ml @ 999 mls/hr IV .Q16M [facility] Rx#:[id number] Oral 600 Other: Voiding Method Incontinent # Voids 1 2 3 Weight 108.862 kg 108.862 kg GENERAL EXAM: Confused. Alert, pleasant 74-year-old female patient, on 5 L nasal cannula comfortable in no apparent distress. HEAD: Normocephalic. EYES: Normal reaction of pupils, equal size. NOSE: Clear with pink turbinates. THROAT: No erythema or exudates. NECK: No masses, no JVD. CHEST: No chest wall deformity. LUNGS: Equal air entry with crackles in the posterior bases, end expiratory wheeze. Diminished. CVS: S1 and S2 normal with no audible murmur, regular rhythm. ABDOMEN: No hepatosplenomegaly, normal bowel sounds, no guarding or rigidity. SPINE: No scoliosis or deformity SKIN: No rashes CENTRAL NERVOUS SYSTEM: No focal deficits, tone is normal in all 4 extremities. EXTREMITIES: There is a boot to the right ankle. There is no peripheral edema. No clubbing, no cyanosis. Peripheral pulses are intact. Results - Laboratory Findings CBC and BMP: 12/24/19 05:23 12/24/19 05:23 PT/INR, D-dimer PT 10.7 sec (9.0-12.0) 12/23/19 11:55 INR 1.0 (<1.2) 12/23/19 11:55 Abnormal lab findings: Abnormal Labs 12/23/19 12/23/19 12/23/19 04:00 11:55 11:55 RBC 2.57 L Hgb 8.0 L D Hct 25.6 L MCV MCHC Lymphocytes # 0.6 L Potassium 5.2 H Chloride 87 L Carbon Dioxide 45 H* BUN 72 H Creatinine 1.94 H Glucose 260 H POC Glucose (mg/dL) Total Protein 5.5 L Albumin 3.1 L Urine Appearance Cloudy H Urine Bacteria Occasional H Hyaline Casts 4 H Urine Mucus Rare H 12/23/19 12/23/19 12/23/19 16:47 20:15 23:17 RBC Hgb Hct MCV MCHC Lymphocytes # Potassium Chloride Carbon Dioxide BUN Creatinine Glucose POC Glucose (mg/dL) 201 H 194 H 148 H Total Protein Albumin Urine Appearance Urine Bacteria Hyaline Casts Urine Mucus 12/24/19 12/24/19 12/24/19 05:23 05:23 11:27 RBC 2.50 L Hgb 7.6 L Hct 25.2 L MCV 100.8 H MCHC 30.3 L Lymphocytes # 0.7 L Potassium Chloride 88 L Carbon Dioxide 47 H* BUN 74 H Creatinine 1.83 H Glucose POC Glucose (mg/dL) 149 H Total Protein 5.5 L Albumin 3.1 L Urine Appearance Urine Bacteria Hyaline Casts Urine Mucus - Diagnostic Findings Chest x-ray: image reviewed Assessment and Plan Assessment: 1 Trauma secondary to fall with right knee and ankle injury with tri-malleoli or equivalent and small avulsion fracture 2 Acute on chronic hypercapnic/hypoxemic respiratory failure secondary to an acute exacerbation of diastolic congestive heart failure, COPD exacerbation, obesity/hypoventilation syndrome 3 Obstructive sleep apnea maintained on CPAP in the outpatient setting 4 Morbid obesity with previous lap band surgery 5 Diabetes mellitus 6 History of DVT 7 Hyperlipidemia 8 Hypertension 9 Previous smoking 10 Osteoarthritis 11 Poor overall functional performance based on the above-mentioned multiple c omorbidities Plan: The patient was seen and evaluated by Dr. Eyal gonzales Continue with BiPAP, obtain patient's home CPAP of possible Continue bronchodilators We'll continue to follow I, the cosigning physician, performed a history & physical examination of the patient. Lungs sounds with few crackles in the posterior bases, diminished. Maintaining good O2 saturations in the 90s on 5 L/m per nasal cannula. I discussed the assessment and plan of care with my nurse practitioner, Beverly Rowell. I attest to the above note as dictated by her. Time with Patient: Greater than 30
--- NOTE | 2019-12-24 14:24 | P.PN ---
Subjective Progress Note Date: 12/24/19 This is a 74-year-old female patient of Dr. Pulido and Dr. Franklin with past medical history of COPD, history of smoking quit in 2017, diabetes mellitus type 2, hypertension, hyperlipidemia, peripheral vascular disease, DVT, history of morbid obesity status post lap band, generalized anxiety disorder and recurrent depression, chronic kidney disease stage III, patient presented to the emergency department at [facility] after she had fallen yesterday trying to get out of her left chair at around 4:00 in the afternoon and she rolled her ankle and landed on her knees she became quite tender and she stayed on the floor for about 3-4 hours and her son was able to get her back into the lift chair, in the morning patient was complaining of increased swelling in the right ankle with some deformity her daughter insisted on bringing the patient to the emergency department by calling EMS patient has been having frequent falls at home and they have been having trouble managing her at home with her elder as well, patient was seen in the ER and she had an x-ray of the right ankle that showed trimalleolar fracture, she was admitted under orthopedic surgery were asked to see the patient for evaluation and preoperative medical clearance. 12/23: CAT scan of the right ankle revealed trimalleolar equivalent. Additional small avulsion fracture fragments in the region of the AIT FL. Marked soft tissue swelling. CAT scan of the brain and cervical spine revealed mild atroph y. No acute intracranial abnormality. No change. Mild degenerative changes in the lower cervical spine. No fracture. Orthopedics has evaluated and they are not planning on operative fixation of her ankle during the stay. Jaramillo has been ordered in case management is obtaining. Patient is to remain strictly nonweightbearing on her right leg plan for follow-up in 1 week with repeat x- rays of the ankle. Patient is afebrile, heart rate 76, blood pressure 152/66, pulse ox 92-98% on 5 L nasal cannula. Repeat blood work reveals WBC 6.8, hemoglobin 7.6. Sodium 138, potassium 5.0, chloride 88, CO2 47, BUN 74 and creatinine 1.3. Blood sugars running between 75 and 148. Stool for occult b lood was negative. Patient is 75% of her breakfast. shingle carrier is in a sinus rhythm. Patient was obtunded during the night and placed on BiPAP. Consult will be added for Dr. Birch, DuoNeb treatment started and Levaquin added as well. Discharge plan will be to [facility] in the next 24-48 hours. PT and OT have been added. Cardiology has evaluated the patient and discontinued Entresto and plan to follow up with Dr. Franklin in the office. Objective - Vital Signs Vital signs: Vital Signs Temp 97.6 F 12/24/19 04:36 Pulse 76 12/24/19 04:36 Resp 19 12/24/19 04:36 BP 152/66 12/24/19 04:36 Pulse Ox 92 L 12/24/19 04:36 Intake & Output 12/23/19 12/24/19 12/24/19 18:59 06:59 18:59 Intake Total 1090 Balance 1090 Weight 108.862 kg Intake: Intake, IV Titration 490 Amount Sodium Chloride 0.9% 1, 240 000 ml @ 20 mls/hr IV . Q24H [facility] Rx#:[id number] Sodium Chloride 0.9% 250 250 ml @ 999 mls/hr IV .Q16M [facility] Rx#:[id number] Oral 600 Other: Voiding Method Incontinent # Voids 2 - Exam Review of Systems Constitutional: Reports fatigue, Reports weakness Eyes: denies blurred vision, denies bulging eye, denies decreased vision Ears: deny: decreased hearing Ears, nose, mouth and throat: Denies dysphagia, Denies neck lump, Denies sore throat Cardiovascular: Reports decreased exercise tolerance, Reports dyspnea on exertion, Reports shortness of breath, Denies chest pain, Denies rapid heart beat, Denies syncope Respiratory: Reports sleep apnea, Reports snoring, Denies congestion, Denies cough with sputum, Denies home oxygen, Denies wheezing Gastrointestinal: Reports melena (Her daughter reported black stool over the last few days.), Denies abdominal pain, Denies bloating, Denies BRBPR, Denies heartburn, Denies nausea, Denies vomiting Genitourinary: Reports nocturia, Denies dysuria Menstruation: Reports postmenopausal Musculoskeletal: Reports fractures, Reports frequent falls, Reports gait dysfunction, Reports muscle weakness Musculoskeletal: right: ankle pain, ankle stiffness, ankle swelling, as per HPI, foot pain, foot stiffness, foot swelling, knee pain, knee stiffness, knee swelling, absent: elbow pain, elbow stiffness, elbow swelling, hand pain, hand stiffness, hand swelling, hip pain, hip stiffness, hip swelling, shoulder pain, shoulder stiffness, shoulder swelling, wrist pain, wrist stiffness, wrist swelling Integumentary: Denies pruritus, Denies rash Neurological: Reports gait dysfunction, Denies numbness, Denies weakness Psychiatric: Reports anxiety, Reports depression, Denies sadness/tearfulness, Denies sleep disturbances, Denies suicidal ideation. Endocrine: Denies fatigue, Denies weight change Physical examination This is a morbidly obese 74-year-old . She is resting in bed and patient appears to be in no acute distress. Patient is awake, alert and oriented today. HEENT: Head is atraumatic, normocephalic, pupils were equal round reactive to light and accommodation, extraocular muscle movement were intact. Neck: Supple, no JVP. Chest: Decreased breath sounds at the bases, with few rhonchi no expiratory wheezes no chest wall tenderness no intercostal retractions. Heart: First heart sound is depressed, second heart sounds normal, there is systolic ejection murmur 2/6 located in the left sternal border. Abdomen: Soft obese nontender nondistended positive bowel sounds, there is a lap band port in place. Extremities: Right lower extremity is in a splint, left lower extremity with trace edema no calf tenderness dorsalis pedis is +1 in the left side. Neurologic examination: Patient is awake alert and oriented 3, cranial nerves III through XII appear grossly intact. - Labs CBC & Chem 7: 12/24/19 05:23 12/24/19 05:23 Labs: Abnormal Lab Results - Last 24 Hours (Table) 12/23/19 12/23/19 12/23/19 Range/Units 04:00 11:55 11:55 RBC 2.57 L (3.80-5.40) m/uL Hgb 8.0 L D (11.4-16.0) gm/dL Hct 25.6 L (34.0-46.0) % MCV (80.0-100.0) fL MCHC (31.0-37.0) g/dL Lymphocytes # 0.6 L (1.0-4.8) k/uL Potassium 5.2 H (3.5-5.1) mmol/L Chloride 87 L (98-107) mmol/L Carbon Dioxide 45 H* (22-30) mmol/L BUN 72 H (7-17) mg/dL Creatinine 1.94 H (0.52-1.04) mg/dL Glucose 260 H (74-99) mg/dL POC Glucose (mg/dL) (75-99) mg/dL Total Protein 5.5 L (6.3-8.2) g/dL Albumin 3.1 L (3.5-5.0) g/dL Urine Appearance Cloudy H (Clear) Urine Bacteria Occasional H (None) /hpf Hyaline Casts 4 H (0-2) /lpf Urine Mucus Rare H (None) /hpf 12/23/19 12/23/19 12/23/19 Range/Units 16:47 20:15 23:17 RBC (3.80-5.40) m/uL Hgb (11.4-16.0) gm/dL Hct (34.0-46.0) % MCV (80.0-100.0) fL MCHC (31.0-37.0) g/dL Lymphocytes # (1.0-4.8) k/uL Potassium (3.5-5.1) mmol/L Chloride (98-107) mmol/L Carbon Dioxide (22-30) mmol/L BUN (7-17) mg/dL Creatinine (0.52-1.04) mg/dL Glucose (74-99) mg/dL POC Glucose (mg/dL) 201 H 194 H 148 H (75-99) mg/dL Total Protein (6.3-8.2) g/dL Albumin (3.5-5.0) g/dL Urine Appearance (Clear) Urine Bacteria (None) /hpf Hyaline Casts (0-2) /lpf Urine Mucus (None) /hpf 12/24/19 12/24/19 Range/Units 05:23 05:23 RBC 2.50 L (3.80-5.40) m/uL Hgb 7.6 L (11.4-16.0) gm/dL Hct 25.2 L (34.0-46.0) % MCV 100.8 H (80.0-100.0) fL MCHC 30.3 L (31.0-37.0) g/dL Lymphocytes # 0.7 L (1.0-4.8) k/uL Potassium (3.5-5.1) mmol/L Chloride 88 L (98-107) mmol/L Carbon Dioxide 47 H* (22-30) mmol/L BUN 74 H (7-17) mg/dL Creatinine 1.83 H (0.52-1.04) mg/dL Glucose (74-99) mg/dL POC Glucose (mg/dL) (75-99) mg/dL Total Protein 5.5 L (6.3-8.2) g/dL Albumin 3.1 L (3.5-5.0) g/dL Urine Appearance (Clear) Urine Bacteria (None) /hpf Hyaline Casts (0-2) /lpf Urine Mucus (None) /hpf Assessment and Plan Plan: 1. Status post fall with right ankle trimalleolar fracture. Patient is currently in a splint, continue with current pain management, continue to monitor the patient very closely keep her leg elevated and apply ice packs, orthopedic surgery with plan for conservative management, Cam boot ordered. Cardiology consult appreciated. 2. Metabolic encephalopathy most likely secondary to obstructive sleep apnea and hypercapnia. Consult with Dr. Birch. Patient started on Levaquin 500 mg oral daily, DuoNeb treatments scheduled and as needed. 3. Chronic diastolic heart failure. Patient did have an echocardiogram about a month ago and that showed ejection fraction 55-60% with the moderate concentric left ventricular hypertrophy with dilated left atrium mild aortic stenosis and mild mitral regurgitation without evidence of any wall motion abnormalities, we will continue the patient on atenolol 100 mg orally once every day, Lasix 40 mg oral twice daily. Intestinal has been discontinued by cardiology. 4. Hypertension and hypertensive cardiovascular disease. Continue atenolol 100 mg orally once every day 5. Hyperlipidemia. Continue Lipitor 80 mg orally once every day. 6. Carotid artery disease with moderate stenosis with greater than 70% of the left internal carotid artery and 60% right internal carotid artery. We will hold the patient Plavix and continue Lipitor 80 mg orally once every day for now in preparation for surgery. 7. Diabetes mellitus type 2. Currently on glimeperide 1 mg orally once every day along with Tresiba 16 units at bedtime along with the Humalog per scale, hold off GLP1-RA. 8. Chronic kidney disease stage III. Monitor the patient CMP. Continue calcitriol 0.25 g orally once every day. 9. Mild hyperkalemia due to chronic kidney disease. Monitor the patient CMP the next 24 hours. 10. Obesity with sleep apnea. The patient need to be in CPAP. 11. Gout, chronic. Continue allopurinol 100 mg orally twice every day. 12. Restless leg syndrome. Continue patient on Requip 1 mg orally twice every day. 13. Vitamin D deficiency. Continue vitamin D substance. 14. Diabetic polyneuropathy. Continue Lyrica 100 mg orally twice every day. 15. DVT prophylaxis. Heparin 5000 units subcutaneously every 8 hours. 16. GI prophylaxis. Pepcid 20 mg orally once every day. 17. Thank you for the consult we will follow with you. Discharge plan: [facility] or [facility] for subacute rehab in the next 24-48 hours. Impression and plan of care have been directed as dictated by the signing physician. Martha Herrera nurse practitioner acting as scribe for signing physician.
[2019-12-24] MEDS: amLODIPine 5 MG TAB PO SCH (14:37)
[2019-12-24] MEDS: LEVOFLOXACIN 500 MG TAB PO SCH (14:37)
[2019-12-24] MEDS: SODIUM CHLORIDE 0.9% 1,000 ML IV SCH (14:38)
[2019-12-24 17:09] LABS: Glucose,Whole Blood 140 mg/dL (75-99)
[2019-12-24] MEDS: ONDANSETRON 4 MG/2 ML VIAL IVP PRN (18:05)
[2019-12-24 20:15] LABS: Glucose,Whole Blood 178 mg/dL (75-99)
[2019-12-24] MEDS: ATENOLOL 50 MG TAB PO SCH (20:52)
[2019-12-24] MEDS: ATORVASTATIN 80 MG TAB PO SCH (20:52)
[2019-12-25 02:08] LABS: Glucose,Whole Blood 83 mg/dL (75-99)
[2019-12-25 05:18] LABS: Glucose,Whole Blood 108 mg/dL (75-99)
[2019-12-25 06:49] LABS: Glucose,Whole Blood 81 mg/dL (75-99)
[2019-12-25] MEDS: INSULIN ASPART (NovoLOG) 100 UNIT/ML VIAL SQ SCH ×4 (07:59→21:31)
[2019-12-25] MEDS: IPRATROPIUM-ALBUTEROL 3 ML NEB INHALATION SCH ×3 (08:01→19:22)
[2019-12-25] MEDS: ALLOPURINOL 100 MG TAB PO SCH ×2 (08:32→21:31)
[2019-12-25] MEDS: FUROSEMIDE 40 MG TAB PO SCH (08:32)
[2019-12-25] MEDS: HEPARIN SODIUM,PORCINE 5,000 UNIT/ML 1 ML VIAL SQ SCH ×2 (08:32→17:18)
[2019-12-25] MEDS: POTASSIUM CHLORIDE ER 20 MEQ TAB.ER PO SCH (08:32)
[2019-12-25] MEDS: CALCITRIOL 0.25 MCG CAP PO SCH (08:32)
[2019-12-25] MEDS: amLODIPine 5 MG TAB PO SCH (08:32)
[2019-12-25] MEDS: PANTOPRAZOLE 40 MG/10 ML VIAL IV SCH (08:32)
[2019-12-25] MEDS: GLIMEPIRIDE 1 MG TAB PO SCH (08:32)
[2019-12-25] MEDS: FERROUS SULFATE 325 MG TAB PO SCH (08:32)
[2019-12-25] MEDS: LEVOFLOXACIN 500 MG TAB PO SCH (08:32)
[2019-12-25] MEDS: LIRAGLUTIDE 0.6 MG SQ SCH (08:37)
[2019-12-25] MEDS: PREGABALIN 50 MG CAP PO SCH ×2 (08:38→21:30)
[2019-12-25] MEDS: INSULIN DETEMIR (LEVEMIR) 100 UNIT/ML SYR SQ SCH (08:48)
[2019-12-25] MEDS ORDERED: ERGOCALCIFEROL 50,000 UNIT CAP PO SCH (09:00)
[2019-12-25 09:02] LABS: HCT 24.5 % (34.0-46.0); HGB 7.4 gm/dL (11.4-16.0); Hypochromasia Moderate; MCH 30.3 pg (25.0-35.0); MCV 100.7 fL (80.0-100.0); Macrocytosis Slight; Mean Platelet Volume 9.3; Platelet Count 146 k/uL (150-450); RBC 2.43 m/uL (3.80-5.40); WBC 8.4 k/uL (3.8-10.6)
[2019-12-25 09:41] LABS: Albumin 3.1 g/dL (3.5-5.0); Calcium 9.1 mg/dL (8.4-10.2); Potassium 5.7 mmol/L (3.5-5.1); Total Protein 5.5 g/dL (6.3-8.2)
--- NOTE | 2019-12-25 11:50 | P.PN ---
Subjective HISTORY OF PRESENTING ILLNESS This is a pleasant 74-year-old female past medical history significant for diabetes mellitus, hypertension, dyslipidemia, peripheral vascular disease with evidence of bilateral carotid artery disease, obstructive sleep apnea and valvular heart disease. She follows in the office with Dr. Franklin. Pt is seen a nd examined sitting up in bed in no acute distress. She denies chest pain, shortness of breath, dizziness or palpitations. Currently maintained on amlodipine 5 mg daily, atenolol 100 mg daily, atorvastatin 80 mg daily and Lasix 40 mg twice a day by mouth. PHYSICAL EXAMINATION CONSTITUTIONAL: No apparent distress. Morbidly obese. HEENT: Head is normocephalic. Pupils are equal, round. Sclerae anicteric. Mucous membranes of the mouth are moist. No JVD. No carotid bruit. CHEST EXAMINATION: Lungs are clear to auscultation. No chest wall tenderness is noted on palpation or with deep breathing. Diminished. HEART EXAMINATION: Regular rate and rhythm. S1, S2 heard. Systolic ejection murmur at the base, no gallops or rub. Distant heart sounds. EXTREMITIES: Right lower extremity with boot and zoe wrap in place, left lower extremity with trace 1+ pitting edema. ASSESSMENT Fall causing right ankle fracture Anemia Hyperkalemia, resolved. Chronic kidney disease Hypertension Dyslipidemia Diabetes mellitus Peripheral vascular disease with evidence of bilateral carotid artery disease PLAN Stable from a cardiac perspective on current medical regimen. Nurse Practitioner note has been reviewed, I agree with a documented findings and plan of care. Patient was seen and examined. Objective - Vital Signs Vital signs: Vital Signs Temp 97.4 F L 12/25/19 04:12 Pulse 68 12/25/19 08:13 Resp 24 12/25/19 08:00 BP 122/59 12/25/19 04:12 Pulse Ox 94 L 12/25/19 04:12 Intake & Output 12/24/19 12/25/19 12/25/19 18:59 06:59 18:59 Intake Total 460 300 Balance 460 300 Weight 108.862 kg Intake: Intake, IV Titration 160 Amount Sodium Chloride 0.9% 1, 160 000 ml @ 20 mls/hr IV . Q24H [facility] Rx#:[id number] Oral 300 300 Other: Voiding Method Incontinent Bedpan Bedpan Incontinent Incontinent # Voids 1 2 - Labs CBC & Chem 7: 12/25/19 08:49 12/25/19 08:49 Labs: Abnormal Lab Results - Last 24 Hours (Table) 12/24/19 12/24/19 12/24/19 Range/Units 11:27 17:03 20:13 RBC (3.80-5.40) m/uL Hgb (11.4-16.0) gm/dL Hct (34.0-46.0) % MCV (80.0-100.0) fL MCHC (31.0-37.0) g/dL Plt Count (150-450) k/uL Potassium (3.5-5.1) mmol/L Chloride (98-107) mmol/L Carbon Dioxide (22-30) mmol/L BUN (7-17) mg/dL Creatinine (0.52-1.04) mg/dL Glucose (74-99) mg/dL POC Glucose (mg/dL) 149 H 140 H 178 H (75-99) mg/dL Total Protein (6.3-8.2) g/dL Albumin (3.5-5.0) g/dL 12/25/19 12/25/19 12/25/19 Range/Units 05:16 08:49 08:49 RBC 2.43 L (3.80-5.40) m/uL Hgb 7.4 L (11.4-16.0) gm/dL Hct 24.5 L (34.0-46.0) % MCV 100.7 H (80.0-100.0) fL MCHC 30.0 L (31.0-37.0) g/dL Plt Count 146 L (150-450) k/uL Potassium 5.7 H (3.5-5.1) mmol/L Chloride 90 L (98-107) mmol/L Carbon Dioxide 42 H* (22-30) mmol/L BUN 79 H (7-17) mg/dL Creatinine 1.89 H (0.52-1.04) mg/dL Glucose 194 H (74-99) mg/dL POC Glucose (mg/dL) 108 H (75-99) mg/dL Total Protein 5.5 L (6.3-8.2) g/dL Albumin 3.1 L (3.5-5.0) g/dL
[2019-12-25 11:59] LABS: Glucose,Whole Blood 281 mg/dL (75-99)
--- NOTE | 2019-12-25 13:47 | P.PN ---
Subjective Progress Note Date: 12/25/19 This is a 74-year-old female patient of Dr. Pulido and Dr. Franklin with past medical history of COPD, history of smoking quit in 2017, diabetes mellitus type 2, hypertension, hyperlipidemia, peripheral vascular disease, DVT, history of morbid obesity status post lap band, generalized anxiety disorder and recurrent depression, chronic kidney disease stage III, patient presented to the emergency department at [facility] after she had fallen yesterday trying to get out of her left chair at around 4:00 in the afternoon and she rolled her ankle and landed on her knees she became quite tender and she stayed on the floor for about 3-4 hours and her son was able to get her back into the lift chair, in the morning patient was complaining of increased swelling in the right ankle with some deformity her daughter insisted on bringing the patient to the emergency department by calling EMS patient has been having frequent falls at home and they have been having trouble managing her at home with her elder as well, patient was seen in the ER and she had an x-ray of the right ankle that showed trimalleolar fracture, she was admitted under orthopedic surgery were asked to see the patient for evaluation and preoperative medical clearance. 12/23: CAT scan of the right ankle revealed trimalleolar equivalent. Additional small avulsion fracture fragments in the region of the AIT FL. Marked soft tissue swelling. CAT scan of the brain and cervical spine revealed mild atroph y. No acute intracranial abnormality. No change. Mild degenerative changes in the lower cervical spine. No fracture. Orthopedics has evaluated and they are not planning on operative fixation of her ankle during the stay. Jaramillo has been ordered in case management is obtaining. Patient is to remain strictly nonweightbearing on her right leg plan for follow-up in 1 week with repeat x- rays of the ankle. Patient is afebrile, heart rate 76, blood pressure 152/66, pulse ox 92-98% on 5 L nasal cannula. Repeat blood work reveals WBC 6.8, hemoglobin 7.6. Sodium 138, potassium 5.0, chloride 88, CO2 47, BUN 74 and creatinine 1.3. Blood sugars running between 75 and 148. Stool for occult b lood was negative. Patient is 75% of her breakfast. monitor technician is in a sinus rhythm. Patient was obtunded during the night and placed on BiPAP. Consult will be added for Dr. Birch, DuoNeb treatment started and Levaquin added as well. Discharge plan will be to [facility] anticipated in the next 24-48 hours. PT and OT have been added. Cardiology has evaluated the patient and discontinued Entresto and plan to follow up with Dr. Franklin in the office. 12/24: Patient has been afebrile, heart rate 62, blood pressure 122/59, patient was on BiPAP during the night. Patient's mental status was much improved overnight. monitor technician has been a sinus rhythm. Patient has home O2 at 2 and half to 3 L nasal cannula. She is currently on 5 L and pulse ox was checked at initially 8889 and improves to approximate 92 with deep breathing. Patient was found this morning without her oxygen and had significant mental status changes secondary to this. Repeat lab work revealed WBC 8.4, hemoglobin 7.4, platelet count 146. Sodium 137, potassium 5.7, chloride 90, CO2 42, BUN 79, creatinine 1.89. Blood sugars running between 81 and 281. The patient has been cleared by cardiology. Pulmonary medicine continues to follow the patient. We are planning to continue current medications and plan for possible discharge to [facility] tomorrow. Objective - Vital Signs Vital signs: Vital Signs Temp 97.4 F L 12/25/19 04:12 Pulse 68 12/25/19 08:13 Resp 24 12/25/19 04:12 BP 122/59 12/25/19 04:12 Pulse Ox 94 L 12/25/19 04:12 Intake & Output 12/24/19 12/25/19 12/25/19 18:59 06:59 18:59 Intake Total 460 Balance 460 Weight 108.862 kg Intake: Intake, IV Titration 160 Amount Sodium Chloride 0.9% 1, 160 000 ml @ 20 mls/hr IV . Q24H [facility] Rx#:[id number] Oral 300 Other: Voiding Method Incontinent Bedpan Incontinent # Voids 1 2 - Exam Review of Systems Constitutional: Reports fatigue, Reports weakness Eyes: denies blurred vision, denies bulging eye, denies decreased vision Ears: deny: decreased hearing Ears, nose, mouth and throat: Denies dysphagia, Denies neck lump, Denies sore throat Cardiovascular: Reports decreased exercise tolerance, Reports dyspnea on exertion, Reports shortness of breath, Denies chest pain, Denies rapid heart beat, Denies syncope Respiratory: Reports sleep apnea, Reports snoring, Denies congestion, Denies cough with sputum, Denies home oxygen, Denies wheezing Gastrointestinal: Denies abdominal pain, Denies bloating, Denies BRBPR, Denies heartburn, Denies nausea, Denies vomiting Genitourinary: Reports nocturia, Denies dysuria Menstruation: Reports postmenopausal Musculoskeletal: Reports fractures, Reports frequent falls, Reports gait dysfunction, Reports muscle weakness Musculoskeletal: right: ankle pain, ankle stiffness, ankle swelling, as per HPI, foot pain, foot stiffness, foot swelling, knee pain, knee stiffness, knee swelling, absent: elbow pain, elbow stiffness, elbow swelling, hand pain, hand stiffness, hand swelling, hip pain, hip stiffness, hip swelling, shoulder pain, shoulder stiffness, shoulder swelling, wrist pain, wrist stiffness, wrist swelli ng Integumentary: Denies pruritus, Denies rash Neurological: Reports gait dysfunction, Denies numbness, Denies weakness Psychiatric: Reports anxiety, Reports depression, Denies sadness/tearfulness, Denies sleep disturbances, Denies suicidal ideation. Endocrine: Denies fatigue, Denies weight change Physical examination This is a morbidly obese 74-year-old . She is resting in recliner and patient appears to be in no acute distress. Patient is awake, alert and oriented today. HEENT: Head is atraumatic, normocephalic, pupils were equal round reactive to li ght and accommodation, extraocular muscle movement were intact. Neck: Supple, no JVP. Chest: Decreased breath sounds at the bases, with few rhonchi no expiratory wheezes no chest wall tenderness no intercostal retractions. Heart: First heart sound is depressed, second heart sounds normal, there is systolic ejection murmur 2/6 located in the left sternal border. Abdomen: Soft obese nontender nondistended positive bowel sounds, there is a lap band port in place. Extremities: Right lower extremity is in a splint, left lower extremity with trace edema no calf tenderness dorsalis pedis is +1 in the left side. Neurologic examination: Patient is awake alert and oriented 3, cranial nerves III through XII appear grossly intact. - Labs CBC & Chem 7: 12/25/19 08:49 12/25/19 08:49 Labs: Abnormal Lab Results - Last 24 Hours (Table) 12/24/19 12/24/19 12/24/19 Range/Units 11:27 17:03 20:13 POC Glucose (mg/dL) 149 H 140 H 178 H (75-99) mg/dL 12/25/19 Range/Units 05:16 POC Glucose (mg/dL) 108 H (75-99) mg/dL Assessment and Plan Plan: 1. Status post fall with right ankle trimalleolar fracture. Patient is currently in a splint, continue with current pain management, continue to monitor the patient very closely keep her leg elevated and apply ice packs, orthopedic surgery with plan for conservative management, Cam boot ordered. Cardiology consult appreciated. 2. Metabolic encephalopathy most likely secondary to obstructive sleep apnea and hypercapnia. Consult with Dr. Birch. Patient started on Levaquin 500 mg oral daily, DuoNeb treatments scheduled and as needed. 3. Chronic diastolic heart failure. Patient did have an echocardiogram about a month ago and that showed ejection fraction 55-60% with the moderate concentric left ventricular hypertrophy with dilated left atrium mild aortic stenosis and mild mitral regurgitation without evidence of any wall motion abnormalities, we will continue the patient on atenolol 100 mg orally once every day, Lasix 40 mg oral daily. Intestinal has been discontinued by cardiology. 4. Hypertension and hypertensive cardiovascular disease. Continue atenolol 100 mg orally once every day 5. Hyperlipidemia. Continue Lipitor 80 mg orally once every day. 6. Carotid artery disease with moderate stenosis with greater than 70% of the left internal carotid artery and 60% right internal carotid artery. We will hold the patient Plavix and continue Lipitor 80 mg orally once every day for now in preparation for surgery. 7. Diabetes mellitus type 2. Currently on glimeperide 1 mg orally once every day along with Tresiba 16 units at bedtime along with the Humalog per scale, hold off GLP1-RA. 8. Chronic kidney disease stage III. Monitor the patient CMP. Continue calcitriol 0.25 g orally once every day. 9. Mild hyperkalemia due to chronic kidney disease. 10. Obesity with sleep apnea. The patient need to be in CPAP. 11. Gout, chronic. Continue allopurinol 100 mg orally twice every day. 12. Restless leg syndrome. Continue patient on Requip 1 mg orally twice every day. 13. Vitamin D deficiency. Continue vitamin D substance. 14. Diabetic polyneuropathy. Continue Lyrica 100 mg orally twice every day. 15. DVT prophylaxis. Heparin 5000 units subcutaneously every 8 hours. 16. GI prophylaxis. Pepcid 20 mg orally once every day. 17. Thank you for the consult we will follow with you. Discharge plan: [facility] or [facility] for subacute rehab in the next 24 hours. Impression and plan of care have been directed as dictated by the signing physician. Martha Herrera nurse practitioner acting as scribe for signing physician.
--- NOTE | 2019-12-25 13:58 | P.PN ---
Subjective Progress Note Date: 12/25/19 This patient is a 74-year-old female with a past medical history of COPD, diabetes, hypertension, hyperlipidemia, DVT, morbid obesity status post lap band, chronic kidney disease stage III that is being followed for a right trimalleolar equivalent ankle fracture. She is currently immobilized in a tall CAM boot. She states she is experiencing moderate pain in the right ankle. She denies pain in her right knee. She is complaining of groin pain today. She has no additional complaints today. She is stable from an orthopedic stand point. Objective - Vital Signs Vital signs: Vital Signs Temp 97.4 F L 12/25/19 04:12 Pulse 68 12/25/19 13:32 Resp 24 12/25/19 08:00 BP 122/59 12/25/19 04:12 Pulse Ox 94 L 12/25/19 04:12 Intake & Output 12/24/19 12/25/19 12/25/19 18:59 06:59 18:59 Intake Total 460 300 Balance 460 300 Weight 108.862 kg Intake: Intake, IV Titration 160 Amount Sodium Chloride 0.9% 1, 160 000 ml @ 20 mls/hr IV . Q24H [facility] Rx#:[id number] Oral 300 300 Other: Voiding Method Incontinent Bedpan Bedpan Incontinent Incontinent # Voids 1 2 - Exam On examination, the patient is sitting up in bed in no apparent distress. She is alert and oriented 3. On inspection of the right lower extremity, there is a tall CAM boot in place. Tall CAM boot is opened and reveals moderate swelling of the ankle. There is ecchymosis of the lateral ankle. No open wounds or lacerations. There is diffuse, moderate pain on palpation of the ankle. Patient is able to move toes without issue or pain. Mild pain with passive range of motion of the toes. Motor and sensory function appear to be intact of the right lower extremity. Right lower extremity is warm and well perfused with brisk capillary refill distally. There is mild pain with passive range of motion of the hip. No pain with logrolling of the hip. - Labs CBC & Chem 7: 12/25/19 08:49 12/25/19 08:49 Labs: Abnormal Lab Results - Last 24 Hours (Table) 12/24/19 12/24/19 12/25/19 Range/Units 17:03 20:13 05:16 RBC (3.80-5.40) m/uL Hgb (11.4-16.0) gm/dL Hct (34.0-46.0) % MCV (80.0-100.0) fL MCHC (31.0-37.0) g/dL Plt Count (150-450) k/uL Potassium (3.5-5.1) mmol/L Chloride (98-107) mmol/L Carbon Dioxide (22-30) mmol/L BUN (7-17) mg/dL Creatinine (0.52-1.04) mg/dL Glucose (74-99) mg/dL POC Glucose (mg/dL) 140 H 178 H 108 H (75-99) mg/dL Total Protein (6.3-8.2) g/dL Albumin (3.5-5.0) g/dL 12/25/19 12/25/19 12/25/19 Range/Units 08:49 08:49 11:58 RBC 2.43 L (3.80-5.40) m/uL Hgb 7.4 L (11.4-16.0) gm/dL Hct 24.5 L (34.0-46.0) % MCV 100.7 H (80.0-100.0) fL MCHC 30.0 L (31.0-37.0) g/dL Plt Count 146 L (150-450) k/uL Potassium 5.7 H (3.5-5.1) mmol/L Chloride 90 L (98-107) mmol/L Carbon Dioxide 42 H* (22-30) mmol/L BUN 79 H (7-17) mg/dL Creatinine 1.89 H (0.52-1.04) mg/dL Glucose 194 H (74-99) mg/dL POC Glucose (mg/dL) 281 H (75-99) mg/dL Total Protein 5.5 L (6.3-8.2) g/dL Albumin 3.1 L (3.5-5.0) g/dL Assessment and Plan Assessment: Right trimalleolar equivalent ankle fracture Plan: - Continue immobilization of the right ankle in tall CAM boot. She is to remain strictly non-weight bearing on her right leg. She is to use crutches, a walker, or a knee scooter for ambulation. - We will obtain a hip x-ray due to complaints of groin pain today to rule-out fracture. - Physical therapy for gait and balance training. - Pain management as needed. - Ice and elevation of right ankle to decrease pain and swelling. - DVT prophylaxis, medical management per primary team. - Patient will follow-up in the office in 1 week for repeat x-rays of the right ankle. We will sign off patient for now. Please contact with any questions.
--- NOTE | 2019-12-25 14:07 | P.PN ---
Subjective Progress Note Date: 12/25/19 Principal diagnosis: Right ankle and knee pain status post fall This is a pleasant 74-year-old female patient who follows with Dr. Pulido as her primary care physician. She has a history of oxygen dependent chronic obstructive pulmonary disease, morbid obesity, obstructive sleep apnea on CPAP at home, diabetes mellitus, hyperlipidemia, hypertension, congestive heart failu re, arthritis, anxiety/depression. She is a former smoker. She is somewhat of a poor historian. She presented to the hospital yesterday after sustaining a fall from her chair lift rolling her ankle and injuring her right knee. X-ray reveals right knee revealed mild tricompartmental osteoarthrosis. Trace knee joint effusion. No acute osseous anomaly seen. Right ankle revealed tri- malleoli are equal and ankle fracture with deltoid ligament tear. Soft tissue swelling. CT of the brain and spine revealed no acute abnormalities. Chest x- ray revealed moderate cardiomegaly with interstitial opacity. Mild pulmonary vascular congestion. No thien consolidation. She is seen today in consultation on the regular medical floor. She is currently awake and alert. Somewhat of a poor historian. She is maintaining O2 saturations in the low 90s on 5 L/m per nasal cannula. Afebrile. Hemodynamically stable. White count 6.8. Hemoglobin 7.6. Sodium 138. Potassium 5.0. Bicarb 47. Creatinine 1.83. Patient is seen today 12/25/2019 in follow-up on the regular medical floor. She is awake and alert in no acute distress. She is sitting up in a chair at the bedside. Denies any worsening shortness of breath, cough or congestion. Maintaining O2 saturations in the 90s on 5 L/m per nasal cannula. Her home CPAP was brought in for her to wear in the evenings. Set at 10 cm of water. White count 8.4. Hemoglobin 7.4. Platelet count 146. Sodium 137. Potassium 5.7. Bicarb 42. Creatinine 1.89. She is continued on bronchodilators. Blood cultures reveal no growth. She remains in a tall CAM boot for her right ankle fracture Objective - Vital Signs Vital signs: Vital Signs Temp 97.4 F L 12/25/19 04:12 Pulse 68 12/25/19 13:32 Resp 24 12/25/19 08:00 BP 122/59 12/25/19 04:12 Pulse Ox 94 L 12/25/19 04:12 Intake & Output 12/24/19 12/25/19 12/25/19 18:59 06:59 18:59 Intake Total 460 300 Balance 460 300 Weight 108.862 kg Intake: Intake, IV Titration 160 Amount Sodium Chloride 0.9% 1, 160 000 ml @ 20 mls/hr IV . Q24H [facility] Rx#:[id number] Oral 300 300 Other: Voiding Method Incontinent Bedpan Bedpan Incontinent Incontinent # Voids 1 2 - Exam GENERAL EXAM: Alert, pleasant obese 74-year-old female patient, up in a chair at the bedside, on 5 L nasal cannula comfortable in no apparent distress. HEAD: Normocephalic. EYES: Normal reaction of pupils, equal size. NOSE: Clear with pink turbinates. THROAT: Crowding the posterior pharynx No erythema or exudates. NECK: No masses, no JVD. CHEST: No chest wall deformity. LUNGS: Equal air entry with crackles in the posterior bases. Diminished. CVS: S1 and S2 normal with no audible murmur, regular rhythm. ABDOMEN: No hepatosplenomegaly, normal bowel sounds, no guarding or rigidity. SPINE: No scoliosis or deformity SKIN: No rashes CENTRAL NERVOUS SYSTEM: No focal deficits, tone is normal in all 4 extremities. EXTREMITIES: There is a tall CAM boot to the right ankle. There is no peripheral edema. No clubbing, no cyanosis. Peripheral pulses are intact. - Labs CBC & Chem 7: 12/25/19 08:49 12/25/19 08:49 Labs: Abnormal Lab Results - Last 24 Hours (Table) 12/24/19 12/24/19 12/25/19 Range/Units 17:03 20:13 05:16 RBC (3.80-5.40) m/uL Hgb (11.4-16.0) gm/dL Hct (34.0-46.0) % MCV (80.0-100.0) fL MCHC (31.0-37.0) g/dL Plt Count (150-450) k/uL Potassium (3.5-5.1) mmol/L Chloride (98-107) mmol/L Carbon Dioxide (22-30) mmol/L BUN (7-17) mg/dL Creatinine (0.52-1.04) mg/dL Glucose (74-99) mg/dL POC Glucose (mg/dL) 140 H 178 H 108 H (75-99) mg/dL Total Protein (6.3-8.2) g/dL Albumin (3.5-5.0) g/dL 12/25/19 12/25/19 12/25/19 Range/Units 08:49 08:49 11:58 RBC 2.43 L (3.80-5.40) m/uL Hgb 7.4 L (11.4-16.0) gm/dL Hct 24.5 L (34.0-46.0) % MCV 100.7 H (80.0-100.0) fL MCHC 30.0 L (31.0-37.0) g/dL Plt Count 146 L (150-450) k/uL Potassium 5.7 H (3.5-5.1) mmol/L Chloride 90 L (98-107) mmol/L Carbon Dioxide 42 H* (22-30) mmol/L BUN 79 H (7-17) mg/dL Creatinine 1.89 H (0.52-1.04) mg/dL Glucose 194 H (74-99) mg/dL POC Glucose (mg/dL) 281 H (75-99) mg/dL Total Protein 5.5 L (6.3-8.2) g/dL Albumin 3.1 L (3.5-5.0) g/dL Assessment and Plan Assessment: 1 Trauma secondary to fall with right knee and ankle injury with trimalleolar equivalent nondisplaced fracture and small avulsion fracture. Currently in a tall CAM boot 2 Acute on chronic hypercapnic/hypoxemic respiratory failure secondary to an acute exacerbation of diastolic congestive heart failure, COPD exacerbation, obesity/hypoventilation syndrome 3 Obstructive sleep apnea maintained on CPAP in the outpatient setting set at 10 cm of water 4 Morbid obesity with previous lap band surgery 5 Diabetes mellitus 6 History of DVT 7 Hyperlipidemia 8 Hypertension 9 Previous smoking 10 Osteoarthritis 11 Poor overall functional performance based on the above-mentioned multiple comorbidities Plan: The patient was seen and evaluated by Dr. Birch Reviewed patient's home CPAP, currently at 10 cm of water No pulmonary issues currently Continue bronchodilators We'll continue to follow I, the cosigning physician, performed a history & physical examination of the patient. Lungs sounds with few crackles in the posterior bases, diminished. Maintaining good O2 saturations in the 90s on 5 L/m per nasal cannula. I discussed the assessment and plan of care with my nurse practitioner, Beverly Rowell. I attest to the above note as dictated by her.
--- NOTE | 2019-12-25 14:22 | XR ---
EXAMINATION TYPE: XR Hip Limited RT DATE OF EXAM: 12/25/2019 CLINICAL HISTORY: Right hip pain TECHNIQUE: Single frontal view of the right hip are obtained. COMPARISON: None. FINDINGS: There is no gross acute fracture/dislocation evident in the right hip on this single view. Copious soft tissues partially obscure the right hip. The joint space in the right hip appears mildl y narrowed compatible with mild arthropathy. The overlying soft tissue appears unremarkable. IMPRESSION: There is no gross acute fracture or dislocation in the right hip.
[2019-12-25 16:55] LABS: Glucose,Whole Blood 187 mg/dL (75-99)
[2019-12-25] MEDS: SODIUM CHLORIDE 0.9% 1,000 ML IV SCH (17:10)
[2019-12-25 20:16] LABS: Glucose,Whole Blood 251 mg/dL (75-99)
[2019-12-25] MEDS: ATENOLOL 50 MG TAB PO SCH (21:30)
[2019-12-25] MEDS: ATORVASTATIN 80 MG TAB PO SCH (21:30)
[2019-12-26] MEDS: HEPARIN SODIUM,PORCINE 5,000 UNIT/ML 1 ML VIAL SQ SCH ×4 (00:14→23:11)
[2019-12-26 02:00] LABS: Glucose,Whole Blood 94 mg/dL (75-99)
[2019-12-26 06:24] LABS: Basophils % (A) 0 %; Eosinophils # (A) 0.2 k/uL (0-0.7); Eosinophils % (A) 3 %; HCT 23.3 % (34.0-46.0); HGB 7.2 gm/dL (11.4-16.0); Hypochromasia Slight; Lymphocytes # (A) 0.6 k/uL (1.0-4.8); Lymphocytes % (A) 10 %; MCH 30.7 pg (25.0-35.0); MCHC 30.7 g/dL (31.0-37.0); MCV 99.9 fL (80.0-100.0); Macrocytosis Slight; Monocytes # (A) 0.4 k/uL (0-1.0); Monocytes % (A) 6 %; Neutrophils # (A) 5.2 k/uL (1.3-7.7); Neutrophils % (A) 79 %; Platelet Count 171 k/uL (150-450); RBC 2.33 m/uL (3.80-5.40); RDW 15.1 % (11.5-15.5); WBC 6.6 k/uL (3.8-10.6)
[2019-12-26 06:49] LABS: Albumin 3.1 g/dL (3.5-5.0); Potassium 5.3 mmol/L (3.5-5.1); Total Bilirubin 0.8 mg/dL (0.2-1.3); Total Protein 5.6 g/dL (6.3-8.2)
[2019-12-26 07:06] LABS: Glucose,Whole Blood 59 mg/dL (75-99)
[2019-12-26] MEDS: IPRATROPIUM-ALBUTEROL 3 ML NEB INHALATION SCH ×3 (07:16→19:40)
[2019-12-26 07:40] LABS: Glucose,Whole Blood 85 mg/dL (75-99)
[2019-12-26] MEDS: CALCITRIOL 0.25 MCG CAP PO SCH (08:00)
[2019-12-26] MEDS: LEVOFLOXACIN 250 MG TAB PO SCH (08:01)
[2019-12-26] MEDS: PANTOPRAZOLE 40 MG TABLET PO SCH (08:01)
[2019-12-26] MEDS: ALLOPURINOL 100 MG TAB PO SCH ×2 (08:01→21:10)
[2019-12-26] MEDS: PREGABALIN 50 MG CAP PO SCH ×2 (08:02→21:10)
[2019-12-26] MEDS: FERROUS SULFATE 325 MG TAB PO SCH (08:02)
[2019-12-26] MEDS ORDERED: FUROSEMIDE 40 MG TAB PO SCH (09:00)
[2019-12-26] MEDS: INSULIN ASPART (NovoLOG) 100 UNIT/ML VIAL SQ SCH ×4 (09:24→21:10)
[2019-12-26 09:26] LABS: Glucose,Whole Blood 167 mg/dL (75-99)
[2019-12-26 10:34] LABS: Reticulocyte % 5.66 % (0.10-1.80)
--- NOTE | 2019-12-26 10:42 | P.NPCON ---
History of Present Illness - Reason for Consult acute renal failure, chronic renal failure - History of Present Illness Reason for consultation: Acute kidney injury on chronic any disease History of present illness: Patient is a 74-year-old female seen in renal consultation for acute kidney injury on chronic kidney disease. Patient has chronic kidney disease stage IV with baseline creatinine near 2. Etiology is nephrosclerosis and cardiorenal syndrome. Patient presented to the hospital on December 22 with right ankle and right knee pain. Patient states she was trying to get out of her lift chair wh ich revealed over and she subsequently fell. Imaging revealed nondisplaced right ankle fracture. Orthopedic surgeries following. Patient has history of chronic diastolic CHF. She also has history of COPD and is maintained on home oxygen. She admits to good urine output. No hematuria or dysuria. Patient's creatinine was stable in the range of 1.8 1.9 this admission but today was up to 2.32. Her Lasix has been decreased from 40 twice a day to once a day. No edema in her left lower extremity. No vomiting or diarrhea. No abdominal pain. Hemodynamically stable. She is also been alkalotic. Bicarb level was 45 on admission and peaked at 47. It is down to 41 today. Vital signs are stable. General: The patient appeared well nourished and normally developed. HEENT: Head exam is unremarkable. Neck is without jugular venous distension. LUNGS: Lungs are clear to auscultation and percussion. Breath sounds decreased. HEART: Rate and Rhythm are regular. First and second heart sounds normal. No murmurs, rubs or gallops. ABDOMEN: Nontender. EXTREMITITES: Right lower extremity wrapped. 1+ edema. No edema in the left lower extremity. Past Medical History Past Medical History: Heart Failure, COPD, Diabetes Mellitus, Deep Vein Thrombosis (DVT), Hyperlipidemia, Hypertension, Osteoarthritis (OA), Renal Disease Additional Past Medical History / Comment(s): CHF, arthritis, restless leg History of Any Multi-Drug Resistant Organisms: None Reported Past Surgical History: Heart Catheterization, Hysterectomy, Joint Replacement, Orthopedic Surgery Additional Past Surgical History / Comment(s): Lap band, Lt shoulder surgery, total left knee, Past Anesthesia/Blood Transfusion Reactions: No Reported Reaction Past Psychological History: Anxiety, Depression Smoking Status: Former smoker Past Alcohol Use History: None Reported Past Drug Use History: None Reported - Past Family History Father Family Medical History: Diabetes Mellitus Additional Family Medical History / Comment(s): Mother of old age 94 , Father at the age of 56 from diabetes complications, patient had 5 siblings, 1 of colon cancer. One brother had lung transplant secondary to Pulmonary fibrosis. Patient has 3 sisters all living without any medical pro blems. She has one son with diabetes and Hyperlipidemia and one daughter with hypertenion. Mother Family Medical History: No Reported History Additional Family Medical History / Comment(s): Mother at the age of 92 yrs from "old age" Medications and Allergies Home Medications Medication Instructions Recorded Confirmed Type Atenolol [Tenormin] 100 mg PO HS 12/12/16 12/23/19 History Ergocalciferol (Vitamin D2) 50,000 unit PO WE 12/12/16 12/23/19 History [Vitamin D2] Glimepiride [Amaryl] 1 mg PO [id number] 12/12/16 12/23/19 History Pregabalin [Lyrica] 50 mg PO BID 12/12/16 12/23/19 History rOPINIRole HCL [Requip] 1 mg PO BID 12/12/16 12/23/19 History Allopurinol [Zyloprim] 100 mg PO BID 07/11/17 12/23/19 History Calcitriol [Rocaltrol] 0.25 mcg PO DAILY 07/11/17 12/23/19 History Furosemide [Lasix] 40 mg PO BID #60 tablet 07/17/17 12/23/19 Rx Dulaglutide [Trulicity] 1.5 mg SQ VASQUEZ 11/14/19 12/23/19 History Ferrous Sulfate [Iron (65 MG 325 mg PO DAILY 11/14/19 12/23/19 History Elemental)] Insulin Aspart [NovoLOG Flexpen] 20 units SQ AC-TID 11/14/19 12/23/19 History Insulin Degludec [Tresiba 16 units SQ DAILY 11/14/19 12/23/19 History Flextouch U-100] Potassium Chloride ER [K-Dur 20] 20 meq PO BID 11/14/19 12/23/19 History Atorvastatin [Lipitor] 80 mg PO HS #30 tab 11/16/19 12/23/19 Rx Clopidogrel Bisulfate [Plavix] 75 mg PO DAILY #30 tab 11/16/19 12/23/19 Rx Liraglutide [Victoza 3-Robert] 0.6 mg SQ DAILY 11/16/19 12/23/19 Rx Allergies Allergy/AdvReac Type Severity Reaction Status Date / Time morphine Allergy Swelling Verified 12/23/19 12:01 Physical Exam Vitals: Vital Signs Temp Pulse Pulse Pulse Resp BP Pulse Ox 12/26/19 09:15 97.9 F 60 60 24 119/56 92 L 12/26/19 07:27 68 12/26/19 07:16 62 12/26/19 04:56 97.9 F 58 L 18 95/53 92 L 12/25/19 20:34 98.8 F 72 24 128/58 95 12/25/19 19:35 68 12/25/19 19:24 64 12/25/19 16:00 60 66 20 12/25/19 13:32 68 12/25/19 13:17 66 12/25/19 13:00 98 F 66 20 112/57 92 L Intake and Output 12/25/19 12/26/19 12/26/19 22:59 06:59 14:59 Intake Total 480 Balance 480 Intake: Oral 480 Other: Voiding Method Bedpan Bedpan Incontinent Incontinent # Voids 2 4 Results - Lab Results Most recent lab results Calcium 9.0 mg/dL (8.4-10.2) 12/26/19 06:00 12/26/19 06:00 12/26/19 06:00 Assessment and Plan Plan: Assessment: 1. Acute kidney injury mostly prerenal secondary to diuresis. Creatinine 2.32 today. No proteinuria on UA. 2. Chronic kidney disease stage IV secondary to cardiorenal syndrome and nephrosclerosis with baseline creatinine near 2. 3. Right ankle fracture. Orthopedic surgery following. 4. Metabolic alkalosis secondary to diuresis. Also component of metabolic compensation for underlying chronic respiratory acidosis. 5. History of COPD. 6. Chronic diastolic CHF. Currently compensated. 7. Anemia of chronic kidney disease. Rule out iron deficiency. Plan: Maintain Lasix 40 mg orally once daily. Check arterial blood gas. Check iron studies. Add Aranesp. Repeat electrolytes in the morning. Thank you for the consultation. I will continue to follow the patient during her hospital stay.
[2019-12-26 10:50] LABS: Glucose,Whole Blood 175 mg/dL (75-99)
[2019-12-26] MEDS ORDERED: DARBEPOETIN ALFA 40 MCG/0.4 ML SYRINGE SQ SCH (11:00)
[2019-12-26] MEDS: traMADol 50 MG TAB PO PRN ×2 (11:22→23:10)
[2019-12-26] MEDS: SENNOSIDES-DOCUSATE SODIUM 1 EACH TAB PO SCH (11:23)
[2019-12-26] MEDS: amLODIPine 5 MG TAB PO SCH (12:23)
[2019-12-26] MEDS: GLIMEPIRIDE 1 MG TAB PO SCH (12:42)
[2019-12-26] MEDS: INSULIN DETEMIR (LEVEMIR) 100 UNIT/ML SYR SQ SCH ×2 (12:43→21:09)
--- NOTE | 2019-12-26 13:07 | P.PN ---
Subjective Progress Note Date: 12/26/19 This is a 74-year-old female patient of Dr. Pulido and Dr. Franklin with past medical history of COPD, history of smoking quit in 2017, diabetes mellitus type 2, hypertension, hyperlipidemia, peripheral vascular disease, DVT, history of morbid obesity status post lap band, generalized anxiety disorder and recurrent depression, chronic kidney disease stage III, patient presented to the emergency department at [facility] after she had fallen yesterday trying to get out of her left chair at around 4:00 in the afternoon and she rolled her ankle and landed on her knees she became quite tender and she stayed on the floor for about 3-4 hours and her son was able to get her back into the lift chair, in the morning patient was complaining of increased swelling in the right ankle with some deformity her daughter insisted on bringing the patient to the emergency department by calling EMS patient has been having frequent falls at home and they have been having trouble managing her at home with her elder as well, patient was seen in the ER and she had an x-ray of the right ankle that showed trimalleolar fracture, she was admitted under orthopedic surgery were asked to see the patient for evaluation and preoperative medical clearance. 12/23: CAT scan of the right ankle revealed trimalleolar equivalent. Additional small avulsion fracture fragments in the region of the AIT FL. Marked soft tissue swelling. CAT scan of the brain and cervical spine revealed mild atroph y. No acute intracranial abnormality. No change. Mild degenerative changes in the lower cervical spine. No fracture. Orthopedics has evaluated and they are not planning on operative fixation of her ankle during the stay. Jaramillo has been ordered in case management is obtaining. Patient is to remain strictly nonweightbearing on her right leg plan for follow-up in 1 week with repeat x- rays of the ankle. Patient is afebrile, heart rate 76, blood pressure 152/66, pulse ox 92-98% on 5 L nasal cannula. Repeat blood work reveals WBC 6.8, hemoglobin 7.6. Sodium 138, potassium 5.0, chloride 88, CO2 47, BUN 74 and creatinine 1.3. Blood sugars running between 75 and 148. Stool for occult b lood was negative. Patient is 75% of her breakfast. bus driver/monitor is in a sinus rhythm. Patient was obtunded during the night and placed on BiPAP. Consult will be added for Dr. Birch, DuoNeb treatment started and Levaquin added as well. Discharge plan will be to [facility] anticipated in the next 24-48 hours. PT and OT have been added. Cardiology has evaluated the patient and discontinued Entresto and plan to follow up with Dr. Franklin in the office. 12/24: Patient has been afebrile, heart rate 62, blood pressure 122/59, patient was on BiPAP during the night. Patient's mental status was much improved overnight. bus driver/monitor has been a sinus rhythm. Patient has home O2 at 2 and half to 3 L nasal cannula. She is currently on 5 L and pulse ox was checked at initially 8889 and improves to approximate 92 with deep breathing. Patient was found this morning without her oxygen and had significant mental status changes secondary to this. Repeat lab work revealed WBC 8.4, hemoglobin 7.4, platelet count 146. Sodium 137, potassium 5.7, chloride 90, CO2 42, BUN 79, creatinine 1.89. Blood sugars running between 81 and 281. The patient has been cleared by cardiology. Pulmonary medicine continues to follow the patient. We are planning to continue current medications and plan for possible discharge to [facility] tomorrow. 12/25: Patient has been afebrile, heart rate 58, blood pressure 95/53, pulse ox 92% on 5 L. Patient is stating that her breathing is about the same from . She is complaining of green yellow sputum production. Sputum culture ordered. She states she did not eat breakfast today and also complaining of not having a bowel movement for the past 5 days. Senokot added. Repeat blood work reveals WBC 6.6, hemoglobin 7.2, platelet count 171. Weight 137, potassium 5.3, chloride 89, CO2 41, BUN 82 and creatinine 2.3 to, blood sugar this morning was 43 with repeat 59 and currently 85. Levemir decreased to 14 units daily and switched to nighttime, glimepiride discontinued. Liver function tests are all normal. Hip x-ray ordered yesterday by orthopedics reveals no gross acute fracture or dislocation. Patient was cleared by orthopedics for discharge with plan for follow-up in one week. Lasix has been switched to oral once daily and parameters placed on atenolol and Norvasc. Iron studies ordered. Objective - Vital Signs Vital signs: Vital Signs Temp 97.9 F 12/26/19 09:15 Pulse 60 12/26/19 09:15 Resp 24 12/26/19 09:15 BP 119/56 12/26/19 09:15 Pulse Ox 92 L 12/26/19 09:15 Intake & Output 12/25/19 12/26/19 12/26/19 18:59 06:59 18:59 Intake Total 1780 Balance 1780 Intake: Intake, IV Titration 160 Amount Sodium Chloride 0.9% 1, 160 000 ml @ 20 mls/hr IV . Q24H [facility] Rx#:[id number] Oral 1620 Other: Voiding Method Bedpan Bedpan Incontinent Incontinent # Voids 3 4 - Exam Review of Systems Constitutional: Reports fatigue, Reports weakness Eyes: denies blurred vision, denies bulging eye, denies decreased vision Ears: deny: decreased hearing Ears, nose, mouth and throat: Denies dysphagia, Denies neck lump, Denies sore throat Cardiovascular: Reports decreased exercise tolerance, Reports dyspnea on exertion, Reports shortness of breath, Denies chest pain, Denies rapid heart beat, Denies syncope Respiratory: Reports sleep apnea, Reports snoring, Denies congestion, Denies cough with sputum, Denies home oxygen, Denies wheezing Gastrointestinal: Denies abdominal pain, Denies bloating, Denies BRBPR, Denies heartburn, Denies nausea, Denies vomiting Genitourinary: Reports nocturia, Denies dysuria Menstruation: Reports postmenopausal Musculoskeletal: Reports fractures, Reports frequent falls, Reports gait dysfunction, Reports muscle weakness Musculoskeletal: right: ankle pain, ankle stiffness, ankle swelling, as per HPI, foot pain, foot stiffness, foot swelling, knee pain, knee stiffness, knee swelling, absent: elbow pain, elbow stiffness, elbow swelling, hand pain, hand stiffness, hand swelling, hip pain, hip stiffness, hip swelling, shoulder pain, shoulder stiffness, shoulder swelling, wrist pain, wrist stiffness, wrist swelling Integumentary: Denies pruritus, Denies rash Neurological: Reports gait dysfunction, Denies numbness, Denies weakness Psychiatric: Reports anxiety, Reports depression, Denies sadness, Denies sleep disturbances, Denies suicidal ideation. Endocrine: Denies fatigue, Denies weight change Physical examination This is a morbidly obese 74-year-old . She is resting in recliner and patient appears to be in no acute distress. Patient is awake, alert and oriented today. HEENT: Head is atraumatic, normocephalic, pupils were equal round reactive to light and accommodation, extraocular muscle movement were intact. Neck: Supple, no JVP. Chest: Decreased breath sounds at the bases, with few rhonchi no expiratory wheezes no chest wall tenderness no intercostal retractions. Heart: First heart sound is depressed, second heart sounds normal, there is systolic ejection murmur 2/6 located in the left sternal border. Abdomen: Soft obese nontender nondistended positive bowel sounds, there is a lap band port in place. Extremities: Right lower extremity is in a splint, left lower extremity with trace edema no calf tenderness dorsalis pedis is +1 in the left side. Neurologic examination: Patient is awake alert and oriented 3, cranial nerves III through XII appear grossly intact. - Labs CBC & Chem 7: 12/26/19 06:00 12/26/19 06:00 Labs: Abnormal Lab Results - Last 24 Hours (Table) 12/25/19 12/25/19 12/25/19 Range/Units 08:49 11:58 16:54 RBC (3.80-5.40) m/uL Hgb (11.4-16.0) gm/dL Hct (34.0-46.0) % MCHC (31.0-37.0) g/dL Lymphocytes # (1.0-4.8) k/uL Potassium 5.7 H (3.5-5.1) mmol/L Chloride 90 L (98-107) mmol/L Carbon Dioxide 42 H* (22-30) mmol/L BUN 79 H (7-17) mg/dL Creatinine 1.89 H (0.52-1.04) mg/dL Glucose 194 H (74-99) mg/dL POC Glucose (mg/dL) 281 H 187 H (75-99) mg/dL Total Protein 5.5 L (6.3-8.2) g/dL Albumin 3.1 L (3.5-5.0) g/dL 12/25/19 12/26/19 12/26/19 Range/Units 20:14 06:00 06:00 RBC 2.33 L (3.80-5.40) m/uL Hgb 7.2 L (11.4-16.0) gm/dL Hct 23.3 L (34.0-46.0) % MCHC 30.7 L (31.0-37.0) g/dL Lymphocytes # 0.6 L (1.0-4.8) k/uL Potassium 5.3 H (3.5-5.1) mmol/L Chloride 89 L (98-107) mmol/L Carbon Dioxide 41 H* (22-30) mmol/L BUN 82 H (7-17) mg/dL Creatinine 2.32 H (0.52-1.04) mg/dL Glucose 43 L* (74-99) mg/dL POC Glucose (mg/dL) 251 H (75-99) mg/dL Total Protein 5.6 L (6.3-8.2) g/dL Albumin 3.1 L (3.5-5.0) g/dL 12/26/19 12/26/19 Range/Units 07:00 09:23 RBC (3.80-5.40) m/uL Hgb (11.4-16.0) gm/dL Hct (34.0-46.0) % MCHC (31.0-37.0) g/dL Lymphocytes # (1.0-4.8) k/uL Potassium (3.5-5.1) mmol/L Chloride (98-107) mmol/L Carbon Dioxide (22-30) mmol/L BUN (7-17) mg/dL Creatinine (0.52-1.04) mg/dL Glucose (74-99) mg/dL POC Glucose (mg/dL) 59 L 167 H (75-99) mg/dL Total Protein (6.3-8.2) g/dL Albumin (3.5-5.0) g/dL Assessment and Plan Plan: 1. Status post fall with right ankle trimalleolar fracture. Patient is currently in a splint, continue with current pain management, continue to monitor the patient very closely keep her leg elevated and apply ice packs, orthopedic surgery with plan for conservative management, Cam boot ordered. Cardiology consult appreciated. 2. Metabolic encephalopathy most likely secondary to obstructive sleep apnea and hypercapnia. Consult with Dr. Birch. Patient started on Levaquin 500 mg oral daily, DuoNeb treatments scheduled and as needed. 3. Chronic diastolic heart failure. Patient did have an echocardiogram about a month ago and that showed ejection fraction 55-60% with the moderate concentric left ventricular hypertrophy with dilated left atrium mild aortic stenosis and mild mitral regurgitation without evidence of any wall motion abnormalities, we will continue the patient on atenolol 100 mg orally once every day, Lasix 40 mg oral daily. Intestinal has been discontinued by cardiology. 4. Hypertension and hypertensive cardiovascular disease. Continue atenolol 100 mg orally once every day 5. Hyperlipidemia. Continue Lipitor 80 mg orally once every day. 6. Carotid artery disease with moderate stenosis with greater than 70% of the left internal carotid artery and 60% right internal carotid artery. We will hold the patient Plavix and continue Lipitor 80 mg orally once every day for now in preparation for surgery. 7. Diabetes mellitus type 2 uncontrolled with hypoglycemia. Discontinue glimeperide, decrease Levemir to 14 units at bedtime, Trilisate is scheduled for Monday. Continue Humalog per scale. 8. Chronic kidney disease stage III. Monitor the patient CMP. Continue calcitriol 0.25 g orally once every day. 9. Mild hyperkalemia due to chronic kidney disease. 10. Obesity with sleep apnea. The patient need to be in CPAP. 11. Gout, chronic. Continue allopurinol 100 mg orally twice every day. 12. Restless leg syndrome. Continue patient on Requip 1 mg orally twice every day. 13. Vitamin D deficiency. Continue vitamin D substance. 14. Diabetic polyneuropathy. Continue Lyrica 100 mg orally twice every day. 15. DVT prophylaxis. Heparin 5000 units subcutaneously every 8 hours. 16. GI prophylaxis. Pepcid 20 mg orally once every day. 17. Anemia of chronic disease. Iron studies ordered. Discharge plan: [facility] in the next 24-48 hours. Impression and plan of care have been directed as dictated by the signing physician. Martha Herrera nurse practitioner acting as scribe for signing ph ysician.
[2019-12-26 14:05] LABS: ABG Base Excess 20.2 mmol/L; ABG PH 7.32 (7.35-7.45); ABG TCO2 49 mmol/L (19-24); Allen Test Performed? Yes
[2019-12-26 14:12] LABS: ABG HCO3 46 mmol/L (21-25); ABG PCO2 91 mmHg (35-45); ABG PO2 55 mmHg (83-108)
--- NOTE | 2019-12-26 15:01 | P.PN ---
Subjective Progress Note Date: 12/26/19 This is a pleasant 74-year-old female patient who follows with Dr. Pulido as her primary care physician. She has a history of oxygen dependent chronic obstructive pulmonary disease, morbid obesity, obstructive sleep apnea on CPAP at home, diabetes mellitus, hyperlipidemia, hypertension, congestive heart failure, arthritis, anxiety/depression. She is a former smoker. She is somewhat of a poor historian. She presented to the hospital yesterday after sustaining a fall from her chair lift rolling her ankle and injuring her right knee. X-ray reveals right knee revealed mild tricompartmental osteoarthrosis. Trace knee joint effusion. No acute osseous anomaly seen. Right ankle revealed tri-malleoli are equal and ankle fracture with deltoid ligament tear. Soft tissue swelling. CT of the brain and spine revealed no acute abnormalities. Chest x-ray revealed moderate cardiomegaly with interstitial opacity. Mild pulmonary vascular congestion. No thien consolidation. She is seen today in consultation on the regular medical floor. She is currently awake and alert. Somewhat of a poor historian. She is maintaining O2 saturations in the low 90s on 5 L/m per nasal cannula. Afebrile. Hemodynamically stable. White count 6.8. Hemoglobin 7.6. Sodium 138. Potassium 5.0. Bicarb 47. Creatinine 1.83. Patient is seen today 12/25/2019 in follow-up on the regular medical floor. She is awake and alert in no acute distress. She is sitting up in a chair at the bedside. Denies any worsening shortness of breath, cough or congestion. Maintaining O2 saturations in the 90s on 5 L/m per nasal cannula. Her home CPAP was brought in for her to wear in the evenings. Set at 10 cm of water. White count 8.4. Hemoglobin 7.4. Platelet count 146. Sodium 137. Potassium 5.7. Bicarb 42. Creatinine 1.89. She is continued on bronchodilators. Blood cultures reveal no growth. She remains in a tall CAM boot for her right ankle fracture On 12/26/2019 patient seen in follow-up on medical surgical floor, she is resting comfortably in bed, and reportedly she's been having intermittent periods of confusion, but she is awake, she is responding to verbal stimuli, and she is answering simple questions. Patient did wear BiPAP support last night, she is currently on 6 L of oxygen and her pulse ox is around 90-92%, hemodynamically stable, she is afebrile, lung sounds are negative for any major rhonchi or wheezing. Blood gas was obtained showing pO2 55, pCO2 of 91, and pH of 7.32, consistent with acute on chronic hypercapnic and hypoxemic respiratory failure, and patient was placed back on BiPAP support, pearly patient is receiving pain medications for pain in her right ankle, may be affecting her mentation and CO2 retention. He is arousable right now Objective - Vital Signs Vital signs: Vital Signs Temp 97.7 F 12/26/19 11:25 Pulse 74 12/26/19 11:25 Resp 22 12/26/19 11:25 BP 102/53 12/26/19 11:25 Pulse Ox 90 L 12/26/19 11:25 Intake & Output 12/25/19 12/26/19 12/26/19 18:59 06:59 18:59 Intake Total 1780 Balance 1780 Intake: Intake, IV Titration 160 Amount Sodium Chloride 0.9% 1, 160 000 ml @ 20 mls/hr IV . Q24H [facility] Rx#:[id number] Oral 1620 Other: Voiding Method Bedpan Bedpan Incontinent Incontinent # Voids 3 4 - Exam GENERAL EXAM: Alert, , 74-year-old obese white female, on 6 L of oxygen, with a pulse ox of 90%,comfortable in no apparent distress. HEAD: Normocephalic/atraumatic. EYES: Normal reaction of pupils, equal size. Conjunctiva pink, sclera white. NOSE: Clear with pink turbinates. THROAT: No erythema or exudates. NECK: No masses, no JVD, no thyroid enlargement, no adenopathy. CHEST: No chest wall deformity. Symmetrical expansion. LUNGS: Equal air entry with no crackles, wheeze, rhonchi or dullness. CVS: Regular rate and rhythm, normal S1 and S2, no gallops, no murmurs, no rubs ABDOMEN: Soft, nontender. No hepatosplenomegaly, normal bowel sounds, no guarding or rigidity. EXTREMITIES: No clubbing, no edema, no cyanosis, 2+ pulses and upper and lower extremities. MUSCULOSKELETAL: Muscle strength and tone normal. SPINE: No scoliosis or deformity SKIN: No rashes CENTRAL NERVOUS SYSTEM: Alert and oriented -3. No focal deficits, tone is normal in all 4 extremities. PSYCHIATRIC: Alert and oriented -3. Appropriate affect. Intact judgment and insight. - Labs CBC & Chem 7: 12/26/19 06:00 12/26/19 06:00 Labs: Abnormal Lab Results - Last 24 Hours (Table) 12/25/19 12/25/19 12/26/19 Range/Units 16:54 20:14 06:00 RBC 2.33 L (3.80-5.40) m/uL Hgb 7.2 L (11.4-16.0) gm/dL Hct 23.3 L (34.0-46.0) % MCHC 30.7 L (31.0-37.0) g/dL Lymphocytes # 0.6 L (1.0-4.8) k/uL Retic Count (0.10-1.80) % ABG pH (7.35-7.45) ABG pCO2 (35-45) mmHg ABG pO2 (83-108) mmHg ABG HCO3 (21-25) mmol/L ABG Total CO2 (19-24) mmol/L ABG O2 Saturation (94-97) % Potassium (3.5-5.1) mmol/L Chloride (98-107) mmol/L Carbon Dioxide (22-30) mmol/L BUN (7-17) mg/dL Creatinine (0.52-1.04) mg/dL Glucose (74-99) mg/dL POC Glucose (mg/dL) 187 H 251 H (75-99) mg/dL Total Protein (6.3-8.2) g/dL Albumin (3.5-5.0) g/dL 12/26/19 12/26/19 12/26/19 Range/Units 06:00 06:00 07:00 RBC (3.80-5.40) m/uL Hgb (11.4-16.0) gm/dL Hct (34.0-46.0) % MCHC (31.0-37.0) g/dL Lymphocytes # (1.0-4.8) k/uL Retic Count 5.66 H (0.10-1.80) % ABG pH (7.35-7.45) ABG pCO2 (35-45) mmHg ABG pO2 (83-108) mmHg ABG HCO3 (21-25) mmol/L ABG Total CO2 (19-24) mmol/L ABG O2 Saturation (94-97) % Potassium 5.3 H (3.5-5.1) mmol/L Chloride 89 L (98-107) mmol/L Carbon Dioxide 41 H* (22-30) mmol/L BUN 82 H (7-17) mg/dL Creatinine 2.32 H (0.52-1.04) mg/dL Glucose 43 L* (74-99) mg/dL POC Glucose (mg/dL) 59 L (75-99) mg/dL Total Protein 5.6 L (6.3-8.2) g/dL Albumin 3.1 L (3.5-5.0) g/dL 12/26/19 12/26/19 12/26/19 Range/Units 09:23 10:49 13:57 RBC (3.80-5.40) m/uL Hgb (11.4-16.0) gm/dL Hct (34.0-46.0) % MCHC (31.0-37.0) g/dL Lymphocytes # (1.0-4.8) k/uL Retic Count (0.10-1.80) % ABG pH 7.32 L (7.35-7.45) ABG pCO2 91 H* (35-45) mmHg ABG pO2 55 L* (83-108) mmHg ABG HCO3 46 H* (21-25) mmol/L ABG Total CO2 49 H (19-24) mmol/L ABG O2 Saturation 88.0 L (94-97) % Potassium (3.5-5.1) mmol/L Chloride (98-107) mmol/L Carbon Dioxide (22-30) mmol/L BUN (7-17) mg/dL Creatinine (0.52-1.04) mg/dL Glucose (74-99) mg/dL POC Glucose (mg/dL) 167 H 175 H (75-99) mg/dL Total Protein (6.3-8.2) g/dL Albumin (3.5-5.0) g/dL Assessment and Plan Plan: assessment: 1 Trauma secondary to fall with right knee and ankle injury with trimalleolar equivalent nondisplaced fracture and small avulsion fracture. Currently in a tall CAM boot 2 Acute on chronic hypercapnic/hypoxemic respiratory failure secondary to an acute exacerbation of diastolic congestive heart failure, COPD exacerbation, obesity/hypoventilation syndrome 3 Obstructive sleep apnea maintained on CPAP in the outpatient setting set at 10 cm of water 4 Morbid obesity with previous lap band surgery 5 Diabetes mellitus 6 History of DVT 7 Hyperlipidemia 8 Hypertension 9 Previous smoking 10 Osteoarthritis 11 Poor overall functional performance based on the above-mentioned multiple comorbidities plan: Blood gases have been noted, patient has been placed back on BiPAP, utilize BiPAP. As needed and at bedtime, patient will need judicious use of sedatives and narcotics. Vital signs are stable. Advised to increase activity as tolerated with recommendations for weightbearing on the right lower extremity. Patient needs to sit up in the chair, consult physical therapy. Will continue to follow I performed a history & physical examination of the patient and discussed their management with my nurse practitioner, Betty Kenny. I reviewed the nurse practitioner's note and agree with the documented findings and plan of care. Lung sounds are positive for diminished breath sounds.. The findings and the impression was discussed with the patient. I attest to the documentation by the nurse practitioner. Time with Patient: Less than 30
[2019-12-26] MEDS: SODIUM CHLORIDE 0.9% 1,000 ML IV SCH (15:17)
[2019-12-26 16:54] LABS: Glucose,Whole Blood 209 mg/dL (75-99)
[2019-12-26 17:24] LABS: % Iron Saturation 11.67 (12.00-45.00)
[2019-12-26 20:02] LABS: Glucose,Whole Blood 170 mg/dL (75-99)
[2019-12-26 20:33] LABS: Ferritin 822.6 ng/mL (10.0-291.0); Folate, Serum 10.6 ng/mL
[2019-12-26] MEDS: ATORVASTATIN 80 MG TAB PO SCH (21:10)
[2019-12-26] MEDS: ATENOLOL 50 MG TAB PO SCH (21:10)
[2019-12-27] MEDS: traMADol 50 MG TAB PO PRN ×2 (04:17→15:10)
[2019-12-27 06:44] LABS: Calcium 8.9 mg/dL (8.4-10.2); Magnesium 2.4 mg/dL (1.6-2.3); Potassium 5.1 mmol/L (3.5-5.1)
[2019-12-27 07:13] LABS: Glucose,Whole Blood 76 mg/dL (75-99)
[2019-12-27] MEDS: IPRATROPIUM-ALBUTEROL 3 ML NEB INHALATION SCH ×3 (07:16→19:26)
--- NOTE | 2019-12-27 08:05 | P.PN ---
Subjective Patient is seen in follow-up for acute kidney injury and chronic kidney disease. Renal function is a little worse today. Creatinine 2.54. Denies chest pain. She has been voiding. No edema. Vital signs are stable. General: The patient appeared well nourished and normally developed. HEENT: Head exam is unremarkable. Neck is without jugular venous distension. LUNGS: Breath sounds decreased. Mild wheezing. HEART: Rate and Rhythm are regular. ABDOMEN: Nontender. EXTREMITITES: No edema. Objective - Vital Signs Vital signs: Vital Signs Temp 97.7 F 12/27/19 05:00 Pulse 74 12/27/19 07:28 Resp 22 12/27/19 05:00 BP 115/54 12/27/19 05:00 Pulse Ox 92 L 12/27/19 05:00 Intake & Output 12/26/19 12/27/19 12/27/19 18:59 06:59 18:59 Intake Total 720 1200 Balance 720 1200 Intake: Oral 720 1200 Other: Voiding Method Bedpan Bedpan Incontinent # Voids 3 2 - Labs CBC & Chem 7: 12/26/19 06:00 12/27/19 05:45 Labs: Abnormal Lab Results - Last 24 Hours (Table) 12/26/19 12/26/19 12/26/19 Range/Units 06:00 06:00 09:23 Retic Count 5.66 H (0.10-1.80) % ABG pH (7.35-7.45) ABG pCO2 (35-45) mmHg ABG pO2 (83-108) mmHg ABG HCO3 (21-25) mmol/L ABG Total CO2 (19-24) mmol/L ABG O2 Saturation (94-97) % Sodium (137-145) mmol/L Potassium 5.3 H (3.5-5.1) mmol/L Chloride 89 L (98-107) mmol/L Carbon Dioxide 41 H* (22-30) mmol/L BUN 82 H (7-17) mg/dL Creatinine 2.32 H (0.52-1.04) mg/dL Glucose 43 L* (74-99) mg/dL POC Glucose (mg/dL) 167 H (75-99) mg/dL Magnesium (1.6-2.3) mg/dL Iron 28 L (50-170) ug/dL % Saturation 11.67 L (12.00-45.00) Ferritin 822.6 H (10.0-291.0) ng/mL Total Protein 5.6 L (6.3-8.2) g/dL Albumin 3.1 L (3.5-5.0) g/dL 12/26/19 12/26/19 12/26/19 Range/Units 10:49 13:57 16:52 Retic Count (0.10-1.80) % ABG pH 7.32 L (7.35-7.45) ABG pCO2 91 H* (35-45) mmHg ABG pO2 55 L* (83-108) mmHg ABG HCO3 46 H* (21-25) mmol/L ABG Total CO2 49 H (19-24) mmol/L ABG O2 Saturation 88.0 L (94-97) % Sodium (137-145) mmol/L Potassium (3.5-5.1) mmol/L Chloride (98-107) mmol/L Carbon Dioxide (22-30) mmol/L BUN (7-17) mg/dL Creatinine (0.52-1.04) mg/dL Glucose (74-99) mg/dL POC Glucose (mg/dL) 175 H 209 H (75-99) mg/dL Magnesium (1.6-2.3) mg/dL Iron (50-170) ug/dL % Saturation (12.00-45.00) Ferritin (10.0-291.0) ng/mL Total Protein (6.3-8.2) g/dL Albumin (3.5-5.0) g/dL 12/26/19 12/27/19 Range/Units 20:01 05:45 Retic Count (0.10-1.80) % ABG pH (7.35-7.45) ABG pCO2 (35-45) mmHg ABG pO2 (83-108) mmHg ABG HCO3 (21-25) mmol/L ABG Total CO2 (19-24) mmol/L ABG O2 Saturation (94-97) % Sodium 135 L (137-145) mmol/L Potassium (3.5-5.1) mmol/L Chloride 87 L (98-107) mmol/L Carbon Dioxide 43 H* (22-30) mmol/L BUN 89 H (7-17) mg/dL Creatinine 2.54 H (0.52-1.04) mg/dL Glucose 62 L (74-99) mg/dL POC Glucose (mg/dL) 170 H (75-99) mg/dL Magnesium 2.4 H (1.6-2.3) mg/dL Iron (50-170) ug/dL % Saturation (12.00-45.00) Ferritin (10.0-291.0) ng/mL Total Protein (6.3-8.2) g/dL Albumin (3.5-5.0) g/dL Assessment and Plan Plan: Assessment: 1. Acute kidney injury mostly prerenal secondary to diuresis. Creatinine 2.54 today. No proteinuria on UA. 2. Chronic kidney disease stage IV secondary to cardiorenal syndrome and nephrosclerosis with baseline creatinine near 2. 3. Right ankle fracture. Orthopedic surgery following. 4. Metabolic alkalosis secondary to diuresis. However it is mostly due to metabolic compensation for underlying chronic respiratory acidosis. 5. History of COPD. 6. Chronic diastolic CHF. Currently compensated. 7. Anemia of chronic kidney disease. Iron deficiency noted. Maintained on Aranesp. Plan: Hold Lasix today. IV iron today. This will be her first dose. Repeat electrolytes in the morning.
[2019-12-27] MEDS ORDERED: MAGNESIUM HYDROXIDE 2,400 MG/10 ML CUP PO PRN (09:45)
--- NOTE | 2019-12-27 11:03 | P.PN ---
Subjective Progress Note Date: 12/27/19 This is a 74-year-old female patient of Dr. Pulido and Dr. Franklin with past medical history of COPD, history of smoking quit in 2017, diabetes mellitus type 2, hypertension, hyperlipidemia, peripheral vascular disease, DVT, history of morbid obesity status post lap band, generalized anxiety disorder and recurrent depression, chronic kidney disease stage III, patient presented to the emergency department at [facility] after she had fallen yesterday trying to get out of her left chair at around 4:00 in the afternoon and she rolled her ankle and landed on her knees she became quite tender and she stayed on the floor for about 3-4 hours and her son was able to get her back into the lift chair, in the morning patient was complaining of increased swelling in the right ankle with some deformity her daughter insisted on bringing the patient to the emergency department by calling EMS patient has been having frequent falls at home and they have been having trouble managing her at home with her elder as well, patient was seen in the ER and she had an x-ray of the right ankle that showed trimalleolar fracture, she was admitted under orthopedic surgery were asked to see the patient for evaluation and preoperative medical clearance. 12/23: CAT scan of the right ankle revealed trimalleolar equivalent. Additional small avulsion fracture fragments in the region of the AIT FL. Marked soft tissue swelling. CAT scan of the brain and cervical spine revealed mild atroph y. No acute intracranial abnormality. No change. Mild degenerative changes in the lower cervical spine. No fracture. Orthopedics has evaluated and they are not planning on operative fixation of her ankle during the stay. Jaramillo has been ordered in case management is obtaining. Patient is to remain strictly nonweightbearing on her right leg plan for follow-up in 1 week with repeat x- rays of the ankle. Patient is afebrile, heart rate 76, blood pressure 152/66, pulse ox 92-98% on 5 L nasal cannula. Repeat blood work reveals WBC 6.8, hemoglobin 7.6. Sodium 138, potassium 5.0, chloride 88, CO2 47, BUN 74 and creatinine 1.3. Blood sugars running between 75 and 148. Stool for occult b lood was negative. Patient is 75% of her breakfast. cloth tester quality is in a sinus rhythm. Patient was obtunded during the night and placed on BiPAP. Consult will be added for Dr. Birch, DuoNeb treatment started and Levaquin added as well. Discharge plan will be to [facility] anticipated in the next 24-48 hours. PT and OT have been added. Cardiology has evaluated the patient and discontinued Entresto and plan to follow up with Dr. Franklin in the office. 12/24: Patient has been afebrile, heart rate 62, blood pressure 122/59, patient was on BiPAP during the night. Patient's mental status was much improved overnight. cloth tester quality has been a sinus rhythm. Patient has home O2 at 2 and half to 3 L nasal cannula. She is currently on 5 L and pulse ox was checked at initially [id number] and improves to approximate 92 with deep breathing. Patient was found this morning without her oxygen and had significant mental status changes secondary to this. Repeat lab work revealed WBC 8.4, hemoglobin 7.4, platelet count 146. Sodium 137, potassium 5.7, chloride 90, CO2 42, BUN 79, creatinine 1.89. Blood sugars running between 81 and 281. The patient has been cleared by cardiology. Pulmonary medicine continues to follow the patient. We are planning to continue current medications and plan for possible discharge to [facility] tomorrow. 12/25: Patient has been afebrile, heart rate 58, blood pressure 95/53, pulse ox 92% on 5 L. Patient is stating that her breathing is about the same from . She is complaining of green yellow sputum production. Sputum culture ordered. She states she did not eat breakfast today and also complaining of not having a bowel movement for the past 5 days. Senokot added. Repeat blood work reveals WBC 6.6, hemoglobin 7.2, platelet count 171. Weight 137, potassium 5.3, chloride 89, CO2 41, BUN 82 and creatinine 2.3 to, blood sugar this morning was 43 with repeat 59 and currently 85. Levemir decreased to 14 units daily and switched to nighttime, glimepiride discontinued. Liver function tests are all normal. Hip x-ray ordered yesterday by orthopedics reveals no gross acute fracture or dislocation. Patient was cleared by orthopedics for discharge with plan for follow-up in one week. Lasix has been switched to oral once daily and parameters placed on atenolol and Norvasc. Iron studies ordered. 12/26: The patient was seen by nephrology with recommendations to continue Lasix 40 mg oral daily, check ABGs which were called to Dr. Birch, iron studies, add Aranesp and recheck labs in the morning. Patient was placed back on BiPAP yesterday to be used as needed and at bedtime. Patient is on tramadol 50 mg receiving twice daily as needed. Patient has received 1 dose of Dilaudid on December 22. Patient is afebrile, heart rate 78, blood pressure 115/54, pulse ox 92% on 5 L nasal cannula. Sodium 135, potassium 5.1, chloride 87, CO2 43, BUN 89 and creatinine 2.54. Blood sugars running between 70. Patient had suicidal ideation yesterday afternoon and consult was added for psychiatry. Patient apparently states that she wanted to . Patient is not eating and does not have much appetite. Staff state patient is eating 25-30% of her meals only. She continues to complain of constipation and has not had a bowel movement. Milk of magnesia with parent juice as well as lactulose added. Patient may require Dulcolax suppository if no results. Objective - Vital Signs Vital signs: Vital Signs Temp 97.7 F 12/27/19 05:00 Pulse 74 12/27/19 07:28 Resp 22 12/27/19 05:00 BP 115/54 12/27/19 05:00 Pulse Ox 92 L 12/27/19 05:00 Intake & Output 12/26/19 12/27/19 12/27/19 18:59 06:59 18:59 Intake Total 720 1200 Balance 720 1200 Intake: Oral 720 1200 Other: Voiding Method Bedpan Bedpan Incontinent # Voids 3 2 - Exam Review of Systems Constitutional: Reports fatigue, Reports weakness, reports loss of appetite Eyes: denies blurred vision, denies bulging eye, denies decreased vision Ears: deny: decreased hearing Ears, nose, mouth and throat: Denies dysphagia, Denies neck lump, Denies sore throat Cardiovascular: Reports decreased exercise tolerance, Reports dyspnea on exertion, Reports shortness of breath, Denies chest pain, Denies rapid heart beat, Denies syncope Respiratory: Reports sleep apnea, Reports snoring, Denies congestion, Denies cough with sputum, Denies home oxygen, Denies wheezing Gastrointestinal: Denies abdominal pain, Denies bloating, Denies BRBPR, Denies heartburn, Denies nausea, Denies vomiting Genitourinary: Reports nocturia, Denies dysuria Menstruation: Reports postmenopausal Musculoskeletal: Reports fractures, Reports frequent falls, Reports gait dysfunction, Reports muscle weakness Musculoskeletal: right: ankle pain, ankle stiffness, ankle swelling, as per HPI, foot pain, foot stiffness, foot swelling, knee pain, knee stiffness, knee swel ling, absent: elbow pain, elbow stiffness, elbow swelling, hand pain, hand stiffness, hand swelling, hip pain, hip stiffness, hip swelling, shoulder pain, shoulder stiffness, shoulder swelling, wrist pain, wrist stiffness, wrist swelling Integumentary: Denies pruritus, Denies rash Neurological: Reports gait dysfunction, Denies numbness, Denies weakness Psychiatric: Reports anxiety, Reports depression, Denies sadness, Denies sleep disturbances, Denies suicidal ideation. Endocrine: Denies fatigue, Denies weight change, reports anorexia Physical examination This is a morbidly obese 74-year-old . She is resting in recliner and patient appears to be in no acute distress. Patient is awake, alert and oriented today. She has just moved into a chair by PT and OT from [facility]. HEENT: Head is atraumatic, normocephalic, pupils were equal round reactive to light and accommodation, extraocular muscle movement were intact. Neck: Supple, no JVP. Chest: Decreased breath sounds at the bases, with few rhonchi no expiratory wheezes no chest wall tenderness no intercostal retractions. Heart: First heart sound is depressed, second heart sounds normal, there is systolic ejection murmur 2/6 located in the left sternal border. Abdomen: Soft obese nontender nondistended positive bowel sounds, there is a lap band port in place. Extremities: Right lower extremity is in a splint, left lower extremity with trace edema no calf tenderness dorsalis pedis is +1 in the left side. Neurologic examination: Patient is awake alert and oriented 3, cranial nerves III through XII appear grossly intact. - Labs CBC & Chem 7: 12/26/19 06:00 12/27/19 05:45 Labs: Abnormal Lab Results - Last 24 Hours (Table) 12/26/19 12/26/19 12/26/19 Range/Units 06:00 06:00 09:23 Retic Count 5.66 H (0.10-1.80) % ABG pH (7.35-7.45) ABG pCO2 (35-45) mmHg ABG pO2 (83-108) mmHg ABG HCO3 (21-25) mmol/L ABG Total CO2 (19-24) mmol/L ABG O2 Saturation (94-97) % Sodium (137-145) mmol/L Potassium 5.3 H (3.5-5.1) mmol/L Chloride 89 L (98-107) mmol/L Carbon Dioxide 41 H* (22-30) mmol/L BUN 82 H (7-17) mg/dL Creatinine 2.32 H (0.52-1.04) mg/dL Glucose 43 L* (74-99) mg/dL POC Glucose (mg/dL) 167 H (75-99) mg/dL Magnesium (1.6-2.3) mg/dL Iron 28 L (50-170) ug/dL % Saturation 11.67 L (12.00-45.00) Ferritin 822.6 H (10.0-291.0) ng/mL Total Protein 5.6 L (6.3-8.2) g/dL Albumin 3.1 L (3.5-5.0) g/dL 12/26/19 12/26/19 12/26/19 Range/Units 10:49 13:57 16:52 Retic Count (0.10-1.80) % ABG pH 7.32 L (7.35-7.45) ABG pCO2 91 H* (35-45) mmHg ABG pO2 55 L* (83-108) mmHg ABG HCO3 46 H* (21-25) mmol/L ABG Total CO2 49 H (19-24) mmol/L ABG O2 Saturation 88.0 L (94-97) % Sodium (137-145) mmol/L Potassium (3.5-5.1) mmol/L Chloride (98-107) mmol/L Carbon Dioxide (22-30) mmol/L BUN (7-17) mg/dL Creatinine (0.52-1.04) mg/dL Glucose (74-99) mg/dL POC Glucose (mg/dL) 175 H 209 H (75-99) mg/dL Magnesium (1.6-2.3) mg/dL Iron (50-170) ug/dL % Saturation (12.00-45.00) Ferritin (10.0-291.0) ng/mL Total Protein (6.3-8.2) g/dL Albumin (3.5-5.0) g/dL 12/26/19 12/27/19 Range/Units 20:01 05:45 Retic Count (0.10-1.80) % ABG pH (7.35-7.45) ABG pCO2 (35-45) mmHg ABG pO2 (83-108) mmHg ABG HCO3 (21-25) mmol/L ABG Total CO2 (19-24) mmol/L ABG O2 Saturation (94-97) % Sodium 135 L (137-145) mmol/L Potassium (3.5-5.1) mmol/L Chloride 87 L (98-107) mmol/L Carbon Dioxide 43 H* (22-30) mmol/L BUN 89 H (7-17) mg/dL Creatinine 2.54 H (0.52-1.04) mg/dL Glucose 62 L (74-99) mg/dL POC Glucose (mg/dL) 170 H (75-99) mg/dL Magnesium 2.4 H (1.6-2.3) mg/dL Iron (50-170) ug/dL % Saturation (12.00-45.00) Ferritin (10.0-291.0) ng/mL Total Protein (6.3-8.2) g/dL Albumin (3.5-5.0) g/dL Assessment and Plan Plan: 1. Status post fall with right ankle trimalleolar fracture. Patient is currently in a splint, continue with current pain management, continue to monitor the patient very closely keep her leg elevated and apply ice packs, orthopedic surgery with plan for conservative management, Cam boot ordered. Cardiology consult appreciated. 2. Metabolic encephalopathy most likely secondary to obstructive sleep apnea and hypercapnia. Consult with Dr. Birch. Patient started on Levaquin 500 mg oral daily, DuoNeb treatments scheduled and as needed. 3. Chronic diastolic heart failure. Patient did have an echocardiogram about a month ago and that showed ejection fraction 55-60% with the moderate concentric left ventricular hypertrophy with dilated left atrium mild aortic stenosis and mild mitral regurgitation without evidence of any wall motion abnormalities, we will continue the patient on atenolol 100 mg orally once every day, Lasix 40 mg oral daily. Intestinal has been discontinued by cardiology. 4. Hypertension and hypertensive cardiovascular disease. Continue atenolol 100 mg orally once every day 5. Hyperlipidemia. Continue Lipitor 80 mg orally once every day. 6. Carotid artery disease with moderate stenosis with greater than 70% of the left internal carotid artery and 60% right internal carotid artery. We will hold the patient Plavix and continue Lipitor 80 mg orally once every day for now in preparation for surgery. 7. Diabetes mellitus type 2 uncontrolled with hypoglycemia. Discontinue glim eperide, decrease Levemir to 14 units at bedtime, Trilisate is scheduled for Monday. Continue Humalog per scale. 8. Chronic kidney disease stage III. Monitor the patient CMP. Continue calcitriol 0.25 g orally once every day. 9. Mild hyperkalemia due to chronic kidney disease. 10. Obesity with sleep apnea. The patient need to be in CPAP. 11. Gout, chronic. Continue allopurinol 100 mg orally twice every day. 12. Restless leg syndrome. Continue patient on Requip 1 mg orally twice every day. 13. Vitamin D deficiency. Continue vitamin D substance. 14. Diabetic polyneuropathy. Continue Lyrica 100 mg orally twice every day. 15. DVT prophylaxis. Heparin 5000 units subcutaneously every 8 hours. 16. GI prophylaxis. Pepcid 20 mg orally once every day. 17. Anemia of chronic disease. Iron studies ordered. 18. Suicidal ideation. Consult with psychiatry. Discharge plan: Monday Impression and plan of care have been directed as dictated by the signing ph ysician. Martha Herrera nurse practitioner acting as scribe for signing physician.
[2019-12-27 11:05] LABS: Glucose,Whole Blood 123 mg/dL (75-99)
[2019-12-27] MEDS: SODIUM FERRIC GLUCONAT-SUCROSE 125 MG in SODIUM CHLORIDE 0.9% 100 ML IVPB SCH (11:11)
[2019-12-27] MEDS: INSULIN ASPART (NovoLOG) 100 UNIT/ML VIAL SQ SCH ×4 (11:12→20:15)
[2019-12-27] MEDS: PREGABALIN 50 MG CAP PO SCH ×2 (11:13→20:34)
[2019-12-27] MEDS: PANTOPRAZOLE 40 MG TABLET PO SCH (11:13)
[2019-12-27] MEDS: FERROUS SULFATE 325 MG TAB PO SCH (11:13)
[2019-12-27] MEDS: amLODIPine 5 MG TAB PO SCH (11:13)
[2019-12-27] MEDS: SENNOSIDES-DOCUSATE SODIUM 1 EACH TAB PO SCH (11:13)
[2019-12-27] MEDS: HEPARIN SODIUM,PORCINE 5,000 UNIT/ML 1 ML VIAL SQ SCH ×3 (11:14→23:10)
[2019-12-27] MEDS: CALCITRIOL 0.25 MCG CAP PO SCH (11:14)
[2019-12-27] MEDS: LEVOFLOXACIN 250 MG TAB PO SCH (11:14)
[2019-12-27] MEDS: ALLOPURINOL 100 MG TAB PO SCH ×2 (11:14→20:14)
[2019-12-27] MEDS: LACTULOSE 20 GM/30 ML CUP PO SCH (11:29)
--- NOTE | 2019-12-27 12:43 | P.PN ---
Subjective Progress Note Date: 12/27/19 Principal diagnosis: Right ankle and knee pain status post fall This is a pleasant 74-year-old female patient who follows with Dr. Pulido as her primary care physician. She has a history of oxygen dependent chronic obstructive pulmonary disease, morbid obesity, obstructive sleep apnea on CPAP at home, diabetes mellitus, hyperlipidemia, hypertension, congestive heart failu re, arthritis, anxiety/depression. She is a former smoker. She is somewhat of a poor historian. She presented to the hospital yesterday after sustaining a fall from her chair lift rolling her ankle and injuring her right knee. X-ray reveals right knee revealed mild tricompartmental osteoarthrosis. Trace knee joint effusion. No acute osseous anomaly seen. Right ankle revealed tri- malleoli are equal and ankle fracture with deltoid ligament tear. Soft tissue swelling. CT of the brain and spine revealed no acute abnormalities. Chest x- ray revealed moderate cardiomegaly with interstitial opacity. Mild pulmonary vascular congestion. No thien consolidation. She is seen today in consultation on the regular medical floor. She is currently awake and alert. Somewhat of a poor historian. She is maintaining O2 saturations in the low 90s on 5 L/m per nasal cannula. Afebrile. Hemodynamically stable. White count 6.8. Hemoglobin 7.6. Sodium 138. Potassium 5.0. Bicarb 47. Creatinine 1.83. Patient is seen today 12/25/2019 in follow-up on the regular medical floor. She is awake and alert in no acute distress. She is sitting up in a chair at the bedside. Denies any worsening shortness of breath, cough or congestion. Maintaining O2 saturations in the 90s on 5 L/m per nasal cannula. Her home CPAP was brought in for her to wear in the evenings. Set at 10 cm of water. White count 8.4. Hemoglobin 7.4. Platelet count 146. Sodium 137. Potassium 5.7. Bicarb 42. Creatinine 1.89. She is continued on bronchodilators. Blood cultures reveal no growth. She remains in a tall CAM boot for her right ankle fracture. The patient is seen today 12/27/2019 in follow-up on the regular medical floor. She is currently sitting up in a chair at the bedside. Awake and alert in no acute distress. She denies any worsening shortness of breath, cough or congestion. She is maintaining O2 saturations in the 90s on 3 L/m per nasal cannula alternating with BiPAP at 40% FiO2. Sodium 135. Potassium 5.1. Bicarb 43. Creatinine 2.54. She is having some continued right lower extremity pain due to the fall and fracture. Tall CAM boot remains in place. Objective - Vital Signs Vital signs: Vital Signs Temp 97.8 F 12/27/19 11:25 Pulse 78 12/27/19 11:46 Resp 20 12/27/19 11:25 BP 104/56 12/27/19 11:25 Pulse Ox 92 L 12/27/19 11:30 Intake & Output 12/26/19 12/27/19 12/27/19 18:59 06:59 18:59 Intake Total 720 1200 Balance 720 1200 Intake: Oral 720 1200 Other: Voiding Method Bedpan Bedpan Incontinent # Voids 3 2 - Exam GENERAL EXAM: Alert, pleasant obese 74-year-old female patient, up in a chair at the bedside, on 3 L nasal cannula alternating with BiPAP at 40% comfortable in no apparent distress. HEAD: Normocephalic. EYES: Normal reaction of pupils, equal size. NOSE: Clear with pink turbinates. THROAT: Crowding the posterior pharynx. No erythema or exudates. NECK: No masses, no JVD. CHEST: No chest wall deformity. LUNGS: Equal air entry with crackles in the posterior bases. Diminished. CVS: S1 and S2 normal with no audible murmur, regular rhythm. ABDOMEN: No hepatosplenomegaly, normal bowel sounds, no guarding or rigidity. SPINE: No scoliosis or deformity SKIN: No rashes CENTRAL NERVOUS SYSTEM: No focal deficits, tone is normal in all 4 extremities. EXTREMITIES: There is a tall CAM boot to the right ankle. There is no peripheral edema. No clubbing, no cyanosis. Peripheral pulses are intact. - Labs CBC & Chem 7: 12/26/19 06:00 12/27/19 05:45 Labs: Abnormal Lab Results - Last 24 Hours (Table) 12/26/19 12/26/19 12/26/19 Range/Units 06:00 13:57 16:52 ABG pH 7.32 L (7.35-7.45) ABG pCO2 91 H* (35-45) mmHg ABG pO2 55 L* (83-108) mmHg ABG HCO3 46 H* (21-25) mmol/L ABG Total CO2 49 H (19-24) mmol/L ABG O2 Saturation 88.0 L (94-97) % Sodium (137-145) mmol/L Chloride (98-107) mmol/L Carbon Dioxide (22-30) mmol/L BUN (7-17) mg/dL Creatinine (0.52-1.04) mg/dL Glucose (74-99) mg/dL POC Glucose (mg/dL) 209 H (75-99) mg/dL Magnesium (1.6-2.3) mg/dL Iron 28 L (50-170) ug/dL % Saturation 11.67 L (12.00-45.00) Ferritin 822.6 H (10.0-291.0) ng/mL 12/26/19 12/27/19 12/27/19 Range/Units 20:01 05:45 11:02 ABG pH (7.35-7.45) ABG pCO2 (35-45) mmHg ABG pO2 (83-108) mmHg ABG HCO3 (21-25) mmol/L ABG Total CO2 (19-24) mmol/L ABG O2 Saturation (94-97) % Sodium 135 L (137-145) mmol/L Chloride 87 L (98-107) mmol/L Carbon Dioxide 43 H* (22-30) mmol/L BUN 89 H (7-17) mg/dL Creatinine 2.54 H (0.52-1.04) mg/dL Glucose 62 L (74-99) mg/dL POC Glucose (mg/dL) 170 H 123 H (75-99) mg/dL Magnesium 2.4 H (1.6-2.3) mg/dL Iron (50-170) ug/dL % Saturation (12.00-45.00) Ferritin (10.0-291.0) ng/mL Assessment and Plan Assessment: 1 Trauma secondary to fall with right knee and ankle injury with trimalleolar equivalent nondisplaced fracture and small avulsion fracture. Currently in a tall CAM boot 2 Acute on chronic hypercapnic/hypoxemic respiratory failure secondary to an acute exacerbation of diastolic congestive heart failure, COPD exacerbation, obesity/hypoventilation syndrome 3 Obstructive sleep apnea maintained on CPAP in the outpatient setting set at 10 cm of water 4 Morbid obesity with previous lap band surgery 5 Diabetes mellitus 6 History of DVT 7 Hyperlipidemia 8 Hypertension 9 Previous smoking 10 Osteoarthritis 11 Poor overall functional performance based on the above-mentioned multiple comorbidities Plan: The patient was seen and evaluated by Dr. Wing Remains stable from the pulmonary standpoint. Down to 3 L/m per nasal cannula alternating with BiPAP at 40% FiO2 No pulmonary issues currently Continue bronchodilators We'll continue to follow I, the cosigning physician, performed a history & physical examination of the patient. Lungs sounds with few crackles in the posterior bases, diminished. Maintaining good O2 saturations in the 90s on 3 L/m per nasal cannula alte rnating with BiPAP at 40% FiO2. I discussed the assessment and plan of care with my nurse practitioner, Beverly Rowell. I attest to the above note as dictated by her.
[2019-12-27] MEDS ORDERED: MELATONIN 3 MG TABLET PO PRN (14:59)
--- NOTE | 2019-12-27 14:59 | P.CN ---
Psychiatric Consult - . Consult date: 12/27/19 Consult:: 12/27/19 14:34 IDENTIFYING DATA: This patient is a 74-year-old female who currently lives with her in a house has 2 kids and currently collects Social Security. HISTORY OF PRESENT ILLNESS: The patient presented to the hospital initially with a right ankle and knee pain after patient allegedly rolled her ankle/foot at home getting out of her lift chair. Patient has a history of frequent falls at home and according to ER report, is not able to care for her at home. Head CT showed mild atrophy and mild degenerative changes in the lower C-spine. Psychiatry is consulted for suicidal ideations. Patient was allegedly endorsing suicidal ideations 2 days ago. Patient was seen at bedside and appeared to be in mild distress secondary to pain. She claims that she is a poor appetite eating approximately 30% of her meals and complained of feeling "scared" being in the hospital and states that she misses being at home with her family. Patient spoke about her pain and also feeling cold and confused. She claims that 2 days ago she was feeling very "depressed" and states that she was having thoughts of suicide however this has now resolved and patient states that she feels better. She denies any suicidal ideations at this time and was future oriented about getting at the hospital visiting her family. She also stated that she felt suicidal because she "didn't think anybody was listening to me". She claims to have a "fair mood" and claims have poor sleep and poor appetite. At this time patient denies any suicidal or homical ideations, intent or plan. Patient denies any auditory, visual hallucinations and denies any paranoia or delusions. Patients denies using any cigarettes alcohol or marijuana or any other recreational drugs at this time. Patient admits to anxiety at this time. PAST PSYCHIATRIC HISTORY: Patient admits to having a history of anxiety and depression denies any psychotropic meds in the past and denies any psychiatric hospitalizations. She denies any psychiatric outpatient follow-up. She denies any suicidal attempts in the past.. PAST MEDICAL HISTORY: COPD, CHF, renal failure, diabetes mellitus, hypertension, hyperlipidemia, obstructive sleep apnea. ALLERGIES: as per EMR. CHEMICAL DEPENDENCY HISTORY: as per HPI. FAMILY PSYCHIATRIC/SUBSTANCE USE HISTORY: denies SOCIAL HISTORY:. She states that she was born and raised in [place] and completed up to the 12th grade in school. She states that she worked at the [employer] working in the [employer] for 25 years. She currently lives with her in the house has 2 kids. She currently collects Social Security. MENTAL STATUS EXAM: General Appearance: Patient appears to be obese, stated age is alert, attempts to cooperate and appears to be in mild distress secondary to pain. Patient a ppears to have fair hygiene and grooming wearing hospital gown with poor eye contact. Behavior: Patient is lying in bed in mild distress secondary to pain. Times a cooperate. Speech: Patient's speech is fluent and nonpressured. Mood/Affect: Patient reports their mood is "better now", affect is congruent Suicidality/Homicidality: Patient denies having any suicidal or homicidal ideation intent or plan. Perceptions: Patient denies any visual hallucinations and denies any auditory hallucinations Though content/process: There is no evidence of any delusional thought content and thought process is linear and goal-directed. Patient is more future oriented. Memory and concentration: AOX3, grossly intact for the purposes of this session. Can spell "WORLD" backwards Judgment and insight: Limited. IMPRESSIONS: Depressive disorder unspecified, rule out adjustment disorder with depressed mood Anxiety disorder unspecified PLAN: -At this time patient DOES NOT meet criteria for inpatient psychiatric admission. -Delirium precautions recommended with patient including - avoiding use of narcotics and INTERNAL AUDIT SENIOR MANAGER sedatives, limit anticholinergic medications when possible, frequent re-orientation, minimize use of restraints, open window shades during the day and close them at night -Would recommend the following medication changes/additions: Started patient on Remeron 15 mg daily at bedtime for mood/insomnia/appetite. Melatonin 3 mg daily at bedtime when necessary for sleep. BuSpar 7.5 mg twice a day for anxiety. -Will continue to follow along as needed -textile pin worker/case management to work on disposition as patient cannot care for herself and unlikely receiving adequate care at home. Patient will likely need rehab. -Please contact with any questions. 12/27/19 14:50
[2019-12-27 17:16] LABS: Glucose,Whole Blood 209 mg/dL (75-99)
[2019-12-27] MEDS: SODIUM CHLORIDE 0.9% 1,000 ML IV SCH (19:14)
[2019-12-27 20:05] LABS: Glucose,Whole Blood 244 mg/dL (75-99)
[2019-12-27] MEDS: ATENOLOL 50 MG TAB PO SCH (20:14)
[2019-12-27] MEDS: ATORVASTATIN 80 MG TAB PO SCH (20:14)
[2019-12-27] MEDS: MIRTAZAPINE 15 MG TAB PO SCH (20:14)
[2019-12-27] MEDS ORDERED: FUROSEMIDE 10 MG/ML 4 ML VIAL IV STA (20:32)
[2019-12-27] MEDS: busPIRone HCl 5 MG TAB PO SCH (20:34)
[2019-12-27] MEDS: INSULIN DETEMIR (LEVEMIR) 100 UNIT/ML SYR SQ SCH (20:45)
[2019-12-28 02:17] LABS: Glucose,Whole Blood 141 mg/dL (75-99)
[2019-12-28 06:53] LABS: Glucose,Whole Blood 67 mg/dL (75-99)
[2019-12-28 07:20] LABS: Potassium 5.7 mmol/L (3.5-5.1)
[2019-12-28 07:34] LABS: Glucose,Whole Blood 102 mg/dL (75-99)
[2019-12-28] MEDS ORDERED: DEXTROSE 50% SYRINGE 50 ML IVP STA (07:58)
--- NOTE | 2019-12-28 07:59 | P.PN ---
Subjective Patient is seen in follow-up for acute kidney injury and chronic kidney disease. Renal function is worsening which is due to diuresis. Creatinine 2.73 today. She received a dose of Lasix 40 mg IV last night. Denies chest pain. She has been voiding. Vital signs are stable. General: The patient appeared well nourished and normally developed. HEENT: Head exam is unremarkable. Neck is without jugular venous distension. LUNGS: Breath sounds decreased. Mild wheezing. HEART: Rate and Rhythm are regular. ABDOMEN: Nontender. EXTREMITITES: No edema. Objective - Vital Signs Vital signs: Vital Signs Temp 97.9 F 12/28/19 05:00 Pulse 60 12/28/19 05:00 Resp 22 12/28/19 05:00 BP 114/56 12/28/19 05:00 Pulse Ox 91 L 12/28/19 05:25 Intake & Output 12/27/19 12/28/19 12/28/19 18:59 06:59 18:59 Intake Total 500 600 Balance 500 600 Intake: Intake, IV Titration 100 Amount Sodium Ferric Gluconat- 100 Sucrose 125 mg In Sodium Chloride 0.9% 100 ml @ 100 mls/hr IVPB DAILY [facility] Rx#:[id number] Oral 400 600 Other: Voiding Method Bedpan Incontinent # Voids 3 3 # Bowel Movements 1 2 - Labs CBC & Chem 7: 12/26/19 06:00 12/28/19 06:42 Labs: Abnormal Lab Results - Last 24 Hours (Table) 12/27/19 12/27/19 12/27/19 Range/Units 11:02 17:14 20:04 Sodium (137-145) mmol/L Potassium (3.5-5.1) mmol/L Chloride (98-107) mmol/L Carbon Dioxide (22-30) mmol/L BUN (7-17) mg/dL Creatinine (0.52-1.04) mg/dL Glucose (74-99) mg/dL POC Glucose (mg/dL) 123 H 209 H 244 H (75-99) mg/dL 12/28/19 12/28/19 12/28/19 Range/Units 02:16 06:42 06:48 Sodium 134 L (137-145) mmol/L Potassium 5.7 H (3.5-5.1) mmol/L Chloride 86 L (98-107) mmol/L Carbon Dioxide 39 H (22-30) mmol/L BUN 105 H* (7-17) mg/dL Creatinine 2.73 H (0.52-1.04) mg/dL Glucose 67 L (74-99) mg/dL POC Glucose (mg/dL) 141 H 67 L (75-99) mg/dL 12/28/19 Range/Units 07:17 Sodium (137-145) mmol/L Potassium (3.5-5.1) mmol/L Chloride (98-107) mmol/L Carbon Dioxide (22-30) mmol/L BUN (7-17) mg/dL Creatinine (0.52-1.04) mg/dL Glucose (74-99) mg/dL POC Glucose (mg/dL) 102 H (75-99) mg/dL Assessment and Plan Plan: Assessment: 1. Acute kidney injury mostly prerenal secondary to diuresis. Creatinine 2.73 today. No proteinuria on UA. 2. Chronic kidney disease stage IV secondary to cardiorenal syndrome and nephrosclerosis with baseline creatinine near 2. 3. Right ankle fracture. Orthopedic surgery following. 4. Metabolic alkalosis secondary to diuresis. However it is mostly due to metabolic compensation for underlying chronic respiratory acidosis. Better. 5. History of COPD. 6. Chronic diastolic CHF. Currently compensated. 7. Anemia of chronic kidney disease. Iron deficiency noted. Maintained on Aranesp. 8. Hyperkalemia secondary to chronic kidney disease. Plan: Hold Lasix today. IV iron today. This will be her second dose. Repeat electrolytes in the morning. Low potassium diet. 10 units of IV regular insulin with an amp of D50 now. Check bladder scan to rule out urinary retention.
[2019-12-28] MEDS ORDERED: INSULIN REGULAR 100 UNIT/ML VIAL IV ONE (08:00)
[2019-12-28] MEDS: IPRATROPIUM-ALBUTEROL 3 ML NEB INHALATION SCH ×3 (08:12→20:15)
[2019-12-28] MEDS: SODIUM FERRIC GLUCONAT-SUCROSE 125 MG in SODIUM CHLORIDE 0.9% 100 ML IVPB SCH (09:34)
[2019-12-28] MEDS: INSULIN ASPART (NovoLOG) 100 UNIT/ML VIAL SQ SCH ×4 (09:36→20:26)
--- NOTE | 2019-12-28 10:04 | US ---
EXAMINATION TYPE: US kidneys/renal and bladder DATE OF EXAM: 12/28/2019 COMPARISON: Previous study dated 07/12/2017 CLINICAL HISTORY: KHLOE. abn labs EXAM MEASUREMENTS: Right Kidney: 9.4 x 5.0 cm Left Kidney: 8.5 x 4.5 x 4.0 cm Exam performed portable, unable to turn lights off creating suboptimal imaging Limited exam due to patient body habitus Right Kidney: No hydronephrosis or masses seen. Limited visualization. Cortical thinning. Left Kidney: No hydronephrosis or masses seen. Limited visualization. Cortical thinning. Appears s mall in size Bladder: distended, anechoic Bilateral Jets not seen Compared to the previous examination the left kidney is decreased in size from 11.4 x 5.6 x 5.7 cm to 8.5 x 4.5 x 4 cm. This is likely on the basis of atrophy. The right kidney is also decreased in size from 10.6 x 5.4 x 4.6 cm to 9.4 x 5 cm. Visualization of b oth kidneys is limited by body habitus. There is no evidence of hydronephrosis. IMPRESSION: INCREASING ATROPHY OF BOTH KIDNEYS COMPARED TO THE PREVIOUS STUDY.
[2019-12-28] MEDS: PANTOPRAZOLE 40 MG TABLET PO SCH (10:11)
[2019-12-28] MEDS: amLODIPine 5 MG TAB PO SCH (10:11)
[2019-12-28] MEDS: ALLOPURINOL 100 MG TAB PO SCH ×2 (10:11→20:25)
[2019-12-28] MEDS: HEPARIN SODIUM,PORCINE 5,000 UNIT/ML 1 ML VIAL SQ SCH ×3 (10:11→23:30)
[2019-12-28] MEDS: FERROUS SULFATE 325 MG TAB PO SCH (10:12)
[2019-12-28] MEDS: LACTULOSE 20 GM/30 ML CUP PO SCH (10:12)
[2019-12-28] MEDS: busPIRone HCl 5 MG TAB PO SCH ×2 (10:12→20:26)
[2019-12-28] MEDS: LEVOFLOXACIN 250 MG TAB PO SCH (10:13)
[2019-12-28] MEDS: SENNOSIDES-DOCUSATE SODIUM 1 EACH TAB PO SCH (10:13)
[2019-12-28] MEDS: CALCITRIOL 0.25 MCG CAP PO SCH (10:13)
[2019-12-28] MEDS: PREGABALIN 50 MG CAP PO SCH ×2 (10:13→20:27)
--- NOTE | 2019-12-28 10:44 | P.PN ---
Subjective Progress Note Date: 12/28/19 This is a 74-year-old female patient of Dr. Pulido and Dr. Franklin with past medical history of COPD, history of smoking quit in 2017, diabetes mellitus type 2, hypertension, hyperlipidemia, peripheral vascular disease, DVT, history of morbid obesity status post lap band, generalized anxiety disorder and recurrent depression, chronic kidney disease stage III, patient presented to the emergency department at [facility] after she had fallen yesterday trying to get out of her left chair at around 4:00 in the afternoon and she rolled her ankle and landed on her knees she became quite tender and she stayed on the floor for about 3-4 hours and her son was able to get her back into the lift chair, in the morning patient was complaining of increased swelling in the right ankle with some deformity her daughter insisted on bringing the patient to the emergency department by calling EMS patient has been having frequent falls at home and they have been having trouble managing her at home with her elder as well, patient was seen in the ER and she had an x-ray of the right ankle that showed trimalleolar fracture, she was admitted under orthopedic surgery were asked to see the patient for evaluation and preoperative medical clearance. 12/23: CAT scan of the right ankle revealed trimalleolar equivalent. Additional small avulsion fracture fragments in the region of the AIT FL. Marked soft tissue swelling. CAT scan of the brain and cervical spine revealed mild atroph y. No acute intracranial abnormality. No change. Mild degenerative changes in the lower cervical spine. No fracture. Orthopedics has evaluated and they are not planning on operative fixation of her ankle during the stay. Jaramillo has been ordered in case management is obtaining. Patient is to remain strictly nonweightbearing on her right leg plan for follow-up in 1 week with repeat x- rays of the ankle. Patient is afebrile, heart rate 76, blood pressure 152/66, pulse ox 92-98% on 5 L nasal cannula. Repeat blood work reveals WBC 6.8, hemoglobin 7.6. Sodium 138, potassium 5.0, chloride 88, CO2 47, BUN 74 and creatinine 1.3. Blood sugars running between 75 and 148. Stool for occult b lood was negative. Patient is 75% of her breakfast. radiation monitor is in a sinus rhythm. Patient was obtunded during the night and placed on BiPAP. Consult will be added for Dr. Birch, DuoNeb treatment started and Levaquin added as well. Discharge plan will be to [facility] anticipated in the next 24-48 hours. PT and OT have been added. Cardiology has evaluated the patient and discontinued Entresto and plan to follow up with Dr. Franklin in the office. 12/24: Patient has been afebrile, heart rate 62, blood pressure 122/59, patient was on BiPAP during the night. Patient's mental status was much improved overnight. radiation monitor has been a sinus rhythm. Patient has home O2 at 2 and half to 3 L nasal cannula. She is currently on 5 L and pulse ox was checked at initially 8889 and improves to approximate 92 with deep breathing. Patient was found this morning without her oxygen and had significant mental status changes secondary to this. Repeat lab work revealed WBC 8.4, hemoglobin 7.4, platelet count 146. Sodium 137, potassium 5.7, chloride 90, CO2 42, BUN 79, creatinine 1.89. Blood sugars running between 81 and 281. The patient has been cleared by cardiology. Pulmonary medicine continues to follow the patient. We are planning to continue current medications and plan for possible discharge to [facility] tomorrow. 12/25: Patient has been afebrile, heart rate 58, blood pressure 95/53, pulse ox 92% on 5 L. Patient is stating that her breathing is about the same from . She is complaining of green yellow sputum production. Sputum culture ordered. She states she did not eat breakfast today and also complaining of not having a bowel movement for the past 5 days. Senokot added. Repeat blood work reveals WBC 6.6, hemoglobin 7.2, platelet count 171. Weight 137, potassium 5.3, chloride 89, CO2 41, BUN 82 and creatinine 2.3 to, blood sugar this morning was 43 with repeat 59 and currently 85. Levemir decreased to 14 units daily and switched to nighttime, glimepiride discontinued. Liver function tests are all normal. Hip x-ray ordered yesterday by orthopedics reveals no gross acute fracture or dislocation. Patient was cleared by orthopedics for discharge with plan for follow-up in one week. Lasix has been switched to oral once daily and parameters placed on atenolol and Norvasc. Iron studies ordered. 12/26: The patient was seen by nephrology with recommendations to continue Lasix 40 mg oral daily, check ABGs which were called to Dr. Birch, iron studies, add Aranesp and recheck labs in the morning. Patient was placed back on BiPAP yesterday to be used as needed and at bedtime. Patient is on tramadol 50 mg receiving twice daily as needed. Patient has received 1 dose of Dilaudid on December 22. Patient is afebrile, heart rate 78, blood pressure 115/54, pulse ox 92% on 5 L nasal cannula. Sodium 135, potassium 5.1, chloride 87, CO2 43, BUN 89 and creatinine 2.54. Blood sugars running between 70. Patient had suicidal ideation yesterday afternoon and consult was added for psychiatry. Patient apparently states that she wanted to . Patient is not eating and does not have much appetite. Staff state patient is eating 25-30% of her meals only. She continues to complain of constipation and has not had a bowel movement. Milk of magnesia with parent juice as well as lactulose added. Patient may require Dulcolax suppository if no results. 12/27: Patient has been seen by Dr. Castrejon from psychiatry with recommendations to start Remeron 15 mg at bedtime along with melatonin 3 mg at bedtime and start BuSpar 7.5 g twice daily. Patient has been afebrile, heart rate 60, blood pressure 114/56 and pulse ox 91% on 3 L nasal cannula. Repeat blood work reveals sodium 134, potassium 5.7, chloride 86, CO2 39, BUN 105, creatinine 2 .73, blood sugar 67. Patient did receive 1 dose of IV Lasix yesterday evening. Dr. Hunter was recommended to hold Lasix. He has ordered IV Ferrlecit and patient will receive her second dose today. She was complaining of feeling hoarse. She denies any abdominal pain. She did have 3 bowel movements last evening. We will order renal ultrasound. Patient was also ordered for insulin and D50. Objective - Vital Signs Vital signs: Vital Signs Temp 97.9 F 12/28/19 05:00 Pulse 60 12/28/19 08:23 Resp 22 12/28/19 05:00 BP 114/56 12/28/19 05:00 Pulse Ox 91 L 12/28/19 05:25 Intake & Output 04/0312/28/19 12/28/19 18:59 06:59 18:59 Intake Total 500 600 Balance 500 600 Intake: Intake, IV Titration 100 Amount Sodium Ferric Gluconat- 100 Sucrose 125 mg In Sodium Chloride 0.9% 100 ml @ 100 mls/hr IVPB DAILY [facility] Rx#:[id number] Oral 400 600 Other: Voiding Method Bedpan Incontinent # Voids 3 3 # Bowel Movements 1 2 - Exam Review of Systems Constitutional: Reports fatigue, Reports weakness, reports loss of appetite Eyes: denies blurred vision, denies bulging eye, denies decreased vision Ears: deny: decreased hearing Ears, nose, mouth and throat: Denies dysphagia, Denies neck lump, Denies sore throat, reports hoarseness Cardiovascular: Reports decreased exercise tolerance, Reports dyspnea on exertion, Reports shortness of breath, Denies chest pain, Denies rapid heart beat, Denies syncope Respiratory: Reports sleep apnea, Reports snoring, Denies congestion, Denies cough with sputum, Denies home oxygen, Denies wheezing Gastrointestinal: Denies abdominal pain, Denies bloating, Denies BRBPR, Denies heartburn, Denies nausea, Denies vomiting Genitourinary: Reports nocturia, Denies dysuria Menstruation: Reports postmenopausal Musculoskeletal: Reports fractures, Reports frequent falls, Reports gait dys function, Reports muscle weakness Musculoskeletal: right: ankle pain, ankle stiffness, ankle swelling, as per HPI, foot pain, foot stiffness, foot swelling, knee pain, knee stiffness, knee swelling, absent: elbow pain, elbow stiffness, elbow swelling, hand pain, hand stiffness, hand swelling, hip pain, hip stiffness, hip swelling, shoulder pain, shoulder stiffness, shoulder swelling, wrist pain, wrist stiffness, wrist swelling Integumentary: Denies pruritus, Denies rash Neurological: Reports gait dysfunction, Denies numbness, Denies weakness Psychiatric: Reports anxiety, Reports depression, Denies sadness, Denies sleep disturbances, Denies suicidal ideation. Endocrine: Denies fatigue, Denies weight change, reports anorexia Physical examination This is a morbidly obese 74-year-old . She is resting in bed and patient appears to be in no acute distress. HEENT: Head is atraumatic, normocephalic, pupils were equal round reactive to light and accommodation, extraocular muscle movement were intact. Neck: Supple, no JVP. Chest: Decreased breath sounds at the bases, with few rhonchi no expiratory wheezes no chest wall tenderness no intercostal retractions. Heart: First heart sound is depressed, second heart sounds normal, there is systolic ejection murmur 2/6 located in the left sternal border. Abdomen: Soft obese nontender nondistended positive bowel sounds, there is a lap band port in place. Extremities: Right lower extremity is in a splint, left lower extremity with trace edema no calf tenderness dorsalis pedis is +1 in the left side. Neurologic examination: Patient is awake alert and oriented 3, cranial nerves III through XII appear grossly intact. - Labs CBC & Chem 7: 12/26/19 06:00 12/28/19 06:42 Labs: Abnormal Lab Results - Last 24 Hours (Table) 12/27/19 12/27/19 12/27/19 Range/Units 11:02 17:14 20:04 Sodium (137-145) mmol/L Potassium (3.5-5.1) mmol/L Chloride (98-107) mmol/L Carbon Dioxide (22-30) mmol/L BUN (7-17) mg/dL Creatinine (0.52-1.04) mg/dL Glucose (74-99) mg/dL POC Glucose (mg/dL) 123 H 209 H 244 H (75-99) mg/dL 12/28/19 12/28/19 12/28/19 Range/Units 02:16 06:42 06:48 Sodium 134 L (137-145) mmol/L Potassium 5.7 H (3.5-5.1) mmol/L Chloride 86 L (98-107) mmol/L Carbon Dioxide 39 H (22-30) mmol/L BUN 105 H* (7-17) mg/dL Creatinine 2.73 H (0.52-1.04) mg/dL Glucose 67 L (74-99) mg/dL POC Glucose (mg/dL) 141 H 67 L (75-99) mg/dL 12/28/19 Range/Units 07:17 Sodium (137-145) mmol/L Potassium (3.5-5.1) mmol/L Chloride (98-107) mmol/L Carbon Dioxide (22-30) mmol/L BUN (7-17) mg/dL Creatinine (0.52-1.04) mg/dL Glucose (74-99) mg/dL POC Glucose (mg/dL) 102 H (75-99) mg/dL Assessment and Plan Plan: 1. Status post fall with right ankle trimalleolar fracture. Patient is currently in a splint, continue with current pain management, continue to monitor the patient very closely keep her leg elevated and apply ice packs, orthopedic surgery with plan for conservative management, Cam boot in place. Cardiology consult appreciated. 2. Metabolic encephalopathy most likely secondary to obstructive sleep apnea and hypercapnia. Consult with Dr. Birch. Patient started on Levaquin 500 mg oral daily, DuoNeb treatments scheduled and as needed. 3. Chronic diastolic heart failure. Patient did have an echocardiogram about a month ago and that showed ejection fraction 55-60% with the moderate concentric left ventricular hypertrophy with dilated left atrium mild aortic stenosis and mild mitral regurgitation without evidence of any wall motion abnormalities, we will continue the patient on atenolol 100 mg orally once every day, Lasix discontinued. 4. Hypertension and hypertensive cardiovascular disease. Continue atenolol 100 mg orally once every day 5. Hyperlipidemia. Continue Lipitor 80 mg orally once every day. 6. Carotid artery disease with moderate stenosis with greater than 70% of the left internal carotid artery and 60% right internal carotid artery. We will hold the patient Plavix and continue Lipitor 80 mg orally once every day for now in preparation for surgery. 7. Diabetes mellitus type 2 uncontrolled with hypoglycemia. Discontinue glimeperide, decrease Levemir to 14 units at bedtime, Trilisate is scheduled for Monday. Continue Humalog per scale. 8. Acute kidney injury with chronic disease stage IV. Continue calcitriol 0.25 g orally once every day. 9. Mild hyperkalemia due to chronic kidney disease. 10. Obesity with sleep apnea. The patient need to be in CPAP. 11. Gout, chronic. Continue allopurinol 100 mg orally twice every day. 12. Restless leg syndrome. Continue patient on Requip 1 mg orally twice every day. 13. Vitamin D deficiency. Continue vitamin D substance. 14. Diabetic polyneuropathy. Continue Lyrica 100 mg orally twice every day. 15. DVT prophylaxis. Heparin 5000 units subcutaneously every 8 hours. 16. GI prophylaxis. Pepcid 20 mg orally once every day. 17. Anemia of chronic disease. Patient is receiving Ferrlecit 3 doses, day #2. Continue Aranesp. 18. Suicidal ideation. Consult with psychiatry appreciated. Patient started on Remeron 15 mg at bedtime along with melatonin 3 mg at bedtime and start BuSpar 7.5 g twice daily. . 19. Hyperkalemia status post insulin and D50. Discharge plan: Monday Impression and plan of care have been directed as dictated by the signing physician. Martha Herrera nurse practitioner acting as scribe for signing physician.
[2019-12-28 12:00] LABS: Glucose,Whole Blood 164 mg/dL (75-99)
--- NOTE | 2019-12-28 12:39 | P.PN ---
Subjective Progress Note Date: 12/28/19 Principal diagnosis: Right ankle and knee pain status post fall This is a pleasant 74-year-old female patient who follows with Dr. Pulido as her primary care physician. She has a history of oxygen dependent chronic obstructive pulmonary disease, morbid obesity, obstructive sleep apnea on CPAP at home, diabetes mellitus, hyperlipidemia, hypertension, congestive heart failu re, arthritis, anxiety/depression. She is a former smoker. She is somewhat of a poor historian. She presented to the hospital yesterday after sustaining a fall from her chair lift rolling her ankle and injuring her right knee. X-ray reveals right knee revealed mild tricompartmental osteoarthrosis. Trace knee joint effusion. No acute osseous anomaly seen. Right ankle revealed tri- malleoli are equal and ankle fracture with deltoid ligament tear. Soft tissue swelling. CT of the brain and spine revealed no acute abnormalities. Chest x- ray revealed moderate cardiomegaly with interstitial opacity. Mild pulmonary vascular congestion. No thien consolidation. She is seen today in consultation on the regular medical floor. She is currently awake and alert. Somewhat of a poor historian. She is maintaining O2 saturations in the low 90s on 5 L/m per nasal cannula. Afebrile. Hemodynamically stable. White count 6.8. Hemoglobin 7.6. Sodium 138. Potassium 5.0. Bicarb 47. Creatinine 1.83. Patient is seen today 12/25/2019 in follow-up on the regular medical floor. She is awake and alert in no acute distress. She is sitting up in a chair at the bedside. Denies any worsening shortness of breath, cough or congestion. Maintaining O2 saturations in the 90s on 5 L/m per nasal cannula. Her home CPAP was brought in for her to wear in the evenings. Set at 10 cm of water. White count 8.4. Hemoglobin 7.4. Platelet count 146. Sodium 137. Potassium 5.7. Bicarb 42. Creatinine 1.89. She is continued on bronchodilators. Blood cultures reveal no growth. She remains in a tall CAM boot for her right ankle fracture. The patient is seen today 12/27/2019 in follow-up on the regular medical floor. She is currently sitting up in a chair at the bedside. Awake and alert in no acute distress. She denies any worsening shortness of breath, cough or congestion. She is maintaining O2 saturations in the 90s on 3 L/m per nasal cannula alternating with BiPAP at 40% FiO2. Sodium 135. Potassium 5.1. Bicarb 43. Creatinine 2.54. She is having some continued right lower extremity pain due to the fall and fracture. Tall CAM boot remains in place. The patient is seen today 12/28/2019 in follow-up on the regular medical floor. She is currently awake and alert in no acute distress. She did develop increased lethargy and difficult to arouse once found being off of her oxygen last evening. She was placed back on her BiPAP. She had also received Ultram yesterday. She attends recovered and maintaining O2 saturations in the 90s on 3 L/m per nasal cannula. Sodium 134. Potassium 5.7. Bicarb 39. Creatinine 2.73. Nephrology is on the case. Ultrasound of the kidneys revealed increasing atrophy of both kidneys compared to previous study. She does have a history of chronic kidney disease stage IV with baseline creatinine of 2. This is felt to be secondary to cardiorenal syndrome and nephrosclerosis. Objective - Vital Signs Vital signs: Vital Signs Temp 97.9 F 12/28/19 05:00 Pulse 66 12/28/19 12:11 Resp 22 12/28/19 08:30 BP 114/56 12/28/19 05:00 Pulse Ox 91 L 12/28/19 05:25 Intake & Output 12/27/19 12/28/19 12/28/19 18:59 06:59 18:59 Intake Total 500 600 Balance 500 600 Intake: Intake, IV Titration 100 Amount Sodium Ferric Gluconat- 100 Sucrose 125 mg In Sodium Chloride 0.9% 100 ml @ 100 mls/hr IVPB DAILY [facility] Rx#:[id number] Oral 400 600 Other: Voiding Method Bedpan Incontinent Incontinent # Voids 3 3 # Bowel Movements 1 2 - Exam GENERAL EXAM: Alert, pleasant obese 74-year-old female patient, up in a chair at the bedside, on 3 L nasal cannula alternating with BiPAP at 40% comfortable in no apparent distress. HEAD: Normocephalic. EYES: Normal reaction of pupils, equal size. NOSE: Clear with pink turbinates. THROAT: Crowding the posterior pharynx. No erythema or exudates. NECK: No masses, no JVD. CHEST: No chest wall deformity. LUNGS: Equal air entry with crackles in the posterior bases. Diminished. CVS: S1 and S2 normal with no audible murmur, regular rhythm. ABDOMEN: No hepatosplenomegaly, normal bowel sounds, no guarding or rigidity. SPINE: No scoliosis or deformity SKIN: No rashes CENTRAL NERVOUS SYSTEM: No focal deficits, tone is normal in all 4 extremities. EXTREMITIES: There is a tall CAM boot to the right ankle. There is no peripheral edema. No clubbing, no cyanosis. Peripheral pulses are intact. - Labs CBC & Chem 7: 12/26/19 06:00 12/28/19 06:42 Labs: Abnormal Lab Results - Last 24 Hours (Table) 12/27/19 12/27/19 12/28/19 Range/Units 17:14 20:04 02:16 Sodium (137-145) mmol/L Potassium (3.5-5.1) mmol/L Chloride (98-107) mmol/L Carbon Dioxide (22-30) mmol/L BUN (7-17) mg/dL Creatinine (0.52-1.04) mg/dL Glucose (74-99) mg/dL POC Glucose (mg/dL) 209 H 244 H 141 H (75-99) mg/dL 12/28/19 12/28/19 12/28/19 Range/Units 06:42 06:48 07:17 Sodium 134 L (137-145) mmol/L Potassium 5.7 H (3.5-5.1) mmol/L Chloride 86 L (98-107) mmol/L Carbon Dioxide 39 H (22-30) mmol/L BUN 105 H* (7-17) mg/dL Creatinine 2.73 H (0.52-1.04) mg/dL Glucose 67 L (74-99) mg/dL POC Glucose (mg/dL) 67 L 102 H (75-99) mg/dL 12/28/19 Range/Units 11:10 Sodium (137-145) mmol/L Potassium (3.5-5.1) mmol/L Chloride (98-107) mmol/L Carbon Dioxide (22-30) mmol/L BUN (7-17) mg/dL Creatinine (0.52-1.04) mg/dL Glucose (74-99) mg/dL POC Glucose (mg/dL) 164 H (75-99) mg/dL Assessment and Plan Assessment: 1 Trauma secondary to fall with right knee and ankle injury with trimalleolar equivalent nondisplaced fracture and small avulsion fracture. Currently in a tall CAM boot 2 Acute on chronic hypercapnic/hypoxemic respiratory failure secondary to an acute exacerbation of diastolic congestive heart failure, COPD exacerbation, obesity/hypoventilation syndrome. She did have an episode of lethargy and difficulty arouse following previous pain medications in the form of Ultram and also been found to be off her oxygen completely. She was placed back on BiPAP and recovered. 3 Obstructive sleep apnea maintained on CPAP in the outpatient setting set at 10 cm of water 4 Morbid obesity with previous lap band surgery 5 Acute on chronic renal failure with a history of chronic kidney disease stage IV with a baseline creatinine of 2 secondary to nephrosclerosis and cardiorenal syndrome. Ultrasound the kidneys reveals increased atrophy compared to previous 6 Diabetes mellitus 7 Hyperlipidemia 8 Hypertension 9 Previous smoking 10 Osteoarthritis 11 History of DVT 12 Depressive disorder, unspecified, possible adjustment disorder with depressed mood and anxiety 13 Poor overall functional performance based on the above-mentioned multiple comorbidities Plan: The patient was seen and evaluated by Dr. Birch He was aware of her episode of lethargy while off her oxygen with recovery placed on BiPAP Currently on 3 L/m per nasal cannula alternating with BiPAP at 40% FiO2 Cautious use of pain medications and sedatives Continue bronchodilators We'll continue to follow I, the cosigning physician, performed a history & physical examination of the patient. Lungs sounds with few crackles in the posterior bases, diminished. Maintaining good O2 saturations in the 90s on 3 L/m per nasal cannula alternati ng with BiPAP at 40% FiO2. I discussed the assessment and plan of care with my nurse practitioner, Beverly Rowell. I attest to the above note as dictated by her.
[2019-12-28 16:59] LABS: Glucose,Whole Blood 169 mg/dL (75-99)
[2019-12-28] MEDS: SODIUM CHLORIDE 0.9% 1,000 ML IV SCH (17:13)
[2019-12-28] MEDS: ONDANSETRON 4 MG/2 ML VIAL IVP PRN (18:58)
[2019-12-28 20:06] LABS: Glucose,Whole Blood 177 mg/dL (75-99)
[2019-12-28] MEDS: ATENOLOL 50 MG TAB PO SCH (20:21)
[2019-12-28] MEDS: ATORVASTATIN 80 MG TAB PO SCH (20:25)
[2019-12-28] MEDS: INSULIN DETEMIR (LEVEMIR) 100 UNIT/ML SYR SQ SCH (20:26)
[2019-12-28] MEDS: MIRTAZAPINE 15 MG TAB PO SCH (21:29)
[2019-12-29 02:28] LABS: Glucose,Whole Blood 89 mg/dL (75-99)
[2019-12-29 05:03] LABS: Glucose,Whole Blood 94 mg/dL (75-99)
[2019-12-29 06:42] LABS: Glucose,Whole Blood 133 mg/dL (75-99)
[2019-12-29 07:02] LABS: Calcium 8.6 mg/dL (8.4-10.2)
[2019-12-29] MEDS: IPRATROPIUM-ALBUTEROL 3 ML NEB INHALATION SCH (07:39)
--- NOTE | 2019-12-29 08:16 | P.PN ---
Subjective Patient is seen in follow-up for acute kidney injury and chronic kidney disease. Renal function worsened due to diuresis. Creatinine 2.86 today. She has been voiding. Denies chest pain. No vomiting or diarrhea. Vital signs are stable. General: The patient appeared well nourished and normally developed. HEENT: Head exam is unremarkable. Neck is without jugular venous distension. LUNGS: Breath sounds decreased. Mild wheezing. HEART: Rate and Rhythm are regular. ABDOMEN: Nontender. EXTREMITITES: No edema. Objective - Vital Signs Vital signs: Vital Signs Temp 98.2 F 12/29/19 05:00 Pulse 64 12/29/19 07:54 Resp 20 12/29/19 05:17 BP 130/52 12/29/19 05:00 Pulse Ox 90 L 12/29/19 05:17 Intake & Output 12/28/19 12/29/19 12/29/19 18:59 06:59 18:59 Intake Total 240 1340 Balance 240 1340 Intake: Intake, IV Titration 240 Amount Sodium Chloride 0.9% 1, 240 000 ml @ 20 mls/hr IV . Q24H [facility] Rx#:[id number] Oral 240 1100 Other: Voiding Method Incontinent Bedpan # Voids 4 2 - Labs CBC & Chem 7: 12/26/19 06:00 12/29/19 05:52 Labs: Abnormal Lab Results - Last 24 Hours (Table) 12/28/19 12/28/19 12/28/19 Range/Units 11:10 16:57 17:25 Sodium (137-145) mmol/L Potassium 5.5 H (3.5-5.1) mmol/L Chloride (98-107) mmol/L Carbon Dioxide (22-30) mmol/L BUN (7-17) mg/dL Creatinine (0.52-1.04) mg/dL Glucose (74-99) mg/dL POC Glucose (mg/dL) 164 H 169 H (75-99) mg/dL Magnesium (1.6-2.3) mg/dL 12/28/19 12/29/19 12/29/19 Range/Units 20:05 05:52 06:40 Sodium 131 L (137-145) mmol/L Potassium (3.5-5.1) mmol/L Chloride 83 L (98-107) mmol/L Carbon Dioxide 39 H (22-30) mmol/L BUN 107 H* (7-17) mg/dL Creatinine 2.86 H (0.52-1.04) mg/dL Glucose 131 H (74-99) mg/dL POC Glucose (mg/dL) 177 H 133 H (75-99) mg/dL Magnesium 3.0 H (1.6-2.3) mg/dL Microbiology - Last 24 Hours (Table) 12/28/19 11:00 Gram Stain - Preliminary Sputum Sputum Culture - Preliminary Assessment and Plan Plan: Assessment: 1. Acute kidney injury mostly prerenal secondary to diuresis. Creatinine 2.86 today. No proteinuria on UA. No hydronephrosis noted on kidney ultrasound. 2. Chronic kidney disease stage IV secondary to cardiorenal syndrome and nephrosclerosis with baseline creatinine near 2. 3. Right ankle fracture. Orthopedic surgery following. 4. Metabolic alkalosis secondary to diuresis. However it is mostly due to metabolic compensation for underlying chronic respiratory acidosis. Better. 5. History of COPD. 6. Chronic diastolic CHF. Currently compensated. 7. Anemia of chronic kidney disease. Iron deficiency noted. Maintained on Aranesp. 8. Hyperkalemia secondary to chronic kidney disease. Better. 9. Hypertension with chronic kidney disease. Blood pressure on the lower side. Plan: Continue to hold diuretics. IV iron today. This will be her third dose. Repeat electrolytes in the morning. Low potassium diet. Hold amlodipine if systolic blood pressure less than 120.
[2019-12-29] MEDS: SODIUM FERRIC GLUCONAT-SUCROSE 125 MG in SODIUM CHLORIDE 0.9% 100 ML IVPB SCH (08:29)
[2019-12-29] MEDS ORDERED: ENOXAPARIN 100 MG/ML SYRINGE SQ SCH (09:00)
[2019-12-29 09:02] LABS: Glucose,Whole Blood 206 mg/dL (75-99)
[2019-12-29] MEDS: SENNOSIDES-DOCUSATE SODIUM 1 EACH TAB PO SCH (09:08)
[2019-12-29] MEDS: INSULIN ASPART (NovoLOG) 100 UNIT/ML VIAL SQ SCH (09:08)
[2019-12-29] MEDS ORDERED: HYDROmorphone 1 MG/ML 1 ML SYRINGE IVP PRN (09:18)
[2019-12-29] MEDS: HEPARIN SODIUM,PORCINE 5,000 UNIT/ML 1 ML VIAL SQ SCH (09:45)
[2019-12-29] MEDS: CALCITRIOL 0.25 MCG CAP PO SCH (09:46)
[2019-12-29] MEDS: ALLOPURINOL 100 MG TAB PO SCH (09:46)
[2019-12-29] MEDS: amLODIPine 5 MG TAB PO SCH (09:46)
[2019-12-29] MEDS: LACTULOSE 20 GM/30 ML CUP PO SCH (09:47)
[2019-12-29] MEDS: FERROUS SULFATE 325 MG TAB PO SCH (09:47)
[2019-12-29] MEDS: PREGABALIN 50 MG CAP PO SCH (09:47)
--- NOTE | 2019-12-29 11:08 | P.PN ---
Subjective Progress Note Date: 12/29/19 This is a 74-year-old female patient of Dr. Pulido and Dr. Franklin with past medical history of COPD, history of smoking quit in 2017, diabetes mellitus type 2, hypertension, hyperlipidemia, peripheral vascular disease, DVT, history of morbid obesity status post lap band, generalized anxiety disorder and recurrent depression, chronic kidney disease stage III, patient presented to the emergency department at [facility] after she had fallen yesterday trying to get out of her left chair at around 4:00 in the afternoon and she rolled her ankle and landed on her knees she became quite tender and she stayed on the floor for about 3-4 hours and her son was able to get her back into the lift chair, in the morning patient was complaining of increased swelling in the right ankle with some deformity her daughter insisted on bringing the patient to the emergency department by calling EMS patient has been having frequent falls at home and they have been having trouble managing her at home with her elder as well, patient was seen in the ER and she had an x-ray of the right ankle that showed trimalleolar fracture, she was admitted under orthopedic surgery were asked to see the patient for evaluation and preoperative medical clearance. 12/23: CAT scan of the right ankle revealed trimalleolar equivalent. Additional small avulsion fracture fragments in the region of the AIT FL. Marked soft tissue swelling. CAT scan of the brain and cervical spine revealed mild atroph y. No acute intracranial abnormality. No change. Mild degenerative changes in the lower cervical spine. No fracture. Orthopedics has evaluated and they are not planning on operative fixation of her ankle during the stay. Jaramillo has been ordered in case management is obtaining. Patient is to remain strictly nonweightbearing on her right leg plan for follow-up in 1 week with repeat x- rays of the ankle. Patient is afebrile, heart rate 76, blood pressure 152/66, pulse ox 92-98% on 5 L nasal cannula. Repeat blood work reveals WBC 6.8, hemoglobin 7.6. Sodium 138, potassium 5.0, chloride 88, CO2 47, BUN 74 and creatinine 1.3. Blood sugars running between 75 and 148. Stool for occult b lood was negative. Patient is 75% of her breakfast. superintendent measurement is in a sinus rhythm. Patient was obtunded during the night and placed on BiPAP. Consult will be added for Dr. Birch, DuoNeb treatment started and Levaquin added as well. Discharge plan will be to [facility] anticipated in the next 24-48 hours. PT and OT have been added. Cardiology has evaluated the patient and discontinued Entresto and plan to follow up with Dr. Franklin in the office. 12/24: Patient has been afebrile, heart rate 62, blood pressure 122/59, patient was on BiPAP during the night. Patient's mental status was much improved overnight. superintendent measurement has been a sinus rhythm. Patient has home O2 at 2 and half to 3 L nasal cannula. She is currently on 5 L and pulse ox was checked at initially 8889 and improves to approximate 92 with deep breathing. Patient was found this morning without her oxygen and had significant mental status changes secondary to this. Repeat lab work revealed WBC 8.4, hemoglobin 7.4, platelet count 146. Sodium 137, potassium 5.7, chloride 90, CO2 42, BUN 79, creatinine 1.89. Blood sugars running between 81 and 281. The patient has been cleared by cardiology. Pulmonary medicine continues to follow the patient. We are planning to continue current medications and plan for possible discharge to [facility] tomorrow. 12/25: Patient has been afebrile, heart rate 58, blood pressure 95/53, pulse ox 92% on 5 L. Patient is stating that her breathing is about the same from . She is complaining of green yellow sputum production. Sputum culture ordered. She states she did not eat breakfast today and also complaining of not having a bowel movement for the past 5 days. Senokot added. Repeat blood work reveals WBC 6.6, hemoglobin 7.2, platelet count 171. Weight 137, potassium 5.3, chloride 89, CO2 41, BUN 82 and creatinine 2.3 to, blood sugar this morning was 43 with repeat 59 and currently 85. Levemir decreased to 14 units daily and switched to nighttime, glimepiride discontinued. Liver function tests are all normal. Hip x-ray ordered yesterday by orthopedics reveals no gross acute fracture or dislocation. Patient was cleared by orthopedics for discharge with plan for follow-up in one week. Lasix has been switched to oral once daily and parameters placed on atenolol and Norvasc. Iron studies ordered. 12/26: The patient was seen by nephrology with recommendations to continue Lasix 40 mg oral daily, check ABGs which were called to Dr. Birch, iron studies, add Aranesp and recheck labs in the morning. Patient was placed back on BiPAP yesterday to be used as needed and at bedtime. Patient is on tramadol 50 mg receiving twice daily as needed. Patient has received 1 dose of Dilaudid on December 22. Patient is afebrile, heart rate 78, blood pressure 115/54, pulse ox 92% on 5 L nasal cannula. Sodium 135, potassium 5.1, chloride 87, CO2 43, BUN 89 and creatinine 2.54. Blood sugars running between 70. Patient had suicidal ideation yesterday afternoon and consult was added for psychiatry. Patient apparently states that she wanted to . Patient is not eating and does not have much appetite. Staff state patient is eating 25-30% of her meals only. She continues to complain of constipation and has not had a bowel movement. Milk of magnesia with parent juice as well as lactulose added. Patient may require Dulcolax suppository if no results. 12/27: Patient has been seen by Dr. Castrejon from psychiatry with recommendations to start Remeron 15 mg at bedtime along with melatonin 3 mg at bedtime and start BuSpar 7.5 g twice daily. Patient has been afebrile, heart rate 60, blood pressure 114/56 and pulse ox 91% on 3 L nasal cannula. Repeat blood work reveals sodium 134, potassium 5.7, chloride 86, CO2 39, BUN 105, creatinine 2 .73, blood sugar 67. Patient did receive 1 dose of IV Lasix yesterday evening. Dr. Hunter was recommended to hold Lasix. He has ordered IV Ferrlecit and patient will receive her second dose today. She was complaining of feeling hoarse. She denies any abdominal pain. She did have 3 bowel movements last evening. We will order renal ultrasound. Patient was also ordered for insulin and D50. 12/28: Renal ultrasound showed increasing atrophy of both kidneys without hydronephrosis. Patient is been afebrile, heart rate 63, blood pressure 130/52. Sodium 131, potassium 5.0, chloride 83, CO2 39, BUN 107, creatinine 2.86 urea blood sugars running between 89 and 133. Sputum culture has been collected. Patient had episode yesterday of obtundation and was found off her oxygen. Dr. Birch had discontinued tramadol. Today, nursing found patient again minimally responsive only to sternal rub and hypoxic down to 78%. Patient was placed on 40% BiPAP and was only pulse oxing 72% and then up to 85%. Patient's daughter was contacted by nursing regarding patient's condition. Dr. Thao also spoke with the patient's daughter and patient was made no code and later comfort care. We are transitioning to hospice care. Daughter is fine with [facility]. sap project manager has been notified. Patient will be transitioned to hospice GIP once all arrangements are completed. Objective - Vital Signs Vital signs: Vital Signs Temp 98.2 F 12/29/19 05:00 Pulse 64 12/29/19 07:54 Resp 20 12/29/19 05:17 BP 130/52 12/29/19 05:00 Pulse Ox 90 L 12/29/19 05:17 Intake & Output 12/28/19 12/29/19 12/29/19 18:59 06:59 18:59 Intake Total 240 1340 Balance 240 1340 Intake: Intake, IV Titration 240 Amount Sodium Chloride 0.9% 1, 240 000 ml @ 20 mls/hr IV . Q24H [facility] Rx#:[id number] Oral 240 1100 Other: Voiding Method Incontinent Bedpan # Voids 4 2 - Exam Review of Systems Unable to obtain due to patient's mental status Physical examination This is a morbidly obese 74-year-old . Patient lethargic. HEENT: Head is atraumatic, normocephalic, pupils were equal round reactive to light and accommodation, extraocular muscle movement were intact. Neck: Supple, no JVP. Chest: Decreased breath sounds at the bases, with few rhonchi no expiratory wheezes no chest wall tenderness no intercostal retractions. Heart: First heart sound is depressed, second heart sounds normal, there is systolic ejection murmur 2/6 located in the left sternal border. Abdomen: Soft obese nontender nondistended positive bowel sounds, there is a lap band port in place. Extremities: Right lower extremity is in a splint, left lower extremity with trace edema no calf tenderness dorsalis pedis is +1 in the left side. Neurologic examination: Patient opens eyes to sternal rub - Labs CBC & Chem 7: 12/26/19 06:00 12/29/19 05:52 Labs: Abnormal Lab Results - Last 24 Hours (Table) 12/28/19 12/28/19 12/28/19 Range/Units 11:10 16:57 17:25 Sodium (137-145) mmol/L Potassium 5.5 H (3.5-5.1) mmol/L Chloride (98-107) mmol/L Carbon Dioxide (22-30) mmol/L BUN (7-17) mg/dL Creatinine (0.52-1.04) mg/dL Glucose (74-99) mg/dL POC Glucose (mg/dL) 164 H 169 H (75-99) mg/dL Magnesium (1.6-2.3) mg/dL 12/28/19 12/29/19 12/29/19 Range/Units 20:05 05:52 06:40 Sodium 131 L (137-145) mmol/L Potassium (3.5-5.1) mmol/L Chloride 83 L (98-107) mmol/L Carbon Dioxide 39 H (22-30) mmol/L BUN 107 H* (7-17) mg/dL Creatinine 2.86 H (0.52-1.04) mg/dL Glucose 131 H (74-99) mg/dL POC Glucose (mg/dL) 177 H 133 H (75-99) mg/dL Magnesium 3.0 H (1.6-2.3) mg/dL Microbiology - Last 24 Hours (Table) 12/28/19 11:00 Gram Stain - Preliminary Sputum Sputum Culture - Preliminary Assessment and Plan Plan: 1. Status post fall with right ankle trimalleolar fracture. Cam boot in place. 2. Metabolic encephalopathy most likely secondary to obstructive sleep apnea and hypercapnia. 3. Chronic diastolic heart failure. 4. Hypertension and hypertensive cardiovascular disease. 5. Hyperlipidemia. 6. Carotid artery disease with moderate stenosis with greater than 70% of the left internal carotid artery and 60% right internal carotid artery. 7. Diabetes mellitus type 2 uncontrolled with hypoglycemia. 8. Acute kidney injury with chronic disease stage IV. 9. Mild hyperkalemia due to chronic kidney disease. 10. Obesity with sleep apnea. 11. Gout, chronic. 12. Restless leg syndrome. 13. Vitamin D deficiency. 14. Diabetic polyneuropathy. 15. Anemia of chronic disease. 18. Suicidal ideation and recurrent depression. 19. Hyperkalemia. CODE STATUS: No code All aggressive treatment will be discontinued. Patient will be made comfort care. Medications have been reviewed and all unnecessary drugs have been discontinued. Discharge plan: [facility] Impression and plan of care have been directed as dictated by the signing physician. Martha Herrera nurse practitioner acting as scribe for signing physician.
[2019-12-29] MEDS: busPIRone HCl 5 MG TAB PO SCH (11:09)
[2019-12-29] MEDS ORDERED: LORazepam 2 MG/ML INJ IV PRN (11:11)
[2019-12-29] MEDS: PANTOPRAZOLE 40 MG TABLET PO SCH (11:25)
[2019-12-29 11:45] VITALS: BP 134/63; PULSE 73; RESP 22; TEMP 96.2
[2019-12-29 11:46] LABS: Glucose,Whole Blood 148 mg/dL (75-99)
--- NOTE | 2019-12-29 12:31 | P.PN ---
Subjective Progress Note Date: 12/29/19 Principal diagnosis: Right ankle and knee pain status post fall This is a pleasant 74-year-old female patient who follows with Dr. Pulido as her primary care physician. She has a history of oxygen dependent chronic obstructive pulmonary disease, morbid obesity, obstructive sleep apnea on CPAP at home, diabetes mellitus, hyperlipidemia, hypertension, congestive heart failu re, arthritis, anxiety/depression. She is a former smoker. She is somewhat of a poor historian. She presented to the hospital yesterday after sustaining a fall from her chair lift rolling her ankle and injuring her right knee. X-ray reveals right knee revealed mild tricompartmental osteoarthrosis. Trace knee joint effusion. No acute osseous anomaly seen. Right ankle revealed tri- malleoli are equal and ankle fracture with deltoid ligament tear. Soft tissue swelling. CT of the brain and spine revealed no acute abnormalities. Chest x- ray revealed moderate cardiomegaly with interstitial opacity. Mild pulmonary vascular congestion. No thien consolidation. She is seen today in consultation on the regular medical floor. She is currently awake and alert. Somewhat of a poor historian. She is maintaining O2 saturations in the low 90s on 5 L/m per nasal cannula. Afebrile. Hemodynamically stable. White count 6.8. Hemoglobin 7.6. Sodium 138. Potassium 5.0. Bicarb 47. Creatinine 1.83. Patient is seen today 12/25/2019 in follow-up on the regular medical floor. She is awake and alert in no acute distress. She is sitting up in a chair at the bedside. Denies any worsening shortness of breath, cough or congestion. Maintaining O2 saturations in the 90s on 5 L/m per nasal cannula. Her home CPAP was brought in for her to wear in the evenings. Set at 10 cm of water. White count 8.4. Hemoglobin 7.4. Platelet count 146. Sodium 137. Potassium 5.7. Bicarb 42. Creatinine 1.89. She is continued on bronchodilators. Blood cultures reveal no growth. She remains in a tall CAM boot for her right ankle fracture. The patient is seen today 12/27/2019 in follow-up on the regular medical floor. She is currently sitting up in a chair at the bedside. Awake and alert in no acute distress. She denies any worsening shortness of breath, cough or congestion. She is maintaining O2 saturations in the 90s on 3 L/m per nasal cannula alternating with BiPAP at 40% FiO2. Sodium 135. Potassium 5.1. Bicarb 43. Creatinine 2.54. She is having some continued right lower extremity pain due to the fall and fracture. Tall CAM boot remains in place. The patient is seen today 12/28/2019 in follow-up on the regular medical floor. She is currently awake and alert in no acute distress. She did develop increased lethargy and difficult to arouse once found being off of her oxygen last evening. She was placed back on her BiPAP. She had also received Ultram yesterday. She attends recovered and maintaining O2 saturations in the 90s on 3 L/m per nasal cannula. Sodium 134. Potassium 5.7. Bicarb 39. Creatinine 2.73. Nephrology is on the case. Ultrasound of the kidneys revealed increasing atrophy of both kidneys compared to previous study. She does have a history of chronic kidney disease stage IV with baseline creatinine of 2. This is felt to be secondary to cardiorenal syndrome and nephrosclerosis. The patient was seen today 12/29/2019 in follow-up on the regular medical floor. Earlier today the patient had taken her BiPAP off her face and staff found her quite obtunded and difficult to arouse. O2 saturations down to 78%. BiPAP was placed back on currently in the AV mode at a rate of 12 tidal volume 400 FiO2 80%. Sodium 131. Potassium 5.0. Chloride 83. Bicarb 39. BUN 107. Creatinine 2.86. Her overall prognosis remains quite poor. Family is considering transition to hospice. She is currently a DNR/DNI CODE STATUS. Objective - Vital Signs Vital signs: Vital Signs Temp 96.2 F L 12/29/19 11:42 Pulse 73 12/29/19 11:42 Resp 22 12/29/19 11:42 BP 134/63 12/29/19 11:42 Pulse Ox 73 L 12/29/19 11:42 Intake & Output 12/28/19 12/29/19 12/29/19 18:59 06:59 18:59 Intake Total 240 1340 20 Balance 240 1340 20 Intake: Intake, IV Titration 240 Amount Sodium Chloride 0.9% 1, 240 000 ml @ 20 mls/hr IV . Q24H [facility] Rx#:[id number] Oral 240 1100 20 Other: Voiding Method Incontinent Bedpan Bedpan # Voids 4 2 1 - Exam GENERAL EXAM: Obtunded 74-year-old female patient, currently on BiPAP at 80% FiO2 HEAD: Normocephalic. EYES: Normal reaction of pupils, equal size. NOSE: Clear with pink turbinates. THROAT: Crowding the posterior pharynx. No erythema or exudates. NECK: No masses, no JVD. CHEST: No chest wall deformity. LUNGS: Equal air entry with crackles in the posterior bases. Diminished. CVS: S1 and S2 normal with no audible murmur, regular rhythm. ABDOMEN: No hepatosplenomegaly, normal bowel sounds, no guarding or rigidity. SPINE: No scoliosis or deformity SKIN: No rashes CENTRAL NERVOUS SYSTEM: Obtunded, unable to evaluate tone is normal in all 4 extremities. EXTREMITIES: There is a tall CAM boot to the right ankle. There is no peripheral edema. No clubbing, no cyanosis. Peripheral pulses are intact. - Labs CBC & Chem 7: 12/26/19 06:00 12/29/19 05:52 Labs: Abnormal Lab Results - Last 24 Hours (Table) 12/28/19 12/28/19 12/28/19 Range/Units 16:57 17:25 20:05 Sodium (137-145) mmol/L Potassium 5.5 H (3.5-5.1) mmol/L Chloride (98-107) mmol/L Carbon Dioxide (22-30) mmol/L BUN (7-17) mg/dL Creatinine (0.52-1.04) mg/dL Glucose (74-99) mg/dL POC Glucose (mg/dL) 169 H 177 H (75-99) mg/dL Magnesium (1.6-2.3) mg/dL 12/29/19 12/29/19 12/29/19 Range/Units 05:52 06:40 09:00 Sodium 131 L (137-145) mmol/L Potassium (3.5-5.1) mmol/L Chloride 83 L (98-107) mmol/L Carbon Dioxide 39 H (22-30) mmol/L BUN 107 H* (7-17) mg/dL Creatinine 2.86 H (0.52-1.04) mg/dL Glucose 131 H (74-99) mg/dL POC Glucose (mg/dL) 133 H 206 H (75-99) mg/dL Magnesium 3.0 H (1.6-2.3) mg/dL 12/29/19 Range/Units 11:26 Sodium (137-145) mmol/L Potassium (3.5-5.1) mmol/L Chloride (98-107) mmol/L Carbon Dioxide (22-30) mmol/L BUN (7-17) mg/dL Creatinine (0.52-1.04) mg/dL Glucose (74-99) mg/dL POC Glucose (mg/dL) 148 H (75-99) mg/dL Magnesium (1.6-2.3) mg/dL Microbiology - Last 24 Hours (Table) 12/28/19 11:00 Gram Stain - Preliminary Sputum Sputum Culture - Preliminary Assessment and Plan Assessment: 1 Trauma secondary to fall with right knee and ankle injury with trimalleolar equivalent nondisplaced fracture and small avulsion fracture. Currently in a tall CAM boot 2 Acute on chronic hypercapnic/hypoxemic respiratory failure secondary to an acute exacerbation of diastolic congestive heart failure, COPD exacerbation, obesity/hypoventilation syndrome. On 12/29/2019 she was again found with her BiPAP off her face and quite obtunded. O2 saturations in the 70s. BiPAP was placed back on 80% FiO2 she remains on obtunded but O2 saturations improved 3 Obstructive sleep apnea maintained on CPAP in the outpatient setting set at 10 cm of water 4 Morbid obesity with previous lap band surgery 5 Acute on chronic renal failure with a history of chronic kidney disease stage IV with a baseline creatinine of 2 secondary to nephrosclerosis and cardiorenal syndrome. Ultrasound the kidneys reveals increased atrophy compared to previous 6 Diabetes mellitus 7 Hyperlipidemia 8 Hypertension 9 Previous smoking 10 Osteoarthritis 11 History of DVT 12 Depressive disorder, unspecified, possible adjustment disorder with depressed mood and anxiety 13 Poor overall functional performance based on the above-mentioned multiple comorbidities Plan: The patient was seen and evaluated by Dr. Birch She is currently requiring BiPAP support at 80% to maintain O2 saturations in the low 90s. Again her overall prognosis is quite poor She has been made a DO NOT RESUSCITATE/DO NOT INTUBATE CODE STATUS Family is considering hospice/comfort care I, the cosigning physician, performed a history & physical examination of the patient. Lungs sounds with few crackles in the posterior bases, diminished. Maintaining good O2 saturations in the 90s on with BiPAP at 80% FiO2. I discussed the assessment and plan of care with my nurse practitioner, Beverly Rowell. I attest to the above note as dictated by her.
[2019-12-29] MEDS ORDERED: NON FORMULARY DRUG (Dulaglutide [Trulicity] 1.5 MG) SQ SCH (14:48)
--- NOTE | 2019-12-30 08:00 | P.DS ---
Providers Date of admission: 12/25/19 10:11 Expected date of discharge: 12/30/19 Attending physician: Nikita Sullivan Consults: 12/23/19 13:57 Consult Physician Stat Consulting Provider: Nikita Sullivan Consult Reason/Comments: medical mangement Do you want consulting provider notified?: Already Contacted 12/23/19 15:00 Consult Physician Routine Consulting Provider: Timothy Franklin Consult Reason/Comments: Preop clearance Do you want consulting provider notified?: Yes 12/24/19 11:07 Consult Physician Routine Consulting Provider: Jason Birch Consult Reason/Comments: lethargic, CO2 retention Do you want consulting provider notified?: Yes 12/26/19 09:40 Consult Physician Routine Consulting Provider: Niall Hunter Consult Reason/Comments: philipp Do you want consulting provider notified?: Yes 12/26/19 16:30 Consult Physician Routine Consulting Provider: Brien Castrejon Consult Reason/Comments: Suicidal ideation Do you want consulting provider notified?: Yes Primary care physician: Adolfo Pulido [facility] Course: This is a 74-year-old female patient of Dr. Pulido and Dr. Franklin with past medical history of COPD, history of smoking quit in 2017, diabetes mellitus type 2, hypertension, hyperlipidemia, peripheral vascular disease, DVT, history of morbid obesity status post lap band, generalized anxiety disorder and recurrent depression, chronic kidney disease stage III, patient presented to the emergency department at [facility] after she had fallen yesterday trying to get out of her left chair at around 4:00 in the afternoon and she rolled her ankle and landed on her knees she became quite tender and she stayed on the floor for about 3-4 hours and her son was able to get her back into the lift chair, in the morning patient was complaining of increased swelling in the right ankle with some deformity her daughter insisted on bringing the patient to the emergency department by calling EMS patient has been having frequent falls at home and they have been having trouble managing her at home with her elder as well, patient was seen in the ER and she had an x-ray of the right ankle that showed trimalleolar fracture, she was admitted under orthopedic surgery were asked to see the patient for evaluation and preoperative medical clearance. 12/23: CAT scan of the right ankle revealed trimalleolar equivalent. Additional small avulsion fracture fragments in the region of the AIT FL. Marked soft tissue swelling. CAT scan of the brain and cervical spine revealed mild atrophy. No acute intracranial abnormality. No change. Mild degenerative changes in the lower cervical spine. No fracture. Orthopedics has evaluated and they are not planning on operative fixation of her ankle during the stay. Jaramillo has been ordered in case management is obtaining. Patient is to remain strictly nonweightbearing on her right leg plan for follow-up in 1 week with repeat x-rays of the ankle. Patient is afebrile, heart rate 76, blood pressure 152/66, pulse ox 92-98% on 5 L nasal cannula. Repeat blood work reveals WBC 6.8, hemoglobin 7.6. Sodium 138, potassium 5.0, chloride 88, CO2 47, BUN 74 and creatinine 1.3. Blood sugars running between 75 and 148. Stool for occult blood was negative. Patient is 75% of her breakfast. secured entrance monitor is in a sinus rhythm. Patient was obtunded during the night and placed on BiPAP. Consult will be added for Dr. Birch, DuoNeb treatment started and Levaquin added as well. Discharge plan will be to [facility] anticipated in the next 24-48 hours. PT and OT have been added. Cardiology has evaluated the patient and discontinued Entresto and plan to follow up with Dr. Franklin in the office. 12/24: Patient has been afebrile, heart rate 62, blood pressure 122/59, patient was on BiPAP during the night. Patient's mental status was much improved overnight. secured entrance monitor has been a sinus rhythm. Patient has home O2 at 2 and half to 3 L nasal cannula. She is currently on 5 L and pulse ox was checked at initially 8889 and improves to approximate 92 with deep breathing. Patient was found this morning without her oxygen and had significant mental status changes secondary to this. Repeat lab work revealed WBC 8.4, hemoglobin 7.4, platelet count 146. Sodium 137, potassium 5.7, chloride 90, CO2 42, BUN 79, creatinine 1.89. Blood sugars running between 81 and 281. The patient has been cleared by cardiology. Pulmonary medicine continues to follow the patient. We are planning to continue current medications and plan for possible discharge to [facility] tomorrow. 2: Patient has been afebrile, heart rate 58, blood pressure 95/53, pulse ox 92% on 5 L. Patient is stating that her breathing is about the same from yesterday. She is complaining of green yellow sputum production. Sputum culture ordered. She states she did not eat breakfast today and also complaining of not having a bowel movement for the past 5 days. Senokot added. Repeat blood work reveals WBC 6.6, hemoglobin 7.2, platelet count 171. Weight 137, potassium 5.3, chloride 89, CO2 41, BUN 82 and creatinine 2.3 to, blood sugar this morning was 43 with repeat 59 and currently 85. Levemir decreased to 14 units daily and switched to nighttime, glimepiride discontinued. Liver function tests are all normal. Hip x-ray ordered yesterday by orthopedics reveals no gross acute fracture or dislocation. Patient was cleared by orthopedics for discharge with plan for follow-up in one week. Lasix has been switched to oral once daily and parameters placed on atenolol and Norvasc. Iron studies ordered. 12/26: The patient was seen by nephrology with recommendations to continue Lasix 40 mg oral daily, check ABGs which were called to Dr. Birch, iron studies, add Aranesp and recheck labs in the morning. Patient was placed back on BiPAP yesterday to be used as needed and at bedtime. Patient is on tramadol 50 mg receiving twice daily as needed. Patient has received 1 dose of Dilaudid on December 22. Patient is afebrile, heart rate 78, blood pressure 115/54, pulse ox 92% on 5 L nasal cannula. Sodium 135, potassium 5.1, chloride 87, CO2 43, BUN 89 and creatinine 2.54. Blood sugars running between 70. Patient had suicidal ideation yesterday afternoon and consult was added for psychiatry. Patient apparently states that she wanted to . Patient is not eating and does not have much appetite. Staff state patient is eating 25-30% of her meals only. She continues to complain of constipation and has not had a bowel movement. Milk of magnesia with parent juice as well as lactulose added. Patient may require Dulcolax suppository if no results. 12/27: Patient has been seen by Dr. Castrejon from psychiatry with recommendations to start Remeron 15 mg at bedtime along with melatonin 3 mg at bedtime and start BuSpar 7.5 g twice daily. Patient has been afebrile, heart rate 60, blood pressure 114/56 and pulse ox 91% on 3 L nasal cannula. Repeat blood work reveals sodium 134, potassium 5.7, chloride 86, CO2 39, BUN 105, creatinine 2.73, blood sugar 67. Patient did receive 1 dose of IV Lasix yesterday evening. Dr. Hunter was recommended to hold Lasix. He has ordered IV Ferrlecit and patient will receive her second dose today. She was complaining of feeling hoarse. She denies any abdominal pain. She did have 3 bowel movements last evening. We will order renal ultrasound. Patient was also ordered for insulin and D50. 12/28: Renal ultrasound showed increasing atrophy of both kidneys without hydronephrosis. Patient is been afebrile, heart rate 63, blood pressure 130/52. Sodium 131, potassium 5.0, chloride 83, CO2 39, BUN 107, creatinine 2.86 urea blood sugars running between 89 and 133. Sputum culture has been collected. Patient had episode yesterday of obtundation and was found off her oxygen. Dr. Birch had discontinued tramadol. Today, nursing found patient again minimally responsive only to sternal rub and hypoxic down to 78%. Patient was placed on 40% BiPAP and was only pulse oxing 72% and then up to 85%. Patient's daughter was contacted by nursing regarding patient's condition. Dr. Thao also spoke with the patient's daughter and patient was made no code and later comfort care. We are transitioning to hospice care. Daughter is fine with [facility]. retail manager in training has been notified. Patient will be transitioned to hospice GIP once all arrangements are completed. Patient on the clay caster of December 29. Please see nursing documentation for details. Discharge diagnoses: 1. Status post fall with right ankle trimalleolar fracture. 2. Metabolic encephalopathy most likely secondary to obstructive sleep apnea and hypercapnia. 3. Acute on chronic hypercapnic and hypoxemic respiratory failure secondary to acute diastolic heart failure, COPD exacerbation and obesity hypoventilation syndrome.*Preliminary cause of 4. Chronic diastolic heart failure. 5. Hypertension and hypertensive cardiovascular disease. 6. Hyperlipidemia. 7. Carotid artery disease with moderate stenosis with greater than 70% of the left internal carotid artery and 60% right internal carotid artery. 8. Diabetes mellitus type 2 uncontrolled with hypoglycemia. 9. Acute kidney injury with chronic disease stage IV. 10. Mild hyperkalemia due to chronic kidney disease. 11. Obesity with sleep apnea. 12. Gout, chronic. 13. Restless leg syndrome. 14. Vitamin D deficiency. 15. Diabetic polyneuropathy. 16. Anemia of chronic disease. 17. Suicidal ideation and recurrent depression. 18. Hyperkalemia. Impression and plan of care have been directed as dictated by the signing physician. Martha Herrera nurse practitioner acting as scribe for signing physician. Patient Condition at Discharge: Good Plan - Discharge Summary Discharge Rx Participant: No New Discharge Prescriptions: Discontinued Sacubitril/Valsartan [Entresto 24 mg-26 mg Tablet] 1 tab PO DAILY No Action rOPINIRole HCL [Requip] 1 mg PO BID Pregabalin [Lyrica] 50 mg PO BID Glimepiride [Amaryl] 1 mg PO AC-BRKFST Atenolol [Tenormin] 100 mg PO HS Ergocalciferol (Vitamin D2) [Vitamin D2] 50,000 unit PO WE Calcitriol [Rocaltrol] 0.25 mcg PO DAILY Allopurinol [Zyloprim] 100 mg PO BID Furosemide [Lasix] 40 mg PO BID #60 tablet Dulaglutide [Trulicity] 1.5 mg SQ VASQUEZ Potassium Chloride ER [K-Dur 20] 20 meq PO BID Insulin Degludec [Tresiba Flextouch U-100] 16 units SQ DAILY Ferrous Sulfate [Iron (65 MG Elemental)] 325 mg PO DAILY Insulin Aspart [NovoLOG Flexpen] 20 units SQ AC-TID Atorvastatin [Lipitor] 80 mg PO HS #30 tab Liraglutide [Victoza 3-Robert] 0.6 mg SQ DAILY Clopidogrel Bisulfate [Plavix] 75 mg PO DAILY #30 tab Discharge Medication List Atenolol [Tenormin] 100 mg PO HS 12/12/16 [History] Ergocalciferol (Vitamin D2) [Vitamin D2] 50,000 unit PO WE 12/12/16 [History] Glimepiride [Amaryl] 1 mg PO AC-BRKFST 12/12/16 [History] Pregabalin [Lyrica] 50 mg PO BID 12/12/16 [History] rOPINIRole HCL [Requip] 1 mg PO BID 12/12/16 [History] Allopurinol [Zyloprim] 100 mg PO BID 07/11/17 [History] Calcitriol [Rocaltrol] 0.25 mcg PO DAILY 07/11/17 [History] Furosemide [Lasix] 40 mg PO BID #60 tablet 07/17/17 [Rx] Dulaglutide [Trulicity] 1.5 mg SQ VASQUEZ 11/14/19 [History] Ferrous Sulfate [Iron (65 MG Elemental)] 325 mg PO DAILY 11/14/19 [History] Insulin Aspart [NovoLOG Flexpen] 20 units SQ AC-TID 11/14/19 [History] Insulin Degludec [Tresiba Flextouch U-100] 16 units SQ DAILY 11/14/19 [History] Potassium Chloride ER [K-Dur 20] 20 meq PO BID 11/14/19 [History] Atorvastatin [Lipitor] 80 mg PO HS #30 tab 11/16/19 [Rx] Clopidogrel Bisulfate [Plavix] 75 mg PO DAILY #30 tab 11/16/19 [Rx] Liraglutide [Victoza 3-Robert] 0.6 mg SQ DAILY 11/16/19 [Rx] Follow up Appointment(s)/Referral(s): Timothy Franklin MD [STAFF PHYSICIAN] - 2 Weeks Adolfo Pulido DO [Primary Care Provider] - 1 Week (after discharge from [facility]) Franklin John MD [Medical Doctor] - 12/31/19 Discharge Disposition: DISCH TO HOSPICE MED FACILTY - Preliminary Cause of Preliminary Cause of : Acute chronic hypercapnic hypoxemic resp fx 2nd Ac diastolic HF, COPD
== END 2019-12-29 14:30 | disposition hospice, inpatient (51) | DRG 291 ==
LOC: EC 11:20 → 5NMEDONC 14:05 → OBSVTOIN 12-25 10:11
PROVIDERS: ADMIT Internal Medicine; ATTEND Internal Medicine
PROC: 5A09457 Assistance with Respiratory Ventilation, 24-96 Consecutive Hours, Continuous Positive Airway Pressure (ICD-10-PCS; principal; 2019-12-26)
DX: I13.0 Hypertensive heart and chronic kidney disease with heart failure and stage 1 through stage 4 chronic kidney disease, or unspecified chronic kidney disease (principal); I50.33 Acute on chronic diastolic (congestive) heart failure; J96.21 Acute and chronic respiratory failure with hypoxia; J96.22 Acute and chronic respiratory failure with hypercapnia; G93.41 Metabolic encephalopathy; J44.1 Chronic obstructive pulmonary disease with (acute) exacerbation; E66.2 Morbid (severe) obesity with alveolar hypoventilation; Z68.41 Body mass index [BMI] 40.0-44.9, adult; E87.4 Mixed disorder of acid-base balance; F33.9 Major depressive disorder, recurrent, unspecified; N17.9 Acute kidney failure, unspecified; N18.4 Chronic kidney disease, stage 4 (severe); R45.851 Suicidal ideations; K59.00 Constipation, unspecified; M1A.9XX0 Chronic gout, unspecified, without tophus (tophi); M50.33 Other cervical disc degeneration, cervicothoracic region; D63.1 Anemia in chronic kidney disease; E11.22 Type 2 diabetes mellitus with diabetic chronic kidney disease; E11.42 Type 2 diabetes mellitus with diabetic polyneuropathy; E11.51 Type 2 diabetes mellitus with diabetic peripheral angiopathy without gangrene; E11.649 Type 2 diabetes mellitus with hypoglycemia without coma; E55.9 Vitamin D deficiency, unspecified; D50.9 Iron deficiency anemia, unspecified; E78.5 Hyperlipidemia, unspecified; E87.5 Hyperkalemia; F41.9 Anxiety disorder, unspecified; G25.81 Restless legs syndrome; I35.0 Nonrheumatic aortic (valve) stenosis; M19.90 Unspecified osteoarthritis, unspecified site; R29.6 Repeated falls; S82.851A Displaced trimalleolar fracture of right lower leg, initial encounter for closed fracture; T50.2X5A Adverse effect of carbonic-anhydrase inhibitors, benzothiadiazides and other diuretics, initial encounter; W07.XXXA Fall from chair, initial encounter; X50.1XXA Overexertion from prolonged static or awkward postures, initial encounter; Z51.5 Encounter for palliative care; Z66 Do not resuscitate; Z79.02 Long term (current) use of antithrombotics/antiplatelets; Z79.4 Long term (current) use of insulin; Z79.899 Other long term (current) drug therapy; Z80.0 Family history of malignant neoplasm of digestive organs; Z82.5 Family history of asthma and other chronic lower respiratory diseases; Z83.3 Family history of diabetes mellitus; Z83.6 Family history of other diseases of the respiratory system; Z82.49 Family history of ischemic heart disease and other diseases of the circulatory system; Z86.718 Personal history of other venous thrombosis and embolism; Z87.891 Personal history of nicotine dependence; Z90.710 Acquired absence of both cervix and uterus; Z91.81 History of falling; Z98.84 Bariatric surgery status; Z99.81 Dependence on supplemental oxygen; I65.23 Occlusion and stenosis of bilateral carotid arteries; Z96.652 Presence of left artificial knee joint; F19.21 Other psychoactive substance dependence, in remission
CPT/HCPCS: 29515; 36415; 36600; 70450; 71045; 72125; 73501; 76770; 80048; 80053; 81001; 82272; 82550; 82607; 82728; 82746; 82805; 83540; 83550; 83735; 83880; 84132; 85025; 85027; 85045; 85610; 85730; 87070; 87205; 93005; 94640; 94660; 94760; 96361; 96374; 99285

== ENCOUNTER 2019-12-29 12:36 | Inpatient (IN) | payer MEDICAID ==
[2019-12-29] MEDS ORDERED: LORazepam 2 MG/ML INJ IV PRN (14:05)
[2019-12-29] MEDS ORDERED: ONDANSETRON 4 MG/2 ML VIAL IVP PRN (14:05)
[2019-12-29] MEDS ORDERED: ACETAMINOPHEN SUPPOSITORY 650 MG SUPP RECTAL PRN (14:05)
[2019-12-29] MEDS ORDERED: ATROPINE OPHTH SOLN 1% 5ML BTL SUBLINGUAL PRN (14:05)
[2019-12-29] MEDS ORDERED: MORPHINE SULFATE (100 MG/2 ML) 100 MG in SODIUM CHLORIDE 0.9% 100 ML IV SCH (14:15)
[2019-12-29] MEDS ORDERED: SCOPOLAMINE 1.5MG/72HR PATCH TRANSDERM SCH (14:15)
[2019-12-29] MEDS ORDERED: HYDROmorphone (PF) 50 MG in SODIUM CHLORIDE 0.9% 45 ML IV SCH (15:00)
[2019-12-29 20:57] VITALS: PULSE 59; RESP 21
== END 2019-12-30 01:15 | disposition expired | DRG 951 ==
LOC: 5NMEDONC 14:31
PROVIDERS: ADMIT Internal Medicine; ATTEND Internal Medicine
DX: Z51.5 Encounter for palliative care (principal); I50.33 Acute on chronic diastolic (congestive) heart failure; G93.41 Metabolic encephalopathy; J96.22 Acute and chronic respiratory failure with hypercapnia; J96.21 Acute and chronic respiratory failure with hypoxia; I13.0 Hypertensive heart and chronic kidney disease with heart failure and stage 1 through stage 4 chronic kidney disease, or unspecified chronic kidney disease; N18.4 Chronic kidney disease, stage 4 (severe); N17.9 Acute kidney failure, unspecified; Z68.41 Body mass index [BMI] 40.0-44.9, adult; F33.9 Major depressive disorder, recurrent, unspecified; R45.851 Suicidal ideations; D63.1 Anemia in chronic kidney disease; E11.42 Type 2 diabetes mellitus with diabetic polyneuropathy; E11.51 Type 2 diabetes mellitus with diabetic peripheral angiopathy without gangrene; E11.22 Type 2 diabetes mellitus with diabetic chronic kidney disease; S82.851A Displaced trimalleolar fracture of right lower leg, initial encounter for closed fracture; W19.XXXA Unspecified fall, initial encounter; R29.6 Repeated falls; E78.5 Hyperlipidemia, unspecified; I65.23 Occlusion and stenosis of bilateral carotid arteries; I08.0 Rheumatic disorders of both mitral and aortic valves; E87.5 Hyperkalemia; E66.9 Obesity, unspecified; G25.81 Restless legs syndrome; E55.9 Vitamin D deficiency, unspecified; F41.1 Generalized anxiety disorder; G47.30 Sleep apnea, unspecified; Z86.718 Personal history of other venous thrombosis and embolism; Z87.891 Personal history of nicotine dependence; Z90.710 Acquired absence of both cervix and uterus; Z98.84 Bariatric surgery status; Z96.652 Presence of left artificial knee joint; Z79.02 Long term (current) use of antithrombotics/antiplatelets; Z79.4 Long term (current) use of insulin; Z79.899 Other long term (current) drug therapy; Z83.3 Family history of diabetes mellitus; Z80.0 Family history of malignant neoplasm of digestive organs; Z83.6 Family history of other diseases of the respiratory system; Z82.49 Family history of ischemic heart disease and other diseases of the circulatory system